=== PATIENT | male | born 1970 | race Caucasian/White ===

== ENCOUNTER → 2016-04-08 | Outpatient (CLI) | payer OTHER ==
[~2016-04-08] MED LIST: ATOR40TA PO; DOXY75CA3 PO; HYDR25TAB PO; LEVA500T PO; LISI20TA PO; METF850T PO; NICO14DI3 TD; PENT40TASA PO; PROA1AER INH; TRIC1TAB PO; TYLE325T5 PO
--- NOTE | 2016-04-08 09:16 | REP ---
Left lower extremity duplex venous ultrasound: Venous insufficiency reflux study. History: Venous ulcer left leg. Comparison is made with prior study from November 17, 2015 which documented extensive reflux with collaterals at multiple levels. Today's venous findings: An anterior accessory greater saphenous vein is present and severe reflux is seen within it. It measures 10.1 mm in AP dimension. Reflux of duration is 3.6 seconds. The greater saphenous vein measures 9 mm in AP dimension at the saphenofemoral junction and 4.3 seconds of significant reflux is observed at this level. At mid thigh, the greater saphenous vein measures 7.3 mm in AP dimension and 4.3 cm of reflux is seen. At the knee, the greater saphenous vein measures 7.4 mm in AP dimension and 4.5 seconds of severe reflux is observed. Impression: Severe reflux is again seen in the greater saphenous and anterior accessory greater saphenous veins. Both sides would appear to be amendable to EVLT. Signed by Mika Dowling MD 04/08/2016 10:23 A
== END | disposition home or self-care (01) ==
LOC: M RAD 06:23
PROVIDERS: ATTEND Surgery
DX: I83.029 Varicose veins of left lower extremity with ulcer of unspecified site (principal)

== ENCOUNTER 2016-05-17 10:29 | Emergency (ER) | payer OTHER ==
[2016-05-17] MEDS ORDERED: NORCO, ANEXSIA 5/325MG TABLET (HYDROcodone/ACETAMINOPHEN) As Ordered ONE (10:59)
--- NOTE | 2016-05-17 11:53 | REP ---
TWO-VIEW CHEST: COMPARISON: 09/26/2011 There is no evidence of acute infiltrate. No pleural effusion is seen. The heart is normal in size. The mediastinal silhouette is unremarkable. The visualized osseous structures are intact. There are degenerative changes of the spine. IMPRESSION: No acute pulmonary disease. Signed by Elijah Modi MD 05/17/2016 04:58 P
--- NOTE | 2016-05-17 11:54 | REP ---
RIGHT SHOULDER: Three views of the right shoulder are performed and demonstrate no fracture or dislocation. There is mild spurring and joint space narrowing of the acromioclavicular joint. IMPRESSION: Mild degenerative changes. No fracture or dislocation. Signed by Elijah Modi MD 05/17/2016 04:58 P
--- NOTE | 2016-05-17 12:07 | EDDOCDS ---
Physician Documentation [facility] Name: Cisco Moss Age: 45 yrs Sex: Male : 1970 Arrival Date: 05/17/2016 Time: 10:29 Bed PR Private MD: Disposition: 05/17/16 11:51 Discharged to Home/Self Care. Impression: Strain of muscle(s) and tendon(s) of the rotator cuff of right shoulder, Strain of muscle and tendon of front wall of thorax. - Condition is Stable. - Discharge Instructions: Chest Wall Pain, Shoulder Sprain. - Prescriptions for Naprosyn 500 mg Oral Tablet - take 1 tablet by ORAL route 2 times per day take with food; 30 tablet. Cyclobenzaprine 10 mg Oral Tablet - take 1 tablet by ORAL route 3 times per day As needed; 15 tablet. - Work Release Form - 3 day, Medication Reconciliation form. - Follow up: Private Physician; When: Call to arrange an appointment; Reason: Wound/Symptom Recheck, Recheck today's complaints, Worsening of conditions, Continuance of care. - Problem is an ongoing problem. - Symptoms have improved. Historical: - Allergies: no known allergies; - Home Meds: 1. lisinopril-hydrochlorothiazide 20-12.5 mg oral tab 1 tab once daily (Last dose: 05/17/2016 07:30) 2. metformin 850 mg Oral tab 3 times per day (Last dose: 05/17/2016 07:30) 3. atorvastatin 40 mg oral tab 1 tab once daily (Last dose: 05/17/2016 07:30) - PMHx: Diverticulitis; Hypertension; Kidney stones; Diabetes - NIDDM: uncontrolled; Obesity; Hypercholesterolemia; - PSHx: vascular surgery; Vasectomy; - Social history: Smoking status: Patient uses tobacco products, current every day smoker. No barriers to communication noted, The patient speaks fluent Tajik, Speaks appropriately for age. - Family history: Not pertinent. - : The pt / caregiver states he / she is not on anticoagulants. Home medication list is obtained from the patient. - Exposure Risk Screening:: None identified. Vital Signs: 05/17 10:31 BP 165 / 104; Pulse 73; Resp 20; Temp 97.2(O); Pulse Ox 98% on R/A; Weight 158.76 kg / nb2 350.01 lbs (R); Height 6 ft. 0 in. (182.88 cm) (R); Pain 7/10; 10:49 BP 166 / 93; Pulse 73; ar3 11:55 BP 160 / 98; Pulse 67; Resp 20; Temp 98.5(TE); Pulse Ox 97% on R/A; Pain 6/10; ar3 10:31 Body Mass Index 47.47 (158.76 kg, 182.88 cm) nb2 MDM: 10:50 HYDROcodone-acetaminophen 5 mg-325 mg 2 tabs PO once ordered. cc10 10:50 Chest, 2 View (pa\E\lat) Ordered. EDMS 10:50 Shoulder, Complete Ordered. EDMS 10:58 Financial registration complete. lg 11:17 [facility] Payment Agreement was scanned into [employer] and attached to record. lg Administered Medications: 11:01 Drug: HYDROcodone-acetaminophen 2 tabs [hydrocodone 5 mg-acetaminophen 325 mg tablet (2 ead tabs)] Route: PO; Signatures: Dispatcher [employer] EDMS Joann Sprague, Reg Reg lg Karo Leal,RN RN dsf Juan M Woo, PA-C PA-C cc10 Migdalia Caceres RN eablair The chart was reviewed and I authenticate all verbal orders and agree with the evaluation and treatment provided.Attachments: 11:17 [facility] Payment Agreement lg MTDD
--- NOTE | 2016-05-17 12:07 | EDDOCDS ---
Nurse's Notes [facility] Name: Cisco Moss Age: 45 yrs Sex: Male : 1970 Arrival Date: 05/17/2016 Time: 10:29 Bed PR Private MD: Diagnosis: Strain of muscle(s) and tendon(s) of the rotator cuff of right shoulder;Strain of muscle and tendon of front wall of thorax Presentation: 05/17 10:36 Presenting complaint: Patient states: 2 days ago working on a vehicle and he heard dsf something pop. pt c/o right shoulder pain, right sided chest pain and it hurts to breath. Acute neurological deficits are not present. Mechanism of Injury: No Mechanism of Injury. Adult Sepsis Screening: The patient does not have new or worsening altered mentation. Patient's respiratory rate is less than 22. Systolic blood pressure is greater than 100. Patient has a qSOFA score of 0- Negative Sepsis Screen. Suicide/Homicide risk assessment- the patient denies having any suicidal and/or homicidal ideations and does not present with any other emotional, behavioral or mental health complaints. 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 Transition of care: patient was not received from another setting of care. 10:36 Acuity: LIANE Level 4 dsf 10:36 Method Of Arrival: Walkin/Carried/Asstd dsf Triage Assessment: 10:38 General: Appears uncomfortable, Behavior is appropriate for age, cooperative. Pain: dsf Location: right shoukder blade area Pain currently is 7 out of 10 on a pain scale. Quality of pain is described as sharp, Aggravated by deep breathing and movement. HIV screening NA for this visit Offered previously. Respiratory: Reports pain with respiration Pain is 10 out of 10 on a pain scale. Musculoskeletal: Reports pain in right shoulder blade. Historical: - Allergies: no known allergies; - Home Meds: 1. lisinopril-hydrochlorothiazide 20-12.5 mg oral tab 1 tab once daily (Last dose: 05/17/2016 07:30) 2. metformin 850 mg Oral tab 3 times per day (Last dose: 05/17/2016 07:30) 3. atorvastatin 40 mg oral tab 1 tab once daily (Last dose: 05/17/2016 07:30) - PMHx: Diverticulitis; Hypertension; Kidney stones; Diabetes - NIDDM: uncontrolled; Obesity; Hypercholesterolemia; - PSHx: vascular surgery; Vasectomy; - Social history: Smoking status: Patient uses tobacco products, current every day smoker. No barriers to communication noted, The patient speaks fluent Kyrgyz, Speaks appropriately for age. - Family history: Not pertinent. - : The pt / caregiver states he / she is not on anticoagulants. Home medication list is obtained from the patient. - Exposure Risk Screening:: None identified. Screenin:04 Screening information is obtained from the patient. Fall risk: No risks identified. dsf Assistance ADL's: requires no assistance with activities of daily living. Abuse/DV Screen: The patient / caregiver reports he/she is: not in a situation that causes fear, pain or injury. Nutritional screening: No deficits noted. Advance Directives: Currently, there is no health care proxy. home support is adequate. Assessment: 12:04 Adult Sepsis Screening: The patient does not have new or worsening altered mentation. dsf Patient's respiratory rate is less than 22. Systolic blood pressure is greater than 100. Patient has a qSOFA score of 0- Negative Sepsis Screen. General: Appears in no apparent distress, comfortable, Behavior is appropriate for age, cooperative. Pain: Location: right shoulder Pain currently is 5 out of 10 on a pain scale. Neurological: No deficits noted. Cardiovascular: No deficits noted. Respiratory: No deficits noted. Derm: Skin is pink, warm & dry. Vital Signs: 10:31 BP 165 / 104; Pulse 73; Resp 20; Temp 97.2(O); Pulse Ox 98% on R/A; Weight 158.76 kg nb2 (R); Height 6 ft. 0 in. (182.88 cm) (R); Pain 7/10; 10:49 BP 166 / 93; Pulse 73; ar3 11:55 BP 160 / 98; Pulse 67; Resp 20; Temp 98.5(TE); Pulse Ox 97% on R/A; Pain 6/10; ar3 10:31 Body Mass Index 47.47 (158.76 kg, 182.88 cm) banner Vitals: 10:31 Log In Time: May 17, 2016 at 10:23. 2 ED Course: 10:31 Patient visited by Oriana Leonard. nb2 10:31 Patient moved to Waiting 2 10:33 Patient visited by Oriana Leonard. nb2 10:33 Patient moved to Pre RCE nb2 10:37 Triage Initiated dsf 10:39 Patient moved to Triage 3 dsf 10:40 Alex Miranda PA-C is PHCP. ar2 10:40 Cyril Aggarwal MD is Attending Physician. ar2 10:40 Patient visited by Alex Miranda PA-C. ar2 10:42 PHCP role handed off by Alex Miranda PA-C cc10 10:42 Juan M Woo PA-C is PHCP. cc10 10:50 Patient visited by Adelina Vigil PCA. ar3 11:01 Patient moved to TR2 ead 11:17 [facility] Payment Agreement was scanned into [employer] and attached to record. lg 11:51 Patient moved to PR1 / 25 ar3 11:55 Patient visited by Adelina Vigil PCA. ar3 12:04 The patient / caregiver is instructed regarding the plan of care and ED course. dsf 12:04 No IV's were initiated during this patient's visit. No procedures done that require dsf assistance. Administered Medications: 11:01 Drug: HYDROcodone-acetaminophen 2 tabs [hydrocodone 5 mg-acetaminophen 325 mg tablet (2 ead tabs)] Route: PO; Order Results: There are currently no results for this order. Outcome: 11:51 Discharge ordered by Provider. cc10 12:04 Discharge Assessment: Patient awake, alert and oriented x 3. No cognitive and/or dsf functional deficits noted. Patient verbalized understanding of disposition instructions. patient administered narcotics - no. The following High Risk Discharge criteria are identified: None. Discharged to home ambulatory. Condition: stable. Discharge instructions given to patient, Instructed on discharge instructions, follow up and referral plans. medication usage, no driving heavy equipment, Demonstrated understanding of instructions, medications, Pt was receptive of discharge instructions/ teaching. Prescriptions given X 2, Work note provided to patient. No special radiology studies were completed. Property sent home with patient. 12:06 Patient left the ED. dsf Signatures: Joann Sprague, Reg Reg lg Alex Miranda PA-C PA-C ar2 Adelina Vigil PCA GASOLINE TRACTOR OPERATOR ar3 Karo Leal RN RN dsf Migdalia Caceres RN RN ead Juan M Woo, PA-C PA-C cc10 Oriana Leonard MTDD
--- NOTE | 2016-05-19 13:06 | EDDOCDS ---
Physician Documentation [facility] Name: Cisco Moss Age: 45 yrs Sex: Male : 1970 Arrival Date: 05/17/2016 Time: 10:29 Bed PR Private MD: Disposition: 05/17/16 11:51 Discharged to Home/Self Care. Impression: Strain of muscle(s) and tendon(s) of the rotator cuff of right shoulder, Strain of muscle and tendon of front wall of thorax. - Condition is Stable. - Discharge Instructions: Chest Wall Pain, Shoulder Sprain. - Prescriptions for Naprosyn 500 mg Oral Tablet - take 1 tablet by ORAL route 2 times per day take with food; 30 tablet. Cyclobenzaprine 10 mg Oral Tablet - take 1 tablet by ORAL route 3 times per day As needed; 15 tablet. - Work Release Form - 3 day, Medication Reconciliation form. - Follow up: Private Physician; When: Call to arrange an appointment; Reason: Wound/Symptom Recheck, Recheck today's complaints, Worsening of conditions, Continuance of care. - Problem is an ongoing problem. - Symptoms have improved. Historical: - Allergies: no known allergies; - Home Meds: 1. lisinopril-hydrochlorothiazide 20-12.5 mg oral tab 1 tab once daily (Last dose: 05/17/2016 07:30) 2. metformin 850 mg Oral tab 3 times per day (Last dose: 05/17/2016 07:30) 3. atorvastatin 40 mg oral tab 1 tab once daily (Last dose: 05/17/2016 07:30) - PMHx: Diverticulitis; Hypertension; Kidney stones; Diabetes - NIDDM: uncontrolled; Obesity; Hypercholesterolemia; - PSHx: vascular surgery; Vasectomy; - Social history: Smoking status: Patient uses tobacco products, current every day smoker. No barriers to communication noted, The patient speaks fluent Yi, Speaks appropriately for age. - Family history: Not pertinent. - : The pt / caregiver states he / she is not on anticoagulants. Home medication list is obtained from the patient. - Exposure Risk Screening:: None identified. Vital Signs: 05/17 10:31 BP 165 / 104; Pulse 73; Resp 20; Temp 97.2(O); Pulse Ox 98% on R/A; Weight 158.76 kg / nb2 350.01 lbs (R); Height 6 ft. 0 in. (182.88 cm) (R); Pain 7/10; 10:49 BP 166 / 93; Pulse 73; ar3 11:55 BP 160 / 98; Pulse 67; Resp 20; Temp 98.5(TE); Pulse Ox 97% on R/A; Pain 6/10; ar3 12:06 Pain 5/10; dsf 10:31 Body Mass Index 47.47 (158.76 kg, 182.88 cm) nb2 MDM: 10:50 HYDROcodone-acetaminophen 5 mg-325 mg 2 tabs PO once ordered. cc10 10:50 Chest, 2 View (pa\E\lat) Ordered. EDMS 10:50 Shoulder, Complete Ordered. EDMS 10:58 Financial registration complete. lg 11:17 [facility] Payment Agreement was scanned into [employer] and attached to record. lg Administered Medications: 11:01 Drug: HYDROcodone-acetaminophen 2 tabs [hydrocodone 5 mg-acetaminophen 325 mg tablet (2 ead tabs)] Route: PO; 12:06 Follow up: Pain 5/10 Adult; Response: Confirmed pt not driving. dsf Signatures: Dispatcher [employer] EDMS Joann Sprague, Reg Reg lg Karo Leal RN RN dsf Juan M Woo PA-C PA-C ccMigdalia Ye RN The chart was reviewed and I authenticate all verbal orders and agree with the evaluation and treatment provided.Attachments: 11:17 [facility] Payment Agreement lg Chart Complete MTDD
--- NOTE | 2016-05-19 13:06 | EDDOCDS ---
Physician Documentation [facility] Name: Cisco Moss Age: 45 yrs Sex: Male : 1970 Arrival Date: 05/17/2016 Time: 10:29 Bed PR Private MD: Disposition: 05/17/16 11:51 Discharged to Home/Self Care. Impression: Strain of muscle(s) and tendon(s) of the rotator cuff of right shoulder, Strain of muscle and tendon of front wall of thorax. - Condition is Stable. - Discharge Instructions: Chest Wall Pain, Shoulder Sprain. - Prescriptions for Naprosyn 500 mg Oral Tablet - take 1 tablet by ORAL route 2 times per day take with food; 30 tablet. Cyclobenzaprine 10 mg Oral Tablet - take 1 tablet by ORAL route 3 times per day As needed; 15 tablet. - Work Release Form - 3 day, Medication Reconciliation form. - Follow up: Private Physician; When: Call to arrange an appointment; Reason: Wound/Symptom Recheck, Recheck today's complaints, Worsening of conditions, Continuance of care. - Problem is an ongoing problem. - Symptoms have improved. Historical: - Allergies: no known allergies; - Home Meds: 1. lisinopril-hydrochlorothiazide 20-12.5 mg oral tab 1 tab once daily (Last dose: 05/17/2016 07:30) 2. metformin 850 mg Oral tab 3 times per day (Last dose: 05/17/2016 07:30) 3. atorvastatin 40 mg oral tab 1 tab once daily (Last dose: 05/17/2016 07:30) - PMHx: Diverticulitis; Hypertension; Kidney stones; Diabetes - NIDDM: uncontrolled; Obesity; Hypercholesterolemia; - PSHx: vascular surgery; Vasectomy; - Social history: Smoking status: Patient uses tobacco products, current every day smoker. No barriers to communication noted, The patient speaks fluent Turkmen, Speaks appropriately for age. - Family history: Not pertinent. - : The pt / caregiver states he / she is not on anticoagulants. Home medication list is obtained from the patient. - Exposure Risk Screening:: None identified. Vital Signs: 05/17 10:31 BP 165 / 104; Pulse 73; Resp 20; Temp 97.2(O); Pulse Ox 98% on R/A; Weight 158.76 kg / nb2 350.01 lbs (R); Height 6 ft. 0 in. (182.88 cm) (R); Pain 7/10; 10:49 BP 166 / 93; Pulse 73; ar3 11:55 BP 160 / 98; Pulse 67; Resp 20; Temp 98.5(TE); Pulse Ox 97% on R/A; Pain 6/10; ar3 12:06 Pain 5/10; dsf 10:31 Body Mass Index 47.47 (158.76 kg, 182.88 cm) nb2 MDM: 10:50 HYDROcodone-acetaminophen 5 mg-325 mg 2 tabs PO once ordered. cc10 10:50 Chest, 2 View (pa\E\lat) Ordered. EDMS 10:50 Shoulder, Complete Ordered. EDMS 10:58 Financial registration complete. lg 11:17 [facility] Payment Agreement was scanned into [employer] and attached to record. lg Administered Medications: 11:01 Drug: HYDROcodone-acetaminophen 2 tabs [hydrocodone 5 mg-acetaminophen 325 mg tablet (2 ead tabs)] Route: PO; 12:06 Follow up: Pain 5/10 Adult; Response: Confirmed pt not driving. dsf Signatures: Dispatcher [employer] EDMS Joann Sprague, Reg Reg lg Karo Leal RN RN dsf Juan M Woo PA-C PA-C ccMigdalia Ye RN The chart was reviewed and I authenticate all verbal orders and agree with the evaluation and treatment provided.Attachments: 11:17 [facility] OF [facility] Payment Agreement lg Chart Complete MTDD
--- NOTE | 2016-05-19 13:06 | EDDOCDS ---
Nurse's Notes [facility] Name: Cisco Moss Age: 45 yrs Sex: Male : 1970 Arrival Date: 05/17/2016 Time: 10:29 Bed PR Private MD: Diagnosis: Strain of muscle(s) and tendon(s) of the rotator cuff of right shoulder;Strain of muscle and tendon of front wall of thorax Presentation: 05/17 10:36 Presenting complaint: Patient states: 2 days ago working on a vehicle and he heard dsf something pop. pt c/o right shoulder pain, right sided chest pain and it hurts to breath. Acute neurological deficits are not present. Mechanism of Injury: No Mechanism of Injury. Adult Sepsis Screening: The patient does not have new or worsening altered mentation. Patient's respiratory rate is less than 22. Systolic blood pressure is greater than 100. Patient has a qSOFA score of 0- Negative Sepsis Screen. Suicide/Homicide risk assessment- the patient denies having any suicidal and/or homicidal ideations and does not present with any other emotional, behavioral or mental health complaints. 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 Transition of care: patient was not received from another setting of care. 10:36 Acuity: LIANE Level 4 dsf 10:36 Method Of Arrival: Walkin/Carried/Asstd dsf Triage Assessment: 10:38 General: Appears uncomfortable, Behavior is appropriate for age, cooperative. Pain: dsf Location: right shoukder blade area Pain currently is 7 out of 10 on a pain scale. Quality of pain is described as sharp, Aggravated by deep breathing and movement. HIV screening NA for this visit Offered previously. Respiratory: Reports pain with respiration Pain is 10 out of 10 on a pain scale. Musculoskeletal: Reports pain in right shoulder blade. Historical: - Allergies: no known allergies; - Home Meds: 1. lisinopril-hydrochlorothiazide 20-12.5 mg oral tab 1 tab once daily (Last dose: 05/17/2016 07:30) 2. metformin 850 mg Oral tab 3 times per day (Last dose: 05/17/2016 07:30) 3. atorvastatin 40 mg oral tab 1 tab once daily (Last dose: 05/17/2016 07:30) - PMHx: Diverticulitis; Hypertension; Kidney stones; Diabetes - NIDDM: uncontrolled; Obesity; Hypercholesterolemia; - PSHx: vascular surgery; Vasectomy; - Social history: Smoking status: Patient uses tobacco products, current every day smoker. No barriers to communication noted, The patient speaks fluent [place], Speaks appropriately for age. - Family history: Not pertinent. - : The pt / caregiver states he / she is not on anticoagulants. Home medication list is obtained from the patient. - Exposure Risk Screening:: None identified. Screenin:04 Screening information is obtained from the patient. Fall risk: No risks identified. dsf Assistance ADL's: requires no assistance with activities of daily living. Abuse/DV Screen: The patient / caregiver reports he/she is: not in a situation that causes fear, pain or injury. Nutritional screening: No deficits noted. Advance Directives: Currently, there is no health care proxy. home support is adequate. Assessment: 12:04 Adult Sepsis Screening: The patient does not have new or worsening altered mentation. dsf Patient's respiratory rate is less than 22. Systolic blood pressure is greater than 100. Patient has a qSOFA score of 0- Negative Sepsis Screen. General: Appears in no apparent distress, comfortable, Behavior is appropriate for age, cooperative. Pain: Location: right shoulder Pain currently is 5 out of 10 on a pain scale. Neurological: No deficits noted. Cardiovascular: No deficits noted. Respiratory: No deficits noted. Derm: Skin is pink, warm & dry. Vital Signs: 10:31 BP 165 / 104; Pulse 73; Resp 20; Temp 97.2(O); Pulse Ox 98% on R/A; Weight 158.76 kg nb2 (R); Height 6 ft. 0 in. (182.88 cm) (R); Pain 7/10; 10:49 BP 166 / 93; Pulse 73; ar3 11:55 BP 160 / 98; Pulse 67; Resp 20; Temp 98.5(TE); Pulse Ox 97% on R/A; Pain 6/10; ar3 12:06 Pain 5/10; dsf 10:31 Body Mass Index 47.47 (158.76 kg, 182.88 cm) [facility] Vitals: 10:31 Log In Time: May 17, 2016 at 10:23. [facility] ED Course: 10:31 Patient visited by Oriana Leonard. nb2 10:31 Patient moved to Waiting nb2 10:33 Patient visited by Oriana Leonard. nb2 10:33 Patient moved to Pre RCE nb2 10:37 Triage Initiated dsf 10:39 Patient moved to Triage 3 dsf 10:40 Alex Miranda PA-C is PHCP. ar2 10:40 Cyril Aggarwal MD is Attending Physician. ar2 10:40 Patient visited by Alex Miranda PA-C. ar2 10:42 PHCP role handed off by Alex Miranda PA-C cc10 10:42 Juan M Woo PA-C is PHCP. cc10 10:50 Patient visited by Adelina Vigil PCA. ar3 11:01 Patient moved to TR2 ead 11:17 [facility] Payment Agreement was scanned into [employer] and attached to record. lg 11:51 Patient moved to PR1 / 25 ar3 11:55 Patient visited by Adelina Vigil PCA. ar3 12:04 The patient / caregiver is instructed regarding the plan of care and ED course. dsf 12:04 No IV's were initiated during this patient's visit. No procedures done that require dsf assistance. 12:07 Chest, 2 View (pa\E\lat) Returned. EDMS 12:07 Shoulder, Complete Returned. EDMS Administered Medications: 11:01 Drug: HYDROcodone-acetaminophen 2 tabs [hydrocodone 5 mg-acetaminophen 325 mg tablet (2 ead tabs)] Route: PO; 12:06 Follow up: Pain 5/10 Adult; Response: Confirmed pt not driving. dsf Order Results: Radiology Order: Chest, 2 View (pa\E\lat) Test: Chest, 2 View (pa\E\lat) REASON FOR EXAMINATION: Shortness of Breath; TWO-VIEW CHEST:; ; COMPARISON: 09/26/2011; ; There is no evidence of acute infiltrate.; ; No pleural effusion is seen.; ; The heart is normal in size.; ; The mediastinal silhouette is unremarkable.; ; The visualized osseous structures are intact.; ; There are degenerative changes of the spine.; ; IMPRESSION:; ; No acute pulmonary disease.; ; ; Signed by; Elijah Modi MD 05/17/2016 04:58 P; Radiology Order: Shoulder, Complete Test: Shoulder, Complete REASON FOR EXAMINATION: Trauma; RIGHT SHOULDER:; ; Three views of the right shoulder are performed and demonstrate no fracture or; dislocation. There is mild spurring and joint space narrowing of the; acromioclavicular joint.; ; IMPRESSION:; ; Mild degenerative changes. No fracture or dislocation.; ; ; Signed by; Elijah Modi MD 05/17/2016 04:58 P; Outcome: 11:51 Discharge ordered by Provider. cc10 12:04 Discharge Assessment: Patient awake, alert and oriented x 3. No cognitive and/or dsf functional deficits noted. Patient verbalized understanding of disposition instructions. patient administered narcotics - no. The following High Risk Discharge criteria are identified: None. Discharged to home ambulatory. Condition: stable. Discharge instructions given to patient, Instructed on discharge instructions, follow up and referral plans. medication usage, no driving heavy equipment, Demonstrated understanding of instructions, medications, Pt was receptive of discharge instructions/ teaching. Prescriptions given X 2, Work note provided to patient. No special radiology studies were completed. Property sent home with patient. 12:06 Patient left the ED. dsf Signatures: Dispatcher [employer] EDMS Joann Sprague, Reg Reg lg Alex Miranda, LORENZOC PAWeiC ar2 Adelina Vigil, WASTEWATER T[employer]ATMENT PLANT OPERATOR WASTEWATER TREATMENT PLANT OPERATOR ar3 Karo Leal RN RN dsf Migdalia Caceres RN RN ead [place], Colin, DONALDO PAElizabeth cc10 Oriana Leonard2 Chart Complete MTDD
== END 2016-05-17 12:06 | disposition home or self-care (01) ==
LOC: M ED 10:29
DX: S46.911A Strain of unspecified muscle, fascia and tendon at shoulder and upper arm level, right arm, initial encounter (principal); S29.011A Strain of muscle and tendon of front wall of thorax, initial encounter; K57.92 Diverticulitis of intestine, part unspecified, without perforation or abscess without bleeding; I10 Essential (primary) hypertension; E11.9 Type 2 diabetes mellitus without complications; E66.9 Obesity, unspecified; E78.00 Pure hypercholesterolemia, unspecified; F17.210 Nicotine dependence, cigarettes, uncomplicated; Z79.899 Other long term (current) drug therapy; Z68.42 Body mass index [BMI] 45.0-49.9, adult; X58.XXXA Exposure to other specified factors, initial encounter; Y92.89 Other specified places as the place of occurrence of the external cause; Y93.89 Activity, other specified; Y99.9 Unspecified external cause status

== ENCOUNTER 2016-05-26 10:17 | Emergency (ER) | payer OTHER ==
[~2016-05-26] VITALS: Ht 182.9 cm; Wt 169.2 kg
[2016-05-26] MEDS ORDERED: HYDR-3713 PO (10:47)
[2016-05-26] MEDS ORDERED: MOBI7.5T10 PO (12:04)
[2016-05-26] MEDS ORDERED: ZANA4TAB PO (12:06)
[2016-05-26 12:28] VITALS: BP 127/79
== END 2016-05-26 12:44 | disposition home or self-care (01) ==
LOC: M ED 11:31
DX: M54.6 Pain in thoracic spine (principal); R07.89 Other chest pain; S43.401A Unspecified sprain of right shoulder joint, initial encounter; X58.XXXA Exposure to other specified factors, initial encounter; Y92.89 Other specified places as the place of occurrence of the external cause; Y93.89 Activity, other specified; Y99.0 Civilian activity done for income or pay; I10 Essential (primary) hypertension; E11.9 Type 2 diabetes mellitus without complications; E78.5 Hyperlipidemia, unspecified; F17.210 Nicotine dependence, cigarettes, uncomplicated; Z79.899 Other long term (current) drug therapy

== ENCOUNTER 2016-10-03 13:16 | Emergency (ER) | payer OTHER, SELFPAY ==
[~2016-10-03] VITALS: Ht 182.9 cm; Wt 173.7 kg
[~2016-10-03 13:16] MED LIST changes: -ATOR40TA PO; +ATOR40TA75 PO; +HYDR-3713 PO; +LEVA1TAB2 PO; -LEVA500T PO; -METF850T PO; +METF850T4 PO; +MOBI4TAB PO; -PROA1AER INH; +PROAAER10 INH; +ZANA4TAB PO
[2016-10-03] MEDS ORDERED: ONDANSETRON 4MG/2ML VIAL (J2405) IV ONE (13:30)
[2016-10-03] MEDS ORDERED: MORPHINE 4 MG/ML 1ML SYRINGE IV ONE ×2 (13:30→16:30)
[2016-10-03] MEDS ORDERED: METF10004 PO (13:30)
--- NOTE | 2016-10-03 14:05 | REP ---
Chest two views HISTORY: Cellulitis Comparison: 05/17/2016 The lungs are clear. The heart is normal in size. The pulmonary vasculature is normal in appearance. The bony structure is intact. IMPRESSION: No acute disease. Signed by Macho Hayes MD 10/03/2016 01:55 P
--- NOTE | 2016-10-03 14:41 | REP ---
LEFT TIBIA, FIBULA, FOUR VIEWS: HISTORY: Cellulitis. There is no acute fracture or dislocation. The joint spaces are normal in appearance. Osteophytes are present on the inferior and posterior calcaneus. IMPRESSION: There is no acute fracture or dislocation. Signed by Macho Hayes MD 10/03/2016 02:42 P
[2016-10-03 14:53] LABS: BASO % 0.4 % (0.0-1.0); EOS # 0.3 K/mm3 (0.0-0.50); EOS % 2.7 % (0.0-3.0); LARGE UNSTAINED CELL # 0.1 K/mm3 (0.0-0.4); LARGE UNSTAINED CELL % 1.1 % (0.0-4.0); LYMPH # 1.5 K/mm3 (1.5-4.5); LYMPH % 12.3 % (24.0-44.0); MEAN CORPUSCULAR HEMOGLOBIN 31.4 pg (27.0-33.0); MEAN CORPUSCULAR VOLUME 92.6 fl (80.0-96.0); MONO # 0.6 K/mm3 (0.0-0.8); MONO % 5.8 % (0.0-5.0); NEUTROPHILS # 8.5 K/mm3 (1.8-7.7); NEUTROPHILS % 77.7 % (36.0-66.0); PLATELET COUNT, AUTOMATED 239 k/mm3 (150-450); RED CELL DISTRIBUTION WIDTH 12.8 % (11.5-14.5); WHITE BLOOD COUNT 10.9 K/mm3 (4.0-10.0)
[2016-10-03 14:57] LABS: INR 0.95
[2016-10-03] MEDS ORDERED: LISI10TA4 PO (14:59)
[2016-10-03] MEDS ORDERED: ALBU17IN INH (14:59)
[2016-10-03 15:00] LABS: ALBUMIN 3.7 GM/DL (3.2-5.2); ALBUMIN/GLOBULIN RATIO 1.16 (1.00-1.93); ALKALINE PHOSPHATASE 82 U/L (45-117); ALT/SGPT 35 U/L (12-78); ANION GAP 4 MEQ/L (8-16); AST/SGOT 15 U/L (15-37); BILIRUBIN,DIRECT 0.1 MG/DL (0.0-0.2); BILIRUBIN,TOTAL 0.4 MG/DL (0.2-1.0); BLOOD UREA NITROGEN 11 MG/DL (7-18); CALCIUM LEVEL 8.9 MG/DL (8.5-10.1); CARBON DIOXIDE LEVEL 29 MEQ/L (21-32); CHLORIDE LEVEL 107 MEQ/L (98-107); GLOMERULAR FILTRATION RATE > 60.0 (>60); GLUCOSE, FASTING 82 MG/DL (70-105); SODIUM LEVEL 140 MEQ/L (136-145); TOTAL PROTEIN 6.9 GM/DL (6.4-8.2)
[2016-10-03] MEDS ORDERED: SANT250O8 TOP (15:02)
[2016-10-03] MEDS ORDERED: LISI-538 PO (15:02)
--- NOTE | 2016-10-03 15:10 | REP ---
BILATERAL LOWER EXTREMITY DUPLEX VEINS: HISTORY: Rule out DVT. The examination is very limited secondary to body habitus. RIGHT LOWER EXTREMITY: There are no filling defects in the deep venous system. The deep venous system is patent. IMPRESSION: There is no deep venous thrombosis. LEFT LOWER EXTREMITY: There are no filling defects in the deep venous system. The deep venous system is patent. A varicose vein is present in the left mid thigh. Enlarged lymph nodes 3.8 x 4.4 cm are present in the left groin. IMPRESSION: 1. There is no deep venous thrombosis. 2. There are two enlarged lymph nodes in the left groin. Signed by Macho Hayes MD 10/03/2016 03:20 P
[2016-10-03 15:12] LABS: ERYTHROCYTE SEDIMENTATION RATE 9 mm/hr (0-15)
[2016-10-03] MEDS ORDERED: VANCOMYCIN HCL 1,000 MG, VIAL MATE ADAPTER 1 EACH in D5W 250 ML IV ONE (15:15)
[2016-10-03] MEDS ORDERED: PIPERACILLIN/TAZOBACTAM SOD 3.375 GM in D5W MINI-BAG PLUS 50 ML IV ONE (15:15)
[2016-10-03] MEDS ORDERED: BACT800T5 PO (17:30)
[2016-10-03 18:13] VITALS: BP 119/60
--- NOTE | 2016-10-04 07:55 | ER ---
DATE OF CONSULTATION: 10/03/2016 PRIMARY CARE PROVIDER: [facility]. CHIEF COMPLAINT: Left ankle pain. 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 He previously followed with Dr. Graham for many years and had improvement in his ulcer, however, when he was displeased with Dr. Graham's progress, he did seek a second opinion with an alternative hoop expander. Since then, the patient has reportedly been noncompliant with medications and dressing changes and notes a worsening of it. He also has had some worsening pain of the left ankle. He denies fevers, chills, chest pain, shortness of breath, nausea, vomiting, or diarrhea. 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 PAST MEDICAL HISTORY: 1. Obesity. 2. Type 2 diabetes. 3. Hypertension. 4. Dyslipidemia. 5. Asthma. 6. Gastroesophageal reflux disease (GERD). 7. Obstructive sleep apnea. ALLERGIES: The patient has no known drug allergies. PAST SURGICAL HISTORY: Vasectomy and vascular surgery of the left leg in 2014. SOCIAL HISTORY: Smokes half a pack a day. 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 He is and takes care of five children. He is currently unemployed. He has been noncompliant and admits to this. FAMILY HISTORY: Noncontributory. REVIEW OF SYSTEMS: Negative other than in history of present illness (HPI). HOME MEDICATIONS: - Ventolin two puffs four times a day as needed for shortness of breath - collagenase 250 units topically daily - lisinopril 20 mg daily - metformin 1 gram twice a day PHYSICAL EXAMINATION: VITAL SIGNS: Temperature 96.9, pulse 66, respiratory rate 16, blood pressure 149/66, oxygen saturation 96% on room air. GENERAL: He is an obese, man, laying in bed comfortably, in no distress. HEENT: Cranial nerves II-XII are grossly intact. He has an enlarged neck. CARDIOVASCULAR EXAM: S1, S2, regular. RESPIRATORY EXAM: Clear. ABDOMINAL EXAM: Grossly obese. EXTREMITIES: No clubbing, cyanosis, or edema. He has a chronic wound. No obvious areas of fresh erythema. No streaking. No lymphangitis. No palpable lymphadenopathy in the inguinal area or popliteal area. He does have a silver dollar sized superficial ulcer with serous drainage. LABORATORY STUDIES: WBC 10.9, hemoglobin 14.5, hematocrit 42.8, platelet count 239. Chemistry panel: Sodium 140, potassium 4.0, chloride 107, bicarbonate 29, BUN 11, creatinine 0.7, CRP is 1.3. ESR is 9. INR is 0.9. Blood cultures have been drawn and wound cultures have been drawn in the emergency room. The patient did have a duplex ultrasound that revealed no deep venous thrombosis (DVT). He had a tibia/fibula x-ray that revealed no acute fracture or dislocation. He also had a chest x-ray that revealed no acute disease. ASSESSMENT AND PLAN: This is a 46-year-old man with possible cellulitis of the left lower extremity. 1. Possible cellulitis. The patient has some serous discharge and does have a chronic wound there with some mild worsening and pain. He may have some very mild superficial cellulitis in the surrounding area, however he is not febrile, he does not have significant leukocytosis, he is not tachycardic, he is not hemodynamically unstable, he is tolerating by mouth quite well. There is no evidence of advancing infection. I feel that the worsening of his wound is likely secondary to noncompliance and not due to actually any serious or deep infection. He has a flat ESR and unimpressive C-reactive protein (CRP). I have recommended that he take Bactrim DS twice a day for 10 days and followup closely with his wound care and if he had better results with Dr. Graham, consider going back to him. I have also suggested and stressed strict compliance with all medical therapies and dressing changes as advised by providers as this wound will not get any better unless he does this and he could have worsening super infections that could threaten his limb. Given that he is unemployed and has difficulty caring for the wound at home, I have asked a social work msw to see him prior to him leaving the emergency room to ensure that he is able to receive wound care supplies. He has established with two wound clinics at this time and I feel he is better served by visiting them. His international trade specialist does not see him should he be admitted to this hospital and he does not wish to be seen by Dr. Graham who he was seen previously by. Plan of care was discussed with Dr. Modi. ROSANNA
== END 2016-10-03 18:20 | disposition home or self-care (01) ==
LOC: M ED 13:16 → EDBD 13:16 → M ED 18:20
DX: E11.622 Type 2 diabetes mellitus with other skin ulcer (principal); B95.62 Methicillin resistant Staphylococcus aureus infection as the cause of diseases classified elsewhere; B96.1 Klebsiella pneumoniae [K. pneumoniae] as the cause of diseases classified elsewhere; I11.0 Hypertensive heart disease with heart failure; F32.9 Major depressive disorder, single episode, unspecified; E78.00 Pure hypercholesterolemia, unspecified; Z87.442 Personal history of urinary calculi
CPT/HCPCS: 36415; 71020; 73590; 80048; 80076; 83605; 85025; 85610; 85652; 85730; 86140; 87040; 87070; 87077; 87186; 87205; 93041; 93970; 94760; 96365; 96375; 96376; 99285; J2405; J2543; J3370

== ENCOUNTER 2016-11-02 20:00 | Emergency (ER) | payer OTHER ==
[~2016-11-02] VITALS: Ht 182.9 cm; Wt 179.6 kg
[~2016-11-02 20:00] MED LIST changes: +ALBU17IN INH; +BACT800T5 PO; +LISI-538 PO; +LISI10TA4 PO; +METF10004 PO; +SANT250O8 TOP
[2016-11-02 20:11] VITALS: BP 140/91
[2016-11-02 22:00] LABS: ADD MANUAL DIFFER YES; MEAN CORPUSCULAR HEMOGLOBIN 31.8 pg (27.0-33.0); MEAN CORPUSCULAR HGB CONC 34.5 g/dl (32.0-36.5); PLATELET COUNT, AUTOMATED 268 k/mm3 (150-450); RED CELL DISTRIBUTION WIDTH 12.5 % (11.5-14.5); WHITE BLOOD COUNT 10.5 K/mm3 (4.0-10.0)
[2016-11-02 22:07] LABS: ALBUMIN 4.2 GM/DL (3.2-5.2); ALBUMIN/GLOBULIN RATIO 1.27 (1.00-1.93); ALKALINE PHOSPHATASE 89 U/L (45-117); ALT/SGPT 28 U/L (12-78); ANION GAP 5 MEQ/L (8-16); AST/SGOT 12 U/L (15-37); BILIRUBIN,TOTAL 0.5 MG/DL (0.2-1.0); BLOOD UREA NITROGEN 17 MG/DL (7-18); CALCIUM LEVEL 8.7 MG/DL (8.5-10.1); CARBON DIOXIDE LEVEL 29 MEQ/L (21-32); CHLORIDE LEVEL 108 MEQ/L (98-107); CREATININE FOR GFR 0.88 MG/DL (0.70-1.30); GLOMERULAR FILTRATION RATE > 60.0 (>60); GLUCOSE, FASTING 92 MG/DL (70-105); POTASSIUM SERUM 4.1 MEQ/L (3.5-5.1); SODIUM LEVEL 142 MEQ/L (136-145); TOTAL PROTEIN 7.5 GM/DL (6.4-8.2)
[2016-11-02] MEDS ORDERED: PERCOCET 5MG/325MG TAB PO ONE (22:15)
[2016-11-02] MEDS ORDERED: DOXY100C37 PO (22:33)
[2016-11-02 22:36] LABS: EOSINOPHILS 4 % (0-5)
== END 2016-11-02 22:54 | disposition home or self-care (01) ==
LOC: M ED 20:00
DX: L03.116 Cellulitis of left lower limb (principal); L89.524 Pressure ulcer of left ankle, stage 4; E11.621 Type 2 diabetes mellitus with foot ulcer; I87.2 Venous insufficiency (chronic) (peripheral); I10 Essential (primary) hypertension; J42 Unspecified chronic bronchitis; F17.210 Nicotine dependence, cigarettes, uncomplicated; Z79.899 Other long term (current) drug therapy; Z79.84 Long term (current) use of oral hypoglycemic drugs

== ENCOUNTER 2016-12-13 13:57 | Inpatient (IN) | payer OTHER ==
[~2016-12-13] VITALS: Ht 182.9 cm; Wt 182.8 kg
[~2016-12-13 13:57] MED LIST changes: +DOXY100C37 PO
[2016-12-13] MEDS ORDERED: MORPHINE 4 MG/ML 1ML SYRINGE IV PRN (16:00)
[2016-12-13] MEDS ORDERED: ONDANSETRON 4MG/2ML VIAL (J2405) IV ONE (16:00)
[2016-12-13 16:07] LABS: BASO % 0.3 % (0.0-1.0); EOS # 0.3 10^3/uL (0.0-0.50); EOS % 1.9 % (0.0-3.0); IMMATURE GRANULOCYTE % 0.4 % (0-0); LYMPH # 1.3 10^3/uL (1.5-4.5); LYMPH % 10.4 % (24.0-44.0); MEAN CORPUSCULAR HEMOGLOBIN 30.9 pg (27.0-33.0); MEAN CORPUSCULAR VOLUME 93.5 fl (80.0-96.0); MONO # 0.9 10^3/uL (0.0-0.8); MONO % 6.9 % (0.0-5.0); NEUTROPHILS # 10.3 10^3/uL (1.8-7.7); NEUTROPHILS % 80.1 % (36.0-66.0); PLATELET COUNT, AUTOMATED 277 10^3/uL (150-450); RED CELL DISTRIBUTION WIDTH 13.1 % (11.5-14.5); WHITE BLOOD COUNT 12.9 10^3/uL (4.0-10.0)
[2016-12-13 16:25] LABS: ALBUMIN 3.3 GM/DL (3.2-5.2); ALBUMIN/GLOBULIN RATIO 1.03 (1.00-1.93); ALKALINE PHOSPHATASE 72 U/L (45-117); ALT/SGPT 31 U/L (12-78); ANION GAP 8 MEQ/L (8-16); AST/SGOT 12 U/L (15-37); BILIRUBIN,DIRECT 0.1 MG/DL (0.0-0.2); BILIRUBIN,TOTAL 0.4 MG/DL (0.2-1.0); BLOOD UREA NITROGEN 14 MG/DL (7-18); CALCIUM LEVEL 8.4 MG/DL (8.5-10.1); CARBON DIOXIDE LEVEL 29 MEQ/L (21-32); CHLORIDE LEVEL 107 MEQ/L (98-107); CREATININE FOR GFR 0.64 MG/DL (0.70-1.30); GLOMERULAR FILTRATION RATE > 60.0 (>60); GLUCOSE, FASTING 101 MG/DL (70-105); SODIUM LEVEL 144 MEQ/L (136-145); TOTAL PROTEIN 6.5 GM/DL (6.4-8.2)
[2016-12-13 16:36] LABS: ERYTHROCYTE SEDIMENTATION RATE 12 mm/hr (0-15)
[2016-12-13] MEDS ORDERED: VANCOMYCIN HCL 1,000 MG, VIAL MATE ADAPTER 1 EACH in D5W 250 ML IV ONE ×3 (16:45→20:00)
[2016-12-13] MEDS ORDERED: MORPHINE 4 MG/ML 1ML SYRINGE IV ONE (16:45)
[2016-12-13] MEDS ORDERED: ACETAMINOPHEN TAB 650MG DOSE (2X325MG) PO PRN (17:00)
[2016-12-13] MEDS ORDERED: BISACODYL 5 MG TAB PO PRN (17:00)
[2016-12-13] MEDS ORDERED: ONDANSETRON 4MG/2ML VIAL (J2405) IV PRN (17:00)
[2016-12-13] MEDS ORDERED: ALBU17IN INH (17:09)
[2016-12-13] MEDS ORDERED: SANT250O8 TOP (17:09)
[2016-12-13] MEDS: NS 1,000 ML IV SCH ×2 (17:39→23:55)
--- NOTE | 2016-12-13 18:21 | HPEPDOC ---
General Date of Admission Dec 13, 2016 at 16:48 Primary Care Physician: Gisela Fields Chief Complaint The patient is a 46-year-old male admitted with a reason for visit of Osteomyelitis. Source: Patient Exam Limitations: No limitations Timing/Duration: Day(s) (4) Severity: Severe History of Present Illness 46 y/o male with past medical history of HTN, DM2, hyperlipidemia, neuropathy, NIMCO who presents today with complaint of increasing pain and swelling of left lower extremity., pt states that for the past few days the pain in his left lateral ankle has been increasing. He admits he cannot afford many of the proper diabetic wound supplies and has been supplementing with diapers to use as bandages to wrap it in. He used to see Dr. Graham for wound care and a local crystal grinder, but has not seen any health care provider for his ankle ulcer in about "2-6 months" (pt gives vague history). He states that the pain is constant in the left lower extremity but the pain has been getting worse for the past few days and really progressed today. He denied chills or fever but states that his legs swell very badly by the end of the day. The pain extends up the left leg to her knee and every once in a while he will experience a " jolt of pain" in the left leg. He knew he needed to come into the hospital because the pain was unbearable. He does have a history of diabetic ulcer in the same location at which he was admitted last year for, apparently this is an ongoing issue for him. Home Medications Scheduled Collagenase (Santyl) 250 Unit/Gm Oin, 1 DOSE TOP DAILY, (Reported) APPLY TO WOUND ON LEG Scheduled PRN Albuterol Sulfate (Ventolin Hfa) 200 Puff/8 Gm Aers, 2 PUFF INH QID PRN for SHORTNESS OF BREATH, (Reported) Allergies Coded Allergies: No Known Drug Allergy (Verified Allergy, Unknown, 06/20/12) Past Medical History Medical History htn gerd hyperlipidemia neuropathy nimco hx diabetic left lateral ankle ulcer Family History Significant Family History: No pertinent family hx Social History * Smoker: current smoker (1/2 ppd for past 20 years) Alcohol: Denies Drugs: denies has been out of work for a couple weeks due to pain, 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 Review of Symptoms Constitutional: Reports: Malaise, Weakness, Fatigue, Denies: Chills, Fever, Night Sweats, Weight Loss Eyes: Denies: Pain, Vision change, Conjunctivae inflammation ENT: Reports: Head Aches, Denies: Ear Pain Skin: Reports: Lesions (left lateral ankle), Denies: Rash, Jaundice, Bruising Pulmonary: Denies: Dyspnea, Cough Cardiovascular: Denies: Chest Pain, Palpitations, Orthopnea Gastrointestinal: Denies: Nausea, Vomiting, Abdominal Pain, Diarrhea, Constipation Genitourinary: Denies: Dysuria Hematologic: Denies: Bruising, Bleeding Excessively Neurological: Denies: Weakness, Numbness, Incoordination Psych: Reports: Mood Normal Physical Examination General Exam: Positive: Alert, Cooperative, Moderate Distress Eye Exam: Positive: Conjunctiva & lids normal, EOMI, Negative: Sclera icteric, Ptosis ENT Exam: Positive: Atraumatic, Mucous membr. moist/pink, Pharynx Normal, Tongue Midline, Nares Patent Neck Exam: Negative: JVD Chest Exam: Positive: Clear to auscultation, Normal air movement, Diminished, Negative: Rales, Rhonchi, Wheezing Heart Exam: Positive: Rate Normal, Normal S1, Normal S2, Negative: Gallops, Murmurs, Rubs Telemetry: Positive: No significant arrhythmia Abdomen Exam: Positive: Normal bowel sounds, Soft, Negative: Tenderness, Hepatospenomegaly, Mass Extremity Exam: Positive: Edema (Left LE), Normal pulses, Tenderness (left LE) , Swelling (b/l pitting +1 LE), Negative: Clubbing, Cyanosis Skin Exam: Positive: Breakdown (left lateral ankle diabetic ulcer grade 4 on imaging), Other skin issue (red, tender, swelling left lower extremity +2), Negative: Pruritus Psych Exam: Positive: Mental status NL, Oriented x 3 Vital Signs Vital Signs Date Time Temp Pulse Resp B/P (MAP) Pulse Ox O2 Delivery O2 Flow Rate FiO2 12/13/16 17:35 18 12/13/16 14:20 12/13/16 14:07 98.2 81 96 Room Air Laboratory Data Labs 24H Laboratory Tests 2 12/13/16 15:05: White Blood Count 12.9H, Red Blood Count 4.44, Hemoglobin 13.7L, Hematocrit 41.5L, Mean Corpuscular Volume 93.5, Mean Corpuscular Hemoglobin 30.9, Mean Corpuscular Hemoglobin Concent 33.0, Red Cell Distribution Width 13.1, Platelet Count 277, Neutrophils (%) (Auto) 80.1H, Lymphocytes (%) (Auto) 10.4L, Monocytes (%) (Auto) 6.9H, Eosinophils (%) (Auto) 1.9, Basophils (%) (Auto) 0.3 , Neutrophils # (Auto) 10.3H, Lymphocytes # (Auto) 1.3L, Monocytes # (Auto) 0.9H , Eosinophils # (Auto) 0.3, Basophils # (Auto) 0.0, Immature Granulocyte # (Auto ) 0.1H, Nucleated Red Blood Cells % (auto) 0.0, Erythrocyte Sedimentation Rate 12, Anion Gap 8, Glomerular Filtration Rate > 60.0, Calcium Level 8.4L, Aspartate Amino Transf (AST/SGOT) 12L, Alanine Aminotransferase (ALT/SGPT) 31, Alkaline Phosphatase 72, Total Bilirubin 0.4, Direct Bilirubin 0.1, C-Reactive Protein, Quantitative 1.23H, Total Protein 6.5, Albumin 3.3, Albumin/Globulin Ratio 1.03 CBC/BMP Laboratory Tests 12/13/16 15:05 Red Blood Count 4.44, Mean Corpuscular Volume 93.5, Mean Corpuscular Hemoglobin 30.9, Mean Corpuscular Hemoglobin Concent 33.0, Red Cell Distribution Width 13.1 , Neutrophils (%) (Auto) 80.1 H, Lymphocytes (%) (Auto) 10.4 L, Monocytes (%) ( Auto) 6.9 H, Eosinophils (%) (Auto) 1.9, Basophils (%) (Auto) 0.3, Neutrophils # (Auto) 10.3 H, Lymphocytes # (Auto) 1.3 L, Monocytes # (Auto) 0.9 H, Eosinophils # (Auto) 0.3, Basophils # (Auto) 0.0 Microbiology Microbiology 12/13/16 Blood Culture, Received Pending 12/13/16 Blood Culture, Received Pending 12/13/16 Wound Culture, Received Pending Problems (1) Osteomyelitis Status: Acute Response to Treatment: Stable Problem Text: afebrile white count 12.9 preliminary x-ray showed suspect osteomyelitis of left lateral distal fibula surgery consulted-greatly appreciate their recommendations, may have to be debrided wound and blood cx pending begin Vancomycin, cover for pseudomonas cefepime 2 gm IV q12h pain control morphine and oxy and tylenol (2) HTN (hypertension) Status: Chronic Problem Text: stable 135/86 (3) Hyperlipemia Status: Chronic Response to Treatment: Stable Problem Text: stable (4) DM type 2 (diabetes mellitus, type 2) Status: Chronic Response to Treatment: Stable Problem Text: sliding scale insulin (5) DVT prophylaxis Status: Acute Response to Treatment: Stable Problem Text: heparin therapy Plan / VTE VTE Prophylaxis Ordered?: Yes GME ATTESTATION GME ATTESTATION My preceptor for this patient encounter was physically present in the building during the encounter and was fully available. As needed, all aspects of the patient interview, examination, medical decision making process, and medical care plan development were reviewed and approved by the preceptor. Preceptor is aware and concurs with the plan as stated in the body of this note and will attest to such by his/her cosignature. CHRIS ORTIZ DO Dec 13, 2016 18:21
[2016-12-13] MEDS ORDERED: cefTAZidime 2 GM in D5W MINI-BAG PLUS 100 ML IV SCH (18:30)
--- NOTE | 2016-12-13 18:59 | REP ---
LEFT ANKLE: Four views of the left ankle are performed. Large soft tissue ulcer is seen laterally. The adjacent distal fibula demonstrates slightly irregular periosteal reaction. I suspect osteomyelitis involving the distal fibula. There is no acute fracture or dislocation. The ankle mortise is anatomic. There is diffuse soft-tissue swelling. There is calcaneal spurring as well as spurring of the tarsal bones. Signed by Elijah Modi MD 12/14/2016 05:19 P
--- NOTE | 2016-12-13 20:21 | CR.PDOC ---
[facility] Consultation Consultation DATE OF CONSULTATION: Dec 13, 2016 at 13:57 REFERRING PROVIDER: Dr. Alvarado ATTENDING PHYSICIAN: Dr. Anderson REASON FOR CONSULTATION/CHIEF COMPLAINT: Venous ulcer HISTORY OF PRESENT ILLNESS: Mr. Peck is a 46, year-old white male, past medical history of hypertension, type 2 diabetes, hyperlipidemia, neuropathy, NIMCO , presents to the ED today with 2 days of painful venous stasis ulcer. He reports a two-year history of venous stasis ulcer. Patient was seeing Dr. 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 Patient states that when he was originally diagnosed, he had surgery on this left leg ulcer. However he was unable to afford the compression stockings needed for proper wound care. And as such his wound never really healed. Patient also states that he cannot afford wound dressing and Supplies. He uses diapers to wrap his left foot ulcer. He presented to the ED today because his pain is getting worse, to the point that is affecting his ability to walk. Patient admits to yellowish drainage from the foot ulcer. He denies fevers and chills. ALLERGIES: Please see below. HOME MEDICATIONS: Please see below. PAST MEDICAL HISTORY: Hypertension GERD Venous stasis MRSA in left foot ulcer Diabetes type 2 NIMCO PAST SURGICAL HISTORY: Stasis of vein surgery FAMILY HISTORY: Noncontributory SOCIAL HISTORY: current smoker (1/2 ppd for past 20 years), denies alcohol denies drugs. Patient is currently without a job REVIEW OF SYSTEMS: CONSTITUTIONAL: Denies fevers denies chills or night sweats with CARDIOVASCULAR: No chest pain no palpitations RESPIRATORY: Shortness of breath GENITOURINARY: No issues urinating, eyes hematuria MUSCULOSKELETAL: Admits to left foot pain. GASTROINTESTINAL: Eyes nausea vomiting. SKIN: Admits to red coloring, and pus drainage from the left stasis venous ulcer. PHYSICAL EXAMINATION: VITAL SIGNS: Please see below. GENERAL APPEARANCE: Obese gentleman RESPIRATORY: Lungs are clear to auscultate bilaterally CARDIOVASCULAR: S1 and S2 present, no murmurs, no rubs, soda. ABDOMEN: Obese abdomen. EXTREMITIES: Left leg is edematous.3+ pitting edema, Normal pulses, Tenderness to palpate left leg SKIN: Erythematous, crusted, yellow purulent drainage from a left stasis ulcer located laterally on the left leg. Ulcer is about 2.5 x 2 x 1 cm in size LABORATORY DATA: Please see below. ASSESSMENT/PLAN: 1. A 46-year-old, obese gentleman presents with a two-year history of left stasis venous ulcer. In the past 2 days the pain has increased to the point that it is unbearable. The left leg is visibly edematous, with yellow crusty/ purulent drainage from the leg. Plan: Venous ulcer, most likely from venous insufficiency along with severe lymphedema. Pt will be admitted for wound care. Wet-to-dry wound care will be applied. Jeff wrap will be applied from the ankle to the knee. The leg will be elevated. Patient's bed will be gatched to allow for decrease swelling. Wound care has been consulted. PT has been consulted with instructions to use pulse lavage. I expect patient be on inpatient status for about a week, for proper wound care. Patient has been placed on bedrest, with instructions to get up to use the bathroom. I also recommend that patient speak to a bariatric surgeon about gastric bypass. Vital Signs/I&O Vital Signs Date Time Temp Pulse Resp B/P (MAP) Pulse Ox O2 Delivery O2 Flow Rate FiO2 12/13/16 19:00 97.6 72 20 96 12/13/16 18:01 174/80 (111) 12/13/16 14:07 Room Air I&O- Last 24 Hours up to 6 AM 12/14/16 06:00 Intake Total 0 ml Output Total 0 ml Balance 0 ml Laboratory Data Labs 24H Laboratory Tests 2 12/13/16 15:05: White Blood Count 12.9H, Red Blood Count 4.44, Hemoglobin 13.7L, Hematocrit 41.5L, Mean Corpuscular Volume 93.5, Mean Corpuscular Hemoglobin 30.9, Mean Corpuscular Hemoglobin Concent 33.0, Red Cell Distribution Width 13.1, Platelet Count 277, Neutrophils (%) (Auto) 80.1H, Lymphocytes (%) (Auto) 10.4L, Monocytes (%) (Auto) 6.9H, Eosinophils (%) (Auto) 1.9, Basophils (%) (Auto) 0.3 , Neutrophils # (Auto) 10.3H, Lymphocytes # (Auto) 1.3L, Monocytes # (Auto) 0.9H , Eosinophils # (Auto) 0.3, Basophils # (Auto) 0.0, Immature Granulocyte # (Auto ) 0.1H, Nucleated Red Blood Cells % (auto) 0.0, Erythrocyte Sedimentation Rate 12, Anion Gap 8, Glomerular Filtration Rate > 60.0, Calcium Level 8.4L, Aspartate Amino Transf (AST/SGOT) 12L, Alanine Aminotransferase (ALT/SGPT) 31, Alkaline Phosphatase 72, Total Bilirubin 0.4, Direct Bilirubin 0.1, C-Reactive Protein, Quantitative 1.23H, Total Protein 6.5, Albumin 3.3, Albumin/Globulin Ratio 1.03 CBC/BMP Laboratory Tests 12/13/16 15:05 Red Blood Count 4.44, Mean Corpuscular Volume 93.5, Mean Corpuscular Hemoglobin 30.9, Mean Corpuscular Hemoglobin Concent 33.0, Red Cell Distribution Width 13.1 , Neutrophils (%) (Auto) 80.1 H, Lymphocytes (%) (Auto) 10.4 L, Monocytes (%) ( Auto) 6.9 H, Eosinophils (%) (Auto) 1.9, Basophils (%) (Auto) 0.3, Neutrophils # (Auto) 10.3 H, Lymphocytes # (Auto) 1.3 L, Monocytes # (Auto) 0.9 H, Eosinophils # (Auto) 0.3, Basophils # (Auto) 0.0 Microbiology Microbiology 12/13/16 Blood Culture, Received Pending 12/13/16 Blood Culture, Received Pending 12/13/16 Wound Culture, Received Pending Allergies Coded Allergies: No Known Drug Allergy (Verified Allergy, Unknown, 06/20/12) Home Medications Scheduled Collagenase (Santyl) 250 Unit/Gm Oin, 1 DOSE TOP DAILY, (Reported) APPLY TO WOUND ON LEG Scheduled PRN Albuterol Sulfate (Ventolin Hfa) 200 Puff/8 Gm Aers, 2 PUFF INH QID PRN for SHORTNESS OF BREATH, (Reported) GME ATTESTATION GME ATTESTATION My preceptor for this patient encounter was physically present in the building during the encounter and was fully available. As needed, all aspects of the patient interview, examination, medical decision making process, and medical care plan development were reviewed and approved by the preceptor. Preceptor is aware and concurs with the plan as stated in the body of this note and will attest to such by his/her cosignature. KATHRINE ABBOTT DO Dec 13, 2016 20:21
[2016-12-13] MEDS ORDERED: DEXTROSE 50% 50 ML SYRINGE IV PRN (20:45)
[2016-12-13] MEDS ORDERED: GLUCOSE 4 GM CHEW TABLET PO PRN (20:45)
[2016-12-13] MEDS ORDERED: GLUCAGON FOR INJ 1 MG VIAL (J1610) SC PRN (20:45)
[2016-12-13] MEDS: HumaLOG INSULIN (NovoLOG) PER UNIT SC SCH (21:00)
[2016-12-13] MEDS: SENOKOT S TAB PO SCH (21:00)
--- NOTE | 2016-12-13 21:40 | REPUSA ---
MRI of the right ankle Clinical statement: Wound on the lateral aspect. Rule out osteomyelitis. Technique: Multiecho multiplanar MRI images of the ankle were obtained before and after administratio n of intravenous gadolinium contrast. No comparison is available. Findings: Ligaments and tendons: The anterior, medial and lateral tendons of the ankle demonstrate normal signa l and contour. The Achilles tendon is within normal limits. The medial and lateral ligament complexes are intact. Articular cartilage: Uniform signal and contour seen throughout the articular cartilage, with no oste ochondral defects appreciated. Bones: The osseous structures demonstrate uniform signal. No osseous tumors or lesions are seen. The bone marrow is unremarkable. Soft tissues: A large open wound is seen lateral to the distal tibia, measuring 4.3 x 1.4 cm. The roland rounding soft tissues are diffusely swollen, most severe along the lateral aspect. Extensive soft tis cynthia edema is noted at the site. The musculature appears within normal limits. No evidence of a joint effusion is seen. Numerous varicose veins are seen in the lateral distal calf. Impression: 1. No focal osseous abnormality. No evidence of osteomyelitis. 2. Large open wound along the lateral ankle joint. 3. Extensive soft tissue edema and inflammation throughout the ankle joint, most prominent along the lateral aspect. No focal mass or abscess is identified. The findings are most consistent with diffuse cellulitis. Clinical correlation is recommended. ORZATA
[2016-12-13] MEDS: MORPHINE 2 MG/ML 1ML SYRINGE IV PRN (21:54)
[2016-12-13 22:00] VITALS: BP 157/85
[2016-12-13] MEDS: HEPARIN SOD (PORCINE) 5000 UNITS/ML VIAL SC SCH (22:55)
[2016-12-13] MEDS: CEFEPIME HCL 2 GM in D5W MINI-BAG PLUS 50 ML IV SCH (23:54)
[2016-12-14] MEDS: VANCOMYCIN HCL 1,000 MG, VIAL MATE ADAPTER 1 EACH in D5W 250 ML IV SCH ×3 (02:26→17:51)
[2016-12-14] MEDS: VANCOMYCIN HCL 500 MG in D5W MINI-BAG PLUS 100 ML IV SCH ×3 (03:59→19:43)
[2016-12-14 06:00] VITALS: BP 151/95
[2016-12-14] MEDS: HEPARIN SOD (PORCINE) 5000 UNITS/ML VIAL SC SCH ×3 (06:28→21:51)
[2016-12-14 06:29] LABS: BASO # 0.1 10^3/uL (0.0-0.2); BASO % 0.6 % (0.0-1.0); EOS # 0.3 10^3/uL (0.0-0.50); EOS % 3.1 % (0.0-3.0); IMMATURE GRANULOCYTE % 0.3 % (0-0); LYMPH # 1.2 10^3/uL (1.5-4.5); LYMPH % 13.2 % (24.0-44.0); MEAN CORPUSCULAR HEMOGLOBIN 30.5 pg (27.0-33.0); MEAN CORPUSCULAR HGB CONC 32.2 g/dl (32.0-36.5); MEAN CORPUSCULAR VOLUME 94.9 fl (80.0-96.0); MONO # 0.9 10^3/uL (0.0-0.8); MONO % 9.6 % (0.0-5.0); NEUTROPHILS # 6.6 10^3/uL (1.8-7.7); NEUTROPHILS % 73.2 % (36.0-66.0); PLATELET COUNT, AUTOMATED 256 10^3/uL (150-450); RED CELL DISTRIBUTION WIDTH 13.2 % (11.5-14.5)
[2016-12-14 06:50] LABS: ANION GAP 6 MEQ/L (8-16); BLOOD UREA NITROGEN 14 MG/DL (7-18); CALCIUM LEVEL 8.6 MG/DL (8.5-10.1); CARBON DIOXIDE LEVEL 30 MEQ/L (21-32); CHLORIDE LEVEL 104 MEQ/L (98-107); CREATININE FOR GFR 0.69 MG/DL (0.70-1.30); GLOMERULAR FILTRATION RATE > 60.0 (>60); GLUCOSE, FASTING 106 MG/DL (70-105); POTASSIUM SERUM 4.3 MEQ/L (3.5-5.1); SODIUM LEVEL 140 MEQ/L (136-145)
[2016-12-14] MEDS ORDERED: LACTOBACILLUS ACIDOPHILUS CAP (BACID) PO SCH (08:00)
[2016-12-14] MEDS: SENOKOT S TAB PO SCH ×2 (08:48→21:51)
[2016-12-14] MEDS: CEFEPIME HCL 2 GM in D5W MINI-BAG PLUS 50 ML IV SCH ×2 (08:48→21:52)
[2016-12-14] MEDS: LACTOBACILLUS ACIDOPHILUS CAP (BACID) PO SCH ×2 (08:48→17:52)
[2016-12-14] MEDS: HumaLOG INSULIN (NovoLOG) PER UNIT SC SCH ×4 (08:48→21:00)
[2016-12-14] MEDS: NS 1,000 ML IV SCH (08:49)
[2016-12-14] MEDS: MORPHINE 2 MG/ML 1ML SYRINGE IV PRN ×3 (08:54→22:14)
[2016-12-14] MEDS: PERCOCET 5MG/325MG TAB PO PRN ×3 (09:47→17:52)
--- NOTE | 2016-12-14 10:54 | IPNPDOC ---
Date Seen The patient was seen on 12/14/16. Progress Note SUBJECTIVE: Mr. Peck is a 46, year-old white male, past medical history of hypertension, type 2 diabetes, hyperlipidemia, neuropathy, NIMCO , presents to the ED today with 2 days of painful venous stasis ulcer. He reports a two-year history of venous stasis ulcer. This morning patient reports pain in his ulcer has decreased. He feels the pain is "less raw". He remained on bedrest overnight. His wound was cleaned and Jeff wrap from ankle to knee on the left foot. Patient started antibiotics overnight. He remained afebrile overnight. OBJECTIVE PHYSICAL EXAMINATION: VITAL SIGNS: Please see below. GENERAL: Obese gentleman, resting comfortably in bed. CARDIOVASCULAR: S1 and S2 present, no murmurs, no rubs, gallops RESPIRATORY: Clear to auscultate lungs. EXTREMITIES: Left leg appears to be decreased in edema, as compared to initial presentation. Left leg vein is also has been clean and debrided. Left leg venous ulcer is less erythematous, less crusty, and decreased purulent drainage. LABORATORY DATA: Please see below. MICROBIOLOGY: Please see below. IMAGING: X-ray showed: Large soft tissue ulcer is seen laterally. MRI of the left ankle was read as: 1. No focal osseous abnormality. No evidence of osteomyelitis. 2. Large open wound along the lateral ankle joint. 3. Extensive soft tissue edema and inflammation throughout the ankle joint, most prominent along the lateral aspect. No focal mass or abscess is identified. The findings are most consistent with diffuse cellulitis. Clinical correlation is recommended. ASSESSMENT AND PLAN: A 46-year-old male presents with a two-year history venous ulcer cellulitis, most likely caused by venous insufficiency.Wet-to-dry wound care will be applied along with jeff wrap from the ankle to the knee 3 times a day. Patient has been instructed to keep his leg elevated, patient's bed gatched to assist in leg elevation. Wound care has seen the patient, currently working with the plan to perhaps start wound VAC tomorrow. Physical therapy is on board with instructions to perform pulsed lavage. Patient has been placed on bedrest with instructions only get up to use the bathroom. In terms of clinical presentation patient has a normal white count as of today. The leg has decreased in erythema, decreased in purulent drainage, he also has decreased edema along will decrease pain. Patient will continue his inpatient status for about a week with continue wound care, jeff wrap and proper antibiotics. VS, I&O, 24H, Fishbone Vital Signs/I&O Vital Signs Date Time Temp Pulse Resp B/P (MAP) Pulse Ox O2 Delivery O2 Flow Rate FiO2 12/14/16 10:17 18 Room Air 12/14/16 06:00 97.3 64 151/95 (113) 92 I&O- Last 24 Hours up to 6 AM 12/15/16 06:00 Intake Total 300 ml Balance 300 ml Laboratory Data 24H LABS Laboratory Tests 2 12/13/16 15:05: White Blood Count 12.9H, Red Blood Count 4.44, Hemoglobin 13.7L, Hematocrit 41.5L, Mean Corpuscular Volume 93.5, Mean Corpuscular Hemoglobin 30.9, Mean Corpuscular Hemoglobin Concent 33.0, Red Cell Distribution Width 13.1, Platelet Count 277, Neutrophils (%) (Auto) 80.1H, Lymphocytes (%) (Auto) 10.4L, Monocytes (%) (Auto) 6.9H, Eosinophils (%) (Auto) 1.9, Basophils (%) (Auto) 0.3 , Neutrophils # (Auto) 10.3H, Lymphocytes # (Auto) 1.3L, Monocytes # (Auto) 0.9H , Eosinophils # (Auto) 0.3, Basophils # (Auto) 0.0, Immature Granulocyte # (Auto ) 0.1H, Nucleated Red Blood Cells % (auto) 0.0, Erythrocyte Sedimentation Rate 12, Anion Gap 8, Glomerular Filtration Rate > 60.0, Calcium Level 8.4L, Aspartate Amino Transf (AST/SGOT) 12L, Alanine Aminotransferase (ALT/SGPT) 31, Alkaline Phosphatase 72, Total Bilirubin 0.4, Direct Bilirubin 0.1, C-Reactive Protein, Quantitative 1.23H, Total Protein 6.5, Albumin 3.3, Albumin/Globulin Ratio 1.03 12/13/16 21:54: Bedside Glucose (Misc Panel) 107H 12/14/16 05:34: White Blood Count 9.0, Red Blood Count 4.49, Hemoglobin 13.7L, Hematocrit 42.6, Mean Corpuscular Volume 94.9, Mean Corpuscular Hemoglobin 30.5, Mean Corpuscular Hemoglobin Concent 32.2, Red Cell Distribution Width 13.2, Platelet Count 256, Neutrophils (%) (Auto) 73.2H, Lymphocytes (%) (Auto) 13.2L, Monocytes (%) (Auto) 9.6H, Eosinophils (%) (Auto) 3.1H, Basophils (%) (Auto) 0.6 , Neutrophils # (Auto) 6.6, Lymphocytes # (Auto) 1.2L, Monocytes # (Auto) 0.9H, Eosinophils # (Auto) 0.3, Basophils # (Auto) 0.1, Immature Granulocyte # (Auto) 0.0, Nucleated Red Blood Cells % (auto) 0.0, Anion Gap 6L, Glomerular Filtration Rate > 60.0, Calcium Level 8.6, Estimated Mean Plasma Glucose 123H, Hemoglobin A1c 5.9, Blood Urea Nitrogen 14, Creatinine 0.69L, Sodium Level 140, Potassium Level 4.3, Chloride Level 104, Carbon Dioxide Level 30, Triglycerides Level 269H, LDL Cholesterol 52.2, Total Cholesterol 143, Non-HDL Cholesterol ( LDL + VLDL) 106, Total HDL Cholesterol 37L, Cholesterol/HDL Ratio 3.864, Thyroid Stimulating Hormone (TSH) 1.290 CBC/BMP Laboratory Tests 12/13/16 15:05 Red Blood Count 4.44, Mean Corpuscular Volume 93.5, Mean Corpuscular Hemoglobin 30.9, Mean Corpuscular Hemoglobin Concent 33.0, Red Cell Distribution Width 13.1 , Neutrophils (%) (Auto) 80.1 H, Lymphocytes (%) (Auto) 10.4 L, Monocytes (%) ( Auto) 6.9 H, Eosinophils (%) (Auto) 1.9, Basophils (%) (Auto) 0.3, Neutrophils # (Auto) 10.3 H, Lymphocytes # (Auto) 1.3 L, Monocytes # (Auto) 0.9 H, Eosinophils # (Auto) 0.3, Basophils # (Auto) 0.0 12/14/16 05:34 Red Blood Count 4.49, Mean Corpuscular Volume 94.9, Mean Corpuscular Hemoglobin 30.5, Mean Corpuscular Hemoglobin Concent 32.2, Red Cell Distribution Width 13.2 , Neutrophils (%) (Auto) 73.2 H, Lymphocytes (%) (Auto) 13.2 L, Monocytes (%) ( Auto) 9.6 H, Eosinophils (%) (Auto) 3.1 H, Basophils (%) (Auto) 0.6, Neutrophils # (Auto) 6.6, Lymphocytes # (Auto) 1.2 L, Monocytes # (Auto) 0.9 H, Eosinophils # (Auto) 0.3, Basophils # (Auto) 0.1, Calcium Level 8.6 Microbiology Microbiology 12/13/16 Blood Culture, Received Pending 12/13/16 Blood Culture, Received Pending 12/13/16 Wound Culture, Received Pending GME ATTESTATION GME ATTESTATION My preceptor for this patient encounter was physically present in the building during the encounter and was fully available. As needed, all aspects of the patient interview, examination, medical decision making process, and medical care plan development were reviewed and approved by the preceptor. Preceptor is aware and concurs with the plan as stated in the body of this note and will attest to such by his/her cosignature. KATHRINE ABBOTT DO Dec 14, 2016 10:54
--- NOTE | 2016-12-14 11:53 | IPNPDOC ---
Date Seen The patient was seen on 12/14/16. Progress Note SUBJECTIVE: Patient is a 46 y/o male with hx of DM, and vascular insufficiency with previous admissions for cellulitis admitted for LLE ulcer and pain. Pt notes that the pain has improved since arriving to the hospital. States he had some discomfort with walking yesterday, but otherwise has noted some improvement in both the swelling and pain. Still has some shooting pain down the leg, but less frequent. Did not require any pain medication last night. Denies feeling feverish, chills, or any other associated sxs. Pt shared his concerns regarding his support system at home and inability to obtain proper wound care as OP due to not having an available wound care appt until next month. OBJECTIVE PHYSICAL EXAMINATION: VITAL SIGNS: Please see below. GENERAL: pleasant, resting in bed, LLE elevated, NAD HEENT: normocephalic, atraumatic CARDIOVASCULAR: normal S1/S2, no murmurs, rubs or gallops, RRR. RESPIRATORY: lungs CTA bilaterally ABDOMINAL: bowel sounds present, soft, non tender EXTREMITIES: diffuse non pitting edema from foot up to knee to right lower extremity, no ulcerations noted. no interdigital lesions or ulceration. No evidence if fungal infection or drainage. LLE wrapped with HEMA bandage for compression. Pulses intact to bilateral LE, dorsalis pedis 2+. NEUROLOGICAL: A&Ox3, no focal deficits PSYCHOLOGICAL: normal affect, pleasant LABORATORY DATA: Please see below. MICROBIOLOGY: Please see below. IMAGING: MRI Right Ankle- Impression: 1. No focal osseous abnormality. No evidence of osteomyelitis. 2. Large open wound along the lateral ankle joint. 3. Extensive soft tissue edema and inflammation throughout the ankle joint, most prominent along the lateral aspect. No focal mass or abscess is identified. The findings are most consistent with diffuse cellulitis. Clinical correlation is recommended. DVT prophylaxis ordered?: Heparin ASSESSMENT AND PLAN: This is a 46 y/o male with hx of cellulitis, DM, and vascular insufficiency admitted for cellulitis of the LLE, particularly around the ankle. PROBLEMS: 1. Cellulitis: Pt's pain improving. MRI negative for evidence of osteomyelitis and WBC improved today. General surgery consulted at the time of admission, appreciate recommendations. Pt will have wound changes 3x per day and wound care is on board. Gen surgery recommends dressing changes as well as elevation, bed rest, HEMA wrap and only ambulating to use the bathroom. Plan to continue Vanco and Cefepime due to patient's hx of MRSA and for further coverage until wound culture results come back and will deescalate at that point. Blood cultures also pending. Will continue Percocet for moderate and severe pain and tylenol for mild pain. Pt also expressed concerned regarding OP follow up, advised patient we can discuss with his importance of OP follow up and proper wound care as OP for resolution of wound. Will ensure prompt OP follow up with his PCP for a new wound care clinic per the patient's request. 2. Leukocytosis (improving): Decreased 12.9 to 9.0 currently. The patient is to continue Vanco and Cefepime until wound culture results come back and will deescalate appropriately 3. Hx of DM- non insulin dependent. HbA1c 5.9 here. Currently on ISS, will continue. 4. Hx of HTN- not on home meds, stable. DISPOSITION: Continue wound care as per general surgery. Will follow blood and wound cultures. . VS, I&O, 24H, Jianbone Vital Signs/I&O Vital Signs Date Time Temp Pulse Resp B/P (MAP) Pulse Ox O2 Delivery O2 Flow Rate FiO2 12/14/16 06:00 97.3 64 17 151/95 (113) 92 Room Air Laboratory Data 24H LABS Laboratory Tests 2 12/13/16 15:05: White Blood Count 12.9H, Red Blood Count 4.44, Hemoglobin 13.7L, Hematocrit 41.5L, Mean Corpuscular Volume 93.5, Mean Corpuscular Hemoglobin 30.9, Mean Corpuscular Hemoglobin Concent 33.0, Red Cell Distribution Width 13.1, Platelet Count 277, Neutrophils (%) (Auto) 80.1H, Lymphocytes (%) (Auto) 10.4L, Monocytes (%) (Auto) 6.9H, Eosinophils (%) (Auto) 1.9, Basophils (%) (Auto) 0.3 , Neutrophils # (Auto) 10.3H, Lymphocytes # (Auto) 1.3L, Monocytes # (Auto) 0.9H , Eosinophils # (Auto) 0.3, Basophils # (Auto) 0.0, Immature Granulocyte # (Auto ) 0.1H, Nucleated Red Blood Cells % (auto) 0.0, Erythrocyte Sedimentation Rate 12, Anion Gap 8, Glomerular Filtration Rate > 60.0, Calcium Level 8.4L, Aspartate Amino Transf (AST/SGOT) 12L, Alanine Aminotransferase (ALT/SGPT) 31, Alkaline Phosphatase 72, Total Bilirubin 0.4, Direct Bilirubin 0.1, C-Reactive Protein, Quantitative 1.23H, Total Protein 6.5, Albumin 3.3, Albumin/Globulin Ratio 1.03 12/13/16 21:54: Bedside Glucose (Misc Panel) 107H 12/14/16 05:34: White Blood Count 9.0, Red Blood Count 4.49, Hemoglobin 13.7L, Hematocrit 42.6, Mean Corpuscular Volume 94.9, Mean Corpuscular Hemoglobin 30.5, Mean Corpuscular Hemoglobin Concent 32.2, Red Cell Distribution Width 13.2, Platelet Count 256, Neutrophils (%) (Auto) 73.2H, Lymphocytes (%) (Auto) 13.2L, Monocytes (%) (Auto) 9.6H, Eosinophils (%) (Auto) 3.1H, Basophils (%) (Auto) 0.6 , Neutrophils # (Auto) 6.6, Lymphocytes # (Auto) 1.2L, Monocytes # (Auto) 0.9H, Eosinophils # (Auto) 0.3, Basophils # (Auto) 0.1, Immature Granulocyte # (Auto) 0.0, Nucleated Red Blood Cells % (auto) 0.0, Anion Gap 6L, Glomerular Filtration Rate > 60.0, Calcium Level 8.6, Estimated Mean Plasma Glucose 123H, Hemoglobin A1c 5.9, Blood Urea Nitrogen 14, Creatinine 0.69L, Sodium Level 140, Potassium Level 4.3, Chloride Level 104, Carbon Dioxide Level 30, Triglycerides Level 269H, LDL Cholesterol 52.2, Total Cholesterol 143, Non-HDL Cholesterol ( LDL + VLDL) 106, Total HDL Cholesterol 37L, Cholesterol/HDL Ratio 3.864, Thyroid Stimulating Hormone (TSH) 1.290 CBC/BMP Laboratory Tests 12/13/16 15:05 Red Blood Count 4.44, Mean Corpuscular Volume 93.5, Mean Corpuscular Hemoglobin 30.9, Mean Corpuscular Hemoglobin Concent 33.0, Red Cell Distribution Width 13.1 , Neutrophils (%) (Auto) 80.1 H, Lymphocytes (%) (Auto) 10.4 L, Monocytes (%) ( Auto) 6.9 H, Eosinophils (%) (Auto) 1.9, Basophils (%) (Auto) 0.3, Neutrophils # (Auto) 10.3 H, Lymphocytes # (Auto) 1.3 L, Monocytes # (Auto) 0.9 H, Eosinophils # (Auto) 0.3, Basophils # (Auto) 0.0 12/14/16 05:34 Red Blood Count 4.49, Mean Corpuscular Volume 94.9, Mean Corpuscular Hemoglobin 30.5, Mean Corpuscular Hemoglobin Concent 32.2, Red Cell Distribution Width 13.2 , Neutrophils (%) (Auto) 73.2 H, Lymphocytes (%) (Auto) 13.2 L, Monocytes (%) ( Auto) 9.6 H, Eosinophils (%) (Auto) 3.1 H, Basophils (%) (Auto) 0.6, Neutrophils # (Auto) 6.6, Lymphocytes # (Auto) 1.2 L, Monocytes # (Auto) 0.9 H, Eosinophils # (Auto) 0.3, Basophils # (Auto) 0.1, Calcium Level 8.6 Microbiology Microbiology 12/13/16 Blood Culture, Received Pending 12/13/16 Blood Culture, Received Pending 12/13/16 Wound Culture, Received Pending GME ATTESTATION GME ATTESTATION My preceptor for this patient encounter was physically present in the building during the encounter and was fully available. As needed, all aspects of the patient interview, examination, medical decision making process, and medical care plan development were reviewed and approved by the preceptor. Preceptor is aware and concurs with the plan as stated in the body of this note and will attest to such by his/her cosignature. ATTENDING NOTE Discussed all aspects of the evaluation with the resident. Patient was independently evaluated and will continue to be seen by a hospitalist during the course of this hospital stay. CLAIRE JOHNSON DO Dec 14, 2016 08:31 WYATT ARMENTA DO Dec 15, 2016 14:01
[2016-12-14 14:00] VITALS: BP 147/98
[2016-12-14 22:00] VITALS: BP 151/92
[2016-12-15] MEDS: VANCOMYCIN HCL 1,000 MG, VIAL MATE ADAPTER 1 EACH in D5W 250 ML IV SCH ×3 (02:26→17:40)
[2016-12-15] MEDS: VANCOMYCIN HCL 500 MG in D5W MINI-BAG PLUS 100 ML IV SCH ×3 (03:00→19:28)
[2016-12-15 06:00] VITALS: BP 150/89
[2016-12-15 06:11] LABS: BASO # 0.1 10^3/uL (0.0-0.2); BASO % 0.6 % (0.0-1.0); EOS # 0.3 10^3/uL (0.0-0.50); EOS % 4.1 % (0.0-3.0); IMMATURE GRANULOCYTE % 0.4 % (0-0); LYMPH # 1.2 10^3/uL (1.5-4.5); LYMPH % 15.7 % (24.0-44.0); MEAN CORPUSCULAR HEMOGLOBIN 30.2 pg (27.0-33.0); MEAN CORPUSCULAR HGB CONC 32.5 g/dl (32.0-36.5); MEAN CORPUSCULAR VOLUME 93.1 fl (80.0-96.0); MONO # 0.8 10^3/uL (0.0-0.8); MONO % 10.2 % (0.0-5.0); NEUTROPHILS # 5.4 10^3/uL (1.8-7.7); PLATELET COUNT, AUTOMATED 259 10^3/uL (150-450); RED CELL DISTRIBUTION WIDTH 12.8 % (11.5-14.5); WHITE BLOOD COUNT 7.9 10^3/uL (4.0-10.0)
[2016-12-15] MEDS: HEPARIN SOD (PORCINE) 5000 UNITS/ML VIAL SC SCH ×3 (06:13→21:10)
[2016-12-15 06:30] LABS: ANION GAP 3 MEQ/L (8-16); BLOOD UREA NITROGEN 14 MG/DL (7-18); CALCIUM LEVEL 8.6 MG/DL (8.5-10.1); CARBON DIOXIDE LEVEL 33 MEQ/L (21-32); CHLORIDE LEVEL 105 MEQ/L (98-107); CREATININE FOR GFR 0.71 MG/DL (0.70-1.30); GLOMERULAR FILTRATION RATE > 60.0 (>60); GLUCOSE, FASTING 100 MG/DL (70-105); POTASSIUM SERUM 4.3 MEQ/L (3.5-5.1); SODIUM LEVEL 141 MEQ/L (136-145)
[2016-12-15] MEDS: HumaLOG INSULIN (NovoLOG) PER UNIT SC SCH ×4 (07:30→21:00)
[2016-12-15] MEDS: LACTOBACILLUS ACIDOPHILUS CAP (BACID) PO SCH ×2 (08:43→17:40)
[2016-12-15] MEDS: CEFEPIME HCL 2 GM in D5W MINI-BAG PLUS 50 ML IV SCH ×2 (08:44→21:11)
[2016-12-15] MEDS: SENOKOT S TAB PO SCH ×2 (08:44→21:10)
--- NOTE | 2016-12-15 09:30 | IPNPDOC ---
Date Seen The patient was seen on 12/15/16. Progress Note SUBJECTIVE: Mr. Peck is a 46, year-old white male, past medical history of hypertension, type 2 diabetes, hyperlipidemia, neuropathy, NIMCO , presents to the ED today with 2 days of painful venous stasis ulcer. He reports a two-year history of venous stasis ulcer. Patient was afebrile overnight. Patient still remains on bedrest. Patient stated the pain is his left leg improving. The pain is currently 3 out of 10 on pain scale OBJECTIVE PHYSICAL EXAMINATION: VITAL SIGNS: Please see below. GENERAL: Obese gentleman, resting comfortably in bed. CARDIOVASCULAR: S1 and S2 present, no murmurs, no rubs, gallops RESPIRATORY: Clear to auscultate lungs. EXTREMITIES: Left leg appears to be decreased in edema. 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 Patient leg is currently wrapped with Jeff wrap LABORATORY DATA: Please see below. MICROBIOLOGY: Please see below. IMAGING: X-ray showed: Large soft tissue ulcer is seen laterally. MRI of the left ankle was read as: 1. No focal osseous abnormality. No evidence of osteomyelitis. 2. Large open wound along the lateral ankle joint. 3. Extensive soft tissue edema and inflammation throughout the ankle joint, most prominent along the lateral aspect. No focal mass or abscess is identified. The findings are most consistent with diffuse cellulitis. Clinical correlation is recommended. ASSESSMENT AND PLAN: A 46-year-old male presents with a two-year history venous ulcer cellulitis, most likely caused by venous insufficiency.Wet-to-dry wound care will be applied along with jeff wrap from the ankle to the knee 2 times a day.Wound care has been consulted to evaluate for wound VAC. Physical therapy is on board with instructions to perform pulsed lavage. Patient has been placed on bedrest with instructions only get up to use the bathroom. Patient is on proper antibiotics for cellulitis. VS, I&O, 24H, Fishbone Vital Signs/I&O Vital Signs Date Time Temp Pulse Resp B/P (MAP) Pulse Ox O2 Delivery O2 Flow Rate FiO2 12/15/16 06:00 97.3 55 17 150/89 (109) 94 Room Air I&O- Last 24 Hours up to 6 AM 12/16/16 06:00 Intake Total 0 ml Output Total 320 ml Balance -320 ml Laboratory Data 24H LABS Laboratory Tests 2 12/14/16 11:52: Bedside Glucose (Misc Panel) 101 12/14/16 16:37: Vancomycin Level Trough 18.0 12/14/16 16:49: Bedside Glucose (Misc Panel) 100 12/14/16 20:01: Bedside Glucose (Misc Panel) 109H 12/15/16 05:15: White Blood Count 7.9, Red Blood Count 4.47, Hemoglobin 13.5L, Hematocrit 41.6L , Mean Corpuscular Volume 93.1, Mean Corpuscular Hemoglobin 30.2, Mean Corpuscular Hemoglobin Concent 32.5, Red Cell Distribution Width 12.8, Platelet Count 259, Neutrophils (%) (Auto) 69.0H, Lymphocytes (%) (Auto) 15.7L, Monocytes (%) (Auto) 10.2H, Eosinophils (%) (Auto) 4.1H, Basophils (%) (Auto) 0.6, Neutrophils # (Auto) 5.4, Lymphocytes # (Auto) 1.2L, Monocytes # (Auto) 0.8 , Eosinophils # (Auto) 0.3, Basophils # (Auto) 0.1, Immature Granulocyte # (Auto ) 0.0, Nucleated Red Blood Cells % (auto) 0.0, Anion Gap 3L, Glomerular Filtration Rate > 60.0, Blood Urea Nitrogen 14, Creatinine 0.71, Sodium Level 141, Potassium Level 4.3, Chloride Level 105, Carbon Dioxide Level 33H, Calcium Level 8.6, C-Reactive Protein, Quantitative 2.48H CBC/BMP Laboratory Tests 12/15/16 05:15 Red Blood Count 4.47, Mean Corpuscular Volume 93.1, Mean Corpuscular Hemoglobin 30.2, Mean Corpuscular Hemoglobin Concent 32.5, Red Cell Distribution Width 12.8 , Neutrophils (%) (Auto) 69.0 H, Lymphocytes (%) (Auto) 15.7 L, Monocytes (%) ( Auto) 10.2 H, Eosinophils (%) (Auto) 4.1 H, Basophils (%) (Auto) 0.6, Neutrophils # (Auto) 5.4, Lymphocytes # (Auto) 1.2 L, Monocytes # (Auto) 0.8, Eosinophils # (Auto) 0.3, Basophils # (Auto) 0.1, Calcium Level 8.6 Microbiology Microbiology 12/13/16 Blood Culture - Preliminary, Resulted No growth after 24 hours . All specim... 12/13/16 Blood Culture - Preliminary, Resulted No growth after 24 hours . All specim... 12/13/16 Wound Culture, Received Pending GME ATTESTATION GME ATTESTATION My preceptor for this patient encounter was physically present in the building during the encounter and was fully available. As needed, all aspects of the patient interview, examination, medical decision making process, and medical care plan development were reviewed and approved by the preceptor. Preceptor is aware and concurs with the plan as stated in the body of this note and will attest to such by his/her cosignature. KATHRINE ABBOTT DO Dec 15, 2016 09:30
[2016-12-15] MEDS: PERCOCET 5MG/325MG TAB PO PRN ×2 (09:40→14:24)
--- NOTE | 2016-12-15 10:08 | IPNPDOC ---
Date Seen The patient was seen on 12/15/16. Progress Note SUBJECTIVE: Patient is a 46 y/o male with hx of DM, and vascular insufficiency with previous admissions for cellulitis admitted for LLE ulcer and pain. Pt reports the pain has continued to improve but not resolved. Notes the pain is about a 5.5/10 constant, localized to the left ankle and shooting up at times. States that the pain medication takes it down to about 2/10 which is tolerable for him. He notes that he had two dressing changes yesterday and this is when the pain was the worst. Pt notes that he has not had a BM yet since he has been in the hospital, normally goes twice in the AM. Denies any abdominal pain. Denies fever, chills, SOB, CP. OBJECTIVE PHYSICAL EXAMINATION: VITAL SIGNS: Please see below. GENERAL: pleasant, resting in bed, LLE elevated, NAD HEENT: normocephalic, atraumatic CARDIOVASCULAR: normal S1/S2, no murmurs, rubs or gallops, RRR. RESPIRATORY: lungs CTA bilaterally ABDOMINAL: bowel sounds present, soft, non tender EXTREMITIES: LLE wrapped with HEMA bandage extending from foot up to knee. right lower extremity with trace to 1+ non pitting edema. Pulses intact to bilateral LE, dorsalis pedis 2+. NEUROLOGICAL: A&Ox3, no focal deficits PSYCHOLOGICAL: normal affect, pleasant LABORATORY DATA: Please see below. MICROBIOLOGY: Please see below. DVT prophylaxis ordered?: Heparin ASSESSMENT AND PLAN: This is a 46 y/o male with hx of cellulitis, DM, and vascular insufficiency admitted for cellulitis of the LLE, particularly around the ankle. PROBLEMS: 1. Cellulitis: Pt's pain improving. MRI negative for evidence of osteomyelitis and WBC improved further today, now at 7.9 down from 12.9 at the time of admission. General surgery consulted at the time of admission, appreciate recommendations. Pt will have wound changes 2x per day and wound care is on board. Plan to evaluate for possible placement of wound VAC, will follow wound care recs. Gen surgery recommends dressing changes as well as elevation, bed rest, HEMA wrap and only ambulating to use the bathroom. Plan to continue Vanco and Cefepime due to patient's hx of MRSA and for further coverage until wound culture results come back and will deescalate at that point. Blood cultures negative x at 24 hours. Pt required Morphine x3 and Percocet x3 yesterday, no pain meds overnight. Pt also expressed concerned regarding OP follow up, advised patient we can discuss with his importance of OP follow up and proper wound care as OP for resolution of wound. Will ensure prompt OP follow up with his PCP for a new wound care clinic per the patient's request. 2. Leukocytosis (improving): Decreased 12.9 to 7.9 currently. The patient is to continue Vanco and Cefepime. Awaiting wound culture results and will deescalate appropriately. 3. Constipation- patient reports no BM in two days which is a change from his baseline. Likely due to narcotic pain medications. Pt has Dulcolax on board but has not received. He requests to wait to see if he has BM today, if not will move forward with bowel regimen. 3. Hx of DM- non insulin dependent. HbA1c 5.9 here. Currently on ISS, will continue. 4. Hx of HTN- not on home meds, stable. DISPOSITION: Follow up General surgery and wound care recommendations. Will also follow up wound culture results. Attending note:Discussed all aspects of the evaluation with the resident. Patient was independently evaluated and will continue to be seen by a hospitalist during the course of this hospital stay. VS, I&O, 24H, Fishbone Vital Signs/I&O Vital Signs Date Time Temp Pulse Resp B/P (MAP) Pulse Ox O2 Delivery O2 Flow Rate FiO2 12/15/16 06:00 97.3 55 17 150/89 (109) 94 Room Air I&O- Last 24 Hours up to 6 AM 12/16/16 05:59 Intake Total 740 ml Output Total 0 ml Balance 740 ml Laboratory Data 24H LABS Laboratory Tests 2 12/14/16 11:52: Bedside Glucose (Misc Panel) 101 12/14/16 16:37: Vancomycin Level Trough 18.0 12/14/16 16:49: Bedside Glucose (Misc Panel) 100 12/14/16 20:01: Bedside Glucose (Misc Panel) 109H 12/15/16 05:15: White Blood Count 7.9, Red Blood Count 4.47, Hemoglobin 13.5L, Hematocrit 41.6L , Mean Corpuscular Volume 93.1, Mean Corpuscular Hemoglobin 30.2, Mean Corpuscular Hemoglobin Concent 32.5, Red Cell Distribution Width 12.8, Platelet Count 259, Neutrophils (%) (Auto) 69.0H, Lymphocytes (%) (Auto) 15.7L, Monocytes (%) (Auto) 10.2H, Eosinophils (%) (Auto) 4.1H, Basophils (%) (Auto) 0.6, Neutrophils # (Auto) 5.4, Lymphocytes # (Auto) 1.2L, Monocytes # (Auto) 0.8 , Eosinophils # (Auto) 0.3, Basophils # (Auto) 0.1, Immature Granulocyte # (Auto ) 0.0, Nucleated Red Blood Cells % (auto) 0.0, Anion Gap 3L, Glomerular Filtration Rate > 60.0, Blood Urea Nitrogen 14, Creatinine 0.71, Sodium Level 141, Potassium Level 4.3, Chloride Level 105, Carbon Dioxide Level 33H, Calcium Level 8.6, C-Reactive Protein, Quantitative 2.48H CBC/BMP Laboratory Tests 12/15/16 05:15 Red Blood Count 4.47, Mean Corpuscular Volume 93.1, Mean Corpuscular Hemoglobin 30.2, Mean Corpuscular Hemoglobin Concent 32.5, Red Cell Distribution Width 12.8 , Neutrophils (%) (Auto) 69.0 H, Lymphocytes (%) (Auto) 15.7 L, Monocytes (%) ( Auto) 10.2 H, Eosinophils (%) (Auto) 4.1 H, Basophils (%) (Auto) 0.6, Neutrophils # (Auto) 5.4, Lymphocytes # (Auto) 1.2 L, Monocytes # (Auto) 0.8, Eosinophils # (Auto) 0.3, Basophils # (Auto) 0.1, Calcium Level 8.6 Microbiology Microbiology 12/13/16 Blood Culture - Preliminary, Resulted No growth after 24 hours . All specim... 12/13/16 Blood Culture - Preliminary, Resulted No growth after 24 hours . All specim... 12/13/16 Wound Culture, Received Pending CLAIRE JOHNSON,DO Dec 15, 2016 08:01 WYATT ARMENTA DO Dec 15, 2016 14:07
[2016-12-15] MEDS: MORPHINE 2 MG/ML 1ML SYRINGE IV PRN (13:15)
[2016-12-15 14:00] VITALS: BP 152/92
[2016-12-15 22:00] VITALS: BP 151/72
[2016-12-16] MEDS: VANCOMYCIN HCL 1,000 MG, VIAL MATE ADAPTER 1 EACH in D5W 250 ML IV SCH ×2 (01:33→09:42)
[2016-12-16] MEDS: VANCOMYCIN HCL 500 MG in D5W MINI-BAG PLUS 100 ML IV SCH ×2 (03:00→11:48)
[2016-12-16] MEDS: HEPARIN SOD (PORCINE) 5000 UNITS/ML VIAL SC SCH ×3 (05:48→21:12)
[2016-12-16 06:00] VITALS: BP 158/86
[2016-12-16] MEDS ORDERED: LevoFLOXacin 500 MG TABLET PO SCH (06:00)
[2016-12-16 06:28] LABS: BASO # 0.1 10^3/uL (0.0-0.2); BASO % 0.7 % (0.0-1.0); EOS # 0.5 10^3/uL (0.0-0.50); EOS % 6.1 % (0.0-3.0); IMMATURE GRANULOCYTE % 0.5 % (0-0); LYMPH # 1.6 10^3/uL (1.5-4.5); LYMPH % 18.2 % (24.0-44.0); MEAN CORPUSCULAR HEMOGLOBIN 30.5 pg (27.0-33.0); MEAN CORPUSCULAR VOLUME 92.3 fl (80.0-96.0); MONO # 0.8 10^3/uL (0.0-0.8); MONO % 8.8 % (0.0-5.0); NEUTROPHILS # 5.6 10^3/uL (1.8-7.7); NEUTROPHILS % 65.7 % (36.0-66.0); PLATELET COUNT, AUTOMATED 286 10^3/uL (150-450); RED CELL DISTRIBUTION WIDTH 12.8 % (11.5-14.5); WHITE BLOOD COUNT 8.5 10^3/uL (4.0-10.0)
[2016-12-16 06:46] LABS: ANION GAP 4 MEQ/L (8-16); BLOOD UREA NITROGEN 17 MG/DL (7-18); CALCIUM LEVEL 9.6 MG/DL (8.5-10.1); CARBON DIOXIDE LEVEL 33 MEQ/L (21-32); CHLORIDE LEVEL 104 MEQ/L (98-107); CREATININE FOR GFR 0.78 MG/DL (0.70-1.30); GLOMERULAR FILTRATION RATE > 60.0 (>60); GLUCOSE, FASTING 100 MG/DL (70-105); POTASSIUM SERUM 4.4 MEQ/L (3.5-5.1); SODIUM LEVEL 141 MEQ/L (136-145)
[2016-12-16] MEDS: HumaLOG INSULIN (NovoLOG) PER UNIT SC SCH ×4 (07:30→21:00)
[2016-12-16] MEDS: MORPHINE 2 MG/ML 1ML SYRINGE IV PRN ×2 (08:08→14:23)
[2016-12-16] MEDS: SENOKOT S TAB PO SCH ×2 (08:13→20:55)
[2016-12-16] MEDS: CEFEPIME HCL 2 GM in D5W MINI-BAG PLUS 50 ML IV SCH (08:13)
[2016-12-16] MEDS: LACTOBACILLUS ACIDOPHILUS CAP (BACID) PO SCH ×2 (08:13→17:59)
[2016-12-16] MEDS ORDERED: BACTRIM 160MG/800MG DS TAB PO SCH (09:00)
--- NOTE | 2016-12-16 11:06 | IPNPDOC ---
Date Seen The patient was seen on 12/16/16. Progress Note SUBJECTIVE: Patient is a 46 y/o male with hx of DM, and vascular insufficiency with previous admissions for cellulitis admitted for LLE ulcer and pain. Pt reports the pain has continued to improve but not resolved. Notes the pain is about a 2/10 constant, localized to the left ankle, is now better when he ambulates than previous days. NOtes that the pain was about a 4/10 at the time of assessment, but primarily due to the dressing changes. Pt notes that he had one BM yesterday and it was normal. Denies any abdominal pain. Denies fever, chills, SOB, CP. OBJECTIVE PHYSICAL EXAMINATION: VITAL SIGNS: Please see below. GENERAL: pleasant, LLE elevated, NAD, ambulating back from the bathroom without difficulty HEENT: normocephalic, atraumatic CARDIOVASCULAR: normal S1/S2, no murmurs, rubs or gallops, RRR. RESPIRATORY: lungs CTA bilaterally ABDOMINAL: bowel sounds present, soft, non tender EXTREMITIES: left lower extremity ankle ulcer, circular, about 2.5x1x1, no significant purulent discharge, pink granulation tissue exposed, no bone exposed , some surrounding redness, no active bleeding, diffuse chronic venous stasis skin changes to the left and right lower extremity extending to mid calf. NEUROLOGICAL: A&Ox3, no focal deficits PSYCHOLOGICAL: normal affect, pleasant LABORATORY DATA: Please see below. MICROBIOLOGY: Please see below. DVT prophylaxis ordered?: Heparin ASSESSMENT AND PLAN: This is a 46 y/o male with hx of cellulitis, DM, and vascular insufficiency admitted for cellulitis of the LLE, particularly around the ankle PROBLEMS: 1. Cellulitis: Pt's pain improving. MRI negative for evidence of osteomyelitis and WBC improved, down from 12.9 at the time of admission. General surgery consulted at the time of admission, appreciate recommendations. Pt will have wound changes 2x per day and wound care is on board. Plan to evaluate for possible placement of wound VAC, will follow wound care recs. Gen surgery recommends dressing changes as well as elevation, bed rest, HEMA wrap and only ambulating to use the bathroom. Wound cultures back with evidence of Klebsiella , staph aureus, coag neg staph as well as pseudomonas. Sensitivities are back, currently consulting pharmacy if levofloxican and TMP/SMX is appropriate and has no drug drug interaction. We will deescalate abx's appropriately. Blood cultures negative x2 at 48 hours. Pt requiring less pain medication, will cancel Morphine prn and keep pt on Percocet. Pt also expressed concern regarding OP follow up, advised patient we can discuss with his importance of OP follow up and proper wound care as OP for resolution of wound and scheduling of home health when he is discharged. Will ensure prompt OP follow up with his PCP for a new wound care clinic per the patient's request. 2. Leukocytosis (improving): Decreased 12.9 to 8.5 currently. The patient is to Cefepime and vanco. Discussing with pharmacy if patient can be changed to levofloxican and TMP/SMX because of sensitives. 3. Constipation-resolved. Likely due to narcotic pain medications. Received Senna/Docusate yesterday and had one normal BM. 3. Hx of DM- non insulin dependent. HbA1c 5.9 here. Currently on ISS, will continue. 4. Hx of HTN- not on home meds, stable. DISPOSITION: Continue abx coverage and wound care. VS, I&O, 24H, [facility] Vital Signs/I&O Vital Signs Date Time Temp Pulse Resp B/P (MAP) Pulse Ox O2 Delivery O2 Flow Rate FiO2 12/16/16 08:08 18 Room Air 12/16/16 06:00 97.7 66 158/86 (110) 95 I&O- Last 24 Hours up to 6 AM 12/17/16 06:00 Intake Total 0 ml Output Total 0 ml Balance 0 ml Laboratory Data 24H LABS Laboratory Tests 2 12/15/16 11:49: Bedside Glucose (Misc Panel) 97 12/15/16 16:38: Bedside Glucose (Misc Panel) 99 12/15/16 20:45: Bedside Glucose (Misc Panel) 105 12/16/16 06:11: White Blood Count 8.5, Red Blood Count 4.79, Hemoglobin 14.6, Hematocrit 44.2, Mean Corpuscular Volume 92.3, Mean Corpuscular Hemoglobin 30.5, Mean Corpuscular Hemoglobin Concent 33.0, Red Cell Distribution Width 12.8, Platelet Count 286, Neutrophils (%) (Auto) 65.7, Lymphocytes (%) (Auto) 18.2L, Monocytes (%) (Auto) 8.8H, Eosinophils (%) (Auto) 6.1H, Basophils (%) (Auto) 0.7, Neutrophils # (Auto) 5.6, Lymphocytes # (Auto) 1.6, Monocytes # (Auto) 0.8, Eosinophils # (Auto) 0.5, Basophils # (Auto) 0.1, Immature Granulocyte # (Auto) 0.0, Nucleated Red Blood Cells % (auto) 0.0, Anion Gap 4L, Glomerular Filtration Rate > 60.0, Blood Urea Nitrogen 17, Creatinine 0.78, Sodium Level 141, Potassium Level 4.4, Chloride Level 104, Carbon Dioxide Level 33H, Calcium Level 9.6 CBC/BMP Laboratory Tests 12/16/16 06:11 Red Blood Count 4.79, Mean Corpuscular Volume 92.3, Mean Corpuscular Hemoglobin 30.5, Mean Corpuscular Hemoglobin Concent 33.0, Red Cell Distribution Width 12.8 , Neutrophils (%) (Auto) 65.7, Lymphocytes (%) (Auto) 18.2 L, Monocytes (%) ( Auto) 8.8 H, Eosinophils (%) (Auto) 6.1 H, Basophils (%) (Auto) 0.7, Neutrophils # (Auto) 5.6, Lymphocytes # (Auto) 1.6, Monocytes # (Auto) 0.8, Eosinophils # (Auto) 0.5, Basophils # (Auto) 0.1, Calcium Level 9.6 Microbiology Microbiology 12/13/16 Blood Culture - Preliminary, Resulted No Growth after 48 hours. All Specime... 12/13/16 Blood Culture - Preliminary, Resulted No Growth after 48 hours. All Specime... 12/16/16 MRSA Screen, Received Pending 12/13/16 Wound Culture - Final, Complete Klebsiella Oxytoca Pseudomonas Aeruginosa Staphylococcus Aureus Staphylococcus Sp Coag Neg GME ATTESTATION GME ATTESTATION My preceptor for this patient encounter was physically present in the building during the encounter and was fully available. As needed, all aspects of the patient interview, examination, medical decision making process, and medical care plan development were reviewed and approved by the preceptor. Preceptor is aware and concurs with the plan as stated in the body of this note and will attest to such by his/her cosignature. CLAIRE JOHNSON DO Dec 16, 2016 09:18
--- NOTE | 2016-12-16 11:27 | IPNPDOC ---
Date Seen The patient was seen on 12/16/16. Progress Note SUBJECTIVE: Mr. Peck is a 46, year-old white male, past medical history of hypertension, type 2 diabetes, hyperlipidemia, neuropathy, NIMCO , presents to the ED today with 2 days of painful venous stasis ulcer. He reports a two-year history of venous stasis ulcer. Patient was afebrile overnight. Patient still remains on bedrest. Patient stated the pain is his left leg is improving. He he even agreed to have his morphine be discontinued, stating that he can handle the pain at this point. OBJECTIVE PHYSICAL EXAMINATION: VITAL SIGNS: Please see below. GENERAL: Obese gentleman, resting comfortably in bed. CARDIOVASCULAR: S1 and S2 present, no murmurs, no rubs, gallops RESPIRATORY: Clear to auscultate lungs. EXTREMITIES: Left leg appears to be decreased in edema. Much improved from original presentation. No visible purulent drainage, leg has decreasing erythema , left leg is mildly tender to palpation. Patient leg is currently wrapped with Jeff wrap, with the right being changed twice a day LABORATORY DATA: Please see below. MICROBIOLOGY: Please see below. IMAGING: X-ray showed: Large soft tissue ulcer is seen laterally. MRI of the left ankle was read as: 1. No focal osseous abnormality. No evidence of osteomyelitis. 2. Large open wound along the lateral ankle joint. 3. Extensive soft tissue edema and inflammation throughout the ankle joint, most prominent along the lateral aspect. No focal mass or abscess is identified. The findings are most consistent with diffuse cellulitis. Clinical correlation is recommended. ASSESSMENT AND PLAN: A 46-year-old male presents with a two-year history venous ulcer cellulitis, most likely caused by venous insufficiency.Wet-to-dry wound care will be applied along with jeff wrap from the ankle to the knee 2 times a day.Wound care has been consulted to place a wound VAC tomorrow. Patient is on proper antibiotics for cellulitis, he will be switching from IV antibiotics to PO as under the care of his medicine team. The plan is for possible discharge early next week. VS, I&O, 24H, Fishbone Vital Signs/I&O Vital Signs Date Time Temp Pulse Resp B/P (MAP) Pulse Ox O2 Delivery O2 Flow Rate FiO2 12/16/16 08:18 18 Room Air 12/16/16 06:00 97.7 66 158/86 (110) 95 I&O- Last 24 Hours up to 6 AM 12/17/16 06:00 Intake Total 0 ml Output Total 0 ml Balance 0 ml Laboratory Data 24H LABS Laboratory Tests 2 12/15/16 11:49: Bedside Glucose (Misc Panel) 97 12/15/16 16:38: Bedside Glucose (Misc Panel) 99 12/15/16 20:45: Bedside Glucose (Misc Panel) 105 12/16/16 06:11: White Blood Count 8.5, Red Blood Count 4.79, Hemoglobin 14.6, Hematocrit 44.2, Mean Corpuscular Volume 92.3, Mean Corpuscular Hemoglobin 30.5, Mean Corpuscular Hemoglobin Concent 33.0, Red Cell Distribution Width 12.8, Platelet Count 286, Neutrophils (%) (Auto) 65.7, Lymphocytes (%) (Auto) 18.2L, Monocytes (%) (Auto) 8.8H, Eosinophils (%) (Auto) 6.1H, Basophils (%) (Auto) 0.7, Neutrophils # (Auto) 5.6, Lymphocytes # (Auto) 1.6, Monocytes # (Auto) 0.8, Eosinophils # (Auto) 0.5, Basophils # (Auto) 0.1, Immature Granulocyte # (Auto) 0.0, Nucleated Red Blood Cells % (auto) 0.0, Anion Gap 4L, Glomerular Filtration Rate > 60.0, Blood Urea Nitrogen 17, Creatinine 0.78, Sodium Level 141, Potassium Level 4.4, Chloride Level 104, Carbon Dioxide Level 33H, Calcium Level 9.6 CBC/BMP Laboratory Tests 12/16/16 06:11 Red Blood Count 4.79, Mean Corpuscular Volume 92.3, Mean Corpuscular Hemoglobin 30.5, Mean Corpuscular Hemoglobin Concent 33.0, Red Cell Distribution Width 12.8 , Neutrophils (%) (Auto) 65.7, Lymphocytes (%) (Auto) 18.2 L, Monocytes (%) ( Auto) 8.8 H, Eosinophils (%) (Auto) 6.1 H, Basophils (%) (Auto) 0.7, Neutrophils # (Auto) 5.6, Lymphocytes # (Auto) 1.6, Monocytes # (Auto) 0.8, Eosinophils # (Auto) 0.5, Basophils # (Auto) 0.1, Calcium Level 9.6 Microbiology Microbiology 12/13/16 Blood Culture - Preliminary, Resulted No Growth after 48 hours. All Specime... 12/13/16 Blood Culture - Preliminary, Resulted No Growth after 48 hours. All Specime... 12/16/16 MRSA Screen, Received Pending 12/13/16 Wound Culture - Final, Complete Klebsiella Oxytoca Pseudomonas Aeruginosa Staphylococcus Aureus Staphylococcus Sp Coag Neg GME ATTESTATION GME ATTESTATION My preceptor for this patient encounter was physically present in the building during the encounter and was fully available. As needed, all aspects of the patient interview, examination, medical decision making process, and medical care plan development were reviewed and approved by the preceptor. Preceptor is aware and concurs with the plan as stated in the body of this note and will attest to such by his/her cosignature. KATHRINE ABBOTT DO Dec 16, 2016 11:27
[2016-12-16] MEDS: PERCOCET 5MG/325MG TAB PO PRN (11:49)
[2016-12-16 14:00] VITALS: BP 155/85
[2016-12-16] MEDS ORDERED: CEFEPIME HCL 2 GM in D5W 50 ML IV SCH (21:00)
[2016-12-16 22:00] VITALS: BP 143/85
[2016-12-17 06:00] VITALS: BP 137/94
[2016-12-17] MEDS: HEPARIN SOD (PORCINE) 5000 UNITS/ML VIAL SC SCH ×3 (06:00→22:00)
[2016-12-17] MEDS: LevoFLOXacin 750 MG TABLET PO SCH (06:00)
[2016-12-17 06:20] LABS: BASO # 0.1 10^3/uL (0.0-0.2); BASO % 0.6 % (0.0-1.0); EOS # 0.5 10^3/uL (0.0-0.50); IMMATURE GRANULOCYTE % 0.4 % (0-0); LYMPH # 1.5 10^3/uL (1.5-4.5); LYMPH % 16.5 % (24.0-44.0); MEAN CORPUSCULAR HEMOGLOBIN 30.7 pg (27.0-33.0); MEAN CORPUSCULAR HGB CONC 33.6 g/dl (32.0-36.5); MEAN CORPUSCULAR VOLUME 91.5 fl (80.0-96.0); MONO # 0.7 10^3/uL (0.0-0.8); MONO % 8.2 % (0.0-5.0); NEUTROPHILS # 6.2 10^3/uL (1.8-7.7); NEUTROPHILS % 69.3 % (36.0-66.0); PLATELET COUNT, AUTOMATED 285 10^3/uL (150-450); RED CELL DISTRIBUTION WIDTH 12.8 % (11.5-14.5)
[2016-12-17 06:42] LABS: ANION GAP 5 MEQ/L (8-16); BLOOD UREA NITROGEN 17 MG/DL (7-18); CALCIUM LEVEL 9.5 MG/DL (8.5-10.1); CARBON DIOXIDE LEVEL 32 MEQ/L (21-32); CHLORIDE LEVEL 102 MEQ/L (98-107); CREATININE FOR GFR 0.85 MG/DL (0.70-1.30); GLOMERULAR FILTRATION RATE > 60.0 (>60); GLUCOSE, FASTING 98 MG/DL (70-105); POTASSIUM SERUM 4.3 MEQ/L (3.5-5.1); SODIUM LEVEL 139 MEQ/L (136-145)
[2016-12-17] MEDS: HumaLOG INSULIN (NovoLOG) PER UNIT SC SCH ×4 (07:30→21:00)
[2016-12-17] MEDS: LACTOBACILLUS ACIDOPHILUS CAP (BACID) PO SCH ×2 (08:30→16:57)
[2016-12-17] MEDS: SENOKOT S TAB PO SCH ×2 (08:31→20:27)
[2016-12-17] MEDS: PERCOCET 5MG/325MG TAB PO PRN ×2 (08:31→13:19)
--- NOTE | 2016-12-17 09:17 | IPNPDOC ---
Date Seen The patient was seen on 12/17/16. Progress Note SUBJECTIVE: Mr. Peck is a 46, year-old white male, past medical history of hypertension, type 2 diabetes, hyperlipidemia, neuropathy, NIMCO , presents to the ED today with 2 days of painful venous stasis ulcer. He reports a two-year history of venous stasis ulcer. Patient was afebrile overnight. Patient still remains on bedrest. Patient stated the pain is his left leg is improving, the pain is a 3 out of 10. He he even agreed to have his morphine be discontinued, stating that he can handle the pain at this point. Pt was started on PO antibiotic by medicine team. He is tolerating the PO meds without any problems OBJECTIVE PHYSICAL EXAMINATION: VITAL SIGNS: Please see below. GENERAL: Obese gentleman, resting comfortably in bed. CARDIOVASCULAR: S1 and S2 present, no murmurs, no rubs, gallops RESPIRATORY: Clear to auscultate lungs anterior and posterior EXTREMITIES: Left leg appears to be decreased in edema and erythema. No visible purulent drainage, leg has decreasing erythema, left leg is mildly tender to palpation. LABORATORY DATA: Please see below. MICROBIOLOGY: Please see below. IMAGING: X-ray showed: Large soft tissue ulcer is seen laterally. MRI of the left ankle was read as: 1. No focal osseous abnormality. No evidence of osteomyelitis. 2. Large open wound along the lateral ankle joint. 3. Extensive soft tissue edema and inflammation throughout the ankle joint, most prominent along the lateral aspect. No focal mass or abscess is identified. The findings are most consistent with diffuse cellulitis. Clinical correlation is recommended. ASSESSMENT AND PLAN: A 46-year-old male presents with a two-year history venous ulcer cellulitis, most likely caused by venous insufficiency.Wet-to-dry wound care will be applied along with yin wrap from the ankle to the knee 2 times a day. An order for wound vac has been placed. Patient is on proper PO antibiotics for cellulitis. The plan moving forward will be to check on wound healing progression on the wound VAC and possible discharge early next week. VS, I&O, 24H, Fishbone Vital Signs/I&O Vital Signs Date Time Temp Pulse Resp B/P (MAP) Pulse Ox O2 Delivery O2 Flow Rate FiO2 12/17/16 08:31 20 Room Air 12/17/16 06:00 97.4 85 137/94 (108) 94 I&O- Last 24 Hours up to 6 AM 12/18/16 06:00 Intake Total 0 ml Output Total 0 ml Balance 0 ml Laboratory Data 24H LABS Laboratory Tests 2 12/16/16 11:18: Bedside Glucose (Misc Panel) 135H 12/16/16 16:43: Bedside Glucose (Misc Panel) 107H 12/16/16 20:58: Bedside Glucose (Misc Panel) 120H 12/17/16 05:38: White Blood Count 9.0, Red Blood Count 4.82, Hemoglobin 14.8, Hematocrit 44.1, Mean Corpuscular Volume 91.5, Mean Corpuscular Hemoglobin 30.7, Mean Corpuscular Hemoglobin Concent 33.6, Red Cell Distribution Width 12.8, Platelet Count 285, Neutrophils (%) (Auto) 69.3H, Lymphocytes (%) (Auto) 16.5L, Monocytes (%) (Auto) 8.2H, Eosinophils (%) (Auto) 5.0H, Basophils (%) (Auto) 0.6 , Neutrophils # (Auto) 6.2, Lymphocytes # (Auto) 1.5, Monocytes # (Auto) 0.7, Eosinophils # (Auto) 0.5, Basophils # (Auto) 0.1, Immature Granulocyte # (Auto) 0.0, Nucleated Red Blood Cells % (auto) 0.0, Anion Gap 5L, Glomerular Filtration Rate > 60.0, Blood Urea Nitrogen 17, Creatinine 0.85, Sodium Level 139, Potassium Level 4.3, Chloride Level 102, Carbon Dioxide Level 32, Calcium Level 9.5 CBC/BMP Laboratory Tests 12/17/16 05:38 Red Blood Count 4.82, Mean Corpuscular Volume 91.5, Mean Corpuscular Hemoglobin 30.7, Mean Corpuscular Hemoglobin Concent 33.6, Red Cell Distribution Width 12.8 , Neutrophils (%) (Auto) 69.3 H, Lymphocytes (%) (Auto) 16.5 L, Monocytes (%) ( Auto) 8.2 H, Eosinophils (%) (Auto) 5.0 H, Basophils (%) (Auto) 0.6, Neutrophils # (Auto) 6.2, Lymphocytes # (Auto) 1.5, Monocytes # (Auto) 0.7, Eosinophils # (Auto) 0.5, Basophils # (Auto) 0.1, Calcium Level 9.5 Microbiology Microbiology 12/13/16 Blood Culture - Preliminary, Resulted No Growth after 72 hours. All specime... 12/13/16 Blood Culture - Preliminary, Resulted No Growth after 72 hours. All specime... 12/16/16 MRSA Screen - Final, Complete 12/13/16 Wound Culture - Final, Complete Klebsiella Oxytoca Pseudomonas Aeruginosa Staphylococcus Aureus Staphylococcus Sp Coag Neg GME ATTESTATION GME ATTESTATION My preceptor for this patient encounter was physically present in the building during the encounter and was fully available. As needed, all aspects of the patient interview, examination, medical decision making process, and medical care plan development were reviewed and approved by the preceptor. Preceptor is aware and concurs with the plan as stated in the body of this note and will attest to such by his/her cosignature. KATHRINE ABBOTT DO Dec 17, 2016 09:17
--- NOTE | 2016-12-17 10:28 | IPNPDOC ---
Date Seen The patient was seen on 12/17/16. Progress Note SUBJECTIVE: Patient is a 46 y/o male with hx of DM, and vascular insufficiency with previous admissions for cellulitis admitted for LLE ulcer and cellulitis. Pt reports the pain has continued to improve but not resolved. Notes the pain is about a 1-2/10 constant, localized to the left ankle, is now better when he ambulates than previous days. Reports significant increase in pain with dressing changes. Notes that the pain was about a 3/10 at the time of assessment , but due to the dressing change that was performed. states that the majority of his pain is actually localized to the surrounding areas around the ulcer that are red and edematous. States that the more superficial wounds that are exposed are the most painful. States he otherwise has noted a significant improvement since the time of admission. Pt notes that he had one BM yesterday and it was normal. Denies any abdominal pain. Denies fever, chills, SOB, CP. OBJECTIVE PHYSICAL EXAMINATION: VITAL SIGNS: Please see below. GENERAL: pleasant, LLE elevated, NAD, ambulating back from the bathroom without difficulty CARDIOVASCULAR: normal S1/S2, no murmurs, rubs or gallops, RRR. RESPIRATORY: lungs CTA bilaterally ABDOMINAL: bowel sounds present, soft, non tender EXTREMITIES: left lower extremity ankle ulcer, circular, about 2.5x1x1, no significant purulent discharge, some purulent material noted on dressing as well as around edges of wound, pink granulation tissue exposed, no bone exposed , some surrounding redness extending from mid calf to ankle, no active bleeding. Some scaliness and dry skin surrounding left lower extremity circumferentially, more localized to lower 1/3 of the leg and around ankle. Multiple superficial wounds to LLE with some very small amount of bleeding consistent with minor trauma from dressing changes and bandage removal. diffuse chronic venous stasis skin changes to the left and right lower extremity extending to mid calf. NEUROLOGICAL: A&Ox3, no focal deficits PSYCHOLOGICAL: normal affect, pleasant LABORATORY DATA: Please see below. MICROBIOLOGY: Please see below. DVT prophylaxis ordered?: Heparin ASSESSMENT AND PLAN: This is a 46 y/o male with hx of cellulitis, DM, and vascular insufficiency admitted for cellulitis of the LLE, particularly around the ankle. PROBLEMS: 1. Cellulitis: Pt's pain improving. MRI negative for evidence of osteomyelitis. General surgery consulted at the time of admission, appreciate recommendations. Pt will have wound changes 2x per day and wound care is on board. Plan for wound vac placement today. Gen surgery recommends dressing changes as well as elevation, bed rest, HEMA wrap and only ambulating to use the bathroom. Discussed with wound care who will give recs for dressings for superficial wounds. Wound cultures back with evidence of Klebsiella, staph aureus, coag neg staph as well as pseudomonas. Pt with negative nasopharyngeal swab for MRSA. After further discussion with pharmacy and ID, sensitivities confirmed, pt was placed on Levofloxacin 750mg daily PO as all organisms are sensitive. Pt will complete a 10 day course of this to be finished as OP. Blood cultures negative x3 at 72 hours. Pt requiring less pain medication, will continue Percocet, especially around the time pt is scheduled to have dressing changes. Pt also expressed concern regarding OP follow up, advised patient we can discuss with his importance of OP follow up and proper wound care as OP for resolution of wound and scheduling of home health when he is discharged. Will ensure prompt OP follow up with his PCP for a new wound care clinic per the patient's request. 2. Leukocytosis (improving): Stable at 9.0, decreased from initial level of 12.9 , will continue to monitor. Patient currently on Levofloxacin 750mg daily PO, will continue. 3. Constipation-resolved. Likely due to narcotic pain medications. Receiving Senna/Docusate daily and having one normal BM per day. 3. Hx of DM- non insulin dependent. HbA1c 5.9 here. Currently on ISS, will continue. 4. Hx of HTN- not on home meds, stable. DISPOSITION:Pt transitioned to PO antibiotics. Plan for wound vac today. VS, I&O, 24H, Fishbone Vital Signs/I&O Vital Signs Date Time Temp Pulse Resp B/P (MAP) Pulse Ox O2 Delivery O2 Flow Rate FiO2 12/17/16 06:00 97.4 85 20 137/94 (108) 94 12/16/16 21:00 Room Air Laboratory Data 24H LABS Laboratory Tests 2 12/16/16 11:18: Bedside Glucose (Misc Panel) 135H 12/16/16 16:43: Bedside Glucose (Misc Panel) 107H 12/16/16 20:58: Bedside Glucose (Misc Panel) 120H 12/17/16 05:38: White Blood Count 9.0, Red Blood Count 4.82, Hemoglobin 14.8, Hematocrit 44.1, Mean Corpuscular Volume 91.5, Mean Corpuscular Hemoglobin 30.7, Mean Corpuscular Hemoglobin Concent 33.6, Red Cell Distribution Width 12.8, Platelet Count 285, Neutrophils (%) (Auto) 69.3H, Lymphocytes (%) (Auto) 16.5L, Monocytes (%) (Auto) 8.2H, Eosinophils (%) (Auto) 5.0H, Basophils (%) (Auto) 0.6 , Neutrophils # (Auto) 6.2, Lymphocytes # (Auto) 1.5, Monocytes # (Auto) 0.7, Eosinophils # (Auto) 0.5, Basophils # (Auto) 0.1, Immature Granulocyte # (Auto) 0.0, Nucleated Red Blood Cells % (auto) 0.0, Anion Gap 5L, Glomerular Filtration Rate > 60.0, Blood Urea Nitrogen 17, Creatinine 0.85, Sodium Level 139, Potassium Level 4.3, Chloride Level 102, Carbon Dioxide Level 32, Calcium Level 9.5 CBC/BMP Laboratory Tests 12/17/16 05:38 Red Blood Count 4.82, Mean Corpuscular Volume 91.5, Mean Corpuscular Hemoglobin 30.7, Mean Corpuscular Hemoglobin Concent 33.6, Red Cell Distribution Width 12.8 , Neutrophils (%) (Auto) 69.3 H, Lymphocytes (%) (Auto) 16.5 L, Monocytes (%) ( Auto) 8.2 H, Eosinophils (%) (Auto) 5.0 H, Basophils (%) (Auto) 0.6, Neutrophils # (Auto) 6.2, Lymphocytes # (Auto) 1.5, Monocytes # (Auto) 0.7, Eosinophils # (Auto) 0.5, Basophils # (Auto) 0.1, Calcium Level 9.5 Microbiology Microbiology 12/13/16 Blood Culture - Preliminary, Resulted No Growth after 72 hours. All specime... 12/13/16 Blood Culture - Preliminary, Resulted No Growth after 72 hours. All specime... 12/16/16 MRSA Screen - Final, Complete 12/13/16 Wound Culture - Final, Complete Klebsiella Oxytoca Pseudomonas Aeruginosa Staphylococcus Aureus Staphylococcus Sp Coag Neg GME ATTESTATION GME ATTESTATION My preceptor for this patient encounter was physically present in the building during the encounter and was fully available. As needed, all aspects of the patient interview, examination, medical decision making process, and medical care plan development were reviewed and approved by the preceptor. Preceptor is aware and concurs with the plan as stated in the body of this note and will attest to such by his/her cosignature. CLAIRE JOHNSON DO Dec 17, 2016 08:20
[2016-12-17] MEDS: MORPHINE 2 MG/ML 1ML SYRINGE IV PRN (11:20)
[2016-12-17 14:00] VITALS: BP 141/96
[2016-12-17 22:00] VITALS: BP 142/85
[2016-12-18] MEDS: LevoFLOXacin 750 MG TABLET PO SCH (05:43)
[2016-12-18] MEDS: HEPARIN SOD (PORCINE) 5000 UNITS/ML VIAL SC SCH ×3 (05:44→21:26)
[2016-12-18 06:00] VITALS: BP 132/86
[2016-12-18 06:14] LABS: BASO # 0.1 10^3/uL (0.0-0.2); BASO % 0.6 % (0.0-1.0); EOS # 0.5 10^3/uL (0.0-0.50); EOS % 5.2 % (0.0-3.0); IMMATURE GRANULOCYTE % 0.6 % (0-0); LYMPH # 1.7 10^3/uL (1.5-4.5); LYMPH % 17.2 % (24.0-44.0); MEAN CORPUSCULAR HEMOGLOBIN 30.2 pg (27.0-33.0); MEAN CORPUSCULAR HGB CONC 32.6 g/dl (32.0-36.5); MEAN CORPUSCULAR VOLUME 92.6 fl (80.0-96.0); MONO # 0.8 10^3/uL (0.0-0.8); MONO % 7.9 % (0.0-5.0); NEUTROPHILS # 6.9 10^3/uL (1.8-7.7); NEUTROPHILS % 68.5 % (36.0-66.0); PLATELET COUNT, AUTOMATED 308 10^3/uL (150-450); RED CELL DISTRIBUTION WIDTH 12.8 % (11.5-14.5)
[2016-12-18 06:42] LABS: ANION GAP 6 MEQ/L (8-16); BLOOD UREA NITROGEN 21 MG/DL (7-18); CALCIUM LEVEL 9.9 MG/DL (8.5-10.1); CARBON DIOXIDE LEVEL 30 MEQ/L (21-32); CHLORIDE LEVEL 100 MEQ/L (98-107); CREATININE FOR GFR 0.87 MG/DL (0.70-1.30); GLOMERULAR FILTRATION RATE > 60.0 (>60); GLUCOSE, FASTING 99 MG/DL (70-105); POTASSIUM SERUM 4.6 MEQ/L (3.5-5.1); SODIUM LEVEL 136 MEQ/L (136-145)
[2016-12-18] MEDS: HumaLOG INSULIN (NovoLOG) PER UNIT SC SCH ×4 (07:30→21:00)
[2016-12-18] MEDS: LACTOBACILLUS ACIDOPHILUS CAP (BACID) PO SCH ×2 (08:29→18:40)
[2016-12-18] MEDS: SENOKOT S TAB PO SCH ×2 (08:29→21:26)
--- NOTE | 2016-12-18 09:43 | IPNPDOC ---
Date Seen The patient was seen on 12/18/16. Progress Note SUBJECTIVE: Patient is a 46 y/o male with hx of DM, and vascular insufficiency with previous admissions for cellulitis admitted for LLE ulcer and cellulitis. Pt reports the pain has continued to improve. The patient currently has a wound vac in and no complaints this AM. OBJECTIVE PHYSICAL EXAMINATION: VITAL SIGNS: Please see below. GENERAL: pleasant, LLE elevated, NAD, ambulating back from the bathroom without difficulty CARDIOVASCULAR: normal S1/S2, no murmurs, rubs or gallops, RRR. RESPIRATORY: lungs CTA bilaterally ABDOMINAL: bowel sounds present, soft, non tender EXTREMITIES: Wound vac in place on left foot. hema bandage wrapped up to mid calf. NEUROLOGICAL: A&Ox3, no focal deficits PSYCHOLOGICAL: normal affect, pleasant LABORATORY DATA: Please see below. MICROBIOLOGY: Please see below. DVT prophylaxis ordered?: Heparin ASSESSMENT AND PLAN: This is a 46 y/o male with hx of cellulitis, DM, and vascular insufficiency admitted for cellulitis of the LLE, particularly around the ankle. PROBLEMS: 1. Cellulitis: Pt's pain improving. MRI negative for evidence of osteomyelitis. General surgery consulted at the time of admission, appreciate recommendations. Pt will have wound changes 2x per day and wound care is on board. Plan for wound vac placement today. Gen surgery recommends dressing changes as well as elevation, bed rest, HEMA wrap and only ambulating to use the bathroom. Discussed with wound care who will give recs for dressings for superficial wounds. Wound cultures back with evidence of Klebsiella, staph aureus, coag neg staph as well as pseudomonas. Pt with negative nasopharyngeal swab for MRSA. After further discussion with pharmacy and ID, sensitivities confirmed, pt was placed on Levofloxacin 750mg daily PO as all organisms are sensitive. Pt will complete a 10 day course of this to be finished as OP. Pt requiring less pain medication, will continue Percocet, especially around the time pt is scheduled to have dressing changes. Pt also expressed concern regarding OP follow up, advised patient we can discuss with his importance of OP follow up and proper wound care as OP for resolution of wound and scheduling of home health when he is discharged. Will ensure prompt OP follow up with his PCP for a new wound care clinic per the patient's request. 2. Leukocytosis (improving): Patient currently on Levofloxacin 750mg daily PO continue. 3. Constipation-resolved. Likely due to narcotic pain medications. Receiving Senna/Docusate daily and having one normal BM per day. 3. Hx of DM- non insulin dependent. HbA1c 5.9. Currently on ISS, will continue. 4. Hx of HTN- not on home meds, stable. VS, I&O, 24H, Fishbone Vital Signs/I&O Vital Signs Date Time Temp Pulse Resp B/P (MAP) Pulse Ox O2 Delivery O2 Flow Rate FiO2 12/18/16 06:00 97.5 60 18 132/86 (101) 96 Room Air I&O- Last 24 Hours up to 6 AM 12/19/16 05:59 Intake Total 0 ml Output Total 0 ml Balance 0 ml Laboratory Data 24H LABS Laboratory Tests 2 12/17/16 11:21: Bedside Glucose (Misc Panel) 103 12/17/16 16:26: Bedside Glucose (Misc Panel) 104 12/17/16 19:51: Bedside Glucose (Misc Panel) 113H 12/18/16 05:20: White Blood Count 10.0, Red Blood Count 5.17, Hemoglobin 15.6, Hematocrit 47.9, Mean Corpuscular Volume 92.6, Mean Corpuscular Hemoglobin 30.2, Mean Corpuscular Hemoglobin Concent 32.6, Red Cell Distribution Width 12.8, Platelet Count 308, Neutrophils (%) (Auto) 68.5H, Lymphocytes (%) (Auto) 17.2L, Monocytes (%) (Auto) 7.9H, Eosinophils (%) (Auto) 5.2H, Basophils (%) (Auto) 0.6 , Neutrophils # (Auto) 6.9, Lymphocytes # (Auto) 1.7, Monocytes # (Auto) 0.8, Eosinophils # (Auto) 0.5, Basophils # (Auto) 0.1, Immature Granulocyte # (Auto) 0.1H, Nucleated Red Blood Cells % (auto) 0.0, Anion Gap 6L, Glomerular Filtration Rate > 60.0, Blood Urea Nitrogen 21H, Creatinine 0.87, Sodium Level 136, Potassium Level 4.6, Chloride Level 100, Carbon Dioxide Level 30, Calcium Level 9.9 CBC/BMP Laboratory Tests 12/18/16 05:20 Red Blood Count 5.17, Mean Corpuscular Volume 92.6, Mean Corpuscular Hemoglobin 30.2, Mean Corpuscular Hemoglobin Concent 32.6, Red Cell Distribution Width 12.8 , Neutrophils (%) (Auto) 68.5 H, Lymphocytes (%) (Auto) 17.2 L, Monocytes (%) ( Auto) 7.9 H, Eosinophils (%) (Auto) 5.2 H, Basophils (%) (Auto) 0.6, Neutrophils # (Auto) 6.9, Lymphocytes # (Auto) 1.7, Monocytes # (Auto) 0.8, Eosinophils # (Auto) 0.5, Basophils # (Auto) 0.1, Calcium Level 9.9 Microbiology Microbiology 12/13/16 Blood Culture - Preliminary, Resulted No Growth after 72 hours. All specime... 12/13/16 Blood Culture - Preliminary, Resulted No Growth after 72 hours. All specime... 12/16/16 MRSA Screen - Final, Complete 12/13/16 Wound Culture - Final, Complete Klebsiella Oxytoca Pseudomonas Aeruginosa Staphylococcus Aureus Staphylococcus Sp Coag Neg GME ATTESTATION GME ATTESTATION My preceptor for this patient encounter was physically present in the building during the encounter and was fully available. As needed, all aspects of the patient interview, examination, medical decision making process, and medical care plan development were reviewed and approved by the preceptor. Preceptor is aware and concurs with the plan as stated in the body of this note and will attest to such by his/her cosignature. CLAIRE JOHNSON DO Dec 18, 2016 09:43
[2016-12-18 14:00] VITALS: BP 152/90
[2016-12-18] MEDS: PERCOCET 5MG/325MG TAB PO PRN (16:10)
[2016-12-18 22:00] VITALS: BP 141/89
[2016-12-19 06:00] VITALS: BP 141/85
[2016-12-19] MEDS: HEPARIN SOD (PORCINE) 5000 UNITS/ML VIAL SC SCH ×3 (06:05→20:51)
[2016-12-19] MEDS: LevoFLOXacin 750 MG TABLET PO SCH (06:06)
[2016-12-19] MEDS: HumaLOG INSULIN (NovoLOG) PER UNIT SC SCH ×4 (07:30→20:51)
[2016-12-19] MEDS: SENOKOT S TAB PO SCH ×2 (08:03→20:51)
[2016-12-19] MEDS: LACTOBACILLUS ACIDOPHILUS CAP (BACID) PO SCH ×2 (08:04→17:48)
[2016-12-19] MEDS: PERCOCET 5MG/325MG TAB PO PRN (08:12)
--- NOTE | 2016-12-19 12:38 | IPNPDOC ---
Date Seen The patient was seen on 12/19/16. Progress Note SUBJECTIVE: Patient is a 46-year-old [place], shortness of breath, nausea, vomiting , no abdominal pain. Had a bowel movement is voiding fine. He feels this pain is lower extremities seems to be well controlled. Wound VAC is in place with no complaints OBJECTIVE PHYSICAL EXAMINATION: VITAL SIGNS: Please see below. GENERAL: No acute distress, alert and oriented 3 HEENT: PERRLA. Throat clear. Neck supple, no adenopathy CARDIOVASCULAR: Regular rate and rhythm. RESPIRATORY: Clear to auscultation bilaterally]. ABDOMINAL: Soft, anteroseptal positive bowel sounds, masses or rebound. Obesity is noted EXTREMITIES: Wound VAC in place lateral left lower extremity with bandage wrapping to the midcalf. No signs of edema or cellulitis extended beyond this point NEUROLOGICAL: Cranial nerves II through XII grossly intact PSYCHOLOGICAL: Negative LABORATORY DATA: Please see below. MICROBIOLOGY: Please see below. DVT prophylaxis ordered?: Yes ASSESSMENT AND PLAN: This is a 46-year-old gentleman with left lower extremity cellulitis and ulceration involving the left lateral: Foot. With wound VAC in place currently on Levaquin for antibiotics. PROBLEMS: 1. Cellulitis: Continue on by mouth Levaquin. Appreciate surgery's input regarding the wound VAC. He informs me he has an appointment with Dr. Graham on January 03, however, he's been instructed that if Tosha had an appointment sooner than this, that he should keep that appointment and didn' t keep follow-up with Dr. Graham on the . Likely he does appear to be improving with normalized white count. He is afebrile. We'll also continue with pain control 2. Leukocytosis (resolved): Continue oral antibiotics 3. Constipation-resolved. Likely due to narcotic pain medications. Receiving Senna/Docusate daily and having one normal BM per day. 3. Hx of DM- non insulin dependent. HbA1c 5.9. Currently on ISS, will continue. 4. Hx of HTN- not on home meds, stable. Disposition: Need to further delineate with PFS and surgery regarding the care of the wound VAC and wound. Otherwise, he is likely ready for home discharge tomorrow. VS, I&O, 24H, Fishbone Vital Signs/I&O Vital Signs Date Time Temp Pulse Resp B/P (MAP) Pulse Ox O2 Delivery O2 Flow Rate FiO2 12/19/16 09:39 Room Air 12/19/16 09:14 18 12/19/16 06:00 97.5 54 141/85 (103) 94 I&O- Last 24 Hours up to 6 AM 12/20/16 06:00 Intake Total 960 ml Output Total 0 ml Balance 960 ml Laboratory Data 24H LABS Laboratory Tests 2 12/18/16 16:23: Bedside Glucose (Misc Panel) 97 12/18/16 20:08: Bedside Glucose (Misc Panel) 106H 12/19/16 06:29: Bedside Glucose (Misc Panel) 98 12/19/16 11:47: Bedside Glucose (Misc Panel) 92 Microbiology Microbiology 12/13/16 Blood Culture - Final, Complete NO GROWTH AFTER 5 DAYS 12/13/16 Blood Culture - Final, Complete NO GROWTH AFTER 5 DAYS 12/16/16 MRSA Screen - Final, Complete 12/13/16 Wound Culture - Final, Complete Klebsiella Oxytoca Pseudomonas Aeruginosa Staphylococcus Aureus Staphylococcus Sp Coag Neg WYATT ARMENTA DO Dec 19, 2016 12:38
[2016-12-19 14:00] VITALS: BP 131/85
[2016-12-19 22:00] VITALS: BP 144/89
[2016-12-19] MEDS: MORPHINE 2 MG/ML 1ML SYRINGE IV PRN (23:47)
[2016-12-20] MEDS: HEPARIN SOD (PORCINE) 5000 UNITS/ML VIAL SC SCH ×2 (05:56→14:02)
[2016-12-20] MEDS: LevoFLOXacin 750 MG TABLET PO SCH (05:56)
[2016-12-20 06:00] VITALS: BP 140/88
[2016-12-20] MEDS: SENOKOT S TAB PO SCH ×2 (09:00→09:32)
--- NOTE | 2016-12-20 09:18 | IPNPDOC ---
Date Seen The patient was seen on 12/20/16. Progress Note SUBJECTIVE: Mr. Peck is a 46, year-old white male, past medical history of hypertension, type 2 diabetes, hyperlipidemia, neuropathy, NIMCO , presents to the ED today with 2 days of painful venous stasis ulcer. He reports a two-year history of venous stasis ulcer. Patient was afebrile overnight. Patient still remains on bedrest. Patient stated the pain is his left leg is improving, the pain is a 3 out of 10. He he even agreed to have his morphine be discontinued, stating that he can handle the pain at this point. Pt was started on PO antibiotic by medicine team. He is tolerating the PO meds without any problems. This morning, Pt is doing well. He has not complaints and is ready to go home. OBJECTIVE PHYSICAL EXAMINATION: VITAL SIGNS: Please see below. GENERAL: Obese gentleman, resting comfortably in bed. CARDIOVASCULAR: S1 and S2 present, no murmurs, no rubs, gallops RESPIRATORY: Clear to auscultate lungs anterior and posterior EXTREMITIES: Left leg is yin wrapped with wound vac in place. LABORATORY DATA: Please see below. MICROBIOLOGY: Please see below. IMAGING: X-ray showed: Large soft tissue ulcer is seen laterally. MRI of the left ankle was read as: 1. No focal osseous abnormality. No evidence of osteomyelitis. 2. Large open wound along the lateral ankle joint. 3. Extensive soft tissue edema and inflammation throughout the ankle joint, most prominent along the lateral aspect. No focal mass or abscess is identified. The findings are most consistent with diffuse cellulitis. Clinical correlation is recommended. ASSESSMENT AND PLAN: A 46-year-old male presents with a two-year history venous ulcer cellulitis, most likely caused by venous insufficiency. Patient is on proper PO antibiotics for cellulitis. Patient can be discharge today with the instructions to have wet to dry normal saline dressing change with yin wrap daily by home nurse or his . VS, I&O, 24H, Jianbone Vital Signs/I&O Vital Signs Date Time Temp Pulse Resp B/P (MAP) Pulse Ox O2 Delivery O2 Flow Rate FiO2 12/20/16 06:00 97.0 61 17 140/88 (105) 95 Room Air I&O- Last 24 Hours up to 6 AM 12/21/16 06:00 Intake Total 0 ml Output Total 400 ml Balance -400 ml Laboratory Data 24H LABS Laboratory Tests 2 12/19/16 11:47: Bedside Glucose (Misc Panel) 92 12/19/16 16:26: Bedside Glucose (Misc Panel) 97 12/19/16 20:06: Bedside Glucose (Misc Panel) 113H Microbiology Microbiology 12/13/16 Blood Culture - Final, Complete NO GROWTH AFTER 5 DAYS 12/13/16 Blood Culture - Final, Complete NO GROWTH AFTER 5 DAYS 12/16/16 MRSA Screen - Final, Complete 12/13/16 Wound Culture - Final, Complete Klebsiella Oxytoca Pseudomonas Aeruginosa Staphylococcus Aureus Staphylococcus Sp Coag Neg GME ATTESTATION GME ATTESTATION My preceptor for this patient encounter was physically present in the building during the encounter and was fully available. As needed, all aspects of the patient interview, examination, medical decision making process, and medical care plan development were reviewed and approved by the preceptor. Preceptor is aware and concurs with the plan as stated in the body of this note and will attest to such by his/her cosignature. KATHRINE ABBOTT DO Dec 20, 2016 09:18
[2016-12-20] MEDS: LACTOBACILLUS ACIDOPHILUS CAP (BACID) PO SCH (09:32)
[2016-12-20] MEDS: HumaLOG INSULIN (NovoLOG) PER UNIT SC SCH ×2 (09:33→12:00)
[2016-12-20] MEDS ORDERED: PERCOCET PO (11:27)
[2016-12-20] MEDS ORDERED: LEVA750T7 PO (11:51)
[2016-12-20] MEDS ORDERED: LISI-538 PO (13:21)
[2016-12-20] MEDS ORDERED: METF10004 PO (13:21)
[2016-12-20 14:00] VITALS: BP 135/90
--- NOTE | 2016-12-20 16:00 | DS.PDOC ---
Discharge Summary General Date of Admission Dec 13, 2016 at 16:48 Date of Discharge Dec 20, 2016 Primary Care Physician: Gisela Fields Attending Physician: Jorge Luis Encarnacion MD Discharge Summary PROCEDURES PERFORMED DURING STAY: [None]. ADMITTING DIAGNOSES: 1. Osteomyelitis 2. HTN 3. Hyperlipidemia DISCHARGE DIAGNOSES: 1. Cellulitis COMPLICATIONS/CHIEF COMPLAINT: Osteomyelitis HISTORY OF PRESENT ILLNESS:46 y/o male with past medical history of HTN, DM2, hyperlipidemia, neuropathy, NIMCO who presents today with complaint of increasing pain and swelling of left lower extremity., pt states that for the past few days the pain in his left lateral ankle has been increasing. He admits he cannot afford many of the proper diabetic wound supplies and has been supplementing with diapers to use as bandages to wrap it in. He used to see Dr. Graham for wound care and a local pmp, but has not seen any health care provider for his ankle ulcer in about "2-6 months" (pt gives vague history) . He states that the pain is constant in the left lower extremity but the pain has been getting worse for the past few days and really progressed today. He denied chills or fever but states that his legs swell very badly by the end of the day. The pain extends up the left leg to her knee and every once in a while he will experience a "jolt of pain" in the left leg. He knew he needed to come into the hospital because the pain was unbearable. He does have a history of diabetic ulcer in the same location at which he was admitted last year for, apparently this is an ongoing issue for him. HOSPITAL COURSE: 1. Cellulitis: MRI negative for evidence of osteomyelitis and WBC improved. Pt HAD wound changes 3x per day and wound care is on board. Gen surgery, consulted at the time of admission., recommends dressing changes as well as elevation, bed rest, HEMA wrap and only ambulating to use the bathroom. In the beginning the patient was placed on Vanco and Cefepime due to patient's hx of MRSA and for further coverage. Wound cultures back with evidence of Klebsiella, staph aureus, coag neg staph as well as pseudomonas. Pt with negative nasopharyngeal swab for MRSA. After further discussion with pharmacy and ID, pt was placed on Levofloxacin 750mg daily PO as all organisms are sensitive. Pt is to complete a 10 day course of this to be finished as OP. He informs me he has an appointment with Dr. Graham on January 03, however, he' s been instructed that if Tosha had an appointment sooner than this, that he should keep that appointment and didn't keep follow-up with Dr. Graham on the . The patient was given 1-2 tab Percocet for pain. Patient was discharged on 15 tabs of percocet for pain till he see wound care and his PCP. The patient was stable on discharge and was eager to go home. DISCHARGE MEDICATIONS: Please see below. ALLERGIES: Please see below. OBJECTIVE PHYSICAL EXAMINATION: VITAL SIGNS: Please see below. GENERAL: No acute distress, alert and oriented 3 HEENT: PERRLA. Throat clear. Neck supple, no adenopathy CARDIOVASCULAR: Regular rate and rhythm. RESPIRATORY: Clear to auscultation bilaterally. ABDOMINAL: Soft, anteroseptal positive bowel sounds, masses or rebound. Obesity is noted EXTREMITIES: Left lower extremity with bandage wrapping to the midcalf. No signs of edema or cellulitis extended beyond this point NEUROLOGICAL: Cranial nerves II through XII grossly intact PSYCHOLOGICAL: Negative LABORATORY DATA: Please see below. IMAGING: Left Ankle Xray 12/13/16 Four views of the left ankle are performed. Large soft tissue ulcer is seen laterally. The adjacent distal fibula demonstrates slightly irregular periosteal reaction. I suspect osteomyelitis involving the distal fibula. There is no acute fracture or dislocation. The ankle mortise is anatomic. There is diffuse soft-tissue swelling. There is calcaneal spurring as well as spurring of the tarsal bones. Left Ankle MRI 12/13/16 Impression: 1. No focal osseous abnormality. No evidence of osteomyelitis. 2. Large open wound along the lateral ankle joint. 3. Extensive soft tissue edema and inflammation throughout the ankle joint, most prominent along the lateral aspect. No focal mass or abscess is identified. The findings are most consistent with diffuse cellulitis. Clinical correlation is recommended. ACTIVITY: As tolerated DIET: Consistent Carb Diet DISCHARGE PLAN: PROBLEMS: 1. Cellulitis: Pt's pain improving. MRI negative for evidence of osteomyelitis. General surgery consulted at the time of admission, appreciate recommendations. Pt will have wound changes 2x per day and wound care is on board. Gen surgery recommends dressing changes as well as elevation, bed rest, HEMA wrap and only ambulating to use the bathroom. Discussed with wound care who will give recs for dressings for superficial wounds. Wound cultures back with evidence of Klebsiella, staph aureus, coag neg staph as well as pseudomonas. Pt with negative nasopharyngeal swab for MRSA. After further discussion with pharmacy and ID, sensitivities confirmed, pt was placed on Levofloxacin 750mg daily PO as all organisms are sensitive. Pt will complete a 10 day course of this to be finished as OP. Pt requiring less pain medication, will continue Percocet, especially around the time pt is scheduled to have dressing changes. Will ensure prompt OP follow up with his PCP for a new wound care clinic per the patient's request. 2. Leukocytosis (resolved): Patient currently on Levofloxacin 750mg daily PO completed 4 days will continue for 6 more days. 3. Hx of DM- non insulin dependent. HbA1c 5.9. Continue metoformin outpatient 4. Hx of HTN- continue on home medication of lisinopril outpatient. DISPOSITION: . DISCHARGE INSTRUCTIONS: 1.Follow up with Radha Fields 12/27 @ 10am([phone]) 2.Follow up with [facility] will see you tomorrow (12/21/16) for nursing/wound care. 3.Wet to dry normal saline dressing change with hema wrap daily by home nurse. 4.Follow up with [facility] 12/28 @ 9:15 ([phone]) 5.Complete antibiotics as proscribed. ITEMS TO FOLLOWUP ON ON OUTPATIENT: 1.Follow up with Radha Fields 12/27 @ 10am([phone]) 2.Follow up with [facility] will see you tomorrow (12/21/16) for nursing/wound care. 3.Wet to dry normal saline dressing change with hema wrap daily by home nurse. 4.Follow up with [facility] 12/28 @ 9:15 ([phone]) 5.Complete antibiotics as proscribed. DISCHARGE CONDITION: Stable TIME SPENT ON DISCHARGE: Greater than 35 minutes. Vital Signs/I&Os Vital Signs Date Time Temp Pulse Resp B/P (MAP) Pulse Ox O2 Delivery O2 Flow Rate FiO2 12/20/16 06:00 97.0 61 17 140/88 (105) 95 Room Air I&O- Last 24 Hours up to 6 AM 12/21/16 05:59 Intake Total 360 ml Output Total 600 ml Balance -240 ml Laboratory Data Labs 24H Laboratory Tests 2 12/19/16 11:47: Bedside Glucose (Misc Panel) 92 12/19/16 16:26: Bedside Glucose (Misc Panel) 97 12/19/16 20:06: Bedside Glucose (Misc Panel) 113H FSBS Laboratory Tests Test 12/19/16 11:47 12/19/16 16:26 12/19/16 20:06 Range/Units Bedside Glucose (Misc Panel) 92 97 113 70-105 MG/DL Microbiology Microbiology 12/13/16 Blood Culture - Final, Complete NO GROWTH AFTER 5 DAYS 12/13/16 Blood Culture - Final, Complete NO GROWTH AFTER 5 DAYS 12/16/16 MRSA Screen - Final, Complete 12/13/16 Wound Culture - Final, Complete Klebsiella Oxytoca Pseudomonas Aeruginosa Staphylococcus Aureus Staphylococcus Sp Coag Neg Discharge Medications Scheduled Levofloxacin Hemihydrate (Levaquin) 750 Mg Tab, 750 MG PO DAILY@06 Lisinopril (Lisinopril) 20 Mg Tab, 20 MG PO DAILY Metformin Hydrochloride (Metformin HCl) 1,000 Mg Tab, 1,000 MG PO BID Scheduled PRN Albuterol Sulfate (Ventolin Hfa) 200 Puff/8 Gm Aers, 2 PUFF INH QID PRN for SHORTNESS OF BREATH, (Reported) Oxycodone/Acetaminophen (Percocet 5MG/325MG Tablet) 1 Tab Tab, 1 TAB PO Q4HP PRN for MODERATE PAIN (PS 5-7) Allergies Coded Allergies: No Known Drug Allergy (Verified Allergy, Unknown, 06/20/12) GME ATTESTATION GME ATTESTATION My preceptor for this patient encounter was physically present in the building during the encounter and was fully available. As needed, all aspects of the patient interview, examination, medical decision making process, and medical care plan development were reviewed and approved by the preceptor. Preceptor is aware and concurs with the plan as stated in the body of this note and will attest to such by his/her cosignature. CLAIRE JOHNSON DO Dec 20, 2016 08:44
== END 2016-12-20 14:45 | disposition home health service (06) | DRG 197 ==
LOC: M ED 13:57 → M ED INP 16:48 → M MSPAV 18:52
PROVIDERS: ADMIT General Practice; ATTEND Hospitalist
DX: I83.209 Varicose veins of unspecified lower extremity with both ulcer of unspecified site and inflammation (principal); E11.621 Type 2 diabetes mellitus with foot ulcer; E11.40 Type 2 diabetes mellitus with diabetic neuropathy, unspecified; Z68.43 Body mass index [BMI] 50.0-59.9, adult; L03.116 Cellulitis of left lower limb; E66.9 Obesity, unspecified; I10 Essential (primary) hypertension; E78.5 Hyperlipidemia, unspecified; F17.210 Nicotine dependence, cigarettes, uncomplicated; Z86.14 Personal history of Methicillin resistant Staphylococcus aureus infection; B95.61 Methicillin susceptible Staphylococcus aureus infection as the cause of diseases classified elsewhere; B96.1 Klebsiella pneumoniae [K. pneumoniae] as the cause of diseases classified elsewhere; B96.5 Pseudomonas (aeruginosa) (mallei) (pseudomallei) as the cause of diseases classified elsewhere; Z79.84 Long term (current) use of oral hypoglycemic drugs; Z79.899 Other long term (current) drug therapy

== ENCOUNTER → 2017-09-28 | Outpatient (REF) | payer OTHER ==
[2017-09-28 16:42] LABS: BASO # 0.1 10^3/uL (0.0-0.2); BASO % 0.8 % (0.0-1.0); EOS # 0.2 10^3/uL (0.0-0.50); EOS % 2.4 % (0.0-3.0); HEMATOCRIT 49.6 % (42.0-52.0); HEMOGLOBIN 16.3 g/dl (13.5-17.5); IMMATURE GRANULOCYTE % 0.4 % (0-3.0); LYMPH # 1.5 10^3/uL (1.5-4.5); LYMPH % 19.7 % (24.0-44.0); MEAN CORPUSCULAR HEMOGLOBIN 31.3 pg (27.0-33.0); MEAN CORPUSCULAR HGB CONC 32.9 g/dl (32.0-36.5); MEAN CORPUSCULAR VOLUME 95.2 fl (80.0-96.0); MONO # 0.6 10^3/uL (0.0-0.8); MONO % 8.2 % (0.0-5.0); NEUTROPHILS # 5.1 10^3/uL (1.8-7.7); NEUTROPHILS % 68.5 % (36.0-66.0); PLATELET COUNT, AUTOMATED 283 10^3/uL (150-450); RED BLOOD COUNT 5.21 10^6/uL (4.30-6.10); RED CELL DISTRIBUTION WIDTH 12.7 % (11.5-14.5); WHITE BLOOD COUNT 7.4 10^3/uL (4.0-10.0)
[2017-09-28 17:08] LABS: ALBUMIN/GLOBULIN RATIO 1.08 (1.00-1.93); ALKALINE PHOSPHATASE 93 U/L (45-117); ALT/SGPT 53 U/L (12-78); ANION GAP 8 MEQ/L (8-16); AST/SGOT 26 U/L (7-37); BILIRUBIN,TOTAL 0.3 MG/DL (0.2-1.0); BLOOD UREA NITROGEN 15 MG/DL (7-18); CALCIUM LEVEL 9.6 MG/DL (8.5-10.1); CARBON DIOXIDE LEVEL 27 MEQ/L (21-32); CHLORIDE LEVEL 108 MEQ/L (98-107); CHOLESTEROL LEVEL 163 MG/DL (<200); CREATININE FOR GFR 0.83 MG/DL (0.70-1.30); FREE T4 1.13 NG/DL (0.76-1.46); GLOMERULAR FILTRATION RATE > 60.0 (>60); GLUCOSE, FASTING 88 MG/DL (70-100); HDL CHOLESTEROL 43 MG/DL (>40); LDL CHOLESTEROL 58.6 MG/DL (<100); NON-HDL-C 120 MG/DL; POTASSIUM SERUM 4.6 MEQ/L (3.5-5.1); SODIUM LEVEL 143 MEQ/L (136-145); TOTAL PROTEIN 7.7 GM/DL (6.4-8.2); TRIGLYCERIDES LEVEL 307 MG/DL (<150)
[2017-09-28 17:20] LABS: ESTIMATED AVERAGE GLUCOSE 134 MG/DL (60-110); HEMOGLOBIN A1c 6.3 %
[2017-09-28 17:21] LABS: MALB URINE SIEMENS 44.6 MG/L; MAU/CREAT RATIO 31.6 MCG/MG (0.0-30.0)
== END ==
LOC: M SFHCCAPE 08:33
DX: I10 Essential (primary) hypertension (principal); E66.01 Morbid (severe) obesity due to excess calories; E11.59 Type 2 diabetes mellitus with other circulatory complications; E78.2 Mixed hyperlipidemia
CPT/HCPCS: 84443

== ENCOUNTER → 2017-11-02 | Outpatient (REF) | payer OTHER ==
[2017-11-02 17:47] LABS: ALBUMIN 3.8 GM/DL (3.2-5.2); ALBUMIN/GLOBULIN RATIO 1.12 (1.00-1.93); ALKALINE PHOSPHATASE 79 U/L (45-117); ALT/SGPT 36 U/L (12-78); ANION GAP 5 MEQ/L (8-16); AST/SGOT 17 U/L (7-37); BILIRUBIN,TOTAL 0.5 MG/DL (0.2-1.0); BLOOD UREA NITROGEN 13 MG/DL (7-18); CALCIUM LEVEL 8.9 MG/DL (8.5-10.1); CARBON DIOXIDE LEVEL 31 MEQ/L (21-32); CHLORIDE LEVEL 105 MEQ/L (98-107); CREATININE FOR GFR 0.86 MG/DL (0.70-1.30); GLOMERULAR FILTRATION RATE > 60.0 (>60); GLUCOSE, FASTING 102 MG/DL (70-100); POTASSIUM SERUM 4.3 MEQ/L (3.5-5.1); SODIUM LEVEL 141 MEQ/L (136-145); TOTAL PROTEIN 7.2 GM/DL (6.4-8.2)
== END ==
LOC: M SFHCCAPE 08:39
DX: I10 Essential (primary) hypertension (principal)

== ENCOUNTER → 2017-11-30 | Outpatient (CLI) | payer OTHER | LOC: M RAD 12:50 | DX: N62 Hypertrophy of breast (principal); N64.4 Mastodynia | CPT/HCPCS: 77066 ==

== ENCOUNTER → 2018-02-14 | Outpatient (REF) | payer OTHER ==
[2018-02-14 17:29] LABS: ALBUMIN 3.6 GM/DL (3.2-5.2); ALBUMIN/GLOBULIN RATIO 1.03 (1.00-1.93); ALKALINE PHOSPHATASE 88 U/L (45-117); ALT/SGPT 30 U/L (12-78); ANION GAP 10 MEQ/L (8-16); AST/SGOT 29 U/L (7-37); BILIRUBIN,TOTAL 0.8 MG/DL (0.2-1.0); BLOOD UREA NITROGEN 14 MG/DL (7-18); CALCIUM LEVEL 8.5 MG/DL (8.5-10.1); CARBON DIOXIDE LEVEL 25 MEQ/L (21-32); CHLORIDE LEVEL 105 MEQ/L (98-107); CHOLESTEROL LEVEL 130 MG/DL (<200); CHOLESTEROL RISK RATIO 3.611 (<5); GLOMERULAR FILTRATION RATE > 60.0 (>60); GLUCOSE, FASTING 87 MG/DL (70-100); HDL CHOLESTEROL 36 MG/DL (>40); LDL CHOLESTEROL 53 MG/DL (<100); NON-HDL-C 94 MG/DL; POTASSIUM SERUM 4.6 MEQ/L (3.5-5.1); SODIUM LEVEL 140 MEQ/L (136-145); TOTAL PROTEIN 7.1 GM/DL (6.4-8.2); TRIGLYCERIDES LEVEL 205 MG/DL (<150)
[2018-02-14 17:34] LABS: ESTIMATED AVERAGE GLUCOSE 123 MG/DL (60-110); HEMOGLOBIN A1c 5.9 %
[2018-02-14 17:40] LABS: MALB URINE SIEMENS 50.6 MG/L; MAU/CREAT RATIO 21.5 MCG/MG (0.0-30.0)
== END ==
LOC: M SFHCCAPE 09:02
DX: E11.59 Type 2 diabetes mellitus with other circulatory complications (principal); E78.2 Mixed hyperlipidemia
CPT/HCPCS: 80053

== ENCOUNTER → 2018-06-19 | Outpatient (REF) | payer OTHER ==
[~2018-06-19] MED LIST changes: +LEVA750T7 PO; +PERCOCET PO
[2018-06-19 17:27] LABS: BASO # 0.1 10^3/uL (0.0-0.2); BASO % 0.6 % (0.0-1.0); EOS # 0.2 10^3/uL (0.0-0.50); EOS % 2.5 % (0.0-3.0); HEMATOCRIT 45.7 % (42.0-52.0); HEMOGLOBIN 15.4 g/dl (13.5-17.5); LYMPH # 1.6 10^3/uL (1.5-4.5); LYMPH % 20.2 % (24.0-44.0); MEAN CORPUSCULAR HEMOGLOBIN 30.4 pg (27.0-33.0); MEAN CORPUSCULAR HGB CONC 33.7 g/dl (32.0-36.5); MEAN CORPUSCULAR VOLUME 90.1 fl (80.0-96.0); MONO # 0.6 10^3/uL (0.0-0.8); MONO % 7.5 % (0.0-5.0); NEUTROPHILS # 5.3 10^3/uL (1.8-7.7); NEUTROPHILS % 68.9 % (36.0-66.0); PLATELET COUNT, AUTOMATED 277 10^3/uL (150-450); RED BLOOD COUNT 5.07 10^6/uL (4.30-6.10); WHITE BLOOD COUNT 7.7 10^3/uL (4.0-10.0)
[2018-06-19 17:30] LABS: ALT/SGPT 29 U/L (12-78); BILIRUBIN,TOTAL 0.8 MG/DL (0.2-1.0); BLOOD UREA NITROGEN 17 MG/DL (7-18); CALCIUM LEVEL 8.5 MG/DL (8.5-10.1); CARBON DIOXIDE LEVEL 26 MEQ/L (21-32); CHLORIDE LEVEL 107 MEQ/L (98-107); CHOLESTEROL LEVEL 131 MG/DL (<200); CHOLESTEROL RISK RATIO 3.638 (<5); GLOMERULAR FILTRATION RATE > 60.0 (>60); GLUCOSE, FASTING 94 MG/DL (70-100); HDL CHOLESTEROL 36 MG/DL (>40); LDL CHOLESTEROL 43 MG/DL (<100); NON-HDL-C 95 MG/DL; POTASSIUM SERUM 4.1 MEQ/L (3.5-5.1); SODIUM LEVEL 140 MEQ/L (136-145); TOTAL 25(OH) VITAMIN D 10.4 NG/ML (30.0-100.0); TOTAL PROTEIN 7.3 GM/DL (6.4-8.2); TRIGLYCERIDES LEVEL 259 MG/DL (<150)
[2018-06-19 17:38] LABS: HEMOGLOBIN A1c 5.7 %
== END ==
LOC: M SFHCCAPE 08:56
PROVIDERS: ATTEND Physician Assistant
DX: E78.2 Mixed hyperlipidemia (principal); E11.59 Type 2 diabetes mellitus with other circulatory complications; E55.9 Vitamin D deficiency, unspecified

== ENCOUNTER → 2018-08-10 | Outpatient (REF) | payer OTHER ==
[~2018-08-10] MED LIST changes: +HYDR-2541 PO; -HYDR25TAB PO
[2018-08-10 16:54] LABS: BASO % 0.5 % (0.0-1.0); EOS # 0.1 10^3/uL (0.0-0.50); EOS % 1.6 % (0.0-3.0); HEMATOCRIT 45.8 % (42.0-52.0); LYMPH # 1.8 10^3/uL (1.5-4.5); LYMPH % 22.6 % (24.0-44.0); MEAN CORPUSCULAR HEMOGLOBIN 30.1 pg (27.0-33.0); MEAN CORPUSCULAR HGB CONC 32.8 g/dl (32.0-36.5); MONO # 0.6 10^3/uL (0.0-0.8); MONO % 6.8 % (0.0-5.0); NEUTROPHILS # 5.5 10^3/uL (1.8-7.7); NEUTROPHILS % 68.3 % (36.0-66.0); PLATELET COUNT, AUTOMATED 268 10^3/uL (150-450); RED BLOOD COUNT 4.98 10^6/uL (4.30-6.10); WHITE BLOOD COUNT 8.1 10^3/uL (4.0-10.0)
[2018-08-10 16:57] LABS: BLOOD UREA NITROGEN 18 MG/DL (7-18); CALCIUM LEVEL 8.7 MG/DL (8.5-10.1); CARBON DIOXIDE LEVEL 28 MEQ/L (21-32); CHLORIDE LEVEL 108 MEQ/L (98-107); GLOMERULAR FILTRATION RATE > 60.0 (>60); GLUCOSE, FASTING 94 MG/DL (70-100); POTASSIUM SERUM 4.1 MEQ/L (3.5-5.1); SODIUM LEVEL 142 MEQ/L (136-145)
== END ==
LOC: M SFHCCAPE 11:00
PROVIDERS: ATTEND Nurse Practitioner Family
DX: L03.116 Cellulitis of left lower limb (principal)

== ENCOUNTER → 2018-11-06 | Outpatient (REF) | payer OTHER ==
[~2018-11-06] MED LIST changes: -LISI20TA PO; +LISI20TA18 PO; +PENT400T23 PO; -PENT40TASA PO
[2018-11-06 17:58] LABS: BASO # 0.1 10^3/uL (0.0-0.2); BASO % 0.6 % (0.0-1.0); EOS # 0.2 10^3/uL (0.0-0.50); EOS % 2.1 % (0.0-3.0); HEMATOCRIT 44.7 % (42.0-52.0); HEMOGLOBIN 14.9 g/dl (13.5-17.5); LYMPH # 1.7 10^3/uL (1.5-4.5); LYMPH % 20.3 % (24.0-44.0); MEAN CORPUSCULAR HEMOGLOBIN 30.4 pg (27.0-33.0); MEAN CORPUSCULAR HGB CONC 33.3 g/dl (32.0-36.5); MEAN CORPUSCULAR VOLUME 91.2 fl (80.0-96.0); MONO # 0.5 10^3/uL (0.0-0.8); MONO % 6.3 % (0.0-5.0); NEUTROPHILS % 70.3 % (36.0-66.0); PLATELET COUNT, AUTOMATED 264 10^3/uL (150-450); WHITE BLOOD COUNT 8.5 10^3/uL (4.0-10.0)
[2018-11-06 18:07] LABS: ALBUMIN 3.9 GM/DL (3.2-5.2); ALT/SGPT 22 U/L (12-78); BILIRUBIN,TOTAL 0.4 MG/DL (0.2-1.0); BLOOD UREA NITROGEN 18 MG/DL (7-18); CARBON DIOXIDE LEVEL 26 MEQ/L (21-32); CHLORIDE LEVEL 105 MEQ/L (98-107); CHOLESTEROL LEVEL 148 MG/DL (<200); CHOLESTEROL RISK RATIO 3.609 (<5); CREATININE FOR GFR 0.85 MG/DL (0.70-1.30); GLOMERULAR FILTRATION RATE > 60.0 (>60); GLUCOSE, FASTING 99 MG/DL (70-100); HDL CHOLESTEROL 41 MG/DL (>40); LDL CHOLESTEROL 64 MG/DL (<100); NON-HDL-C 107 MG/DL; POTASSIUM SERUM 4.2 MEQ/L (3.5-5.1); SODIUM LEVEL 139 MEQ/L (136-145); TOTAL PROTEIN 6.9 GM/DL (6.4-8.2); TRIGLYCERIDES LEVEL 214 MG/DL (<150)
[2018-11-06 18:10] LABS: TOTAL 25(OH) VITAMIN D 18.7 NG/ML (30.0-100.0)
[2018-11-06 18:18] LABS: HEMOGLOBIN A1c 6.2 %
[2018-11-06 18:28] LABS: MALB URINE SIEMENS 29.2 MG/L; MAU/CREAT RATIO 24.7 MCG/MG (0.0-30.0)
== END ==
LOC: M SFHCCAPE 11:06
PROVIDERS: ATTEND Physician Assistant
DX: E78.2 Mixed hyperlipidemia (principal); I10 Essential (primary) hypertension; E11.59 Type 2 diabetes mellitus with other circulatory complications; E66.01 Morbid (severe) obesity due to excess calories; E55.9 Vitamin D deficiency, unspecified

== ENCOUNTER 2018-11-17 20:36 | Emergency (ER) | payer OTHER ==
[~2018-11-17] VITALS: Ht 182.9 cm; Wt 178.2 kg
[~2018-11-17 20:36] MED LIST changes: -LISI20TA18 PO; +LISI20TA19 PO
[2018-11-17] MEDS ORDERED: ASPIRIN 325 MG TAB PO ONE (21:30)
[2018-11-17 22:31] LABS: BASO # 0.1 10^3/uL (0.0-0.2); BASO % 0.5 % (0.0-1.0); EOS # 0.2 10^3/uL (0.0-0.50); EOS % 2.1 % (0.0-3.0); HEMATOCRIT 44.4 % (42.0-52.0); HEMOGLOBIN 14.9 g/dl (13.5-17.5); LYMPH # 1.9 10^3/uL (1.5-4.5); LYMPH % 19.2 % (24.0-44.0); MEAN CORPUSCULAR HEMOGLOBIN 31.3 pg (27.0-33.0); MEAN CORPUSCULAR HGB CONC 33.6 g/dl (32.0-36.5); MEAN CORPUSCULAR VOLUME 93.3 fl (80.0-96.0); MONO # 0.6 10^3/uL (0.0-0.8); MONO % 6.4 % (0.0-5.0); NEUTROPHILS # 7.2 10^3/uL (1.8-7.7); NEUTROPHILS % 71.5 % (36.0-66.0); PLATELET COUNT, AUTOMATED 265 10^3/uL (150-450); RED BLOOD COUNT 4.76 10^6/uL (4.30-6.10); WHITE BLOOD COUNT 10.1 10^3/uL (4.0-10.0)
--- NOTE | 2018-11-17 22:40 | REPVR ---
EXAM: US Duplex Bilateral Lower Extremity Veins EXAM DATE/TIME: 11/17/2018 9:56 PM CLINICAL HISTORY: 48 years old, male; Pain; Leg, upper and leg, lower; Prior surgery; Surgery date: 6+ months; Surgery type: Ablasions and vein stripping bilaterally; Additional info: Yoshi TECHNIQUE: Imaging protocol: Real-time duplex ultrasound of the Bilateral Lower Extremities with 2-D franks scale, color Doppler flow and spectral waveform analysis with image documentation. Complete exam focused on the bilateral lower extremity veins. COMPARISON: US Duplex, Ext LOWER veins, bilat 10/03/2016 1:53 PM FINDINGS: Right deep veins: The common femoral, femoral and popliteal veins are patent without thrombus. Normal Doppler waveforms. Normal compressibility and/or augmentation response. Right superficial veins: Saphenofemoral junction is patent without thrombus. Left deep veins: The common femoral, femoral and popliteal veins are patent without thrombus. Normal Doppler waveforms. Normal compressibility and/or augmentation response. Left superficial veins: Saphenofemoral junction is patent without thrombus. IMPRESSION: No evidence of deep vein thrombosis. Electronically signed by: Jann Gore On 11/17/2018 22:40:06 PM
[2018-11-17 22:47] LABS: INR 1.08; PROTHROMBIN TIME 13.7 SECONDS (11.8-14.0)
[2018-11-17 22:48] LABS: PARTIAL THROMBOPLASTIN TIME 39.6 SECONDS (25.0-38.4)
[2018-11-17 22:53] LABS: BLOOD UREA NITROGEN 18 MG/DL (7-18); CALCIUM LEVEL 9.1 MG/DL (8.5-10.1); CARBON DIOXIDE LEVEL 28 MEQ/L (21-32); CHLORIDE LEVEL 107 MEQ/L (98-107); CPK CREATINE PHOSPHOKINASE 110 U/L (39-308); CREATININE FOR GFR 0.84 MG/DL (0.70-1.30); GLOMERULAR FILTRATION RATE > 60.0 (>60); GLUCOSE, FASTING 84 MG/DL (70-100); MB/CK RELATIVE INDEX 1.82 (< OR =4); SODIUM LEVEL 141 MEQ/L (136-145); TROPONIN I < 0.02 NG/ML (< 0.10)
[2018-11-17] MEDS ORDERED: NS 500 ML IV ONE (23:15)
[2018-11-17] MEDS ORDERED: ISOVUE-370 76% 100ML VIAL (Q9967) As Ordered ONE (23:25)
[2018-11-17 23:44] LABS: ALBUMIN 4.1 GM/DL (3.2-5.2); ALT/SGPT 25 U/L (12-78); BILIRUBIN,DIRECT 0.1 MG/DL (0.0-0.2); BILIRUBIN,TOTAL 0.6 MG/DL (0.2-1.0); LIPASE 116 U/L (73-393); TOTAL PROTEIN 7.4 GM/DL (6.4-8.2)
--- NOTE | 2018-11-18 00:30 | REPVR ---
EXAM: CT Abdomen and Pelvis With Contrast EXAM DATE/TIME: 11/17/2018 11:24 PM CLINICAL HISTORY: 48 years old, male; Abdominal pain; Generalized TECHNIQUE: Imaging protocol: Computed tomography of the abdomen and pelvis with intravenous contrast. Radiation optimization: All CT scans at this facility use at least one of these dose optimization techniques: automated exposure control; mA and/or kV adjustment per patient size (includes targeted exams where dose is matched to clinical indication); or iterative reconstruction. Contrast material: ISO; Contrast volume: 100 ml; Contrast route: AC; COMPARISON: CT ABD PELVIS WITH CONTRAST 03/10/2015 2:48 PM FINDINGS: Lungs: See CTA chest report on 11/17/2018. Heart: See CTA chest report on 11/17/2018. Liver: Unremarkable. No liver lesion is seen. The contour of the liver is smooth. No hepatomegaly is noted. Gallbladder and bile ducts: No calcified gallstones are seen. No gallbladder wall thickening, pericholecystic fluid, or pericholecystic inflammatory changes are identified. No dilation of the intrahepatic or extrahepatic bile ducts is noted. Pancreas: Normal. No ductal dilation. Spleen: Normal. No splenomegaly. Adrenals: Normal. No mass. Kidneys and ureters: The kidneys are normal in appearance. No renal lesion is identified. No calculi are seen in the kidneys or ureters. There is no hydronephrosis or hydroureter. There are no wedge-shaped areas of low attenuation in the kidneys to suggest pyelonephritis. There is no renal abscess or perinephric fluid collection. Stomach and bowel: There is no evidence for a bowel obstruction, diverticulosis, diverticulitis, colitis, pneumatosis intestinalis, intussusception, volvulus, or perforated viscus. Appendix: Normal. No evidence for appendicitis. Intraperitoneal space: Unremarkable. No free air. No fluid collection. Vasculature: The abdominal aorta is patent, normal in caliber, and there is no dissection. The renal arteries, celiac artery, superior mesenteric artery, inferior mesenteric artery, iliac arteries, and common femoral arteries are patent. There are minimal atherosclerotic calcifications. Lymph nodes: Normal. No enlarged lymph nodes. Bladder: Unremarkable. No calculi or masses are noted in the bladder. Reproductive: Unremarkable as visualized. Bones/joints: The imaged bony structures are intact. There is no suspicious osteolytic or osteoblastic lesion. There are degenerative changes in the lumbar spine. There are degenerative changes involving the hip joints. Soft tissues: There is a medium size fat-containing periumbilical hernia that measures 3.3 cm in transverse dimension, which has increased in size compared to the prior CT scan on 03/10/2015, previously measuring 1.5 cm in transverse dimension. IMPRESSION: Medium size fat-containing periumbilical hernia that has increased in size compared to the prior CT scan on 03/10/2015. Electronically signed by: Sebastian Vaughn On 11/18/2018 00:29:40 AM
--- NOTE | 2018-11-18 00:31 | REPVR ---
EXAM: CT Angiography Chest With Contrast EXAM DATE/TIME: 11/17/2018 11:15 PM CLINICAL HISTORY: 48 years old, male; Chest pain TECHNIQUE: Imaging protocol: Computed tomographic angiography of the chest with intravenous contrast. 3D rendering: MIP reconstructed images were created and reviewed. Radiation optimization: All CT scans at this facility use at least one of these dose optimization techniques: automated exposure control; mA and/or kV adjustment per patient size (includes targeted exams where dose is matched to clinical indication); or iterative reconstruction. Contrast material: ISO; Contrast volume: 100 ml; Contrast route: AC; COMPARISON: CT ANGIO CHEST 03/26/2015 11:31 PM FINDINGS: Pulmonary arteries: No pulmonary embolism is identified. Aorta: There is no thoracic aortic aneurysm, pseudoaneurysm, penetrating atherosclerotic ulcer, or dissection. Lungs: There is a 4 mm solid pulmonary nodule in the right middle lobe (image 57 of the axial series 502) and a 4 mm solid pulmonary nodule in the left upper lobe (image 33 of the axial series 502), which are unchanged compared to the prior CT scan on 03/26/2015 and for which follow-up is not necessary. The lungs are otherwise clear. There is no lung consolidation, pulmonary infarct, or mass. No emphysematous changes or interstitial lung disease is noted. The major airways are patent. Pleural space: Unremarkable. No pneumothorax. No pleural effusion. Heart: No cardiomegaly. No pericardial effusion. The ratio of the diameter of the right ventricle to the diameter of the left ventricle measures less than 1, which is within normal limits and there is no evidence for a right ventricular strain. There are calcifications of the aortic valve. Mediastinum: No mediastinal mass, hemorrhage, or pneumomediastinum. Lymph nodes: No enlarged lymph nodes. There are subcentimeter calcified left hilar lymph nodes, which represent calcified granulomas and are similar in appearance compared to the prior CT scan on 03/26/2015. Bones/joints: The imaged bony structures are intact. There is no suspicious osteolytic or osteoblastic lesion. There are bridging paraspinal osteophytes at multiple contiguous levels in the thoracic spine, which is compatible with diffuse idiopathic skeletal hyperostosis. Soft tissues: There is mild bilateral gynecomastia that has developed since the prior CT scan on 03/26/2015. IMPRESSION: 1. No acute findings in the chest. No pulmonary embolism. 2. 4 mm solid pulmonary nodule in the right middle lobe and a 4 mm solid pulmonary nodule in the left upper lobe, which are unchanged compared to the prior CT scan on 03/26/2015 and for which follow-up is not necessary. 3. Mild bilateral gynecomastia that has developed since the prior CT scan on 03/26/2015. FLEISCHNER SOCIETY 2017 GUIDELINES FOR MANAGEMENT OF INCIDENTAL PULMONARY NODULES: Multiple solid nodules <6 mm: In a low risk patient, no routine follow-up. In a high risk patient, optional CT at 12 months. Use most suspicious nodule as guide to management. Follow-up intervals may vary according to size and risk. High Risk Patients as defined in the 2017 Fleischner Society Guidelines: ?History of heavy smoking ?Exposure to asbestos, radium, or uranium ?Family history of lung cancer ?Emphysema and pulmonary fibrosis (IPF in particular) ?Older age ?Sex (females at greater risk than men) ?Race (Blacks and at higher risk) ?Marginal spiculation / suspicious morphology ?Upper lobe location (also apex) ?Multiple nodules (2-5 nodules highest risk) ?Exceptions, such as technically suboptimal scanning Eli H, Vitor DP, Lali ROE, et al. Guidelines for Management of Incidental Pulmonary Nodules Detected on CT images: From the Fleischner Society 2017. Radiology, September 2016;284(1):228-243. http://pubs.rsna.org/doi/pdf/10.1148/radiol.[email or web address] Electronically signed by: Sebastian Vaughn On 11/18/2018 00:31:22 AM
[2018-11-18 01:23] LABS: CK-MB VALUE MASS 1.9 NG/ML (<3.6); CPK CREATINE PHOSPHOKINASE 93 U/L (39-308); MB/CK RELATIVE INDEX 2.04 (< OR =4); TROPONIN I < 0.02 NG/ML (< 0.10)
[2018-11-18 02:00] VITALS: BP 144/88
--- NOTE | 2018-11-18 07:45 | ECGEPIP ---
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
--- NOTE | 2018-11-19 07:10 | ECGEPIP ---
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
== END 2018-11-18 02:17 | disposition home or self-care (01) ==
LOC: M ED 20:36
DX: R07.89 Other chest pain (principal); R91.8 Other nonspecific abnormal finding of lung field; K42.9 Umbilical hernia without obstruction or gangrene; R00.1 Bradycardia, unspecified; I45.4 Nonspecific intraventricular block; N62 Hypertrophy of breast; E66.01 Morbid (severe) obesity due to excess calories; E11.9 Type 2 diabetes mellitus without complications; I10 Essential (primary) hypertension; Z72.0 Tobacco use
CPT/HCPCS: 71275; 74177; 80048; 80076; 82550; 82553; 83690; 85025; 85610; 85730; 93005; 93041; 93970; 94760; 99285; Q9967

== ENCOUNTER → 2018-11-27 | Outpatient (CLI) | payer OTHER ==
[~2018-11-27] MED LIST changes: +LIDOCAINE 2% INJ 100 MG/5 ML SDV (FOR ANES.) As Ordered ONE; +PROPOFOL 200 MG/20 ML VIAL As Ordered ONE
--- NOTE | 2018-11-27 15:12 | REP ---
BILATERAL LOWER EXTREMITY DUPLEX DOPPLER EVALUATION OF DEEP VENOUS SYSTEMS WITH EVALUATION FOR VENOUS REFLUX: Real-time compression and duplex Doppler interrogation of bilateral lower extremity deep venous systems is performed. No deep venous thrombosis is seen bilaterally. Evaluation for venous reflux on the right demonstrates some reflux in the common femoral vein. There is an anterior accessory greater saphenous vein present measuring 5 mm in diameter, reflux noted only in the standing position. There is evidence of prior ablation of the entire greater saphenous vein. There is no reflux in any portion of the superficial femoral or popliteal veins, nor in the lesser saphenous vein which measures 4 mm. Multiple venous varices are seen below the level of the knee, source indeterminate. Evaluation for reflux on the left demonstrates some reflux in the common femoral vein. There is a large anterior accessory greater saphenous vein measuring 10 mm demonstrating severe reflux. There is evidence of prior ablation of the greater saphenous vein. There is reflux in the proximal left superficial femoral vein with duration of 2.2 cm and mid superficial femoral vein 1.4 seconds. There is no reflux in the distal superficial femoral vein or popliteal vein. There is no reflux in the lesser saphenous vein which measures 6 mm. Varices throughout the left thigh are fed by the severe reflux in the large anterior accessory greater saphenous vein, with varices extending into the left calf. Electronically Signed by Elijah Modi MD 11/29/2018 09:51 A
== END ==
LOC: M RAD 08:41
PROVIDERS: ATTEND Surgery Vascular Surgery
DX: I87.2 Venous insufficiency (chronic) (peripheral) (principal); I83.93 Asymptomatic varicose veins of bilateral lower extremities

== ENCOUNTER 2019-01-24 10:30 | Day surgery (SDC) | payer OTHER ==
[~2019-01-24] VITALS: Ht 182.9 cm; Wt 176.4 kg
[~2019-01-24 10:30] MED LIST changes: +IRON65TA2 PO; +LR 1,000 ML IV ONE; +MIDAZOLAM INJ 2 MG/2 ML VIAL (J2250) As Ordered ONE; +ONDANSETRON 4MG/2ML VIAL (J2405) As Ordered ONE; +SERT25TA85 PO; +ceFAZolin SOD 2 GM in IV 1 EA IV ONE; +dexameTHASONE 4 MG/ML 1ML VIAL (J1100) As Ordered ONE; +fentaNYL 100 MCG/2 ML INJECTION (J3010) As Ordered ONE
[2019-01-24] MEDS ORDERED: LIDOCAINE W/EPINEPHRINE 1% 20ML VIAL As Ordered ONE ×2 (10:39→10:40)
[2019-01-24] MEDS ORDERED: BUPIVACAINE HCL 0.5% 10 ML VIAL As Ordered ONE (10:39)
[2019-01-24] MEDS ORDERED: LIDOCAINE 2% MDV 20 ML VIAL As Ordered ONE (10:40)
[2019-01-24] MEDS ORDERED: HEPARIN SOD (PORCINE) 5000 UNITS/ML VIAL As Ordered ONE (10:52)
[2019-01-24] MEDS ORDERED: MIDAZOLAM INJ 2 MG/2 ML VIAL (J2250) As Ordered ONE (11:27)
[2019-01-24] MEDS ORDERED: KETAMINE HCL 200 MG/20 ML VIAL As Ordered ONE (11:28)
[2019-01-24] MEDS ORDERED: ONDANSETRON 4MG/2ML VIAL (J2405) IV PRN (12:30)
[2019-01-24] MEDS ORDERED: LR 1,000 ML IV SCH (12:30)
[2019-01-24] MEDS ORDERED: fentaNYL 100 MCG/2 ML INJECTION (J3010) IV PRN (12:30)
[2019-01-24] MEDS ORDERED: oxyCODONE 5MG TAB PO PRN (12:30)
[2019-01-24 12:41] VITALS: BP 137/76
--- NOTE | 2019-03-05 19:26 | ROOPDOC ---
[facility] Report Of Operation Report of Operation DATE OF PROCEDURE: 01/24/19 PREPROCEDURE DIAGNOSES: Venous insufficiency with severe reflux left anterior branch of greater saphenous vein with symptomatic varicosities, ulcerations and edema. POSTPROCEDURE DIAGNOSES: Same. PROCEDURE: Radiofrequency ablation of the anterior branch of the greater saphe nous vein left lower extremity. SURGEON: Mckenzie Easley MD ANESTHESIA: Monitored anesthesia care and local. INDICATION FOR PROCEDURE: Mr. Moss is a very pleasant 48-year-old gentleman with extensive history of venous insufficiency and procedures to play both greater saphenous veins, now with left lower extremity symptomatic varicosities, ulcerations of the lower extremity, edema due to severe reflux in the anterior branch of the left greater saphenous vein. Risks benefits and alternatives to radiofrequency ablation were explained to the patient is agreeable to proceed. Informed consent was obtained. REPORT OF OPERATION: The patient was brought to the operating room in stable condition. He was placed supine on the OR table. Anesthesia and antibiotics were administered without compensation. His left lower extremity was prepped and draped in a sterile fashion all the way to the groin. A timeout was performed. Local anesthesia was administered to the skin and subcutaneous tissue over the anterior branch of the greater saphenous vein in the mid thigh. A microneedle was used to access the vein under ultrasound guidance. A wire was passed through this access under ultrasound guidance. The needle was removed and a 7 Swiss sheath was placed and flushed with saline. We then advanced the radiofrequency ablation catheter through the sheath to the proximal anterior branch of the greater saphenous vein, making sure we were 2 cm from the junction with the common femoral vein. Tumescence was injected around the vein under ultrasound guidance. We then performed radiofrequency ablation of the left anterior branch of the greater saphenous vein under ultrasound guidance and compression. 3 cycles were needed. The sheath and catheter were then removed and pressure was held for hemostasis and a sterile dressing was applied. The patient was last awakened from anesthesia was taken to recovery in stable condition. ESTIMATED BLOOD LOSS: Approximately 2 mL. COMPLICATIONS: None. PLAN: We will see the patient back in a few days for a left lower extremity venous study to ensure successful ablation of the anterior branch of the greater saphenous veins and to ensure that there is no thrombus extending into the common femoral vein. MCKENZIE EASLEY MD Mar 05, 2019 19:26
== END 2019-01-24 13:32 | disposition home or self-care (01) ==
LOC: M SDC 10:30
PROVIDERS: ATTEND Surgery Vascular Surgery
DX: I83.892 Varicose veins of left lower extremity with other complications (principal); I87.2 Venous insufficiency (chronic) (peripheral); I10 Essential (primary) hypertension; E11.9 Type 2 diabetes mellitus without complications; E78.00 Pure hypercholesterolemia, unspecified; R00.2 Palpitations; R07.9 Chest pain, unspecified; R60.0 Localized edema; M19.072 Primary osteoarthritis, left ankle and foot; F32.9 Major depressive disorder, single episode, unspecified; R51 Headache; R06.83 Snoring; G47.9 Sleep disorder, unspecified; R06.09 Other forms of dyspnea; R39.15 Urgency of urination; R32 Unspecified urinary incontinence; F17.210 Nicotine dependence, cigarettes, uncomplicated; Z79.899 Other long term (current) drug therapy; Z79.84 Long term (current) use of oral hypoglycemic drugs; Z68.43 Body mass index [BMI] 50.0-59.9, adult
CPT/HCPCS: 36475; 76940; C1894; J0690; J1100; J2250; J2405; J3010

== ENCOUNTER 2019-03-01 16:32 | Emergency (ER) | payer OTHER ==
[~2019-03-01] VITALS: Ht 182.9 cm; Wt 183.6 kg
[~2019-03-01 16:32] MED LIST changes: -LIDOCAINE 2% INJ 100 MG/5 ML SDV (FOR ANES.) As Ordered ONE; -LR 1,000 ML IV ONE; -MIDAZOLAM INJ 2 MG/2 ML VIAL (J2250) As Ordered ONE; -ONDANSETRON 4MG/2ML VIAL (J2405) As Ordered ONE; -PROPOFOL 200 MG/20 ML VIAL As Ordered ONE; -ceFAZolin SOD 2 GM in IV 1 EA IV ONE; -dexameTHASONE 4 MG/ML 1ML VIAL (J1100) As Ordered ONE; -fentaNYL 100 MCG/2 ML INJECTION (J3010) As Ordered ONE
[2019-03-01] MEDS ORDERED: KETOROLAC 30 MG/ML VIAL (J1885) IV ONE (17:45)
[2019-03-01 18:22] LABS: BASO # 0.1 10^3/uL (0.0-0.2); BASO % 0.6 % (0.0-1.0); EOS # 0.2 10^3/uL (0.0-0.5); HEMATOCRIT 47.4 % (42.0-52.0); HEMOGLOBIN 15.6 g/dl (13.5-17.5); LYMPH # 1.6 10^3/uL (1.5-5.0); LYMPH % 15.6 % (24.0-44.0); MEAN CORPUSCULAR HEMOGLOBIN 30.5 pg (27.0-33.0); MEAN CORPUSCULAR HGB CONC 32.9 g/dl (32.0-36.5); MEAN CORPUSCULAR VOLUME 92.6 fl (80.0-96.0); MONO # 0.9 10^3/uL (0.0-0.8); MONO % 8.3 % (0.0-5.0); NEUTROPHILS # 7.5 10^3/uL (1.5-8.5); NEUTROPHILS % 73.2 % (36.0-66.0); PLATELET COUNT, AUTOMATED 249 10^3/uL (150-450); RED BLOOD COUNT 5.12 10^6/uL (4.30-6.10); WHITE BLOOD COUNT 10.3 10^3/uL (4.0-10.0)
--- NOTE | 2019-03-01 18:27 | REPVR ---
PROCEDURE INFORMATION: Exam: US Abdomen Limited Exam date and time: 03/01/2019 6:00 PM Age: 48 years old Clinical history: Abdominal pain; Periumbilical; Additional info: Umbilical hernia? ? TECHNIQUE: Imaging protocol: Real-time ultrasound of the abdomen with image documentation. Examination is focused on the region of clinical interest. COMPARISON: CT ABD/PEL W/IV CONTRAST ONLY 11/17/2018 11:30 PM FINDINGS: Soft tissues: There is a defect in the anterior abdominal wall at the umbilicus measuring 1.7 cm. There is a protrusion of fat through the umbilicus demonstrated with the Valsalva maneuver consistent with umbilical hernia. Hernia not reducible. IMPRESSION: Findings compatible with a non reducible umbilical hernia. Electronically signed by: Robert Mueller On 03/01/2019 18:26:37 PM
[2019-03-01 18:56] LABS: ALBUMIN 3.6 GM/DL (3.2-5.2); ALT/SGPT 28 U/L (12-78); BILIRUBIN,DIRECT < 0.1 MG/DL (0.0-0.2); BILIRUBIN,TOTAL 0.5 MG/DL (0.2-1.0); LIPASE 98 U/L (73-393); TOTAL PROTEIN 7.1 GM/DL (6.4-8.2)
[2019-03-01 19:49] VITALS: BP 138/94
--- NOTE | 2019-03-03 19:27 | ED PDOC ---
Post-Departure Follow-Up dr grant and dottie hu faxed fomral report of abdominal us for fu Patrica Manrique MD Mar 03, 2019 19:27
== END 2019-03-01 19:49 | disposition home or self-care (01) ==
LOC: M ED 16:32
DX: K42.9 Umbilical hernia without obstruction or gangrene (principal); I10 Essential (primary) hypertension; E11.9 Type 2 diabetes mellitus without complications; I25.2 Old myocardial infarction; R51 Headache; Z87.442 Personal history of urinary calculi; F17.210 Nicotine dependence, cigarettes, uncomplicated; Z79.899 Other long term (current) drug therapy; Z79.84 Long term (current) use of oral hypoglycemic drugs
CPT/HCPCS: 76705; 80047; 80076; 81001; 83690; 85025; 96374; 99284; J1885

== ENCOUNTER → 2019-03-02 | Outpatient (CLI) | payer OTHER ==
--- NOTE | 2019-03-02 10:37 | REP ---
Left lower extremity Duplex Doppler venous ultrasound: Real time compression and duplex Doppler interrogation of the left lower extremity deep venous system is performed. The left common femoral, superficial femoral and popliteal veins are fully compressible with transducer pressure and demonstrate normal spontaneous and phasic flow, without evidence of deep venous thrombosis. Impression: No evidence of deep venous thrombosis of the left lower extremity femoral popliteal venous system. There is thrombosis in the greater saphenous vein as expected, thrombus is 1.4 cm from the saphenofemoral junction. Electronically Signed by Elijah Modi MD 03/02/2019 10:29 A
== END ==
LOC: M RAD 09:42
PROVIDERS: ATTEND Surgery Vascular Surgery
DX: I87.2 Venous insufficiency (chronic) (peripheral) (principal); I83.003 Varicose veins of unspecified lower extremity with ulcer of ankle

== ENCOUNTER → 2019-04-28 | Outpatient (REF) | payer OTHER ==
[2019-04-28 15:20] LABS: APPEARANCE, URINE CLEAR (CLEAR); BACTERIA, URINE AUTO NEGATIVE (NEGATIVE); BILIRUBIN, URINE AUTO NEGATIVE (NEGATIVE); BLOOD, URINE BLOOD 1+ (NEGATIVE); COLOR, URINE YELLOW (YELLOW); GLUCOSE, URINE (UA) AUTO NEGATIVE (NEGATIVE); KETONE, URINE AUTO NEGATIVE (NEGATIVE); LEUKOCYTE ESTERASE, URINE AUTO NEGATIVE (NEGATIVE); NITRITE, URINE AUTO NEGATIVE (NEGATIVE); PROTEIN, URINE AUTO NEGATIVE (NEGATIVE); RBC, URINE AUTO 4 /HPF (0-3); SQUAMOUS EPITHELIAL CELL UR AU 0 /HPF (0-6); UROBILINOGEN, URINE AUTO 0.2 mg/dL (0.0-2.0); WBC, URINE AUTO 0 /HPF (0-3)
== END ==
LOC: M LAB REF 14:52
PROVIDERS: ATTEND Physician Assistant Medical
DX: N39.0 Urinary tract infection, site not specified (principal)

== ENCOUNTER 2019-05-17 18:15 | Emergency (ER) | payer OTHER ==
[~2019-05-17] VITALS: Ht 182.9 cm; Wt 194.9 kg
[2019-05-17 19:23] LABS: BASO # 0.1 10^3/uL (0.0-0.2); BASO % 0.5 % (0.0-1.0); EOS # 0.2 10^3/uL (0.0-0.5); EOS % 1.7 % (0.0-3.0); HEMATOCRIT 45.3 % (42.0-52.0); LYMPH # 1.5 10^3/uL (1.5-5.0); LYMPH % 14.9 % (24.0-44.0); MEAN CORPUSCULAR HEMOGLOBIN 30.8 pg (27.0-33.0); MEAN CORPUSCULAR HGB CONC 33.1 g/dl (32.0-36.5); MONO # 0.8 10^3/uL (0.0-0.8); MONO % 8.4 % (0.0-5.0); NEUTROPHILS # 7.3 10^3/uL (1.5-8.5); NEUTROPHILS % 74.2 % (36.0-66.0); PLATELET COUNT, AUTOMATED 263 10^3/uL (150-450); RED BLOOD COUNT 4.87 10^6/uL (4.30-6.10); WHITE BLOOD COUNT 9.9 10^3/uL (4.0-10.0)
[2019-05-17] MEDS ORDERED: PHENAZOPYRIDINE 100 MG TAB PO ONE (19:30)
[2019-05-17] MEDS ORDERED: CIPR-249 PO (19:59)
[2019-05-17] MEDS ORDERED: CIPROFLOXACIN 500 MG TAB PO ONE (20:00)
[2019-05-17] MEDS ORDERED: NORCO 5/325MG TABLET (BULK FOR ED) PO ONE (20:00)
[2019-05-17 20:16] VITALS: BP 152/86
== END 2019-05-17 20:28 | disposition home or self-care (01) ==
LOC: M ED 18:15
DX: N41.0 Acute prostatitis (principal); R30.0 Dysuria; M54.5 Low back pain; N48.89 Other specified disorders of penis; E11.9 Type 2 diabetes mellitus without complications; I10 Essential (primary) hypertension; E78.5 Hyperlipidemia, unspecified; R51 Headache; Z87.442 Personal history of urinary calculi; Z87.440 Personal history of urinary (tract) infections; I25.2 Old myocardial infarction; F17.200 Nicotine dependence, unspecified, uncomplicated; Z79.899 Other long term (current) drug therapy; Z79.84 Long term (current) use of oral hypoglycemic drugs

== ENCOUNTER 2019-07-13 16:18 | Emergency (ER) | payer OTHER ==
[~2019-07-13] VITALS: Ht 182.9 cm; Wt 203.4 kg
[~2019-07-13 16:18] MED LIST changes: +CIPR-249 PO
[2019-07-13 17:00] LABS: BASO # 0.1 10^3/uL (0.0-0.2); BASO % 0.7 % (0.0-1.0); EOS # 0.2 10^3/uL (0.0-0.5); EOS % 2.3 % (0.0-3.0); HEMATOCRIT 47.4 % (42.0-52.0); HEMOGLOBIN 16.3 g/dl (13.5-17.5); LYMPH % 19.5 % (24.0-44.0); MEAN CORPUSCULAR HEMOGLOBIN 31.8 pg (27.0-33.0); MEAN CORPUSCULAR HGB CONC 34.4 g/dl (32.0-36.5); MEAN CORPUSCULAR VOLUME 92.4 fl (80.0-96.0); MONO # 0.7 10^3/uL (0.0-0.8); MONO % 7.2 % (0.0-5.0); NEUTROPHILS # 7.1 10^3/uL (1.5-8.5); NEUTROPHILS % 69.7 % (36.0-66.0); PLATELET COUNT, AUTOMATED 275 10^3/uL (150-450); RED BLOOD COUNT 5.13 10^6/uL (4.30-6.10); WHITE BLOOD COUNT 10.1 10^3/uL (4.0-10.0)
[2019-07-13 17:12] LABS: INR 0.96; PROTHROMBIN TIME 12.4 SECONDS (11.8-14.0)
[2019-07-13 17:32] LABS: ALBUMIN 3.6 GM/DL (3.2-5.2); ALT/SGPT 30 U/L (12-78); BILIRUBIN,DIRECT < 0.1 MG/DL (0.0-0.2); BILIRUBIN,TOTAL 0.4 MG/DL (0.2-1.0); BLOOD UREA NITROGEN 15 MG/DL (7-18); CALCIUM LEVEL 9.2 MG/DL (8.5-10.1); CARBON DIOXIDE LEVEL 28 MEQ/L (21-32); CHLORIDE LEVEL 105 MEQ/L (98-107); CPK CREATINE PHOSPHOKINASE 98 U/L (39-308); CREATININE FOR GFR 0.79 MG/DL (0.70-1.30); GLOMERULAR FILTRATION RATE > 60.0 (>60); GLUCOSE, FASTING 125 MG/DL (70-100); LIPASE 118 U/L (73-393); MB/CK RELATIVE INDEX 1.02 (< OR =4); NT-PRO BNP 75 PG/ML (<125); POTASSIUM SERUM 4.8 MEQ/L (3.5-5.1); SODIUM LEVEL 139 MEQ/L (136-145); TROPONIN I < 0.02 NG/ML (< 0.10)
[2019-07-13] MEDS ORDERED: ISOVUE-370 76% 100ML VIAL As Ordered ONE (18:00)
[2019-07-13] MEDS ORDERED: ALBUTEROL 90 MCG/ACT 8GM HFA INHALER INH ONE (18:15)
--- NOTE | 2019-07-13 18:33 | ECGEPIP ---
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
--- NOTE | 2019-07-13 18:58 | REPVR ---
PROCEDURE INFORMATION: Exam: CT Angiography Chest With Contrast Exam date and time: 07/13/2019 6:43 PM Age: 48 years old Clinical indication: Shortness of breath; Additional info: SOB ? pe TECHNIQUE: Imaging protocol: Computed tomographic angiography of the chest with intravenous contrast. 3D rendering: MIP and/or 3D reconstructed images were created by the technologist. Radiation optimization: All CT scans at this facility use at least one of these dose optimization techniques: automated exposure control; mA and/or kV adjustment per patient size (includes targeted exams where dose is matched to clinical indication); or iterative reconstruction. Contrast material: ISOVUE 370; Contrast volume: 75 ml; Contrast route: IV; COMPARISON: CT ANGIO CHEST 11/17/2018 11:30 PM FINDINGS: Pulmonary arteries: Timing of the x-ray contrast bolus is inadequate for evaluation for pulmonary emboli. The aorta is opacified rather than the pulmonary arteries. No large filling defects are seen in the proximal pulmonary arteries. Aorta: Unremarkable. No aortic aneurysm. No aortic dissection. Lungs: No focal lung consolidation. Pleural space: No pleural effusion. Heart: No cardiomegaly or pericardial effusion. Lymph nodes: No mediastinal or hilar lymphadenopathy. Bones/joints: Skeletal degeneration. Soft tissues: Unremarkable. Other findings: No significant findings in the upper abdomen. IMPRESSION: No evidence of pneumonia or congestive heart failure. The timing of the x-ray contrast bolus is inadequate for evaluation of possible pulmonary emboli. Electronically signed by: Tonya Garcia On 07/13/2019 18:58:49 PM
--- NOTE | 2019-07-13 19:03 | REP ---
Bilateral lower extremity Duplex Doppler venous ultrasound: Real time compression and duplex Doppler interrogation of the bilateral lower extremity deep venous system is performed. Bilaterally, the common femoral, superficial femoral and popliteal veins are fully compressible with transducer pressure and demonstrate normal spontaneous and phasic flow, without evidence of deep venous thrombosis. Impression: No evidence of deep venous thrombosis of the bilateral lower extremity femoral popliteal venous system. Electronically Signed by Elijah Modi MD 07/13/2019 06:55 P
[2019-07-13 22:43] LABS: CK-MB VALUE MASS 1.3 NG/ML (<3.6); CPK CREATINE PHOSPHOKINASE 53 U/L (39-308); MB/CK RELATIVE INDEX 2.45 (< OR =4); TROPONIN I < 0.02 NG/ML (< 0.10)
[2019-07-13] MEDS ORDERED: VENTAER INH (23:00)
[2019-07-13 23:30] VITALS: BP 144/87
--- NOTE | 2019-07-14 08:59 | ECGEPIP ---
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
--- NOTE | 2019-07-14 09:05 | REP ---
CHEST SINGLE VIEW: Single view of the chest is performed. COMPARISON: 10/03/2016 There is cardiomegaly. There is no acute infiltrate. The mediastinal silhouette is unchanged. IMPRESSION: Cardiomegaly. No acute pulmonary disease. Electronically Signed by Elijah Modi MD 07/14/2019 09:55 A
== END 2019-07-13 23:32 | disposition home or self-care (01) ==
LOC: M ED 16:18
DX: R06.02 Shortness of breath (principal); R07.9 Chest pain, unspecified; I87.2 Venous insufficiency (chronic) (peripheral); R60.0 Localized edema; E66.01 Morbid (severe) obesity due to excess calories; E11.9 Type 2 diabetes mellitus without complications; I11.0 Hypertensive heart disease with heart failure; E78.5 Hyperlipidemia, unspecified; Z79.82 Long term (current) use of aspirin; Z79.84 Long term (current) use of oral hypoglycemic drugs; Z79.899 Other long term (current) drug therapy
CPT/HCPCS: 71045; 71275; 80048; 80076; 82550; 82553; 83690; 83880; 84443; 85025; 85610; 93005; 93041; 93970; 94640; 94760; 99285; Q9967

== ENCOUNTER → 2019-08-11 | Outpatient (CLI) | payer OTHER ==
[~2019-08-11] MED LIST changes: +VENTAER INH
--- NOTE | 2019-08-22 10:56 | SLEEPCENT ---
DATE OF STUDY: 08/11/2019 ORDERED BY: Stephie Roblero Nocturnal polysomnography was performed for evaluation of sleep physiology in this patient with a history of excessive somnolence and nonrestorative sleep. 7 hours and 59 minutes of data were reviewed. There were 396 minutes of sleep identified. Sleep latency was short at 6 minutes. Rapid eye movement (REM) latency was prolonged at 122 minutes. Sleep architecture was initially quite fragmented and improved with the application of therapy later in the study. Overall sleep efficiency was 84.4%. The patient electrocardiogram showed a sinus rhythm with occasional PVCs. Average heart rate was 58 beats per minute. Electroencephalogram (EEG) showed normal wave forms awake and sleep. There were 178 respiratory events identified of 10 seconds in duration or greater for an apnea-hypopnea index of 26.9. Having established the presence of obstructive sleep apnea syndrome early in the study, the study was stopped for the application of pressure therapy. The patient was then fit with a [employer] Simplus full face mask of medium size and 4 cm of water pressure were applied to the circuit and the lights were extinguished. Through the remaining hours of study, pressure titration was increased. Mild hypopneic events persisted. Best sleep was seen on a C-PAP pressure of 17. IMPRESSION: Severe obstructive sleep apnea syndrome (G47.33). Apnea-hypopnea next 26.9. RECOMMENDATION: Initiation of C-PAP at 17 cm of water pressure would seem appropriate based on these results. If the patient's sleep symptoms are not resolving, referral back to the sleep disorder center for a full night of titration may be reasonable.
== END ==
LOC: M SLEEP 20:00
PROVIDERS: ATTEND Nurse Practitioner Family
DX: G47.33 Obstructive sleep apnea (adult) (pediatric) (principal)

== ENCOUNTER 2019-09-15 21:15 | Emergency (ER) | payer OTHER ==
[~2019-09-15] VITALS: Ht 182.9 cm; Wt 206.8 kg
[2019-09-15 22:35] LABS: VENOUS BASE EXCESS 0.2 (-2.0-2.0); VENOUS HCO3 26.7 MEQ/L (23.0-27.0); VENOUS O2 SATURATION 92.5 % (60.0-80.0); VENOUS PARTIAL PRESSURE CO2 50.3 mmHg (38.0-50.0); VENOUS PARTIAL PRESSURE O2 64.9 mmHg (30.0-50.0); VENOUS PH 7.343 UNITS (7.330-7.430); VENOUS STANDARD HCO3 24.5 MEQ/L; VENOUS TOTAL CO2 28.3 MEQ/L (24.0-28.0)
[2019-09-15 22:38] LABS: BASO # 0.1 10^3/uL (0.0-0.2); BASO % 0.6 % (0.0-1.0); EOS # 0.2 10^3/uL (0.0-0.5); EOS % 2.5 % (0.0-3.0); HEMATOCRIT 45.3 % (42.0-52.0); HEMOGLOBIN 14.9 g/dl (13.5-17.5); LYMPH # 1.7 10^3/uL (1.5-5.0); LYMPH % 17.8 % (24.0-44.0); MEAN CORPUSCULAR HEMOGLOBIN 30.8 pg (27.0-33.0); MEAN CORPUSCULAR HGB CONC 32.9 g/dl (32.0-36.5); MEAN CORPUSCULAR VOLUME 93.8 fl (80.0-96.0); MONO # 0.7 10^3/uL (0.0-0.8); MONO % 6.9 % (0.0-5.0); NEUTROPHILS # 6.9 10^3/uL (1.5-8.5); NEUTROPHILS % 71.8 % (36.0-66.0); PLATELET COUNT, AUTOMATED 282 10^3/uL (150-450); RED BLOOD COUNT 4.83 10^6/uL (4.30-6.10); WHITE BLOOD COUNT 9.6 10^3/uL (4.0-10.0)
[2019-09-15 22:49] LABS: PROTHROMBIN TIME 12.9 SECONDS (11.8-14.0)
[2019-09-15 23:08] LABS: ALBUMIN 3.6 GM/DL (3.2-5.2); ALT/SGPT 28 U/L (12-78); BILIRUBIN,DIRECT 0.1 MG/DL (0.0-0.2); BILIRUBIN,TOTAL 0.3 MG/DL (0.2-1.0); BLOOD UREA NITROGEN 18 MG/DL (7-18); CALCIUM LEVEL 8.7 MG/DL (8.5-10.1); CARBON DIOXIDE LEVEL 29 MEQ/L (21-32); CHLORIDE LEVEL 108 MEQ/L (98-107); CREATININE FOR GFR 1.03 MG/DL (0.70-1.30); GLOMERULAR FILTRATION RATE > 60.0 (>56); GLUCOSE, FASTING 91 MG/DL (70-100); POTASSIUM SERUM 4.1 MEQ/L (3.5-5.1); SODIUM LEVEL 141 MEQ/L (136-145)
[2019-09-15 23:15] VITALS: BP 137/64
--- NOTE | 2019-09-16 07:18 | REP ---
Clinical: Cough and dyspnea . Comparison: 07/13/2019 . Findings: The mediastinum and cardiac silhouette are stable and cardiomegaly is again noted. The lung scott are clear without acute consolidation, effusion, or pneumothorax. Skeletal structures are intact. Impression: No acute cardiopulmonary process appreciated. Electronically Signed by Nael Cote MD 09/16/2019 07:10 A
== END 2019-09-16 00:10 | disposition home or self-care (01) ==
LOC: M ED 21:15 → EDBD 21:15 → M ED 09-16 00:10
DX: B34.9 Viral infection, unspecified (principal); I25.10 Atherosclerotic heart disease of native coronary artery without angina pectoris; E11.9 Type 2 diabetes mellitus without complications; I10 Essential (primary) hypertension; E78.00 Pure hypercholesterolemia, unspecified; G47.30 Sleep apnea, unspecified; F32.9 Major depressive disorder, single episode, unspecified; Z79.84 Long term (current) use of oral hypoglycemic drugs; Z79.899 Other long term (current) drug therapy

== ENCOUNTER 2020-01-10 13:00 | Inpatient (IN) | payer OTHER ==
[~2020-01-10] VITALS: Ht 182.9 cm; Wt 201.2 kg
[~2020-01-10 13:00] MED LIST changes: -LISI20TA19 PO; +LISI20TA35 PO
[2020-01-10] MEDS ORDERED: FURO40TA2 (14:09)
[2020-01-10] MEDS ORDERED: PARO30TA4 PO (14:09)
[2020-01-10] MEDS ORDERED: ATOR40TA75 PO (14:09)
[2020-01-10] MEDS ORDERED: LISI10TA4 PO (14:09)
[2020-01-10 14:12] LABS: BASO # 0.1 10^3/uL (0.0-0.2); BASO % 0.5 % (0.0-1.0); EOS # 0.2 10^3/uL (0.0-0.5); EOS % 2.3 % (0.0-3.0); HEMATOCRIT 44.9 % (42.0-52.0); HEMOGLOBIN 14.8 g/dl (13.5-17.5); LYMPH # 1.3 10^3/uL (1.5-5.0); MEAN CORPUSCULAR HEMOGLOBIN 30.6 pg (27.0-33.0); MEAN CORPUSCULAR VOLUME 92.8 fl (80.0-96.0); MONO # 0.8 10^3/uL (0.0-0.8); MONO % 7.6 % (0.0-5.0); NEUTROPHILS # 7.7 10^3/uL (1.5-8.5); PLATELET COUNT, AUTOMATED 267 10^3/uL (150-450); RED BLOOD COUNT 4.84 10^6/uL (4.30-6.10); WHITE BLOOD COUNT 10.1 10^3/uL (4.0-10.0)
--- NOTE | 2020-01-10 14:17 | REPVR ---
PROCEDURE INFORMATION: Exam: US Duplex Left Lower Extremity Veins, Limited Exam date and time: 01/10/2020 2:10 PM Age: 49 years old Clinical indication: Swelling (edema) of limb; Lower extremity, left; Additional info: Lle pain eval for dvt TECHNIQUE: Imaging protocol: Real-time Duplex ultrasound of the Left Lower Extremity with 2-D franks scale, color Doppler flow and spectral waveform analysis with image documentation. Limited exam focused on the left lower extremity veins. COMPARISON: US Duplex, Ext LOWER veins, bilat 07/13/2019 5:00 PM FINDINGS: Left deep veins: Unremarkable. The common femoral, femoral, proximal profunda femoral and popliteal veins are patent without thrombus. Normal Doppler waveforms. Normal compressibility and/or augmentation response. Left superficial veins: Unremarkable. Saphenofemoral junction is patent without thrombus. Soft tissues: Unremarkable. IMPRESSION: No evidence of deep vein thrombosis. Electronically signed by: Shirley Dukes On 01/10/2020 14:17:36 PM
[2020-01-10] MEDS ORDERED: ACETAMINOPHEN TAB 650MG DOSE (2X325MG) PO ONE (14:30)
[2020-01-10 14:38] LABS: ERYTHROCYTE SEDIMENTATION RATE 16 mm/hr (0-20)
[2020-01-10 14:56] LABS: ALBUMIN 3.7 GM/DL (3.2-5.2); ALT/SGPT 24 U/L (12-78); BILIRUBIN,DIRECT 0.1 MG/DL (0.0-0.2); BILIRUBIN,TOTAL 0.4 MG/DL (0.2-1.0); BLOOD UREA NITROGEN 14 MG/DL (7-18); CALCIUM LEVEL 8.9 MG/DL (8.5-10.1); CARBON DIOXIDE LEVEL 27 MEQ/L (21-32); CHLORIDE LEVEL 108 MEQ/L (98-107); CK-MB VALUE MASS 1.2 NG/ML (<3.6); CPK CREATINE PHOSPHOKINASE 98 U/L (39-308); CREATININE FOR GFR 0.82 MG/DL (0.70-1.30); GLOMERULAR FILTRATION RATE > 60.0 (>56); GLUCOSE, FASTING 100 MG/DL (70-100); MB/CK RELATIVE INDEX 1.22 (< OR =4); NT-PRO BNP 94 PG/ML (<125); POTASSIUM SERUM 4.4 MEQ/L (3.5-5.1); SODIUM LEVEL 141 MEQ/L (136-145); TROPONIN I < 0.02 NG/ML (< 0.10)
--- NOTE | 2020-01-10 15:28 | REPVR ---
PROCEDURE INFORMATION: Exam: XR Chest, 2 Views Exam date and time: 01/10/2020 3:17 PM Age: 49 years old Clinical indication: Shortness of breath; Additional info: Dyspnea/cough TECHNIQUE: Imaging protocol: XR of the chest Views: 2 views. COMPARISON: CR PORTABLE CHEST X-RAY 09/15/2019 11:21 PM FINDINGS: Lungs: Unremarkable. No consolidation. Pleural space: Unremarkable. No pleural effusion. No pneumothorax. Heart/Mediastinum: Stable mild prominence of the cardiac silhouette. Bones/joints: Degenerative change of the spine. IMPRESSION: No acute cardiopulmonary abnormality. Electronically signed by: Shirley Dukes On 01/10/2020 15:29:07 PM
[2020-01-10] MEDS ORDERED: ceFAZolin SOD 1 GM in D5W MINI-BAG PLUS 50 ML IV ONE (16:00)
[2020-01-10] MEDS ORDERED: FURO20TA2 PO (16:58)
[2020-01-10] MEDS ORDERED: VENTAER INH (16:58)
[2020-01-10] MEDS ORDERED: METF-838 PO (16:58)
[2020-01-10 17:45] VITALS: BP 172/85
[2020-01-10] MEDS ORDERED: VANCOMYCIN HCL 1,000 MG, VIAL MATE ADAPTER 1 EACH in D5W 250 ML IV SCH (18:00)
[2020-01-10] MEDS ORDERED: DEXTROSE 50% 50 ML SYRINGE IV PRN (19:15)
[2020-01-10] MEDS ORDERED: GLUCOSE 4GM CHEW TABLET PO PRN (19:15)
[2020-01-10] MEDS ORDERED: GLUCAGON INJ 1MG VIAL SC PRN (19:15)
--- NOTE | 2020-01-10 19:36 | HPEPDOC ---
General Date of Admission 2019 Date of Service: Jan 10, 2020 Chief Complaint The patient is a 49-year-old male admitted with a reason for visit of Sob/Cough/Sore Throat. History of Present Illness Mr. Moss is a 49-year-old male with diabetes mellitus type 2 complicated by chronic diabetic left ankle ulcer for the past 3 years and tobacco abuse who comes to [facility] for dyspnea and worsening pain and swelling around his left ankle ulcer. He's had this chronic ulcer for 3 years. He regularly sees a security specialist outside of [place]. He did see Dr. Graham at one point, but does not want to see him anymore. In order to get to his security specialist, he has transportation set up by insurance. Just recently, he received a denial and has not been able to make it to his wound care appointments. He was to have his dressing changed a week ago but was not able to do transportation. About 2 days ago, he started having worsening pain from his left ankle. Describes the pain as a sharp and stabbing pain that radiates down to his foot and sometimes up his leg. He also has a sensation that feels like there is crawling underneath his skin. There is increased swelling. When his daughter changed his dressing, they noticed green discharge. He is able to walk, but it is painful. Otherwise he tells me he does have a history of MRSA infection of the left ankle Otherwise, he has been having dyspnea, rhinorrhea, and a cough. His 4-year-old son and his 10-year-old daughter have also been not feeling well. They have similar symptoms. Respiratory panel was negative for Covid, but positive for rhinovirus. Home Medications Scheduled Atorvastatin Calcium (Atorvastatin Calcium) 40 Mg Tablet, 40 MG PO QHS, (Reported) Furosemide (Furosemide) 20 Mg Tablet, 20 MG PO DAILY, (Reported) Lisinopril (Lisinopril) 10 Mg Tablet, 10 MG PO DAILY, (Reported) Metformin HCl (Metformin HCl ER) 500 Mg Tab.er.24h, 1,000 MG PO BID, (Reported) Paroxetine (Paroxetine HCl) 30 Mg Tablet, 30 MG PO DAILY, (Reported) Scheduled PRN Albuterol Sulfate (Ventolin Hfa) 18 Gm Hfa.aer.ad, 2 PUFF INH Q4H PRN for SOB/WHEEZING, (Reported) Allergies Coded Allergies: No Known Allergies (Unverified , 01/09/19) Past Medical History Medical History 1. Hyperlipidemia 2. Hypertension 3. Bronchitis 4. Sleep apnea 5. GERD 6. Nephrolithiasis 7. Urinary incontinence 8. Osteoarthritis 9. Diabetes mellitus type 2 10. Depression 11. Tobacco abuse 12. History of MRSA infection of the left leg 13. CHF Surgical History 1. Vascular surgery, ablation left leg 3 and ablation to right leg 1 2. Vasectomy Family History Unknown family history as he was adopted Social History * Smoker: current smoker (34 years, <1ppd) Alcohol: Denies Drugs: denies A-FIB/CHADSVASC A-FIB History Current/History of A-Fib/PAF?: No Review of Systems Constitutional: Denies: Fever Eyes: Reports: Other (blurry over time) ENT: Reports: Sore Throat, Other Symptoms (rhinorrhea) Skin: Reports: Other (Other than left ankle wound, no other rashes) Pulmonary: Reports: Pleuritic Chest Pain Cardiovascular: Denies: Lt Headedness Gastrointestinal: Reports: Abdominal Pain (from umbilical hernia); Denies: Nausea, Diarrhea, Constipation Genitourinary: Denies: Dysuria Hematologic: Denies: Bruising Musculoskeletal: Reports: Leg Pain Neurological: Reports: Numbness (Left 4th and 5th fingers that goes up arm), Other Symptoms (Neuropathy in left foot ) Psych: Denies: Thoughts of Self Harm, Thoughts of Harming Other Physical Examination General Exam: Positive: Alert, Cooperative, No Acute Distress Eye Exam: Positive: EOMI; Negative: Sclera icteric ENT Exam: Positive: Atraumatic Neck Exam: Positive: Supple Chest Exam: Positive: Clear to auscultation Heart Exam: Positive: Bradycardic, Regular Rhythm Abdomen Exam: Positive: Normal bowel sounds, Soft, Tenderness (chronic mild tenderness around umbilical hernia), Hernia (umbilical hernia), Other (obese) Extremity Exam: Positive: Edema, Other (deep left ankle ulcer with erythema and tenderness) Neuro Exam: Positive: Normal Speech, Cranial Nerves 3-12 NL Psych Exam: Positive: Mental status NL, Mood NL Vital Signs Vital Signs Date Time Temp Pulse Resp B/P (MAP) Pulse Ox O2 Delivery O2 Flow Rate FiO2 01/10/20 14:09 97.8 01/10/20 14:05 01/10/20 13:00 69 22 98 Room Air Laboratory Data Labs 24H Laboratory Tests 2 01/10/20 14:00: Immature Granulocyte % (Auto) 0.6, Neutrophils (%) (Auto) 76.0H, Lymphocytes (%) (Auto) 13.0L, Monocytes (%) (Auto) 7.6H, Eosinophils (%) (Auto) 2.3, Basophils (%) (Auto) 0.5, Neutrophils # (Auto) 7.7, Lymphocytes # (Auto) 1.3L, Monocytes # (Auto) 0.8, Eosinophils # (Auto) 0.2, Basophils # (Auto) 0.1, Nucleated Red Blood Cells % (auto) 0.0, Erythrocyte Sedimentation Rate 16, Anion Gap 6L, Glomerular Filtration Rate > 60.0, Calcium Level 8.9, Total Bilirubin 0.4, Direct Bilirubin 0.1, Aspartate Amino Transf (AST/SGOT) 13, Alanine Aminotransferase (ALT/SGPT) 24, Alkaline Phosphatase 79, Total Creatine Kinase 98, Creatine Kinase MB 1.2, Creatine Kinase MB Relative Index 1.22, Troponin I < 0.02, C-Reactive Protein, Quantitative 1.80H, XY-Smp-C-Type Natriuretic Peptide 94, Total Protein 7.0, Albumin 3.7, Albumin/Globulin Ratio 1.1, Thyroid Stimulating Hormone (TSH) 1.340 CBC/BMP Laboratory Tests 01/10/20 14:00 Microbiology Microbiology 01/10/20 Group A Streptococcus Screen ([facility]), Received Pending 01/10/20 Respiratory Virus Panel (PCR) ([facility]) - Final, Complete Human Rhinovirus/Enterovirus Assessment/Plan Mr. Moss is a 49-year-old male with diabetes mellitus type 2 complicated by chronic diabetic left ankle ulcer for the past 3 years and tobacco abuse who comes to [facility] for dyspnea and worsening pain and swelling around his left ankle ulcer. His dyspnea secondary to rhinovirus infection. We'll provide supportive care. He does have an elevated white blood count and CRP. Most likely has cellulitis of left ankle ulcer secondary to noncompliant diabetic foot care. Pending results from wound ulcer and blood cultures. He'll be put on broad-spectrum antibiotics. We'll obtain a MRI of the foot to rule out osteomyelitis. Plan / VTE VTE Prophylaxis Ordered?: Yes Plan Plan 1. Diabetic foot ulcer/cellulitis of left ankle ulcer Chronic ulcer, falls with wound care outside of [place]. Noncompliant with office visits due to lack of transportation. Missed last appointment which was last week Patient reports green pus from wound. There is erythema and tenderness. Pain is worse than normal for the past 2 days Patient does have history of MRSA infection Vanco and Zosyn Pending MRI results and culture results 2. Diabetes mellitus type 2 Holding metformin Sliding scale Insulin while inpatient Carbohydrate consistent diet 3. CHF Appears stable and euvolemic Holding Lasix as he has an infection Continue lisinopril 4. Hypertension Continue lisinopril 5. Asthma Continue as needed albuterol 6. Rhinovirus infection Continue albuterol as needed We'll add on Tessalon Perles for cough 7. DVT prophylaxis MARY JANE Jeff DO Jan 10, 2020 16:46
[2020-01-10] MEDS: BENZONATATE 100 MG CAP PO SCH (20:10)
[2020-01-10] MEDS: PIPERACILLIN/TAZOBACTAM SOD 3.375 GM in D5W MINI-BAG PLUS 50 ML IV SCH (20:10)
[2020-01-10] MEDS: ATORVASTATIN 20 MG TAB PO SCH (20:11)
[2020-01-10] MEDS ORDERED: VANCOMYCIN HCL 1,000 MG, VIAL MATE ADAPTER 1 EACH in D5W 250 ML IV ONE ×2 (21:00→22:00)
[2020-01-10] MEDS: HumaLOG INSULIN (NovoLOG) PER UNIT SC SCH (21:00)
[2020-01-10] MEDS: ALBUTEROL 90 MCG/ACT 8GM HFA INHALER INH PRN (21:04)
[2020-01-10 22:00] VITALS: BP 142/80
--- NOTE | 2020-01-10 23:14 | REPVR ---
PROCEDURE INFORMATION: Exam: MR Left Lower Extremity Other Than Joint Without Contrast; Hindfoot Exam date and time: 01/10/2020 10:37 PM Age: 49 years old Clinical indication: Condition or disease; Other: Diabetic foot ulcer, concern for osteomyelitis TECHNIQUE: Imaging protocol: MR of the Left lower extremity other than joint without contrast. Exam focused on the hindfoot. COMPARISON: MRI ANKLE W/O FOL WITH CONTRAS 12/13/2016 8:17 PM FINDINGS: Bones and cartilage: There is an os trigonum process from the posterior aspect of the talus. There is a small amount of joint fluid at the metatarsal-phalangeal joints. There are numerous varices along the lateral aspect of the ankle. There is no evidence of osteomyelitis. Joint spaces: There is joint effusion along the lateral and posterior margin the talus and also along the superior aspect of the calcaneus. Tibialis posterior tendon: There is mild partial tearing at the insertion of the tibialis posterior tendon. Soft tissues: There is a large area of subcutaneous edema along the posterior and medial aspect of the ankle. There is also soft tissue swelling along the dorsal aspect of the foot. Plantar fascia: Plantar fascia is unremarkable. IMPRESSION: 1. There is extensive subcutaneous edema along the medial and posterior aspect of the left foot which could be the result of cellulitis. No focal abscess can be seen. There are very large varices throughout the lateral aspect of the ankle. Below this there is subcutaneous edema as well which could be the result of cellulitis. 2. There is no evidence of osteomyelitis. There is a small amount joint fluid at several areas. 3. Partial tear at the insertion of the tibialis posterior tendon. Electronically signed by: Dannie Pierson On 01/10/2020 23:14:09 PM
[2020-01-10] MEDS ORDERED: ACETAMINOPHEN TAB 650MG DOSE (2X325MG) PO PRN (23:15)
[2020-01-11] MEDS ORDERED: KETOROLAC 30 MG/ML 1ML VIAL IV ONE (01:30)
[2020-01-11] MEDS: PIPERACILLIN/TAZOBACTAM SOD 3.375 GM in D5W MINI-BAG PLUS 50 ML IV SCH ×4 (01:39→20:59)
[2020-01-11] MEDS: VANCOMYCIN HCL 750 MG, VIAL MATE ADAPTER 1 EACH in D5W 250 ML IV SCH ×4 (03:11→16:57)
[2020-01-11 06:00] VITALS: BP 119/50
[2020-01-11 06:13] LABS: HEMATOCRIT 41.4 % (42.0-52.0); HEMOGLOBIN 13.3 g/dl (13.5-17.5); MEAN CORPUSCULAR HGB CONC 32.1 g/dl (32.0-36.5); MEAN CORPUSCULAR VOLUME 93.2 fl (80.0-96.0); PLATELET COUNT, AUTOMATED 255 10^3/uL (150-450); RED BLOOD COUNT 4.44 10^6/uL (4.30-6.10); WHITE BLOOD COUNT 8.4 10^3/uL (4.0-10.0)
[2020-01-11 06:34] LABS: BLOOD UREA NITROGEN 14 MG/DL (7-18); CALCIUM LEVEL 8.5 MG/DL (8.5-10.1); CARBON DIOXIDE LEVEL 29 MEQ/L (21-32); CHLORIDE LEVEL 105 MEQ/L (98-107); CREATININE FOR GFR 1.03 MG/DL (0.70-1.30); GLOMERULAR FILTRATION RATE > 60.0 (>56); GLUCOSE, FASTING 128 MG/DL (70-100); POTASSIUM SERUM 4.3 MEQ/L (3.5-5.1); SODIUM LEVEL 139 MEQ/L (136-145)
[2020-01-11] MEDS: HumaLOG INSULIN (NovoLOG) PER UNIT SC SCH ×4 (08:36→20:52)
[2020-01-11] MEDS: PARoxetine 10MG TABLET PO SCH (08:37)
[2020-01-11] MEDS: BENZONATATE 100 MG CAP PO SCH ×3 (08:37→20:59)
[2020-01-11] MEDS: ENOXAPARIN 40MG/0.4ML SYRINGE (J1650 PER 10MG) SC SCH (08:38)
[2020-01-11] MEDS: lisinopriL 10 MG TAB PO SCH (08:39)
[2020-01-11] MEDS: ALBUTEROL 90 MCG/ACT 8GM HFA INHALER INH PRN (13:37)
[2020-01-11 14:00] VITALS: BP 119/58
--- NOTE | 2020-01-11 19:45 | IPNPDOC ---
Subjective Date Seen The patient was seen on 01/11/20. Subjective Chief Complaint/HPI Mr. Moss is a 49-year-old male with diabetes mellitus type 2 complicated by chronic diabetic left ankle ulcer for the past 3 years and tobacco abuse who comes to [facility] for rhinovirus respiratory infection and cellulitis of left foot. Today denies fever/chills, chest pain, abdominal pain, or dysuria. Dyspnea and cough still present Constitutional: Denies: Chills, Fever Pulmonary: Reports: Dyspnea, Cough Cardiovascular: Denies: Chest Pain Gastrointestinal: Denies: Abdominal Pain Genitourinary: Denies: Dysuria Objective Physical Examination General Exam: Positive: Alert, Cooperative, No Acute Distress Eye Exam: Positive: EOMI; Negative: Sclera icteric ENT Exam: Positive: Atraumatic Neck Exam: Positive: Supple Chest Exam: Positive: Clear to auscultation Heart Exam: Positive: Bradycardic, Regular Rhythm Abdomen Exam: Positive: Normal bowel sounds, Soft, Tenderness (chronic mild tenderness around umbilical hernia), Hernia (umbilical hernia), Other (obese) Extremity Exam: Positive: Edema, Other (deep left ankle ulcer with erythema and tenderness) Neuro Exam: Positive: Normal Speech, Cranial Nerves 3-12 NL Psych Exam: Positive: Mental status NL, Mood NL Assessment /Plan Assessment Mr. Moss is a 49-year-old male with diabetes mellitus type 2 complicated by chronic diabetic left ankle ulcer for the past 3 years and tobacco abuse who comes to [facility] for dyspnea and worsening pain and swelling around his left ankle ulcer. His dyspnea secondary to rhinovirus infection. We'll provide supportive care. He does have an elevated white blood count and CRP. Most likely has cellulitis of left ankle ulcer secondary to noncompliant diabetic foot care. Pending results from wound ulcer and blood cultures. He'll be put on broad-spectrum antibiotics. MRI is negative for osteomyelitis Plan/VTE VTE Prophylaxis Ordered?: Yes Plan 1. Diabetic foot ulcer/cellulitis of left ankle ulcer Chronic ulcer, falls with wound care outside of [place]. Noncompliant with office visits due to lack of transportation. Missed last appointment which was last week Patient reports green pus from wound. There is erythema and tenderness. Pain is worse than normal for the past 2 days Patient does have history of MRSA infection Vanco and Zosyn Pending MRI results and culture results 2. Diabetes mellitus type 2 Holding metformin Sliding scale Insulin while inpatient Carbohydrate consistent diet 3. CHF Appears stable and euvolemic Holding Lasix as he has an infection Continue lisinopril 4. Hypertension Continue lisinopril 5. Asthma Continue as needed albuterol 6. Rhinovirus infection Continue albuterol as needed We'll add on Tessalon Perles for cough 7. DVT prophylaxis Lovenox VS, I&O, 24H, Fishbone Vital Signs/I&O Vital Signs Date Time Temp Pulse Resp B/P (MAP) Pulse Ox O2 Delivery O2 Flow Rate FiO2 01/11/20 14:00 97.8 62 19 119/58 (78) 97 Room Air I&O- Last 24 Hours up to 6 AM 01/11/20 06:00 Intake Total 865 ml Output Total 350 ml Balance 515 ml Laboratory Data 24H LABS Laboratory Tests 2 01/10/20 20:39: Bedside Glucose (Misc Panel) 110H 01/11/20 05:33: Nucleated Red Blood Cells % (auto) 0.0, Anion Gap 5L, Glomerular Filtration Rate > 60.0, Calcium Level 8.5 01/11/20 11:25: Bedside Glucose (Misc Panel) 101 01/11/20 16:29: Bedside Glucose (Misc Panel) 113H CBC/BMP Laboratory Tests 01/11/20 05:33 Microbiology Microbiology 01/10/20 Blood Culture, Received Pending 01/10/20 Blood Culture, Received Pending 01/10/20 Gram Stain - Final, Resulted 01/10/20 Wound Culture, Resulted Pending 01/10/20 Group A Streptococcus Screen ([facility]) - Final, Complete 01/10/20 Respiratory Virus Panel (PCR) ([facility]) - Final, Complete Human Rhinovirus/Enterovirus MARY JANE ROBERTS DO Jan 11, 2020 19:45
--- NOTE | 2020-01-11 20:20 | ECGEPIP ---
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
[2020-01-11] MEDS: ATORVASTATIN 20 MG TAB PO SCH (20:59)
[2020-01-11 22:00] VITALS: BP 139/56
[2020-01-12] MEDS: guaiFENesin ER 600 MG TAB PO SCH ×2 (01:18→08:19)
[2020-01-12] MEDS: PIPERACILLIN/TAZOBACTAM SOD 3.375 GM in D5W MINI-BAG PLUS 50 ML IV SCH ×2 (01:18→08:18)
[2020-01-12] MEDS: VANCOMYCIN HCL 750 MG, VIAL MATE ADAPTER 1 EACH in D5W 250 ML IV SCH ×2 (02:50→04:05)
[2020-01-12 06:00] VITALS: BP 116/69
[2020-01-12 06:22] LABS: HEMATOCRIT 43.4 % (42.0-52.0); HEMOGLOBIN 14.2 g/dl (13.5-17.5); MEAN CORPUSCULAR HEMOGLOBIN 30.1 pg (27.0-33.0); MEAN CORPUSCULAR HGB CONC 32.7 g/dl (32.0-36.5); MEAN CORPUSCULAR VOLUME 91.9 fl (80.0-96.0); PLATELET COUNT, AUTOMATED 274 10^3/uL (150-450); RED BLOOD COUNT 4.72 10^6/uL (4.30-6.10); WHITE BLOOD COUNT 8.2 10^3/uL (4.0-10.0)
[2020-01-12 06:49] LABS: BLOOD UREA NITROGEN 13 MG/DL (7-18); CALCIUM LEVEL 8.9 MG/DL (8.5-10.1); CARBON DIOXIDE LEVEL 28 MEQ/L (21-32); CHLORIDE LEVEL 106 MEQ/L (98-107); CREATININE FOR GFR 0.98 MG/DL (0.70-1.30); GLOMERULAR FILTRATION RATE > 60.0 (>56); GLUCOSE, FASTING 112 MG/DL (70-100); POTASSIUM SERUM 4.4 MEQ/L (3.5-5.1); SODIUM LEVEL 139 MEQ/L (136-145)
[2020-01-12] MEDS: HumaLOG INSULIN (NovoLOG) PER UNIT SC SCH ×2 (07:30→12:00)
[2020-01-12] MEDS: ENOXAPARIN 40MG/0.4ML SYRINGE (J1650 PER 10MG) SC SCH (08:18)
[2020-01-12 08:19] VITALS: BP 135/77
[2020-01-12] MEDS: PARoxetine 10MG TABLET PO SCH (08:19)
[2020-01-12] MEDS: lisinopriL 10 MG TAB PO SCH (08:19)
[2020-01-12] MEDS: BENZONATATE 100 MG CAP PO SCH (08:19)
[2020-01-12] MEDS ORDERED: MUCI600T31 PO (08:43)
[2020-01-12] MEDS ORDERED: LEVO500T3 PO (08:43)
[2020-01-12] MEDS ORDERED: BENZ-18 PO (08:43)
[2020-01-12] MEDS ORDERED: CLEO300C2 PO (08:43)
[2020-01-12] MEDS ORDERED: FLUBLOK(EGG FREE)(QUAD)INFLUENZA VACC 0.5ML SYRINGE 18YRS & OLDER IM ONE (12:00)
--- NOTE | 2020-01-12 21:21 | DS.PDOC ---
Discharge Summary General Date of Admission Jan 11, 2020 at 19:00 Date of Discharge Jan 12, 2020 Attending Physician: MARY JANE ROBERTS DO Discharge Summary PROCEDURES PERFORMED DURING STAY: None ADMITTING DIAGNOSES: 1. Diabetic foot ulcer/cellulitis of left ankle ulcer 2. Diabetes mellitus type 2 3. CHF 4. Hypertension 5. Asthma 6. Rhinovirus infection DISCHARGE DIAGNOSES: 1. Diabetic foot ulcer/cellulitis of left ankle ulcer 2. Diabetes mellitus type 2 3. CHF 4. Hypertension 5. Asthma 6. Rhinovirus infection COMPLICATIONS/CHIEF COMPLAINT: Cellulitis Of Lower Extremity Rhinovirus Infection. HISTORY OF PRESENT ILLNESS: Mr. Moss is a 49-year-old male with diabetes mellitus type 2 complicated by chronic diabetic left ankle ulcer for the past 3 years and tobacco abuse who comes to [facility] for dyspnea and worsening pain and swelling around his left ankle ulcer. He's had this chronic ulcer for 3 years. He regularly sees a report specialist outside of [facility]. He did see Dr. Graham at one point, but does not want to see him anymore. In order to get to his report specialist, he has transportation set up by insurance. Just recently, he received a denial and has not been able to make it to his wound care appointments. He was to have his dressing changed a week ago but was not able to do transportation. About 2 days ago, he started having worsening pain from his left ankle. Describes the pain as a sharp and stabbing pain that radiates down to his foot and sometimes up his leg. He also has a sensation that feels like there is crawling underneath his skin. There is increased swelling. When his daughter changed his dressing, they noticed green discharge. He is able to walk, but it is painful. Otherwise he tells me he does have a history of MRSA infection of the left ankle Otherwise, he has been having dyspnea, rhinorrhea, and a cough. His 4-year-old son and his 10-year-old daughter have also been not feeling well. They have similar symptoms. Respiratory panel was negative for Covid, but positive for rhinovirus. HOSPITAL COURSE: During his hospitalization, his was put on broad-spectrum antibiotics with vancomycin and Zosyn. Leukocytosis resolved. MRI obtained was negative for osteomyelitis. At time of discharge there is no preliminary read on the wound culture. Patient was anxious to go home. In the past, he has grown MRSA has been sensitive to clindamycin. I will put patient on by mouth clindamycin and levofloxacin for broad-spectrum antibiotics. Would recommend that he either takes a probiotic or yogurt with active cultures to prophylax against C. difficile. Today he felt well. Denied any lightheadedness or dizzine ss, chest pain, abdominal pain, or dysuria. His dyspnea and coughing both have improved. He did have 1 episode of diarrhea today. The pain in his left foot felt better, and he felt closer to normal. He felt ready for home and was subsequently discharge. DISCHARGE MEDICATIONS: Please see below. ALLERGIES: Please see below. PHYSICAL EXAMINATION ON DISCHARGE: VITAL SIGNS: Please see below. GENERAL: Comfortable, in no apparent distress. HEENT: Head normocephalic/atraumatic, EOMI, sclera clear. NECK: Supple RESPIRATORY: Lungs clear to auscultation bilaterally, no rales, wheeze or rhonchi. CARDIOVASCULAR: Regular rate and rhythm. ABDOMEN: Soft, obese. Normal bowel sounds. MUSCLE SKELETAL: Muscle strength 5/5 in all extremities. NEUROLOGICAL: CN 312 grossly intact, no focal deficits noted. PSYCHOLOGICAL: Normal mood and affect LABORATORY DATA: Please see below. IMAGING: Ultrasound of the left leg No evidence of deep vein thrombosis. Left foot MRI 1. There is extensive subcutaneous edema along the medial and posterior aspect of the left foot which could be the result of cellulitis. No focal abscess can be seen. There are very large varices throughout the lateral aspect of the ankle. Below this there is subcutaneous edema as well which could be the result of cellulitis. 2. There is no evidence of osteomyelitis. There is a small amount joint fluid at several areas. 3. Partial tear at the insertion of the tibialis posterior tendon. PROGNOSIS: Stable ACTIVITY: As tolerated. DIET: Carbohydrate consistent diet DISCHARGE PLAN: Home DISPOSITION: 01 Home, Self-Care. DISCHARGE INSTRUCTIONS: 1. Follow-up with her PCP within one week 2. Follow-up with Dr. Myers within 5 days for partial tear of tibialis posterior tendon 3. Follow-up with your wound care provider ITEMS TO FOLLOWUP ON ON OUTPATIENT: 1. Wound culture results DISCHARGE CONDITION: Stable. Total time spent on discharge planning, discharge summary, and medication reconciliation: 40 minutes Vital Signs/I&Os Vital Signs Date Time Temp Pulse Resp B/P (MAP) Pulse Ox O2 Delivery O2 Flow Rate FiO2 10/24/20 08:19 135/77 01/12/20 06:00 98.4 53 21 96 Room Air I&O- Last 24 Hours up to 6 AM 01/12/20 05:59 Intake Total 2235 ml Output Total 1475 ml Balance 760 ml Laboratory Data Labs 24H Laboratory Tests 2 01/12/20 05:52: Nucleated Red Blood Cells % (auto) 0.0, Anion Gap 5L, Glomerular Filtration Rate > 60.0, Calcium Level 8.9 CBC/BMP Laboratory Tests 01/12/20 05:52 Microbiology Microbiology 01/10/20 Blood Culture - Preliminary, Resulted No Growth after 48 hours. All Specime... 01/10/20 Blood Culture - Preliminary, Resulted No Growth after 48 hours. All Specime... 01/10/20 Gram Stain - Final, Resulted 01/10/20 Wound Culture - Preliminary, Resulted Staphylococcus Aureus 01/10/20 Group A Streptococcus Screen (TIMOTHY) - Final, Complete 01/10/20 Respiratory Virus Panel (PCR) (TIMOTHY) - Final, Complete Human Rhinovirus/Enterovirus Discharge Medications Scheduled Atorvastatin Calcium (Atorvastatin Calcium) 40 Mg Tablet, 40 MG PO QHS, (Repo rted) Benzonatate (Benzonatate) 100 Mg Capsule, 100 MG PO TID Clindamycin Hcl (Cleocin HCl) 300 Mg Capsule, 300 MG PO TID Furosemide (Furosemide) 20 Mg Tablet, 20 MG PO DAILY, (Reported) Guaifenesin (Mucinex) 600 Mg Tab.er.12h, 600 MG PO BID Levofloxacin (Levofloxacin) 500 Mg Tablet, 500 MG PO DAILY Lisinopril (Lisinopril) 10 Mg Tablet, 10 MG PO DAILY, (Reported) Metformin HCl (Metformin HCl ER) 500 Mg Tab.er.24h, 1,000 MG PO BID, (Reported) Paroxetine (Paroxetine HCl) 30 Mg Tablet, 30 MG PO DAILY, (Reported) Scheduled PRN Albuterol Sulfate (Ventolin Hfa) 18 Gm Hfa.aer.ad, 2 PUFF INH Q4H PRN for SOB/WHEEZING, (Reported) Allergies Coded Allergies: No Known Allergies (Unverified , 01/09/19) MARY JANE ROBERTS DO Jan 12, 2020 21:21
== END 2020-01-12 13:18 | disposition home or self-care (01) | DRG 380 ==
LOC: M ED 13:00 → M ED INP 13:01 → M MSPAV 17:46 → OBSVTOIN 01-11 19:00
PROVIDERS: ADMIT Internal Medicine; ATTEND Internal Medicine
DX: E11.622 Type 2 diabetes mellitus with other skin ulcer (principal); L97.329 Non-pressure chronic ulcer of left ankle with unspecified severity; I11.0 Hypertensive heart disease with heart failure; I50.9 Heart failure, unspecified; E78.5 Hyperlipidemia, unspecified; G47.30 Sleep apnea, unspecified; K21.9 Gastro-esophageal reflux disease without esophagitis; R32 Unspecified urinary incontinence; L03.116 Cellulitis of left lower limb; M19.90 Unspecified osteoarthritis, unspecified site; F32.9 Major depressive disorder, single episode, unspecified; F17.200 Nicotine dependence, unspecified, uncomplicated; Z86.14 Personal history of Methicillin resistant Staphylococcus aureus infection; Z79.84 Long term (current) use of oral hypoglycemic drugs; Z79.899 Other long term (current) drug therapy; J45.909 Unspecified asthma, uncomplicated; B97.89 Other viral agents as the cause of diseases classified elsewhere

== ENCOUNTER 2020-02-23 14:58 | Emergency (ER) | payer OTHER ==
[~2020-02-23] VITALS: Ht 182.9 cm; Wt 193.3 kg
[~2020-02-23 14:58] MED LIST changes: +BENZ-18 PO; +CLEO300C2 PO; +FURO20TA2 PO; +FURO40TA2; +LEVO500T3 PO; +METF-838 PO; +MUCI600T31 PO; +PARO30TA4 PO
[2020-02-23] MEDS ORDERED: ASPI81TA26 (15:31)
[2020-02-23] MEDS ORDERED: STEG15TA (15:31)
[2020-02-23 16:07] LABS: BASO % 0.5 % (0.0-1.0); EOS # 0.1 10^3/uL (0.0-0.5); EOS % 1.5 % (0.0-3.0); HEMOGLOBIN 14.9 g/dl (13.5-17.5); LYMPH # 1.6 10^3/uL (1.5-5.0); LYMPH % 19.4 % (24.0-44.0); MEAN CORPUSCULAR HEMOGLOBIN 30.1 pg (27.0-33.0); MEAN CORPUSCULAR HGB CONC 32.4 g/dl (32.0-36.5); MEAN CORPUSCULAR VOLUME 92.9 fl (80.0-96.0); MONO # 0.6 10^3/uL (0.0-0.8); NEUTROPHILS # 5.7 10^3/uL (1.5-8.5); NEUTROPHILS % 71.2 % (36.0-66.0); PLATELET COUNT, AUTOMATED 258 10^3/uL (150-450); RED BLOOD COUNT 4.95 10^6/uL (4.30-6.10)
[2020-02-23 16:28] LABS: BLOOD UREA NITROGEN 18 MG/DL (7-18); C REACTIVE PROTEIN QUANTITATIV 0.59 MG/DL (0.00-0.30); CALCIUM LEVEL 8.9 MG/DL (8.5-10.1); CARBON DIOXIDE LEVEL 26 MEQ/L (21-32); CHLORIDE LEVEL 109 MEQ/L (98-107); CREATININE FOR GFR 0.95 MG/DL (0.70-1.30); GLOMERULAR FILTRATION RATE > 60.0 (>56); GLUCOSE, FASTING 98 MG/DL (70-100); POTASSIUM SERUM 3.7 MEQ/L (3.5-5.1); SODIUM LEVEL 141 MEQ/L (136-145)
[2020-02-23 16:32] LABS: ERYTHROCYTE SEDIMENTATION RATE 9 mm/hr (0-20)
[2020-02-23] MEDS ORDERED: BACITRACIN OINTMENT 30GM TUBE TOP STA (16:35)
--- NOTE | 2020-02-23 18:01 | REP ---
INDICATION: left area of ulceration, concern for bone involvement. COMPARISON: Comparison left ankle radiographs December 13, 2016.. TECHNIQUE: Four views. FINDINGS: Four views of the left ankle demonstrate moderate diffuse soft tissue swelling at the ankle and in the soft tissues of the distal calf. There is a soft tissue deficit laterally above the level of the lateral malleolus similar to but less prominent than the ulceration seen in the soft tissues here on December 13, 2016. There is irregularity and chronic appearing periosteal reaction in the distal fibula again noted similar to that seen in 2017. No acute bony erosive changes seen. Tibiotalar spurring and heel spurring are noted. There is some midfoot osteoarthritic spurring. No soft tissue gas is seen. There is medial malleolar spurring. IMPRESSION: There is chronic appearing periosteal reaction of the distal fibula similar to that seen in 2017. No acute bony erosive changes seen. Soft tissue deficit laterally above the lateral malleolus. Diffuse soft tissue swelling and edema pattern. No soft tissue gas seen. <Electronically signed by Gunner Dowling > 02/23/20 [id number]
[2020-02-23 18:37] VITALS: BP 150/86
== END 2020-02-23 18:39 | disposition home or self-care (01) ==
LOC: M ED 14:58
DX: L89.522 Pressure ulcer of left ankle, stage 2 (principal); I11.0 Hypertensive heart disease with heart failure; I50.9 Heart failure, unspecified; E11.621 Type 2 diabetes mellitus with foot ulcer; E78.5 Hyperlipidemia, unspecified; I73.9 Peripheral vascular disease, unspecified; K42.9 Umbilical hernia without obstruction or gangrene; F17.210 Nicotine dependence, cigarettes, uncomplicated; Z86.19 Personal history of other infectious and parasitic diseases; Z79.899 Other long term (current) drug therapy; Z79.84 Long term (current) use of oral hypoglycemic drugs; Z79.82 Long term (current) use of aspirin

== ENCOUNTER 2020-05-18 15:57 | Emergency (ER) | payer OTHER ==
[~2020-05-18] VITALS: Ht 182.9 cm; Wt 194.2 kg
[~2020-05-18 15:57] MED LIST changes: +ASPI81TA26; -LISI-538 PO; +LISI10TA22 PO; -LISI10TA4 PO; +LISI20TA33 PO; +STEG15TA
[2020-05-18 15:58] VITALS: BP 181/87
[2020-05-18] MEDS ORDERED: BOOSTRIX/ADACEL VACCINE (DIPHTH/PERTUSS/ACELL/TETANUS) 0.5ML SYR IM ONE (16:15)
[2020-05-18] MEDS ORDERED: DERMABOND TOPICAL SKIN ADHESIVE TOP ONE (16:15)
== END 2020-05-18 17:02 | disposition home or self-care (01) ==
LOC: M ED 15:57
DX: S61.012A Laceration without foreign body of left thumb without damage to nail, initial encounter (principal); W26.8XXA Contact with other sharp object(s), not elsewhere classified, initial encounter; Y92.099 Unspecified place in other non-institutional residence as the place of occurrence of the external cause; Y93.9 Activity, unspecified; Y99.9 Unspecified external cause status; E11.9 Type 2 diabetes mellitus without complications; I10 Essential (primary) hypertension; G47.30 Sleep apnea, unspecified; F42.9 Obsessive-compulsive disorder, unspecified; Z79.84 Long term (current) use of oral hypoglycemic drugs; Z79.899 Other long term (current) drug therapy

== ENCOUNTER 2020-11-19 09:44 | Emergency (ER) | payer OTHER ==
[~2020-11-19] VITALS: Ht 182.9 cm; Wt 196.2 kg
[~2020-11-19 09:44] MED LIST changes: -DOXY100C37 PO; +DOXY1CAP62 PO
[2020-11-19] MEDS ORDERED: ACETAMINOPHEN 500 MG TAB PO ONE (10:35)
--- NOTE | 2020-11-19 11:16 | REP ---
INDICATION: R anterior elbow pain, pain with elbow ROM COMPARISON: None. TECHNIQUE: AP, lateral, bilateral oblique views of the right elbow elbow. FINDINGS: No acute fracture or dislocation. No effusion. No significant swelling. Cortical irregularity and spurring consistent with mild arthritic changes. IMPRESSION: Mild arthritic changes. <Electronically signed by Nael Cote > 11/19/20 1118
--- NOTE | 2020-11-19 11:17 | REP ---
INDICATION: ttp. COMPARISON: None. TECHNIQUE: AP and lateral views of the right forearm are provided. FINDINGS: The AP and latter views of the right forearm demonstrate normal bones, joints, and soft tissues. No fracture or subluxation is seen. No opaque foreign body noted. There is mild medial and lateral epicondylar spurring. Spurring is noted on the olecranon process as well on the lateral radiograph. IMPRESSION: Spurring at the elbow. No fracture or subluxation seen. <Electronically signed by Gunner Dowling > 11/19/20 1119
[2020-11-19 11:27] LABS: BASO # 0.1 10^3/uL (0.0-0.2); BASO % 0.6 % (0.0-1.0); EOS # 0.2 10^3/uL (0.0-0.5); EOS % 2.2 % (0.0-3.0); HEMATOCRIT 49.6 % (42.0-52.0); HEMOGLOBIN 16.6 g/dl (13.5-17.5); LYMPH # 1.5 10^3/uL (1.5-5.0); LYMPH % 15.6 % (24.0-44.0); MEAN CORPUSCULAR HEMOGLOBIN 30.9 pg (27.0-33.0); MEAN CORPUSCULAR HGB CONC 33.5 g/dl (32.0-36.5); MEAN CORPUSCULAR VOLUME 92.4 fl (80.0-96.0); MONO # 0.7 10^3/uL (0.0-0.8); MONO % 6.8 % (2.0-8.0); NEUTROPHILS # 7.3 10^3/uL (1.5-8.5); NEUTROPHILS % 74.2 % (36.0-66.0); PLATELET COUNT, AUTOMATED 298 10^3/uL (150-450); RED BLOOD COUNT 5.37 10^6/uL (4.30-6.10); WHITE BLOOD COUNT 9.8 10^3/uL (4.0-10.0)
[2020-11-19 11:43] LABS: BLOOD UREA NITROGEN 17 MG/DL (7-18); C REACTIVE PROTEIN QUANTITATIV 0.75 MG/DL (0.00-0.30); CALCIUM LEVEL 9.1 MG/DL (8.5-10.1); CARBON DIOXIDE LEVEL 26 MEQ/L (21-32); CHLORIDE LEVEL 110 MEQ/L (98-107); CREATININE FOR GFR 0.86 MG/DL (0.70-1.30); GLOMERULAR FILTRATION RATE > 60.0 (>56); GLUCOSE, FASTING 112 MG/DL (70-100); POTASSIUM SERUM 4.3 MEQ/L (3.5-5.1); SODIUM LEVEL 140 MEQ/L (136-145); URIC ACID 7.3 MG/DL (3.5-7.2)
[2020-11-19 12:06] LABS: ERYTHROCYTE SEDIMENTATION RATE 8 mm/hr (0-20)
--- NOTE | 2020-11-19 12:19 | REP ---
INDICATION: r/o dvt RUE COMPARISON: None. TECHNIQUE: Real time compression and duplex Doppler evaluation of the Right upper extremity deep venous system is performed. FINDINGS: The Right subclavian, jugular, axillary, brachial, basilic and cephalic veins are fully compressible where accessible with transducer pressure, and demonstrate no intraluminal thrombus and normal venous waveforms. There is no evidence of deep venous thrombosis.The Left subclavian vein is fully compressible where accessible with transducer pressure, and demonstrates no intraluminal thrombus and normal venous waveforms. IMPRESSION: No evidence of deep venous thrombosis of the Right upper extremity deep vein system. <Electronically signed by Elijah Modi > 11/19/20 [id number]
[2020-11-19 13:15] VITALS: BP 168/84
== END 2020-11-19 13:23 | disposition home or self-care (01) ==
LOC: M ED 09:44
DX: S56.211A Strain of other flexor muscle, fascia and tendon at forearm level, right arm, initial encounter (principal); M19.021 Primary osteoarthritis, right elbow; M25.721 Osteophyte, right elbow; M67.821 Other specified disorders of synovium, right elbow; X50.0XXA Overexertion from strenuous movement or load, initial encounter; Y92.098 Other place in other non-institutional residence as the place of occurrence of the external cause; I11.0 Hypertensive heart disease with heart failure; E11.9 Type 2 diabetes mellitus without complications; E78.5 Hyperlipidemia, unspecified; I50.9 Heart failure, unspecified; K21.9 Gastro-esophageal reflux disease without esophagitis; F17.210 Nicotine dependence, cigarettes, uncomplicated; Z79.899 Other long term (current) drug therapy; Z79.84 Long term (current) use of oral hypoglycemic drugs

== ENCOUNTER 2021-02-10 16:59 | Emergency (ER) | payer OTHER ==
[~2021-02-10] VITALS: Ht 182.9 cm; Wt 204.2 kg
[~2021-02-10 16:59] MED LIST changes: +DOXY-443 PO; -DOXY1CAP62 PO
--- OUTSIDE RECORDS SUMMARY | 2021-02-10 21:31 | CCD | Continuity of Care Document ---
Author Author Cisco CHANDRA Organization Unknown Address [id number] [place] [id number] Phone [phone] Care Team Providers Care National Sales Consultant Name Role Phone ZAC CHANDRA AUTM [phone] Social History Type Date Description Comments Sex Unknown Results Test Acquired Date Facility Test Result H/L Range Note Basic Metabolic Profile 11/19/[address] [address] [phone] Glucose, Fasting 112 mg/dL High 70-100 Blood Urea Nitrogen 17 mg/dL Normal 7-18 Creatinine For GFR 0.86 mg/dL Normal 0.70-1.30 Glomerular Filtration Rate > 60.0 Normal >56 1 Sodium Level 140 mEq/L Normal 136-145 Potassium Serum 4.3 mEq/L Normal 3.5-5.1 Chloride Level 110 mEq/L High 98-107 Carbon Dioxide Level 26 mEq/L Normal 21-32 Anion Gap 4 mEq/L Low 8-16 Calcium Level 9.1 mg/dL Normal 8.5-10.1 Laboratory test finding [facility] [address] [place] [address] [phone] Uric Acid 7.3 mg/dL High 3.5-7.2 C Reactive Protein Quantitativ 0.75 mg/dL High 0.00-0.30 CBC With Differential 11/19/[address] [address] [phone] White Blood Count 9.8 10 Normal 4.0-10.0 Red Blood Count 5.37 10 Normal 4.30-6.10 Hemoglobin 16.6 g/dL Normal 13.5-17.5 Hematocrit 49.6 % Normal 42.0-52.0 Mean Corpuscular Volume 92.4 fl Normal 80.0-96.0 Mean Corpuscular Hemoglobin 30.9 pg Normal 27.0-33.0 Mean Corpuscular HGB Conc 33.5 g/dL Normal 32.0-36.5 Red Cell Distribution Width 12.8 % Normal 11.5-14.5 Platelet Count, Automated 298 10 Normal 150-450 Neutrophils % 74.2 % High 36.0-66.0 Lymph % 15.6 % Low 24.0-44.0 [place] % 6.8 % Normal 2.0-8.0 Eos % 2.2 % Normal 0.0-3.0 Baso % 0.6 % Normal 0.0-1.0 Immature Granulocyte % 0.6 % Normal 0-3.0 Nucleated Red Blood Cell % 0.0 % Normal 0-0 Neutrophils # 7.3 10 Normal 1.5-8.5 Lymph # 1.5 10 Normal 1.5-5.0 [place] # 0.7 10 Normal 0.0-0.8 Eos # 0.2 10 Normal 0.0-0.5 Baso # 0.1 10 Normal 0.0-0.2 Laboratory test finding 11/19/[address] [address] [phone] Erythrocyte Sedimentation Rate 8 mm/hr Normal 0 -20 1 Units are mL/min/1.73 m2 Chronic Kidney Disease Staging per NKF: Stage I & II GFR >=60 Normal to Mildly Decreased Stage III GFR 30-59 Moderately Decreased Stage IV GFR 15-29 Severely Decreased Stage V GFR <15 Very Little GFR Left ESRD GFR <15 on MRB ENGINEER Procedures Date Code Description Status 12/16/2020 [address] Periodic Preventive Med Age 40-6 4 Completed Encounters Type Date Location Provider Dx Diagnosis Office Visit 12/16/2020 9:30a [facility] SHAKIRA Gr Z00.8 Encounter for other general examination Assessments Date Code Description Provider 12/16/2020 Z00.8 Encounter for other general exam ination SHAKIRA Ocasio Plan of Treatment Future Appointment(s):* 03/17/2021 10:00 am - SHAKIRA Ocasio at [facility]
--- OUTSIDE RECORDS SUMMARY | 2021-02-10 21:31 | CCD | Continuity of Care Document ---
Author Author Cisco Lindo Organization Unknown Address Unknown Phone [phone] Care Team Providers Care Buildings And Grounds Director Name Role Phone ZAC CHANDRA AUTM [phone] Social History Type Date Description Comments Sex Unknown Results Test Acquired Date Facility Test Result H/L Range Note Basic Metabolic Profile 11/19/[address] [address] [phone] Glucose, Fasting 112 mg/dL High 70-100 Blood [...] mg/dL Normal 8.5-10.1 Laboratory test finding 11/19/[address] [address] [phone] Uric Acid 7.3 mg/dL High 3.5-7.2 C Reactive Protein Quantitativ 0.75 mg/dL High 0.00-0.30 CBC With Differential 11/19/[address] [address] [phone] White Blood Count 9.8 10 Normal 4.0-10.0 [...] 36.0-66.0 Lymph % 15.6 % Low 24.0-44.0 [place] % 6.8 % Normal 2.0-8.0 Eos % 2.2 % Normal 0.0-3.0 Baso % 0.6 % Normal 0.0-1.0 Immature Granulocyte % 0.6 % Normal 0-3.0 Nucleated Red Blood Cell % 0.0 % Normal 0-0 Neutrophils # 7.3 10 Normal 1.5-8.5 Lymph # 1.5 10 Normal 1.5-5.0 [place] # 0.7 10 Normal 0.0-0.8 Eos # 0.2 10 Normal 0.0-0.5 Baso # 0.1 10 Normal 0.0-0.2 Laboratory test [facility] [address] [id number] [phone] Erythrocyte Sedimentation Rate 8 mm/hr Normal 0 -20 1 Units are mL/min/1.73 m2 Chronic Kidney Disease Staging per NKF: Stage I & II GFR >=60 Normal to Mildly Decreased Stage III GFR 30-59 Moderately Decreased Stage IV GFR 15-29 Severely Decreased Stage V GFR <15 Very Little GFR Left ESRD GFR <15 on STICKER ON Procedures Date Code Description Status 12/16/2020 [address] Periodic Preventive Med Age 40-6 4 Completed Encounters Type Date Location Provider Dx Diagnosis Office Visit 12/16/2020 9:30a [facility] SHAKIRA Gr Z00.8 Encounter for other general examination Assessments Date Code Description Provider 12/16/2020 Z00.8 Encounter for other general exam ination SHAKIRA Ocasio Plan of Treatment Future Appointment(s):* 03/17/2021 10:00 am - SHAKIRA Ocasio at [facility]
--- OUTSIDE RECORDS SUMMARY | 2021-02-10 21:31 | CCD ---
Author Organization Unknown Address [address] [place] [address] Phone [phone] Care Team Providers Care Body Shop Mechanic Name Role Phone Raina Boothe Unavailable Unavailable Allergies Code Code System Name Reaction Severity Status Onset NKDA Medications Name Status Start Date Stop Date metformin 1,000 mg tablet Take 1 tablet twice a day by oral route. Active Not available Problems Name Status Onset Date Source Onychomycosis Active 06/08/2016 History Hyperlipidemia Active 06/08/2016 History Blepharitis Active 06/08/2016 History Hypertensive Disorder Active 06/08/2016 History Cough Active 06/08/2016 History Increased Frequency of Urination Active 06/08/2016 History Endocrine/metabolic Screening Active 06/08/2016 Hi story Tobacco Use and Exposure - Finding Active 06/08/2016 History Exposure to Second Hand Tobacco Smoke Active 06/08/2016 History Procedure by Method Active 06/08/2016 History Clinical Finding Active 06/08/2016 History Venous Ulcer of Lower Extremity Due to Chronic Periphe ral Venous Hypertension Active 06/08/2016 History Pain of Right Shoulder Joint Active 06/08/2016 His tory Type II Diabetes Mellitus Uncontrolled Active Umbilical Hernia Active 12/24/2020 Chronic Ulcer of Lower Extremity Active 12/24/2020 Body Mass Index 40+ - Severely Obese Active 12/24/2020 Tobacco Dependence Caused by Cigarettes Active 12/25/19 21 Procedures Notes: ablasion left leg Results Lab Results None recorded. Past Encounters 12/23/2020 Tobacco Dependence Caused by Cigarettes; Chronic Ulcer of Lower Extremity; Umbilical Hernia; Body Mass Index 40+ - Severely Obese; Pain of Right Shoulder Joint; Type II Diabetes Mellitus Uncontrolled ESTELLE Mena-BC: [address] [place] [address], Ph. Social History Tobacco Smoking Status Heavy Tobacco Smoker (1/2 pack per a day) Vaccine List Vaccine Type Tdap 05/19/2009 10/09/2015 Plan of Care Patient Instructions Please continue medications as prescribe d. Please try to maintain good nutrition, adequate rest and adequate physical activities and adequate intake of water daily. Reminders Provider Appointments None recorded. Lab None recorded. Referral None recorded. Procedures None recorded. Surgeries None recorded. Imaging None recorded. Vitals Height Weight BMI Blood Pressure 72 in 440 lbs 2 oz 59.7 kg/m2 142/84 mm[Hg]
--- OUTSIDE RECORDS SUMMARY | 2021-02-10 21:32 | CCD ---
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 Name Role Phone YONG COYNE MD Unavailable Unavailable Coldiron, A Raina SENIOR PRODUCTION PLANNER Unavailable Unavailable Coldiron, A Raina SENIOR PRODUCTION PLANNER Unavailable Unavailable Coldiron, A Raina SENIOR PRODUCTION PLANNER Unavailable Unavailable Coldiron, A Raina SENIOR PRODUCTION PLANNER Unavailable Unavailable Coldiron, A Raina SENIOR PRODUCTION PLANNER Unavailable Unavailable Coldiron, A Raina SENIOR PRODUCTION PLANNER Unavailable Unavailable Coldiron, A Raina SENIOR PRODUCTION PLANNER Unavailable Unavailable Coldiron, A Raina SENIOR PRODUCTION PLANNER Unavailable Unavailable Coldiron, A Raina SENIOR PRODUCTION PLANNER Unavailable Unavailable Coldiron, A Raina SENIOR PRODUCTION PLANNER Unavailable Unavailable Coldiron, A Raina SENIOR PRODUCTION PLANNER Unavailable Unavailable Coldiron, A Raina SENIOR PRODUCTION PLANNER Unavailable Unavailable Coldiron, A Raina SENIOR PRODUCTION PLANNER Unavailable Unavailable Coldiron, A Raina SENIOR PRODUCTION PLANNER Unavailable Unavailable Coldiron, A Raina SENIOR PRODUCTION PLANNER Unavailable Unavailable Coldiron, A Raina SENIOR PRODUCTION PLANNER Unavailable Unavailable Coldiron, A Raina SENIOR PRODUCTION PLANNER Unavailable Unavailable Coldiron, A Raina SENIOR PRODUCTION PLANNER Unavailable Unavailable Coldiron, A Raina SENIOR PRODUCTION PLANNER Unavailable Unavailable Coldiron, A Raina SENIOR PRODUCTION PLANNER Unavailable Unavailable Coldiron, A Raina SENIOR PRODUCTION PLANNER Unavailable Unavailable Coldiron, A Raina SENIOR PRODUCTION PLANNER Unavailable Unavailable Coldiron, A Raina SENIOR PRODUCTION PLANNER Unavailable Unavailable Coldiron, A Raina SENIOR PRODUCTION PLANNER Unavailable Unavailable Coldiron, A Raina SENIOR PRODUCTION PLANNER Unavailable Unavailable Coldiron, A Raina SENIOR PRODUCTION PLANNER Unavailable Unavailable Coldiron, A Raina SENIOR PRODUCTION PLANNER Unavailable Unavailable Coldiron, A Raina SENIOR PRODUCTION PLANNER Unavailable Unavailable Coldiron, A Raina SENIOR PRODUCTION PLANNER Unavailable Unavailable Coldiron, A Raina SENIOR PRODUCTION PLANNER Unavailable Unavailable Coldiron, A Raina SENIOR PRODUCTION PLANNER Unavailable Unavailable Huong WILKS DPM Unavailable Unavailable Huong WILKS DPM Unavailable Unavailable Huong WILKS DPM Unavailable Unavailable MAJCAROLYN, R DIGNA DPM Unavailable Unavailable MAJCAROLYN R DIGNA DPM Unavailable Unavailable MAJCAROLYN R DIGNA DPM Unavailable Unavailable LASHAUN R DIGNA DPM Unavailable Unavailable LASHAUN, R DIGNA DPM Unavailable Unavailable MAJCAROLYN, R DIGNA DPM Unavailable Unavailable MAJCAROLYN, R DIGNA DPM Unavailable Unavailable MAJAK, R DIGNA DPM Unavailable Unavailable MAJCAROLYN, R DIGNA DPM Unavailable Unavailable MAJCAROLYN, R DIGNA DPM Unavailable Unavailable MAJCAROLYN, R DIGNA DPM Unavailable Unavailable MAJAK, R DIGNA DPM Unavailable Unavailable MAJAK, R DIGNA DPM Unavailable Unavailable MAJAK, R DIGNA DPM Unavailable Unavailable MAJAK, R DIGNA DPM Unavailable Unavailable MAJAK, R DIGNA DPM Unavailable Unavailable MAJAK, R DIGNA DPM Unavailable Unavailable MAJAK, R DIGNA DPM Unavailable Unavailable MAJAK, R DIGNA DPM Unavailable Unavailable MAJAK, R DIGNA DPM Unavailable Unavailable MAJAK, R DIGNA DPM Unavailable Unavailable MAJAK, R DIGNA DPM Unavailable Unavailable MAJAK, R DIGNA DPM Unavailable Unavailable MAJAK, R DIGNA DPM Unavailable Unavailable MAJAK, R DIGNA DPM Unavailable Unavailable MAJAK, R DIGNA DPM Unavailable Unavailable MAJAK, R DIGNA DPM Unavailable Unavailable MAJAK, R DIGNA DPM Unavailable Unavailable MAJAK, R DIGNA DPM Unavailable Unavailable Jhon COYNE MD Unavailable Unavailable PALJhon POSADAS MD Unavailable Unavailable PALJhon POSADAS MD Unavailable Unavailable PALJhon POSADAS MD Unavailable Unavailable PALJhon POSADAS MD Unavailable Unavailable PALJhon POSADAS MD Unavailable Unavailable PALJhon POSADAS MD Unavailable Unavailable PALJhon POSADAS MD Unavailable Unavailable PALJhon POSADAS MD Unavailable Unavailable PALJhon POSADAS MD Unavailable Unavailable PALJhon POSADAS MD Unavailable Unavailable PALJhon POSADAS MD Unavailable Unavailable PALJhon POSADAS MD Unavailable Unavailable PALJhon POSADAS MD Unavailable Unavailable PALJhon POSADAS MD Unavailable Unavailable TONTARSKI, G ZAC PA Unavailable Unavailable TONTARSKI, G ZAC PA Unavailable Unavailable TONTARSKI, G ZAC PA Unavailable Unavailable TONTARSKI, G ZAC PA Unavailable Unavailable TONTARSKI, G ZAC PA Unavailable Unavailable TONTARSKI, G ZAC PA Unavailable Unavailable TONTARSKI, G ZAC PA Unavailable Unavailable TONTARSKI, G ZAC PA Unavailable Unavailable TONTARSKI, G ZAC PA Unavailable Unavailable TONTARSKI, G ZAC PA Unavailable Unavailable TONTARSKI, G ZAC PA Unavailable Unavailable TONTARSKI, G ZAC PA Unavailable Unavailable TONTARSKI, G ZAC PA Unavailable Unavailable TONTARSKI, G ZAC PA Unavailable Unavailable TONTARSKI, G ZAC PA Unavailable Unavailable TONTARSKI, G ZAC PA Unavailable Unavailable TONTARSKI, G ZAC PA Unavailable Unavailable TONTARSKI, G ZAC PA Unavailable Unavailable TONTARSKI, G ZAC PA Unavailable Unavailable TONTARSKI, G ZAC PA Unavailable Unavailable TONTARSKI, G ZAC PA Unavailable Unavailable TONTARSKI, G ZAC PA Unavailable Unavailable TONTARSKI, G ZAC PA Unavailable Unavailable TONTARSKI, G ZAC PA Unavailable Unavailable TONTARSKI, G ZAC PA Unavailable Unavailable TONTARSKI, G ZAC PA Unavailable Unavailable TONTARSKI, G ZAC PA Unavailable Unavailable TONTARSKI, G ZAC PA Unavailable Unavailable TONTARSKI, G ZAC PA Unavailable Unavailable TONTARSKI, G ZAC PA Unavailable Unavailable TONTARSKI, G ZAC PA Unavailable Unavailable TONTARSKI, G ZAC PA Unavailable Unavailable TONTARSKI, G ZAC PA Unavailable Unavailable TONTARSKI, G ZAC PA Unavailable Unavailable TONTARSKI, G ZAC PA Unavailable Unavailable TONTARSKI, G ZAC PA Unavailable Unavailable TONTARSKI, G ZAC PA Unavailable Unavailable TONTARSKI, G ZAC PA Unavailable Unavailable TONTARSKI, G ZAC PA Unavailable Unavailable TONTARSKI, G ZAC PA Unavailable Unavailable TONTARSKI, G ZAC PA Unavailable Unavailable TONTARSKI, G ZAC PA Unavailable Unavailable TONTARSKI, G ZAC PA Unavailable Unavailable TONTARSKI, G ZAC PA Unavailable Unavailable TONTARSKI, G ZAC PA Unavailable Unavailable TONTARSKI, G ZAC PA Unavailable Unavailable TONTARSKI, G ZAC PA Unavailable Unavailable TONTARSKI, G ZAC PA Unavailable Unavailable Brydges, I Sebastian DO Unavailable Unavailable Brydges, I Sebastian DO Unavailable Unavailable Brydges, I Sebastian DO Unavailable Unavailable Brydges, I Sebastian DO Unavailable Unavailable Brydges, I Sebastian DO Unavailable Unavailable Brydges, I Sebastian DO Unavailable Unavailable Brydges, I Sebastian DO Unavailable Unavailable Brydges, I Sebastian DO Unavailable Unavailable Brydges, I Sebastian DO Unavailable Unavailable Brydges, I Sebastian DO Unavailable Unavailable Brydges, I Sebastian DO Unavailable Unavailable Brydges, I Sebastian DO Unavailable Unavailable Brydges, I Sebastian DO Unavailable Unavailable Brydges, I Sebastian DO Unavailable Unavailable Brydges, I Sebastian DO Unavailable Unavailable Brydges, I Sebastian DO Unavailable Unavailable Brydges, I Sebastian DO Unavailable Unavailable Brydges, I Sebastian DO Unavailable Unavailable Brydges, I Sebastian DO Unavailable Unavailable Brydges, I Sebastian DO Unavailable Unavailable Brydges, I Sebastian DO Unavailable Unavailable Brydges, I Sebastian DO Unavailable Unavailable Brydges, I Sebastian DO Unavailable Unavailable Brydges, I Sebastian DO Unavailable Unavailable Brydges, I Sebastian DO Unavailable Unavailable Brydges, I Sebastian DO Unavailable Unavailable Brydges, I Sebastian DO Unavailable Unavailable Brydges, I Sebastian DO Unavailable Unavailable Brydges, I Sebastian DO Unavailable Unavailable Brydges, I Sebastian DO Unavailable Unavailable Brydges, I Sebastian DO Unavailable Unavailable RUSTY, LIDIA AGIULERA MD Unavailable Unavailable RUSTY, LIDIA AGUILERA MD Unavailable Unavailable RUSTY, LIDIA AGUILERA MD Unavailable Unavailable RUSTY, LIDIA AGUILERA MD Unavailable Unavailable RUSTY, LIDIA AGUILERA MD Unavailable Unavailable RUSTY, LIDIA AGUILERA MD Unavailable Unavailable RUSTY, LIDIA AGUILERA MD Unavailable Unavailable RUSTY, LIDIA AGUILERA MD Unavailable Unavailable RUSTY, LIDIA AGUILERA MD Unavailable Unavailable RUSTY, LIDIA AGUILERA MD Unavailable Unavailable RUSTY, LIDIA AGUILERA MD Unavailable Unavailable RUSTY, LIDIA AGUILERA MD Unavailable Unavailable RUSTY, LIDIA AGUILERA MD Unavailable Unavailable RUSTY, LIDIA AGUILERA MD Unavailable Unavailable RUSTY, LIDIA AGUILERA MD Unavailable Unavailable RUSTY, LIDIA AGUILERA MD Unavailable Unavailable RUSTY, LIDIA AGUILERA MD Unavailable Unavailable RUSTY, LIDIA AGUILERA MD Unavailable Unavailable RUSTY, LIDIA AGUILERA MD Unavailable Unavailable RUSTY, LIDIA AGUILERA MD Unavailable Unavailable RUSTY, LIDIA AGUILERA MD Unavailable Unavailable RUSTY, LIDIA AGUILERA MD Unavailable Unavailable RUSTY, LIDIA AGUILERA MD Unavailable Unavailable RUSTY, PRYJMA ALE MD Unavailable Unavailable RUSTY, PRYJMA ALE MD Unavailable Unavailable RUSTY, PRYJMA ALE MD Unavailable Unavailable RUSTY, PRYJMA ALE MD Unavailable Unavailable RUSTY, PRYJMA ALE MD Unavailable Unavailable RUSTY, PRYJMA ALE MD Unavailable Unavailable RUSTY, PRYJMA ALE MD Unavailable Unavailable ZUKER, B PATSY MD Unavailable Unavailable ZUKER, B PATSY MD Unavailable Unavailable ZUKER, B PATSY MD Unavailable Unavailable ZUKER, B PATSY MD Unavailable Unavailable ZUKER, B PATSY MD Unavailable Unavailable ZUKER, B PATSY MD Unavailable Unavailable ZUKER, B PATSY MD Unavailable Unavailable ZUKER, B PASTY MD Unavailable Unavailable ZUKER, B PATSY MD Unavailable Unavailable ZUKER, B PATSY MD Unavailable Unavailable ZUKER, B PATSY MD Unavailable Unavailable ZUKER, B PATSY MD Unavailable Unavailable ZUKER, B PATSY MD Unavailable Unavailable ZUKER, B PATSY MD Unavailable Unavailable ZUKER, B PATSY MD Unavailable Unavailable ZUKER, B PATSY MD Unavailable Unavailable Re-disclosure Warning The records that you are about to access may contain information from federally-assisted alcohol or drug abuse programs. If such information is present, then the following federally mandated warning applies: This information has been disclosed to you from records protected by federal confidentiality rules (42 CFR part 2). The federal rules prohibit you from making any further disclosure of this information unless further disclosure is expressly permitted by the written consent of the person to whom it pertains or as otherwise permitted by 42 CFR part 2. A general authorization for the release of medical or other information is NOT sufficient for this purpose. The Federal rules restrict any use of the information to criminally investigate or prosecute any alcohol or drug abuse patient.The records that you are about to access may contain highly sensitive health information, the redisclosure of which is protected by Article 27-F of the [facility] Public Health law. If you continue you may have access to information: Regarding HIV / AIDS; Provided by facilities licensed or operated by the [facility] Office of Mental Health; or Provided by the [facility] Office for People With Developmental Disabilities. If such information is present, then the following [facility] mandated warning applies: This information has been disclosed to you from confidential records which are protected by state law. State law prohibits you from making any further disclosure of this information without the specific written consent of the person to whom it pertains, or as otherwise permitted by law. Any unauthorized further disclosure in violation of state law may result in a fine or longterm sentence or both. A general authorization for the release of medical or other information is NOT sufficient authorization for further disc losure. Family History Family Member Name Family Member Gender Family Member Status Date o f Status Description Data Source(s) Unknown Male Problem [facility] ([facility] Encounters Encounter Providers Location Date Indications Data Source(s ) ESTELLE Mena-BC: [address] [facility] [place] [address], Ph. Attender: Raina Boothe [facility] Medical 12/23/2020 12:00:00 AM EDT [facility] ([facility]) Outpatient Attender: ZAC CHANDRA [facility] 12/16/2020 09:30:00 AM EDT [facility] (Carlton Moreno MD) Outpatient Attender: DIGNA WILKS [facility] 02/18 01:45:00 PM EST [facility] ([facility] Outpatient Attender: Sebastian Edwards DO [facility] 12/24/2019 10:08:0 0 AM EDT [facility] Outpatient Attender: Sebastian Edwards DO 12/17/2019 11:00:0 0 AM EDT [facility] Outpatient Attender: Sebastian Edwards DO [facility] 10/09/2019 01:06:0 0 PM EDT [facility] Outpatient Attender: Sebastian Edwards DO [facility] 02/02/2019 10:19:0 0 AM EST [facility] Outpatient Attender: Sebastian Edwards DO [facility] 01/05/2019 10:13:0 0 AM EDT [facility] Outpatient Attender: Sebastian Edwards DO [facility] 12/22/2018 09:46:0 0 AM EDT [facility] Outpatient Attender: Sebastian Edwards DO [facility] 12[facility]15[facility] YONG COYNE MDAttender: YONG COYNE MD [facility] 12/08/2018 [facility] Sebastian Edwards DO [facility] 12/01/2018 10:54:0 [facility]: Sebastian Jerry DO [facility] 11/24/2018 12:29:0 [facility]: ALE OJEDA MD [facility] 08/28/2018 10:02:[facility]: ALE OJEDA MD [facility] 08/22/[facility]: Sebastian Raymondashley DO ER[facility]WOUND 08/15/2018 09:15:0 [facility]: Sebastian Jerry DO [facility] 05/25/2018 10:01:0 0 AM EST [facility] Outpatient Attender: Sebastian Jerry DO ER[facility]WOUND 05/11/2018 10:18:0 0 AM [facility] Outpatient Attender: Sebastian Jerry DO ER-WOUND 05/04/2018 10:09:0 0 AM EST [facility] Outpatient Attender: Sebastian Raymondashley DO ER-WOUND 04/13/2018 10:06:0 0 AM EST [facility] Outpatient Attender: Sebastian Jerry DO ER-WOUND 04/06/2018 09:48:0 0 AM EST [facility] Outpatient Attender: Sebastian Raymondashley DO ER-WOUND 03/30/2018 10:23:0 0 AM EST [facility] Outpatient Attender: Sebastian Jerry DO ER-WOUND 03/24/2018 11:34:0 0 AM EST [facility] Outpatient Attender: Sebastian Jerry DO ER-WOUND 03/17/2018 11:16:0 0 AM EST [facility] Outpatient Attender: Sebastian Jerry DO ER-WOUND 03/10/2018 09:53:0 0 AM EST [facility] Outpatient Attender: PATSY DEUTSCH MD ER-RAD 03/06/2018 12:31:00 AM EST [facility] Outpatient Attender: Sebastian Edwards DO ER-WOUND 03/03/2018 10:15:0 0 AM EST [facility] Outpatient Attender: Sebastian Edwards DO ER-WOUND 02/24/2018 11:04:0 0 AM EST [facility] Outpatient Attender: Sebastian Edwards DO ER-WOUND 02/17/2018 11:29:0 0 AM EST [facility] Outpatient Attender: Sebastian Edwards DO 12/29/2017 [facility]:45:[facility] Sebastian Isaiteri DO 12/21/2017 11[facility]45:0 [facility]: Sebastian Edwards DO 12/15/2017 12:45:0 [facility]: YONG COYNE MD 12/08/2017 11:45:00 [facility]: Sebastian Edwards DO 12/01/2017 11:30:0 0 [facility]: Sebastian Edwards DO 11/24/2017 11:45:0 0 [facility]: Sebastian Edwards DO 11/17/2017 11:45:0 0 [facility]: Sebastian Edwards DO 11/10/2017 11:45:0 0 [facility]: Sebastian Edwards DO 11/03/2017 11:30:0 0 [facility]: Sebastian Alexmathieuashley DO 10/27/2017 11:30:0 0 [facility]: Sebastian Raymondashley DO 10/20/2017 12:25:0 0 PM EDT [facility] Medications No Information Insurance Providers Payer name Policy type / Coverage type Policy ID Covered democrat ID Covered democrat's relationship to araujo Policy [place] Plan Information [employer] ([place]) Workers Compensation [id number] Self [id number] [employer] () Workers Compensation [id number] Self [id number] [employer] ([place]) Workers Compensation [id number] Self [employer] () Workers Compensation [id number] Self [id number] [employer] () Workers Compensation [id number] Self [id number] [employer] () Workers Compensation [id number] Self [id number] [facility] Community Plan Medigap Part B [id number] Self [id number] [facility] Community Plan Medigap Part B [id number] Self [id number] [facility] Community Plan Medigap Part B [id number] Self 1 [id number] [facility] Community Plan Medigap Part B [id number] Self 1 [id number] [facility] Community Plan Medigap Part B [id number] Self [id number] [facility] Community Plan Commercial [id number] Self [employer] COMMUNITY PLAN MCDHMO [id number] SP [id number] [employer] COMMUNITY PLAN MCDHMO [id number] SP [id number] [facility]) Workers Compensation [id number] Self [id number] [facility]) Workers Compensation [id number] Self [id number] Medicaid S [id number] S [id number] Managed Care - [facility] P [id number] S [id number] [facility] [employer] Commercial [id number] Self [id number] UN COMMUNITY PLAN MCDHMO [id number] SP [id number] [facility] MEDICAID [id number] S [id number] UN COMMUNITY PLAN MCDHMO [id number] SP [id number] [facility] MEDICAID [id number] [place] [id number] ANSI-Commercial [id number] ANSI-Medicaid [id number] ANSI-Commercial [id number] ANSI-Medicaid [id number] ANSI-Medicaid [id number] ANSI-Commercial [id number] ANSI-Medicaid [id number] ANSI-Medicaid [id number] ANSI-Medicaid [id number] ANSI-Commercial [id number] UNITED HEALTHCARE MEDICAID [id number] S [id number] ANSI-Medicaid [id number] ANSI-Commercial [id number] ANSI-Medicaid [id number] ANSI-Medicaid [id number] ANSI-Medicaid [id number] ANSI-Commercial [id number] [facility] [id number] S [id number] ANSI-Commercial [id number] ANSI-Medicaid [id number] [facility]-Medicaid [id number] [facility]-Medicaid [id number] [facility]-Medicaid [id number] ANSI-Commercial [id number] [facility]-Medicaid [id number] [facility] [id number] ANSI-Commercial [id number] ANSI-Medicaid [id number] ANSI-Commercial [id number] ANSI-Medicaid [id number] ANSI-Medicaid [id number] ANSI-Medicaid [id number] ANSI-Commercial [id number] ANSI-Medicaid [id number] ANSI-Medicaid [id number] ANSI-Commercial [id number] [facility] [id number] ANSI-Commercial [id number] ANSI-Medicaid [id number] ANSI-Medicaid [id number] ANSI-Commercial [id number] ANSI-Medicaid [id number] ANSI-Commercial [id number] ANSI-Medicaid [id number] ANSI-Medicaid [id number] [facility] [id number] S [id number] MEDICAID [id number] SP [id number] STATE INSURANCE FUND O [id number] O [id number] MEDICAID [id number] S [id number] SELF PAY ONLY UNAVAILABLE SP UNAV AILABLE SELF PAY ONLY [id number] SP [id number] STATE INSURANCE FUND O [id number] S [id number] STATE INSURANCE FUND [id number] SP [id number] STATE INSURANCE FUND [id number] SP [id number] STATE INSURANCE FUND [id number] SP [id number] [employer] [id number] SP [id number] [employer] O [id number] O [id number] [facility] HMO [id number] S [id number] [employer] [id number] S [id number] HMO BLUE [id number] SP [id number] ANSI-Medicaid [id number] [facility] O [id number] S [id number] [facility] [id number] S [id number] [facility] [id number] S [id number] [employer] MCDHMO [id number] SP [id number] ANSI-Commercial [id number] ANSI-Medicaid [id number] ANSI-Medicaid [id number] ANSI-Medicaid [id number] ANSI-Medicaid [id number] ANSI-Commercial [id number] ANSI-Commercial [id number] ANSI-Medicaid [id number] ANSI-Medicaid [id number] [facility] [id number] ANSI-Commercial [id number] ANSI-Medicaid [id number] ANSI-Medicaid [id number] ANSI-Commercial [id number] ANSI-Medicaid [id number] ANSI-Medicaid [id number] ANSI-Medicaid [id number] ANSI-Medicaid [id number] Problems, Conditions, and Diagnoses Code Display Name Description Problem Type Effective Dates Data Source(s) L03.116 Cellulitis of left lower limb CELLULITIS OF LEFT LOWER LIMB Diagnosis 12/24/2019 10:08:00 AM EDT [facility] R22.43 Localized swelling, mass and lump, lower limb, bilateral LOCALIZED SWELLING, MASS AND LUMP, LOWER LIMB, TAYLOR Diagnosis 12/24/2019 10:08:00 AM T [facility] E11.622 Type 2 diabetes mellitus with other skin ulcer TYPE 2 DIABETES MELLITUS WITH OTHER SKIN ULCER Diagnosis 12/24/2019 10:08:00 AM EDT [facility] pital L97.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 NON-PRS CHR ULCER OF L ANKLE WITH MSL INVL W/O EVD Diagnosis 12/24/2019 10:08:00 AM T [facility] I87.332 Chronic venous hypertension (idiopathic) with ulcer and inflammation of left lower extremity CHRONIC VENOUS HTN W ULCER AND INFLAMMAT ION OF L LOW EXTREM Diagnosis 12/24/2019 10:08[id number] Tobacco dependence caused by cigarettes Tobacco Dependence Caused by Cigarettes Problem 12/24/2020 12:00:00 AM EDT [place] ([facility]) 595237494 Body mass index 40+ - severely obese Bod y Mass Index 40+ - Severely Obese Problem 12/24/2020 12:00:00 AM EDT [facility]) [id number] Chronic ulcer of lower extremity Chronic Ulcer o f Lower Extremity Problem 12/24/2020 12:00:00 AM EDT [place] ([facility]) 147173858 Umbilical hernia Umbilical Hernia Problem 12/24/2020 12 :00:00 AM EDT [facility]) [id number] Type II diabetes mellitus uncontrolled T ype II Diabetes Mellitus Uncontrolled Problem 12/24/2020 12:00:00 AM EDT [place] ([facility]) Pressure ulcer of left ankle, stage 2 Pressure u lcer of left ankle, stage 2 Problem 03/11/2020 12:00:00 AM EST [facility] ([facility] [id number] Type 2 diabetes mellitus with ulcer Type 2 diabetes mellitus with ulcer Problem 03/11/2020 12:00:00 AM EST [facility] ([facility] [id number] Edema Edema Problem 03/11/2020 12:00:00 AM ES T [facility] ([facility] Surgeries/Procedures Procedure Description Date Indications Data Source(s) PERIODIC PREVENTIVE MED EST PATIENT 40-64YRS 1 12:00:00 AM EDT [facility] (Carlton Moreno MD) DEBRIDEMENT SUBCUTANEOUS TISSUE 20 SQ CM/< 03/05/2020 12:00:00 AM EST [facility] ([facility] DEBRIDEMENT NAIL ANY METHOD 6/> 03/05/2020 12:00:00 AM EST [facility] ([facility] Results ID Date Data Source [id number] 11/19/2020 11:08:00 AM EDT [facility] (Carlton Moreno MD) Name Value Range Interpretation Code Description Data Smiley rce(s) Supporting Document(s) Erythrocyte sedimentation rate by 2H Westergren method 8 mm/hr 0-20 Normal (applies to non-numeric results) [facility] (Carlton Moreno MD) ID Date Data Source [id number] 11/19/2020 11:08:00 AM EDT [facility] (Carlton Moreno MD) Name Value Range Interpretation Code Description Data Smiley rce(s) Supporting Document(s) Laboratory test finding (navigational concept) 9.8 10 4 .0-10.0 Normal (applies to non-numeric results) [facility] (Carlton Moreno MD) Laboratory test finding (navigational concept) 5.37 10 4 .30-6.10 Normal (applies to non-numeric results) [facility] (Carlton Moreno MD) Laboratory test finding (navigational concept) 16.6 g/dL 1 3.5-17.5 Normal (applies to non-numeric results) [facility] (Carlton Moreno MD) Laboratory test finding (navigational concept) 49.6 % 4 2.0-52.0 Normal (applies to non-numeric results) [facility] (Carlton Moreno MD) Laboratory test finding (navigational concept) 92.4 fl 8 0.0-96.0 Normal (applies to non-numeric results) [facility] (Carlton Moreno MD) Laboratory test finding (navigational concept) 30.9 pg 2 7.0-33.0 Normal (applies to non-numeric results) [facility] (Carlton Moreno MD) Laboratory test finding (navigational concept) 33.5 g/dL 3 2.0-36.5 Normal (applies to non-numeric results) [facility] (Carlton Moreno MD) Laboratory test finding (navigational concept) 298 10 1 50-450 Normal (applies to non-numeric results) [facility] (Carlton Moreno MD) Laboratory test finding (navigational concept) 12.8 % 1 1.5-14.5 Normal (applies to non-numeric results) [facility] (Carlton Moreno MD) Laboratory test finding (navigational concept) 74.2 % 3 6.0-66.0 Above high normal [facility] (Carlton Moreno MD) Laboratory test finding (navigational concept) 15.6 % 2 4.0-44.0 Below low normal [facility] (Carlton Moreno MD) Laboratory test finding (navigational concept) 6.8 % 2 .0-8.0 Normal (applies to non-numeric results) [facility] (Carlton Moreno MD) Laboratory test finding (navigational concept) 2.2 % 0 .0-3.0 Normal (applies to non-numeric results) [facility] (Carlton Moreno MD) Laboratory test finding (navigational concept) 0.6 % 0 .0-1.0 Normal (applies to non-numeric results) [facility] (Carlton Moreno MD) Laboratory test finding (navigational concept) 0.6 % 0 -3.0 Normal (applies to non-numeric results) [facility] (Carlton Moreno MD) Laboratory test finding (navigational concept) 7.3 10 1 .5-8.5 Normal (applies to non-numeric results) [facility] (Carlton Moreno MD) Laboratory test finding (navigational concept) 0.0 % 0 -0 Normal (applies to non- numeric results) [facility] (Carlton Moreno MD) Laboratory test finding (navigational concept) 0.7 10 0 .0-0.8 Normal (applies to non-numeric results) [facility] (Carlton Moreno MD) Laboratory test finding (navigational concept) 0.2 10 0 .0-0.5 Normal (applies to non-numeric results) [facility] (Carlton Moreno MD) Laboratory test finding (navigational concept) 1.5 10 1 .5-5.0 Normal (applies to non-numeric results) [facility] (Carlton Moreno MD) Laboratory test finding (navigational concept) 0.1 10 0 .0-0.2 Normal (applies to non-numeric results) [facility] (Carlton Moreno MD) ID Date Data Source [id number] 11/19/2020 11:08:00 AM EDT [facility] (Carlton Moreno MD) Name Value Range Interpretation Code Description Data Smiley rce(s) Supporting Document(s) C reactive protein [Mass/volume] in Serum or Plasma by High sensitivity method 0.75 mg/dL 0.00-0.30 Above high normal [facility] (Carlton Moreno MD) Urate [Mass/volume] in Serum or Plasma 7.3 mg/dL 3.5-7.2 Above hi gh normal [facility] (Carlton Moreno MD) ID Date Data Source [id number] 11/19/2020 11:08:00 AM EDT [facility] (Carlton Moreno MD) Name Value Range Interpretation Code Description Data Smiley rce(s) Supporting Document(s) Laboratory test finding (navigational concept) 112 mg/dL 7 0-100 Above high normal [facility] (Carlton Moreno MD) Laboratory test finding (navigational concept) 17 mg/dL 7 -18 Normal (applies to non-numeric results) [facility] (Carlton Moreno MD) Laboratory test finding (navigational concept) 0.86 mg/dL 0 .70-1.30 Normal (applies to non-numeric results) [facility] (Carlton Moreno MD) Laboratory test finding (navigational concept) Laboratory test r esult Normal (applies to non-numeric results) [facility] (Carlton Moreno MD) <content>Units are mL/min/1.73 m2</content>
<content></content>
<content>Chronic Kidney Disease Staging per NKF:</content>
<content></content>
<content>Stage I & II GFR >=60 Normal to Mildly Decreased</content>
<content>Stage III GFR 30- 59 Moderately Decreased</content>
<content>Stage IV GFR 15-29 Severely Decreased</content>
<content>Stage V GFR <15 Very Little GFR Left</content>
<content>ESRD GFR <15 on UNDER PRESSER</content>
<content></content> Laboratory test finding (navigational concept) 4.3 meq/L 3 .5-5.1 Normal (applies to non-numeric results) [facility] (Carlton Moreno MD) Laboratory test finding (navigational concept) 140 meq/L 1 36-145 Normal (applies to non-numeric results) [facility] (Carlton Moreno MD) Laboratory test finding (navigational concept) 110 meq/L 9 8-107 Above high normal [facility] (Carlton Moreno MD) Laboratory test finding (navigational concept) 4 meq/L 8-16 Below low normal [facility] (Carlton Moreno MD) Laboratory test finding (navigational concept) 26 meq/L 2 1-32 Normal (applies to non-numeric results) [facility] (Carlton Moreno MD) Laboratory test finding (navigational concept) 9.1 mg/dL 8 .5-10.1 Normal (applies to non-numeric results) [facility] (Carlton Moreno MD) ID Date Data Source [id number] 12/26/2019 12:39:00 PM EDT [facility]fred STAPH AUREUSLARGE NUMBERSAC BAUMANNII/BRIDGES EMOLYTICUSSMALL NUMBERS Name Value Range Interpretation Code Description Data Smiley rce(s) Supporting Document(s) ID Date Data Source [id number] 12/24/2019 10:30:00 AM EDT [place] [id number] NAME: DIGNA HAMILTON DATE OF SERVICE: 12/24/19MR#: [id number] DATE OF : [birth year]ACCOUNT #: [id number] PANCHAL. ([id number])Visit Report for 12/24/2019Advanced Modalities Screening Tool DetailsPatient Name:Date of Service:DIGNA HAMILTON 12/24/2019 10:30AMMedical Record Number:[id number] Patient of /Sex:Treating RN:1970 (49 y.o. M) [facility] Care Provider: Katarzyna CHANDRA Clinician:Referring Provider: TreatingProvider/Poker Machine Attendant:Yina Edwards in Treatment: 10Advanced Modalities Screening Check ListHyperbaric Oxygen Therapy: Reviewed LCD or HBO policy from Mac and/or NCDTherapy Not IndicatedNo A ppropriate IndicationElectronic Signature(s)Signed: 12/24/2019 3:50:17 PM By: Lottie Zamarripa By: Arianne Zamarripa on 12/24/2019 10:31:47 ---------Arrival Information DetailsPatient Name:Date of Service:DIGNA HAMILTON. 12/24/2019 10:30AMMedical Record Number:[id number] Patient of /Sex:Treating RN:1970 (49 y.o. M)Primary Care Provider: Katarzyna CHANDRA Clinician:Oscar Mcintyre Provider: TreatingProvider/Poker Machine Attendant:Yina Edwards in Treatment: 10Visit Information History Since LastVisitAdded or deleted any medications: NoPatient Arrived: AmbulatoryAny new allergies or adverse reactions: NoArrival Time: 10:08Had a fall or experienced change in NoAccompanied By: self/driveractivities of daily living that may affectTransfer Assistance: NoneTransfer Assistance: Nonerisk of falls:Patient Identification Verified: YesSigns or symptoms of abuse/neglect since last visit? NoSecondary Verification Process Completed: YesHospitalized since last visit: NoImplantable device outside of the clinic excluding Nocellular tissue based products placed in the centersince last visit:Has Dressing in Place as Prescribed: YesPain Present Now: YesElectronic Signature(s)Signed: 12/26/2019 1:00:27 PM By: Mell MarlowEntered By: Mell Marlow on 12/24/2019 10:09:48 Discharge Instructions DetailsPatient Name:Date of Service:HAMILTONDIGNA 12/24/2019 10:30AMMedical Record Number:[id number] Patient of /Sex:Treating RN:1970 (49 y.o. M) Gary Zamarripa Care Provider: Katarzyna CHANDRA Clinician:Referring Provider: TreatingProvider/Poker Machine Attendant:Yina Edwards in Treatment: 10Follow-up AppointmentsReturn Appointment in 1 week. Should you experience any significant changes inyour wound(s) or have anyquestions regarding your home care instructions please contact the woundcenter. If after regular business hours,please call your family doctor or local emergency room.NOTES : 12/31/19 @ 10:30amAnesthetic.Dressing Change FrequencyDo not change entire dressing for one week.NOTES : may remove on day of next appt to showerSkin Barriers/Madhavi-Wound CareOther:NOTES : calmoseptine, triamcinolone and nystatin mixture to madhavi wound,triamcinolone cream to itchy areas,Primary Wound DressingApply Calcium Alginate to wound bedCut AwayFind Ag to fit wound bedOther:NOTES : prismaEdema Control2 Layer Compression System - Bilateral: Do not get legs with compression wrapwet. If wraps seem too tight,elevate legs above level of heart for one hour. If no relief, call the woundcenter.NOTES : with zinc cremeAvoid standing for long periods of timeAdditional Orders / InstructionsFollow diet per physicians instructions.LaboratoryBacteria identified in Wound by CultureNOTES : left lat lower leg,Convenience Name: Wound culture routineX-ray, lower legNOTES : tib/fibX-ray, footNOTES : dorsal foot,Patient Received Instructions: YesElectronic Signature(s)Signed: 12/25/2019 1:44:52 PM By: Radha William By: Sapna William on 12/24/2019 10:53:43 -------Encounter Discharge Information DetailsPatient Name:Date of Service:DIGNA HAMILTON Bud 12/24/201910:30 AMMedical Record Number:[id number] Patient of /Sex:Treating RN:1970 (49 y.o. M) [facility] Care Provider: Katarzyna CHANDRA Clinician:Referring Provider: TreatingProvider/Poker Machine Attendant:Yina Edwards Treatment: [facility] Dis[facility] Information Items Post ProcedureVitalsDischarge Condition: Stable Temperature(F): 98.2Ambulatory Status: AmbulatoryPulse (bpm):57Discharge Destination: Home Respiratory Rate(breaths/min): 17Transportation: Other Blood Pressure(mmHg): 138/75Accompanied By: [facility] Follow-up Appointment: YesClinical Summary of Care:Electronic Signature(s)Signed: 12/25/2019 2:56:37 PM By: Rowdy Aburto By: Kimmy Aburto on 12/24/2019 11:01:29 Low er Extremity Assessment DetailsPatient Name:Date of Service:DIGNA HAMILTON Bud 12/24/201910:30 AMMedical Record Number:[id number] Patient of /Sex:Treating RN:1970 (49 y.o. M)Primary Care Provider: Katarzyna CHANDRA Clinician:Oscar Mcintyre Provider: TreatingProvider/Poker Machine Attendant:Yina Edwards in Treatment: 10Edema AssessmentAssessed: [Left: Ye] [Right: s]N[Left: ] [Right: o]Edema: [Left: Ye] [Right: s]CalfLeft:Right:Point of Measurement: 36 cm From Medial Instep 56.5 cmcmAnkleLeft:Right:Point of Measurement: 12 cm From Medial Instep 36 cmcmVascular AssessmentPulses:Dorsalis PedisPalpable:Posterior TibialPalpable:Electronic Signature(s)Signed: 12/26/2019 3:26:27 PM By: Sharon Seaman RNPrevious Signature: 12/26/2019 1:00:27 PM Version By: Glenn Marlow By: Sharon Seaman on 12/26/2019 15:26:27 Multi Wound Chart DetailsPatient Name:Date of Service:DIGNA HAMILTON Bud 12/24/201910:30 AMMedical Record Number:[id number] Patient of /Sex:Treating RN:1970 (49 y.o. M) Ankit Zamarripa Care Provider: Katarzyna CHANDRA Clinician:Referring Provider: TreatingProvider/Poker Machine Attendant:Yina Edwards in Treatment: 10Vital SignsHeight(in):Pulse(bpm):60Weight(lbs): BloodPressure(mmHg): 142/85Body Mass Index(BMI):Temperature(F): 97.4Respiratory 22Rate(breaths/min):N/APhotos: [N/A:N/A]Wound Location: Left Lower Leg N/AN/AWounding Event: Gradually Appeared N/AN/APrimary Etiology: Diabetic Wound/Ulcer of the N/AN/ALower ExtremityComorbid History: Type II Diabetes, Sleep N/AN/AApnea, Hypertension,Peripheral Venous Disease,Osteoarthritis, Neur opathyDate Acquired: 10/09/2019 N/AN/AWeeks of Treatment: 10 N/AN/AWound Status: Open N/AN/AMeasurements L x W x D 2.2x1.2x0.3 N/AN/A(cm)Area (cm) : 2.073 N/AN/AVolume (cm) : 0.622 N/AN/A%Reduction in Area: -312.10% N/AN/A%Reduction in Volume: -1144.00% N/AN/AClassification: Grade 2 N/AN/AExudate Amount: Medium N/AN/AExudate Type: Purulent N/AN/AExudate Color: yellow, brown, green N/AN/AWound Margin: Distinct, outline attached N/AN/AGranulation Amount: Small (1-33%) N/AN/AGranulation Quality: Interior N/AN/ANecrotic Amount: Medium (34-66%) N/AN/AExposed Structures:Fascia: No N/AN/AFat Layer (SubcutaneousTissue) Exposed: NoTendon: NoMuscle: NoJoint: NoBone: NoEpithelialization: None N/AN/ADebridement: Debridement - Excisional N/AN/APre-procedure 10:21 N/AN/AVerification/Time Out Taken:Pain Control: Lidocaine 2% Topical Gel N/AN/ATissue Debrided: Muscle, Subcutaneous, N/AN/ASloughLevel: Skin/Subcutaneous N/AN/ATissue/MuscleDebridement Area (sq cm): 2.64 N/AN/AInstrument: Curette N/AN/ASpecimen: Swab N/AN/ANumber of Specimens Taken: 1 N/AN/ABleeding: None N/AN/AProcedural Pain: 0 N/AN/APost Procedural Pain: 0 N/AN/ADebridement Treatment Procedure was tolerated well N/AN/AResponse:Post Debridement 2.2x1.2x0.3 N/AN/AMeasurements L x W x D(cm)Post Debridement Volume: 0.622 N/AN/A(cm)Procedures Performed: Compression Therapy N/AN/ADebridementTreatment NotesElectronic Signature(s)Signed: 12/24/2019 3:50:17 PM By: Lottie Zamarripa By: Arianne Zamarripa on 12/24/2019 10:31:53 Mul ti-Disciplinary Care Plan DetailsPatient Name:Date of Service:HAMILTONDIGNA 12/24/201910:30 AMMedical Record Number:[id number] Patient of /Sex:Treating RN:1970 (49 y.o. M) Gary Zamarripa Care Provider: Katarzyna CHANDRA Clinician:Referring Provider: TreatingProvider/Poker Machine Attendant:Yina Edwards in Treatment: 10Active InactiveElectronic Signature(s)Signed: 01/16/2020 12:27:21 PM By: Josue Aburtoigned: 01/17/2020 3:05:34 PM By: Jolene Zamarripa Signature: 12/24/2019 3:50:17 PM Version By: Lottie Zamarripa By: Kimmy Aburto on 01/16/2020 12:27:21 Pain Assessment DetailsPatient Name:Date of Service:JOY DIGNA Bud 12/24/201910:30 AMMedical Record Number:[id number] Patient of /Sex:Treating RN:1970 (49 y.o. M)Primary Care Provider: Katarzyna CHANDRA Clinician:Oscar Mcintyre Provider: TreatingProvider/Poker Machine Attendant:Yina Edwards in Treatment: 10Active ProblemsLocation of Pain Severity andDescription of PainPatient Has Pain? YesSite LocationsPain Location:Pain in UlcersWith Dressing Change: YesDuration of the Pain.Constant / Intermittent? IntermittentRate the pain.Current Pain Level: 5Character of PainDescribe the Pain: Aching, Burning, StabbingPain Management and MedicationCurrent Pain Management:Medication: NoElectronic Signature(s)Signed: 12/26/2019 3:26:09 PM By: Sharon Seaman RNPrevious Signature: 12/26/2019 1:00:27 PM Version By: Glenn Marlow By: Sharon Seaman on 12/26/2019 15:26:08 --Patient/Caregiver Education DetailsPatient Name:Date of Service:HAMILTON DIGNA J. 12/24/20198129zglwoxm57:30 AMMedical Record Number:[id number] Patient of /Gender:Treating RN:1970 (49 y.o. M) [facility]: Katarzyna CHANDRA Clinician:Referring Physician: TreatingPhysician/Poker Machine Attendant:Yina Edwards in Treatment: 10Education AssessmentEducation Provided To:PatientEducation Topics ProvidedBasic Hygiene:Methods: Explain/VerbalElectronic Signature(s)Signed: 12/24/2019 3:50:17 PM By: Lottie Zamarripa By: Arianne Zamarripa on 12/24/19 10:32:07Treatment Notes SummaryWound #6 (Left Lower Leg)2. Periwound CareAntifungal creamAntifungal powderBarrier creamMoisturizing lotion3. Primary Dressing AppliedCalcium AlginateCollagensSilver Dressings5. Secured withTapeNotesTwo layer compression Vitals DetailsPatient Name:Date of Service:DIGNA HAMILTON 12/24/2019 10:30AMMedical Record Number:[id number] Patient of /Sex:Treating RN:1970 (49 y.o. M)Primary Care Provider: Katarzyna CHANDRA Clinician:Oscar Mcintyre Provider: Otto Obregon/Poker Machine Attendant:Yina Edwards in Treatment: 10Vital SignsTime Taken: 10:10Temperature (F):97.4Pulse (bpm): 60Respiratory Rate (breaths/min): 22Blood Pressure (mmHg): 142/85Reference Range: 80 - 120 mg / dlElectronic Signature(s)Signed: 12/26/2019 1:00:27 PM By: Mell MarlowEntered By: Mell Marlow on 12/24/2019 10:10:11 ----Wound Assessment DetailsPatient Name:Date of Service:DIGNA HAMILTON 12/24/2019 10:30AMMedical Record Number:[id number] Patient of /Sex:Treating RN:1970 (49 y.o. M)Primary Care Provider: Katarzyna CHANDRA Clinician:Mell McintyreReferrdaniel Provider: TreatingProvider/Poker Machine Attendant:Yina Edwards in Treatment: 10Wound StatusWound Number: 6 Primary DiabeticWound/Ulcer of the Lower ExtremityEtiology:Wound Location: Left Lower LegWound OpenWounding Event: Gradually AppearedStatus:Date Acquired: 10/09/2019Comorbid Type II Diabetes, Sleep Apnea, Hypertension,Weeks Of Treatment: 10History: Peripheral Venous Disease, Osteoarthritis,Clustered Wound: NoNeuropathyPhotosWound MeasurementsLength: (cm) 2.2 % RedArea: -312.1%Width: (cm) 1.2 % RedVolume: -1144%Depth: (cm) 0.3 EpithNoneArea: (cm) 2.073 TunnNoVolume: (cm) 0.622 UndeNoWound DescriptionClassification: Grade 2 FoulCleansing: NoWound Margin: Distinct, outline attached SlougYesExudate Amount: MediumExudate Type: PurulentExudate Color: yellow, brown, greenWound BedGranulation Amount: Small (1-33%)Exposed StructureGranulation Quality: Interior FasciNoNecrotic Amount: Medium (34-66%) Fat L(Subcutaneous Tissue) Exposed: NoNecrotic Quality: Adherent Slough TendoNoMuscle Exposed: NoJoint Exposed: NoBone Exposed: NoOdor Afterh/Fibrin?a Exposed:ayern Exposed:uction inuction inelialization:eling:rmining:Electronic Signature(s)Signed: 12/26/2019 1:00:27 PM By: Mell MarlowEntered By: Mell Marlow on 12/24/2019 10:16:29 DIC 1030TRANS:12/24/19 1030 WOUND CENTERTRANS BY:JAYA SIGNED:TIME SIGNED:REPORT COPY TO: Name Value Range Interpretation Code Description Data Smiley rce(s) Supporting Document(s) ID Date Data Source [id number] 12/24/2019 10:30:00 AM EDT [facility] [address]PATIENT NAME: DIGNA HAMILTON DATE OF SERVICE: 12/24/19MR#: [id number] DATE OF : [birth year]ACCOUNT #: [id number] PANCHAL ([id number])Visit Report for 12/24/2019Advanced Modalities Screening Tool DetailsPatient Name:Date of Service:DIGNA HAMILTON 12/24/2019 10:30AMMedical Record Number:[id number] Patient of /Sex:Treating RN:1970 (49 y.o. M) Gary Zamarripa Care Provider: Katarzyna CHANDRA Clinician:Referring Provider: TreatingProvider/Poker Machine Attendant:Yina Edwards in Treatment: 10Advanced Modalities Screening Check ListHyperbaric Oxygen Therapy: Reviewed LCD or HBO policy from [employer] and/or NCDTherapy Not IndicatedNo A ppropriate IndicationElectronic Signature(s)Signed: 12/24/2019 3:50:17 PM By: Lottie Zamarripa By: Arianne Zamarripa on 12/24/2019 10:31:47 ---------Arrival Information DetailsPatient Name:Date of Service:DIGNA HAMILTON 12/24/2019 10:30AMMedical Record Number:[id number] Patient of /Sex:Treating RN:1970 (49 y.o. M)Primary Care Provider: Katarzyna CHANDRA Clinician:Oscar Mcintyre Provider: TreatingProvider/Poker Machine Attendant:Yina Edwards in Treatment: 10Visit Information History Since LastVisitAdded or deleted any medications: NoPatient Arrived: AmbulatoryAny new allergies or adverse reactions: NoArrival Time: 10:08Had a fall or experienced change in NoAccompanied By: self/driveractivities of daily living that may affectTransfer Assistance: NoneTransfer Assistance: Nonerisk of falls:Patient Identification Verified: YesSigns or symptoms of abuse/neglect since last visit? NoSecondary Verification Process Completed: YesHospitalized since last visit: NoImplantable device outside of the clinic excluding Nocellular tissue based products placed in the centersince last visit:Has Dressing in Place as Prescribed: YesPain Present Now: YesElectronic Signature(s)Signed: 12/26/2019 1:00:27 PM By: Mell MarlowEntered By: Mell Marlow on 12/24/2019 10:09:48 Discharge Instructions DetailsPatient Name:Date of Service:DIGNA HAMILTON 12/24/2019 10:30AMMedical Record Number:[id number] Patient of /Sex:Treating RN:1970 (49 y.o. M) [facility] Care Provider: Katarzyna CHANDRA Clinician:Referring Provider: TreatingProvider/Poker Machine Attendant:Yina Edwards in Treatment: 10Follow-up AppointmentsReturn Appointment in 1 week. Should you experience any significant changes inyour wound(s) or have anyquestions regarding your home care instructions please contact the woundcenter. If after regular business hours,please call your family doctor or local emergency room.NOTES : 12/31/19 @ 10:30amAnesthetic.Dressing Change FrequencyDo not change entire dressing for one week.NOTES : may remove on day of next appt to showerSkin Barriers/Madhavi-Wound CareOther:NOTES : calmoseptine, triamcinolone and nystatin mixture to madhavi wound,triamcinolone cream to itchy areas,Primary Wound DressingApply Calcium Alginate to wound bedCut Aquacel Ag to fit wound bedOther:NOTES : prismaEdema Control2 Layer Compression System - Bilateral: Do not get legs with compression wrapwet. If wraps seem too tight,elevate legs above level of heart for one hour. If no relief, call the woundcenter.NOTES : with zinc cremeAvoid standing for long periods of timeAdditional Orders / InstructionsFollow diet per physicians instructions.LaboratoryBacteria identified in Wound by CultureNOTES : left lat lower leg,Convenience Name: Wound culture routineX-ray, lower legNOTES : tib/fibX-ray, footNOTES : dorsal foot,Patient Received Instructions: YesElectronic Signature(s)Signed: 12/25/2019 1:44:52 PM By: Radha William By: Sapna William on 12/24/2019 10:53:43 -------Encounter Discharge Information DetailsPatient Name:Date of Service:HAMILTONDIGNA 12/24/201910:30 AMMedical Record Number:[id number] Patient of /Sex:Treating RN:1970 (49 y.o. M) Maribell Aburto Care Provider: Katarzyna CHANDRA Clinician:Referring Provider: TreatingProvider/Poker Machine Attendant:Yina Edwards in Treatment: 10Encounter Discharge Information Items Post ProcedureVitalsDischarge Condition: Stable Temperature(F): 98.2Ambulatory Status: AmbulatoryPulse (bpm):57Discharge Destination: Home Respiratory Rate(breaths/min): 17Transportation: Other Blood Pressure(mmHg): 138/75Accompanied By: [facility] Follow-up Appointment: YesClinical Summary of Care:Electronic Signature(s)Signed: 12/25/2019 2:56:37 PM By: Rowdy Aburto By: Kimmy Aburto on 12/24/2019 11:01:29 Low er Extremity Assessment DetailsPatient Name:Date of Service:DIGNA HAMILTON 12/24/201910:30 AMMedical Record Number:[id number] Patient of /Sex:Treating RN:1970 (49 y.o. M)Primary Care Provider: Katarzyna CHANDRA Clinician:Oscar Mcintyre Provider: TreatingProvider/Poker Machine Attendant:Yina Edwards in Treatment: 10Edema AssessmentAssessed: [Left: Ye] [Right: s]N[Left: ] [Right: o]Edema: [Left: Ye] [Right: s]CalfLeft:Right:Point of Measurement: 36 cm From Medial Instep 56.5 cmcmAnkleLeft:Right:Point of Measurement: 12 cm From Medial Instep 36 cmcmVascular AssessmentPulses:Dorsalis PedisPalpable:Posterior TibialPalpable:Electronic Signature(s)Signed: 12/26/2019 3:26:27 PM By: Sharon Seaman RNPrevious Signature: 12/26/2019 1:00:27 PM Version By: Glenn Marlow By: Sharon Seaman on 12/26/2019 15:26:27 Multi Wound Chart DetailsPatient Name:Date of Service:DIGNA HAMILTON 12/24/201910:30 AMMedical Record Number:[id number] Patient of /Sex:Treating RN:1970 (49 y.o. M) Gary Zamarripa Care Provider: Katarzyna CHANDRA Clinician:Referring Provider: TreatingProvider/Poker Machine Attendant:Yina Edwards Treatment: 10Vital SignsHeight(in):Pulse(bpm):60Weight(lbs): BloodPressure(mmHg): 142/85Body Mass Index(BMI):Temperature(F): 97.4Respiratory 22Rate(breaths/min):N/APhotos: [N/A:N/A]Wound Location: Left Lower Leg N/AN/AWounding Event: Gradually Appeared N/AN/APrimary Etiology: Diabetic Wound/Ulcer of the N/AN/ALower ExtremityComorbid History: Type II Diabetes, Sleep N/AN/AApnea, Hypertension,Peripheral Venous Disease,Osteoarthritis, Neur opathyDate Acquired: 10/09/2019 N/AN/AWeeks of Treatment: 10 N/AN/AWound Status: Open N/AN/AMeasurements L x W x D 2.2x1.2x0.3 N/AN/A(cm)Area (cm) : 2.073 N/AN/AVolume (cm) : 0.622 N/AN/A%Reduction in Area: -312.10% N/AN/A%Reduction in Volume: -1144.00% N/AN/AClassification: Grade 2 N/AN/AExudate Amount: Medium N/AN/AExudate Type: Purulent N/AN/AExudate Color: yellow, brown, green N/AN/AWound Margin: Distinct, outline attached N/AN/AGranulation Amount: Small (1-33%) N/AN/AGranulation Quality: Interior N/AN/ANecrotic Amount: Medium (34-66%) N/AN/AExposed Structures:Fascia: No N/AN/AFat Layer (SubcutaneousTissue) Exposed: NoTendon: NoMuscle: NoJoint: NoBone: NoEpithelialization: None N/AN/ADebridement: Debridement - Excisional N/AN/APre-procedure 10:21 N/AN/AVerification/Time Out Taken:Pain Control: Lidocaine 2% Topical Gel N/AN/ATissue Debrided: Muscle, Subcutaneous, N/AN/ASloughLevel: Skin/Subcutaneous N/AN/ATissue/MuscleDebridement Area (sq cm): 2.64 N/AN/AInstrument: Curette N/AN/ASpecimen: Swab N/AN/ANumber of Specimens Taken: 1 N/AN/ABleeding: None N/AN/AProcedural Pain: 0 N/AN/APost Procedural Pain: 0 N/AN/ADebridement Treatment Procedure was tolerated well N/AN/AResponse:Post Debridement 2.2x1.2x0.3 N/AN/AMeasurements L x W x D(cm)Post Debridement Volume: 0.622 N/AN/A(cm)Procedures Performed: Compression Therapy N/AN/ADebridementTreatment NotesElectronic Signature(s)Signed: 12/24/2019 3:50:17 PM By: Lottie Zamarripa By: Arianne Zamarripa on 12/24/2019 10:31:53 Mul ti-Disciplinary Care Plan DetailsPatient Name:Date of Service:DIGNA HAMILTON Bud 12/24/201910:30 AMMedical Record Number:[id number] Patient of /Sex:Treating RN:1970 (49 y.o. M) Gary Zamarripa Care Provider: Katarzyna CHANDRA Clinician:Referring Provider: TreatingProvider/Poker Machine Attendant:Yina Edwards Treatment: 10Active InactiveWound/Skin ImpairmentNursing Diagnoses:Impaired tissue integrityKnowledge deficit related to ulceration/compromised skin integrityGoals:Ulcer/skin breakdown will heal within 14 weeksDate Initiated: 10/09/2019Target Resolution Date: 12/27/2019Goal Status: ActiveInterventions:Assess patient/caregiver ability to obtain necessary suppliesAssess patient/caregiver ability to perform ulcer/skin care regimen uponadmission and as neededAssess ulceration(s) every visitProvide education on ulcer and skin careTreatment Activities:Skin care regimen initiated : 10/09/2019Topical wound management initiated : 10/09/2019Notes:Electronic Signature(s)Signed: 12/24/2019 3:50:17 PM By: Sher Zamarripantered By: Arianne Zamarripa on 12/24/2019 10:31:41 Vj n Assessment DetailsPatient Name:Date of Service:DIGNA HAMILTON 12/24/201910:30 AMMedical Record Number:[id number] Patient of /Sex:Treating RN:1970 (49 y.o. M)Primary Care Provider: Katarzyna CHANDRA Clinician:Oscar Mcintyre Provider: TreatingProvider/Poker Machine Attendant:Yina Edwards Treatment: 10Active ProblemsLocation of Pain Severity andDescription of PainPatient Has Pain? YesSite LocationsPain Location:Pain in UlcersWith Dressing Change: YesDuration of the Pain.Constant / Intermittent? IntermittentRate the pain.Current Pain Level: 5Character of PainDescribe the Pain: Aching, Burning, StabbingPain Management and MedicationCurrent Pain Management:Medication: NoElectronic Signature(s)Signed: 12/26/2019 3:26:09 PM By: Sharon Seaman RNPrevious Signature: 12/26/2019 1:00:27 PM Version By: Glenn Marlow By: Eugenia Seaman on 12/26/2019 15:26:08 Pat ient/Caregiver Education DetailsPatient Name:Date of Service:DIGNA HAMILTONBasilio 12/24/20191861kkdnkxc25:30AMMedical Record Number:[id number] Patient of /Gender:Treating RN:1970 (49 y.o. M) [facility]Pr[facility] Phys[facility]: Katarzyna CHANDRA Clinician:Referring Phys ician: TreatingPhysician/Poker Machine Attendant:Yina Edwards in Treatment: 10Education AssessmentEducation Provided To:PatientEducation Topics ProvidedBasic Hygiene:Methods: Explain/VerbalElectronic Signature(s)Signed: 12/24/2019 3:50:17 PM By: Miguelito Zamarripaered By: Arianne Zamarripa on 12/24/2019 10:32:07Treatment Notes SummaryWound #6 (Left Lower Leg)2. Periwound CareAntifungal creamAntifungal powderBarrier creamMoisturizing lotion3. Primary Dressing AppliedCalcium AlginateCollagensSilver Dressings5. Secured withTapeNotesTwo layer compression --------Vitals DetailsPatient Name:Date of Service:DIGNA HAMILTONBasilio 12/24/2019 10:30 AMMedical Record Number:[id number] Patient of /Sex:Treating RN:1970 (49 y.o. M)Primary Care Provider: Katarzyna CHANDRA Clinician:Oscar Mcintyre Provider: TreatingProvider/Poker Machine Attendant:Yina Edwards in Treatment: 10Vital SignsTime Taken: 10:10Temperature (F):97.4Pulse (bpm): 60Respiratory Rate (breaths/min): 22Blood Pressure (mmHg): 142/85Reference Range: 80 - 120 mg / dlElectronic Signature(s)Signed: 12/26/2019 1:00:27 PM By: Mell MarlowEntered By: Mell Marlow on 12/24/2019 10:10:11 Wou nd Assessment DetailsPatient Name:Date of Service:DIGNA HAMILTON 12/24/2019 10:30 AMMedical Record Number:[id number] Patient of /Sex:Treating RN:1970 (49 y.o. M)Primary Care Provider: Katarzyna CHANDRA Clinician:Oscar Mcintyre Provider: TreatingProvide r/Poker Machine Attendant:Yina Edwards in Treatment: 10Wound StatusWound Number: 6 Primary DiabeticWound/Ulcer of the Lower ExtremityEtiology:Wound Location: Left Lower LegWound OpenWounding Event: Gradually AppearedStatus:Date Acquired: 10/09/2019Comorbid Type II Diabetes, Sleep Apnea, Hypertension,Weeks Of Treatment: 10History: Peripheral Venous Disease, Osteoarthritis,Clustered Wound: NoNeuropathyPhotosWound MeasurementsLength: (cm) 2.2 % Reduction-312.1%Width: (cm) 1.2 % Reduction-1144%Depth: (cm) 0.3 EpithelializNoneArea: (cm) 2.073Tunneling:NoVolume: (cm) 0.622 UnderminingNoWound DescriptionClassific ation: Grade 2 Foul Odor AfNoWound Margin: Distinct, outline attached Slough/FibriYesExudate Amount: MediumExudate Type: PurulentExudate Color: yellow, brown, greenWound BedGranulation Amount: Small (1-33%)Exposed StructureGranulation Quality: Interior Fascia ExposNoNecrotic Amount: Medium (34- 66%) Fat Layer (STissue) Exposed: NoNecrotic Quality: Adherent Slough Tendon ExposNoMuscle Exposed: NoJoint Exposed: NoBone Exposed: Noter Cleansing:n?ed:ubcutaneoused:in Area:in Volume:ation::Treatment NotesWound #6 (Left Lower Leg)2. Periwound CareAntifungal creamAntifungal powderBarrier creamMoisturizing lotion3. Primary Dressing AppliedCalcium AlginateCollagensSilver Dressings5. Secured withTapeNotesTwo layer compressionElectronic Signature(s)Signed: 12/26/2019 1:00:27 PM By: Mell MarlowEntered By: Mell Marlow on 12/24/2019 10:16:29 DIC 1030TRANS:12/24/19 1030 WOUND CENTERTRANS BY:JAYA SIGNED:TIME SIGNED:REPORT COPY TO: Name Value Range Interpretation Code Description Data Smiley rce(s) Supporting Document(s) ID Date Data Source [id number] 12/24/2019 10:30:00 AM EDT [place] [facility] [address]PATIENT NAME: DIGNA HAMILTON DATE OF SERVICE: 12/24/19MR#: [id number] DATE OF : [birth year]ACCOUNT #: [id number] PANCHAL ([id number])Visit Report for 12/24/2019Compression Therapy DetailsPatient Name:Date of Service:DIGNA HAMILTON. 12/24/2019 10:30 AMMedical Record Number:[id number] Patient of /Sex:Treating RN:1970 (49 y.o. M) Gary Zamarripa Care Provider: Katarzyna CHANDRA Clinician:Referring Provider: TreatingProvider/Poker Machine Attendant:Yina Edwards in Treatment: 10Compression Therapy Performed for Wound Assessment: Wound #6 Left Lower LegPerformed By: Clinician Arianne Zamarripa,RNCompression Type: Double LayerPost Procedure DiagnosisSame as Pre-procedureElectronic Signature(s)Signed: 12/24/2019 3:50:17 PM By: Sher Zamarripantered By: Arianne Zamarripa on 12/24/2019 10:29:01 Debridement DetailsPatient Name:Date of Service:DIGNA HAMILTON 12/24/2019 10:30 AMMedical Record Number:[id number] Patient of /Sex:Treating RN:1970 (49 y.o. M) Gary Zamarripa Care Provider: Katarzyna CHANDRA Clinician:Referring Provider: TreatingProvider/Poker Machine Attendant:Yina Edwards in Treatment: 10Debridement Performed for Wound #6 Left Lower LegAssessment:Performed By: Physician Sebastian Edwards DODebridement Type: DebridementSeverity of Tissue Pre Muscle involvement without necrosisMuscle involvement without necrosisDebridement:Level of Consciousness (Pre- Awake and Alertprocedure):Pre-procedure Verification/Time Y - 10:21esOut Taken:Start Time: 10:21Pain Control: Lidocaine 2% Topical GelTotal Area Debrided (L x W): 2.2 (cm) x 1.2 (cm) = 2.64 (cm)Tissue and other material Muscle, Slough, Subcutaneous, Biofilm, Sloughdebrided:Level: Skin/Subcutaneous Tissue/MuscleDebridement Description: ExcisionalInstrument: CuretteSpecimen: Swab,Number of Specimens Taken: 1Bleeding: NoneEnd Time: 10:24Procedural Pain: 0Post Procedural Pain: 0Response to Treatment: Procedure was tolerated wellLevel of Consciousness Awake and Alert(Post-procedure):Post Debridement Measurements of Total WoundLength: (cm) 2.2Width: (cm) 1.2Depth: (cm) 0.3Volume: (cm) 0.622Character of Wound/Ulcer Post ImprovedDebridement:Muscle involvement with outSeverity of Tissue Post Debridement: necrosisPost Procedure DiagnosisSame as Pre-procedureElectronic Signature(s)Signed: 12/24/2019 3:50:17 PM By: Robert ZamarripaaSigned: 12/25/2019 3:25:47 PM By: Sebastian Edwards D.O., FACSEntered By: Arianne Zamarripa on 12/24/2019 10:28:44 DIC 1030TRANS:12/24/19 1030 WOUND CENTERTRANS BY:JAYA SIGNED:TIME SIGNED:REPORT COPY TO: Name Value Range Interpretation Code Description Data Smiley rce(s) Supporting Document(s) ID Date Data Source [id number] 12/24/2019 10:30:00 AM EDT [place] [address] [id number] NAME: DIGNA HAMILTON DATE OF SERVICE: 12/24/19MR#: [id number] DATE OF : [birth year]ACCOUNT #: [id number] PANCHAL ([id number])Visit Report for 12/24/2019Chief Complaint Document DetailsPatient Name:Date of Service:DIGNA HAMILTON 12/24/2019 10:30 AMMedical Record Number:[id number] Patient of /Sex:Treating RN:1970 (49 y.o. M)Primary Care Provider: Katarzyna CHANDRA Clinician:Referring Provider: TreatingProvider/Poker Machine Attendant:Yina Edwards in Treatment: 10Information Obtained from: PatientChief ComplaintVenous ulcer on left legElectronic Signature(s)Signed: 12/25/2019 3:25:47 PM By: Sebastian Edwards D.O., FACSEntered By: Sebastian Edwards on 12/24/2019 10:16:45 HPI DetailsPatient Name:Date of Service:DIGNA HAMILTON 12/24/2019 10:30 AMMedical Record Number:[id number] Patient of /Sex:Treating RN:1970 (49 y.o. M)Primary Care Provider: Katarzyna CHANDRA Clinician:Referring Provider: TreatingProvider/Poker Machine Attendant:Yina Edwards in Treatment: 10History of Present IllnessHPI Description: Obese diabetic male smoker who presented on 10/09/2019 with arecurrent venous wound on his leftlateral calf area. He had a history of venous wound with known reflux diseaseon the left side and had undergone bilateralablation procedures after last being seen 02/02/19.The current wound had been present for a little over 2 weeks and he had beenwearing Juxta-Lite wraps for compression.Positive DiabetesPositive Tobacco (5/day)Positive Obesity (BMI 38)Negative weight lossNegative Cjycqoyg27/17/17 ANTIONE bilateral mild plaque and Triphasic flow. R 1.0/1.0, L 1.0/1.010 Venous Reflux on left with no DVT01/11/17 3 phase bone scan negative for osteo or moabcfzmcc23/19/17 Wound Culture Enterococcus susc to Napfqofqbm64/12/18 Left sided VNUS completed by Dr Deutsch02/24/18 Wound Culture: MSSA105/18/17 Wound Culture: MSSA11/24/18 Ankle Brachial Index: Left 1.04 Right 1. Wound Culture: Strep B sensitive to PCN12/15/18 Wound Culture: Strep B, MSSA10/09/2019: He was seen in the [facility] ER and was given an antibiotic for cellulitisof the left leg. He could not rememberwhat it was.AllergiesNo allergies have been documented for the patientFamily HistoryUnknown History - adopted.Social HistoryCurrent every day smoker - cigarettes- 5 a day,Marital Status - ,Alcohol Use - Rarely,Drug Use - No History,Caffeine Use - Moderate - coffee.Medical HistoryType II Diabetes treated with Oral AgentsSleep ApneaHypertensionPeripheral Venous DiseaseRheumatoid Arthritis - left foot, right shoulderNeuropathy - left foot- unsure if neuro pathyH[facility]ization/[facility] leg 2014NotesHe was last seen 10/09/2019 and has been unable to get transportation as [employer] told him that heneeds to go [facility] are [facility]. He has been thereand does not wish to go back forpersonal reasons.The wound is larger today and he has been using HEMA bandages for compression.He has some pain in his foot on the left side.Electronic Signature(s)Signed: 12/25/2019 3:25:47 PM By: Sebastian Edwards D.O., FACSEntered By: Sebastian Edwards on 12/24/2019 10:35:10 Physician Orders DetailsPatient Name:Date of Service:JOY DIGNA Bud 12/24/201910:30 AMMedical Record Number:[id number] Patient of /Sex:Treating RN:1970 (49 y.o. 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 - may remove on day of next appt toshowerSkin Barriers/Madhavi-Wound CareOther: - calmoseptine, triamcinolone and nystatin mixture to madhavi wound,triamcinolone cream to itchy areas,Primary Wound DressingCalcium AlginateAquacel AgOther: - prismaEdema Control2 Layer Compression System - Bilateral - with zinc cremeAvoid standing for long periods of timeAdditional Orders / InstructionsFollow Nutritious DietLaboratoryBacteria identified in Wound by Culture (MICRO) - left lat lower leg, - (QVZ95S60.322 - Non-pressure chronic ulcerof left ankle with fat layer exposed)LOINC Code: 6462-6Convenience Name: Wound culture routineRadiologyX-ray, lower leg - tib/fib - (ICD10 L97.322 - Non-pressure chronic ulcer ofleft ankle with fat layer exposed)X-ray, foot - dorsal foot, - (ICD10 E11.622 - Type 2 diabetes mellitus withother skin ulcer)Electronic Signature(s)Signed: 12/24/2019 10:35:47 AM By: Sebastian Edwards D.O., FACSEntered By: Sebastian Edwards on 12/24/2019 10:35:46 Problem List DetailsPatient Name:Date of Service:DIGNA HAMILTON 12/24/201910:30 AMMedical Record Number:[id number] Patient of /Sex:Treating RN:1970 (49 y.o. M)Primary Care Provider: Katarzyna CHANDRA Clinician:Referring Provider: TreatingProvider/Poker Machine Attendant:Yina Edwards in Treatment: 10Active ProblemsICD-10Evaluated EncounterCode DescriptionActive Date Today IaeihbdyoS54.332 Chronic venous hypertension (idiopathic) with ulcer and10/09/2019 No Yesinflammation of left lower wyrnxgdhhK07.325 Non-pressure telecommunications support ke ulcer of left ankle with muscle10/09/2019 No Yesinvolvement without evidence of cnsmsiflC85.43 Localized swelling, mass and lump, lower limb, bilateral10/09/2019 No YesE11.622 Type 2 diabetes mellitus with other skin ulcer10/09/2019 No YesE66.01 Morbid (severe) obesity due to excess calories10/09/2019 No YesL03.116 Cellulitis of left lower limb10/09/2019 No YesInactive ProblemsResolved ProblemsElectronic Signature(s)Signed: 12/25/2019 3:25:47 PM By: Sebastian Edwards D.O., FACSEntered By: Sebastian Edwards on 12/24/2019 10:36:44 DIC 1030TRANS:12/24/19 1030 WOUND CENTERTRANS BY:JAYA SIGNED:TIME SIGNED:REPORT COPY TO: Name Value Range Interpretation Code Description Data Smiley rce(s) Supporting Document(s) Procedure Social History No Information Vital Signs ID Date Data Source UNK Name Value Range Interpretation Code Description Data Source(s) Diastolic blood pressure 84 mm[Hg] 84 mm[Hg] [facility] ([facility]) Body height 72 [in_i] 72 [in_i] OM[facility] ([facility]) Body mass index (BMI) [Ratio] 59.7 kg/m2 59.7 k g/m2 OM[facility] ([facility]) Systolic blood pressure 142 mm[Hg] 142 mm[Hg] A THENA ([facility]) Body weight 7042 [oz_av] 7042 [oz_av] OMID ([facility]) Body height 72 [in_i] 72 [in_i] MEDENT ([facility] 6'0" Body weight 445.00 [lb_av] 445.00 [lb_av] MEDEN T ([facility] Systolic blood pressure 138 mm[Hg] 138 mm[Hg] M EDENT ([facility] Diastolic blood pressure 88 mm[Hg] 88 mm[Hg] MEDENT ([facility] Heart rate 72 /min 72 /min MEDENT ([facility] Body mass index (BMI) [Ratio] 60.3 kg/m2 60.3 k g/m2 MED[facility] ([facility]
[2021-02-10] MEDS ORDERED: KETOROLAC 30 MG/ML 1ML VIAL IV ONE (21:40)
[2021-02-10 22:34] LABS: BASO # 0.1 10^3/uL (0.0-0.2); BASO % 0.8 % (0.0-1.0); EOS # 0.1 10^3/uL (0.0-0.5); EOS % 0.9 % (0.0-3.0); HEMATOCRIT 48.2 % (42.0-52.0); HEMOGLOBIN 16.2 g/dl (13.5-17.5); LYMPH # 0.8 10^3/uL (1.5-5.0); LYMPH % 10.9 % (24.0-44.0); MEAN CORPUSCULAR HEMOGLOBIN 30.6 pg (27.0-33.0); MEAN CORPUSCULAR HGB CONC 33.6 g/dl (32.0-36.5); MEAN CORPUSCULAR VOLUME 91.1 fl (80.0-96.0); MONO # 0.8 10^3/uL (0.0-0.8); MONO % 9.9 % (2.0-8.0); NEUTROPHILS % 77.2 % (36.0-66.0); PLATELET COUNT, AUTOMATED 217 10^3/uL (150-450); RED BLOOD COUNT 5.29 10^6/uL (4.30-6.10); WHITE BLOOD COUNT 7.7 10^3/uL (4.0-10.0)
[2021-02-10 23:04] LABS: ALBUMIN 3.7 GM/DL (3.2-5.2); ALT/SGPT 43 U/L (12-78); BILIRUBIN,DIRECT < 0.1 MG/DL (0.0-0.2); BILIRUBIN,TOTAL 0.6 MG/DL (0.2-1.0); BLOOD UREA NITROGEN 11 MG/DL (7-18); CALCIUM LEVEL 8.9 MG/DL (8.5-10.1); CARBON DIOXIDE LEVEL 25 MEQ/L (21-32); CHLORIDE LEVEL 108 MEQ/L (98-107); CREATININE FOR GFR 0.88 MG/DL (0.70-1.30); GLOMERULAR FILTRATION RATE > 60.0 (>56); GLUCOSE, FASTING 85 MG/DL (70-100); LIPASE 94 U/L (73-393); POTASSIUM SERUM 5.1 MEQ/L (3.5-5.1); SODIUM LEVEL 139 MEQ/L (136-145); TOTAL PROTEIN 7.6 GM/DL (6.4-8.2)
[2021-02-11 00:23] LABS: RSV AMPLIFICATION NEGATIVE (NEGATIVE)
--- NOTE | 2021-02-11 00:57 | REPVR ---
PROCEDURE INFORMATION: Exam: CT Abdomen And Pelvis Without Contrast Exam date and time: 02/10/2021 11:27 PM Age: 50 years old Clinical indication: Other: Right flank pain, hematuria, HX of stones TECHNIQUE: Imaging protocol: Computed tomography of the abdomen and pelvis without contrast. Radiation optimization: All CT scans at this facility use at least one of these dose optimization techniques: automated exposure control; mA and/or kV adjustment per patient size (includes targeted exams where dose is matched to clinical indication); or iterative reconstruction. COMPARISON: 1. CT ABD/PEL W/IV CONTRAST ONLY 2018-11-17 23:[address] ABD PELVIS WITH CONTRAST 2015-03-10 14:48 FINDINGS: Limitations: Study is limited by the absence of contrast. Liver: Normal. No mass. Gallbladder and bile ducts: Normal. No calcified stones. No ductal dilation. Pancreas: Normal. No ductal dilation. Spleen: Normal. No splenomegaly. Adrenal glands: Normal. No mass. Kidneys and ureters: Exophytic left renal simple 1 cm cyst. No urolithiasis. Stomach and bowel: Unremarkable. No obstruction. No mucosal thickening. Appendix: No evidence of appendicitis. Intraperitoneal space: Unremarkable. No free air. No significant fluid collection. Vasculature: Unremarkable. No abdominal aortic aneurysm. Lymph nodes: Unremarkable. No enlarged lymph nodes. Urinary bladder: Unremarkable as visualized. Reproductive: Unremarkable as visualized. Bones/joints: Mild levoconvex thoracic lumbar curvature and mild spondylosis. Soft tissues: Large umbilical hernia. Other findings: Large amount of intra-abdominal fat. IMPRESSION: 1. No urolithiasis. 2. Large umbilical hernia. COMMENTS: Consistent with the [employer]'s Incidental Findings Committee white paper (J Am Ignacio Radiol 2018): Any incidental renal lesion less than 1 cm or classified as too small to characterize, or any incidental cystic renal lesion characterized as simple-appearing, is likely benign. No follow-up imaging is recommended for these lesions per consensus recommendations based on imaging criteria. Electronically signed by: Lamont Stanton On 02/11/2021 00:56:51 AM
[2021-02-11] MEDS ORDERED: METH-1165 PO (01:28)
[2021-02-11] MEDS ORDERED: NAPR500T6 PO (01:28)
[2021-02-11 01:45] VITALS: BP 128/75
== END 2021-02-11 02:41 | disposition home or self-care (01) ==
LOC: M ED 16:59
DX: U07.1 COVID-19 (principal); M54.50 Low back pain, unspecified; E11.9 Type 2 diabetes mellitus without complications; I10 Essential (primary) hypertension; Z87.442 Personal history of urinary calculi; F17.200 Nicotine dependence, unspecified, uncomplicated; E66.9 Obesity, unspecified; K42.9 Umbilical hernia without obstruction or gangrene; Z79.84 Long term (current) use of oral hypoglycemic drugs; Z79.899 Other long term (current) drug therapy
CPT/HCPCS: 74176; 80048; 80076; 81001; 83690; 85025; 87631; 93041; 96374; 99284; J1885

== ENCOUNTER → 2021-06-17 | Outpatient (CLI) | payer OTHER ==
[~2021-06-17] MED LIST changes: -LEVO500T3 PO; +LEVO500T4 PO; +METH-1165 PO; +NAPR500T6 PO
== END ==
LOC: M RAD 10:49
PROVIDERS: ATTEND Surgery
DX: K42.9 Umbilical hernia without obstruction or gangrene (principal)

== ENCOUNTER 2021-07-24 12:13 | Inpatient (IN) | payer OTHER ==
[~2021-07-24] VITALS: Ht 182.9 cm; Wt 203.3 kg
[~2021-07-24 12:13] MED LIST changes: -STEG15TA; +STEG15TA PO
[2021-07-24] MEDS ORDERED: NS 1,000 ML IV ONE (15:05)
[2021-07-24] MEDS ORDERED: MORPHINE 4 MG/ML 1ML VIAL/SYRINGE IV ONE (15:45)
[2021-07-24 15:55] LABS: BASO # 0.1 10^3/uL (0.0-0.2); BASO % 0.5 % (0.0-1.0); EOS # 0.2 10^3/uL (0.0-0.5); EOS % 1.6 % (0.0-3.0); HEMATOCRIT 44.9 % (42.0-52.0); HEMOGLOBIN 15.2 g/dl (13.5-17.5); LYMPH # 1.7 10^3/uL (1.5-5.0); LYMPH % 16.7 % (24.0-44.0); MEAN CORPUSCULAR HEMOGLOBIN 31.1 pg (27.0-33.0); MEAN CORPUSCULAR HGB CONC 33.9 g/dl (32.0-36.5); MONO # 0.6 10^3/uL (0.0-0.8); MONO % 6.1 % (2.0-8.0); NEUTROPHILS # 7.6 10^3/uL (1.5-8.5); NEUTROPHILS % 74.9 % (36.0-66.0); PLATELET COUNT, AUTOMATED 280 10^3/uL (150-450); RED BLOOD COUNT 4.88 10^6/uL (4.30-6.10); WHITE BLOOD COUNT 10.1 10^3/uL (4.0-10.0)
[2021-07-24 16:22] LABS: ERYTHROCYTE SEDIMENTATION RATE 8 mm/hr (0-20)
[2021-07-24 16:23] LABS: BLOOD UREA NITROGEN 12 MG/DL (7-18); C REACTIVE PROTEIN QUANTITATIV 1.05 MG/DL (0.00-0.30); CALCIUM LEVEL 8.9 MG/DL (8.5-10.1); CARBON DIOXIDE LEVEL 28 MEQ/L (21-32); CHLORIDE LEVEL 107 MEQ/L (98-107); CREATININE FOR GFR 0.85 MG/DL (0.70-1.30); GLOMERULAR FILTRATION RATE > 60.0 (>56); GLUCOSE, FASTING 87 MG/DL (70-100); POTASSIUM SERUM 4.2 MEQ/L (3.5-5.1); SODIUM LEVEL 140 MEQ/L (136-145)
[2021-07-24] MEDS ORDERED: VANCOMYCIN HCL 2,000 MG in D5W 500 ML IV ONE (16:45)
[2021-07-24 16:57] LABS: APPEARANCE, URINE CLEAR (CLEAR); BACTERIA, URINE AUTO NEGATIVE (NEGATIVE); BILIRUBIN, URINE AUTO NEGATIVE (NEGATIVE); BLOOD, URINE BLOOD 1+ (NEGATIVE); COLOR, URINE YELLOW (YELLOW); GLUCOSE, URINE (UA) AUTO NEGATIVE (NEGATIVE); KETONE, URINE AUTO NEGATIVE (NEGATIVE); LEUKOCYTE ESTERASE, URINE AUTO NEGATIVE (NEGATIVE); MUCUS, URINE SMALL (NEGATIVE); NITRITE, URINE AUTO NEGATIVE (NEGATIVE); PROTEIN, URINE AUTO NEGATIVE (NEGATIVE); RBC, URINE AUTO 3 /HPF (0-3); SPECIFIC GRAVITY URINE AUTO 1.019 (1.002-1.035); SQUAMOUS EPITHELIAL CELL UR AU 0 /HPF (0-6); WBC, URINE AUTO 3 /HPF (0-3)
[2021-07-24] MEDS ORDERED: VANCOMYCIN HCL 1,000 MG, VIAL MATE ADAPTER 1 EACH in NS 250 ML IV ONE ×3 (17:00→23:00)
[2021-07-24] MEDS ORDERED: HOME MED LIST COMPLETE! XX SCH (18:30)
[2021-07-24] MEDS ORDERED: ALBUTEROL 90 MCG/ACT 8GM HFA INHALER INH PRN (19:15)
[2021-07-24] MEDS ORDERED: **hydrALAZINE HCL** 25 MG TAB PO PRN (19:15)
[2021-07-24 20:13] LABS: INR 1.01; PROTHROMBIN TIME 13.7 SECONDS (12.7-14.5)
[2021-07-24 20:14] LABS: PARTIAL THROMBOPLASTIN TIME 44.1 SECONDS (25.9-37.0)
[2021-07-24 21:05] VITALS: BP 171/103
[2021-07-24] MEDS: PIPERACILLIN/TAZOBACTAM SOD 3.375 GM in D5W MINI-BAG PLUS 50 ML IV SCH (22:19)
[2021-07-24] MEDS: ATORVASTATIN 20 MG TAB PO SCH (22:19)
[2021-07-25] MEDS ORDERED: VANCOMYCIN HCL 1,000 MG, VIAL MATE ADAPTER 1 EACH in NS 250 ML IV ONE ×3
[2021-07-25] MEDS ORDERED: LISI10TA22 PO (01:09)
[2021-07-25] MEDS ORDERED: diphenhydrAMINE 50MG CAP PO ONE (02:00)
[2021-07-25 02:19] VITALS: BP 146/84
[2021-07-25] MEDS: PIPERACILLIN/TAZOBACTAM SOD 3.375 GM in D5W MINI-BAG PLUS 50 ML IV SCH ×4 (03:20→23:23)
[2021-07-25] MEDS: VANCOMYCIN HCL 1,000 MG, VIAL MATE ADAPTER 1 EACH in NS 250 ML IV SCH ×3 (04:28→20:51)
[2021-07-25 06:00] VITALS: BP 150/84
[2021-07-25] MEDS: VANCOMYCIN HCL 500 MG in D5W MINI-BAG PLUS 100 ML IV SCH ×3 (06:09→22:21)
[2021-07-25 06:28] LABS: HEMOGLOBIN 14.1 g/dl (13.5-17.5); MEAN CORPUSCULAR HEMOGLOBIN 31.1 pg (27.0-33.0); MEAN CORPUSCULAR HGB CONC 32.8 g/dl (32.0-36.5); MEAN CORPUSCULAR VOLUME 94.7 fl (80.0-96.0); PLATELET COUNT, AUTOMATED 261 10^3/uL (150-450); RED BLOOD COUNT 4.54 10^6/uL (4.30-6.10); WHITE BLOOD COUNT 8.4 10^3/uL (4.0-10.0)
[2021-07-25 06:53] LABS: BLOOD UREA NITROGEN 16 MG/DL (7-18); CALCIUM LEVEL 8.8 MG/DL (8.5-10.1); CARBON DIOXIDE LEVEL 25 MEQ/L (21-32); CHLORIDE LEVEL 112 MEQ/L (98-107); CREATININE FOR GFR 0.89 MG/DL (0.70-1.30); GLOMERULAR FILTRATION RATE > 60.0 (>56); GLUCOSE, FASTING 130 MG/DL (70-100); POTASSIUM SERUM 4.3 MEQ/L (3.5-5.1); SODIUM LEVEL 143 MEQ/L (136-145)
[2021-07-25] MEDS ORDERED: MORPHINE 2 MG/ML 1ML VIAL IV PRN (10:20)
[2021-07-25] MEDS ORDERED: traMADol 50 MG TAB PO PRN (10:20)
[2021-07-25] MEDS ORDERED: ACETAMINOPHEN TAB 650MG DOSE (2X325MG) PO PRN (10:20)
[2021-07-25] MEDS: SANTYL OINT 30GM TOP SCH (11:26)
[2021-07-25 14:00] VITALS: BP 142/68
[2021-07-25 20:52] VITALS: BP 142/82
[2021-07-25] MEDS: ATORVASTATIN 20 MG TAB PO SCH (20:52)
[2021-07-25 22:00] VITALS: BP 142/82
[2021-07-25] MEDS: HEPARIN SOD (PORCINE) 5000UNITS/ML 1ML VIAL/SYRINGE SC SCH (22:21)
[2021-07-26] MEDS: PIPERACILLIN/TAZOBACTAM SOD 3.375 GM in D5W MINI-BAG PLUS 50 ML IV SCH ×2 (03:48→09:58)
[2021-07-26] MEDS: VANCOMYCIN HCL 1,000 MG, VIAL MATE ADAPTER 1 EACH in NS 250 ML IV SCH (04:49)
[2021-07-26 06:00] VITALS: BP 138/74
[2021-07-26] MEDS: HEPARIN SOD (PORCINE) 5000UNITS/ML 1ML VIAL/SYRINGE SC SCH (06:06)
[2021-07-26] MEDS: VANCOMYCIN HCL 500 MG in D5W MINI-BAG PLUS 100 ML IV SCH (06:42)
[2021-07-26 07:03] LABS: HEMATOCRIT 42.3 % (42.0-52.0); HEMOGLOBIN 14.1 g/dl (13.5-17.5); MEAN CORPUSCULAR HEMOGLOBIN 31.1 pg (27.0-33.0); MEAN CORPUSCULAR HGB CONC 33.3 g/dl (32.0-36.5); MEAN CORPUSCULAR VOLUME 93.2 fl (80.0-96.0); PLATELET COUNT, AUTOMATED 246 10^3/uL (150-450); RED BLOOD COUNT 4.54 10^6/uL (4.30-6.10); WHITE BLOOD COUNT 8.1 10^3/uL (4.0-10.0)
[2021-07-26 07:25] LABS: BLOOD UREA NITROGEN 16 MG/DL (7-18); CALCIUM LEVEL 8.6 MG/DL (8.5-10.1); CARBON DIOXIDE LEVEL 25 MEQ/L (21-32); CHLORIDE LEVEL 111 MEQ/L (98-107); CREATININE FOR GFR 0.84 MG/DL (0.70-1.30); GLOMERULAR FILTRATION RATE > 60.0 (>56); GLUCOSE, FASTING 114 MG/DL (70-100); POTASSIUM SERUM 4.3 MEQ/L (3.5-5.1); SODIUM LEVEL 142 MEQ/L (136-145)
[2021-07-26] MEDS: SANTYL OINT 30GM TOP SCH (09:59)
[2021-07-26] MEDS ORDERED: TRAM50TA2 PO (11:41)
[2021-07-26] MEDS ORDERED: DOXY-350 PO (11:41)
== END 2021-07-26 14:10 | disposition home health service (06) | DRG 364 ==
LOC: M ED 12:13 → EEVIPCON 18:24 → M ED INP 18:24 → ENRESERV 20:11 → M MS5PR 21:05
PROVIDERS: ADMIT Internal Medicine; ATTEND Internal Medicine
PROC: 0JBP3ZZ Excision of Left Lower Leg Subcutaneous Tissue and Fascia, Percutaneous Approach (ICD-10-PCS; principal; 2021-07-25)
DX: L97.328 Non-pressure chronic ulcer of left ankle with other specified severity (principal); I11.0 Hypertensive heart disease with heart failure; I50.9 Heart failure, unspecified; L03.116 Cellulitis of left lower limb; E78.5 Hyperlipidemia, unspecified; G47.30 Sleep apnea, unspecified; K21.9 Gastro-esophageal reflux disease without esophagitis; R32 Unspecified urinary incontinence; M19.90 Unspecified osteoarthritis, unspecified site; F32.A Depression, unspecified; Z86.14 Personal history of Methicillin resistant Staphylococcus aureus infection; Z79.899 Other long term (current) drug therapy; Z87.442 Personal history of urinary calculi; J45.909 Unspecified asthma, uncomplicated; F17.200 Nicotine dependence, unspecified, uncomplicated; I87.2 Venous insufficiency (chronic) (peripheral); E74.39 Other disorders of intestinal carbohydrate absorption; B95.62 Methicillin resistant Staphylococcus aureus infection as the cause of diseases classified elsewhere

== ENCOUNTER 2021-10-13 11:49 | Emergency (ER) | payer OTHER ==
[~2021-10-13] VITALS: Ht 182.9 cm; Wt 200.8 kg
[~2021-10-13 11:49] MED LIST changes: +DOXY-350 PO; +TRAM50TA2 PO
[2021-10-13 11:50] VITALS: BP 136/64
[2021-10-13 13:49] LABS: BASO # 0.1 10^3/uL (0.0-0.2); BASO % 0.6 % (0.0-1.0); EOS # 0.3 10^3/uL (0.0-0.5); EOS % 2.6 % (0.0-3.0); HEMOGLOBIN 15.1 g/dl (13.5-17.5); LYMPH # 1.4 10^3/uL (1.5-5.0); LYMPH % 14.9 % (24.0-44.0); MEAN CORPUSCULAR HEMOGLOBIN 31.3 pg (27.0-33.0); MEAN CORPUSCULAR HGB CONC 34.3 g/dl (32.0-36.5); MEAN CORPUSCULAR VOLUME 91.3 fl (80.0-96.0); MONO # 0.6 10^3/uL (0.0-0.8); MONO % 6.2 % (2.0-8.0); NEUTROPHILS # 7.3 10^3/uL (1.5-8.5); NEUTROPHILS % 75.4 % (36.0-66.0); PLATELET COUNT, AUTOMATED 273 10^3/uL (150-450); RED BLOOD COUNT 4.82 10^6/uL (4.30-6.10); WHITE BLOOD COUNT 9.6 10^3/uL (4.0-10.0)
[2021-10-13 14:06] LABS: BLOOD UREA NITROGEN 14 MG/DL (7-18); C REACTIVE PROTEIN QUANTITATIV 0.84 MG/DL (0.00-0.30); CALCIUM LEVEL 9.4 MG/DL (8.5-10.1); CARBON DIOXIDE LEVEL 25 MEQ/L (21-32); CHLORIDE LEVEL 108 MEQ/L (98-107); CREATININE FOR GFR 0.92 MG/DL (0.70-1.30); GLOMERULAR FILTRATION RATE > 60.0 (>56); GLUCOSE, FASTING 100 MG/DL (70-100); POTASSIUM SERUM 4.1 MEQ/L (3.5-5.1); SODIUM LEVEL 140 MEQ/L (136-145)
[2021-10-13 14:25] LABS: ERYTHROCYTE SEDIMENTATION RATE 13 mm/hr (0-20)
[2021-10-13] MEDS ORDERED: KETOROLAC 30 MG/ML 1ML VIAL IV ONE (14:30)
[2021-10-13] MEDS ORDERED: BACITRACIN OINTMENT 30GM TUBE TOP ONE (15:25)
[2021-10-13] MEDS ORDERED: DOXY-342 PO (16:21)
== END 2021-10-13 17:32 | disposition home or self-care (01) ==
LOC: M ED 11:49
DX: L03.116 Cellulitis of left lower limb (principal); L97.229 Non-pressure chronic ulcer of left calf with unspecified severity; Z86.14 Personal history of Methicillin resistant Staphylococcus aureus infection; E11.622 Type 2 diabetes mellitus with other skin ulcer; I83.90 Asymptomatic varicose veins of unspecified lower extremity; I10 Essential (primary) hypertension; Z79.899 Other long term (current) drug therapy
CPT/HCPCS: 73610; 80048; 85025; 85652; 86140; 96374; 99282; J1885

== ENCOUNTER 2021-10-20 05:33 | Observation (INO) | payer OTHER ==
[~2021-10-20] VITALS: Ht 182.9 cm; Wt 195.5 kg
[~2021-10-20 05:33] MED LIST changes: +DOXY-342 PO; +LEVO1TAB39 PO; -LEVO500T4 PO
[2021-10-20] MEDS ORDERED: DOXY100T27 PO (06:50)
[2021-10-20] MEDS ORDERED: HOME MED LIST COMPLETE! XX SCH (06:50)
[2021-10-20 06:54] LABS: BASO # 0.1 10^3/uL (0.0-0.2); BASO % 0.6 % (0.0-1.0); EOS # 0.2 10^3/uL (0.0-0.5); EOS % 1.6 % (0.0-3.0); HEMATOCRIT 43.4 % (42.0-52.0); HEMOGLOBIN 14.6 g/dl (13.5-17.5); LYMPH # 1.5 10^3/uL (1.5-5.0); LYMPH % 12.5 % (24.0-44.0); MEAN CORPUSCULAR HEMOGLOBIN 31.3 pg (27.0-33.0); MEAN CORPUSCULAR HGB CONC 33.6 g/dl (32.0-36.5); MEAN CORPUSCULAR VOLUME 92.9 fl (80.0-96.0); MONO # 0.9 10^3/uL (0.0-0.8); MONO % 7.8 % (2.0-8.0); NEUTROPHILS # 9.4 10^3/uL (1.5-8.5); NEUTROPHILS % 77.1 % (36.0-66.0); PLATELET COUNT, AUTOMATED 286 10^3/uL (150-450); RED BLOOD COUNT 4.67 10^6/uL (4.30-6.10); WHITE BLOOD COUNT 12.1 10^3/uL (4.0-10.0)
[2021-10-20 07:35] LABS: RSV AMPLIFICATION NEGATIVE (NEGATIVE)
[2021-10-20] MEDS ORDERED: MORPHINE 4 MG/ML 1ML VIAL/SYRINGE IV ONE (08:05)
[2021-10-20] MEDS ORDERED: ONDANSETRON 4MG 2ML VIAL IV ONE (08:05)
[2021-10-20 08:38] LABS: ERYTHROCYTE SEDIMENTATION RATE 12 mm/hr (0-20)
[2021-10-20] MEDS ORDERED: VANCOMYCIN HCL 2,000 MG in IV FLUID PLACE HOLDER 1 EA IV ONE (08:55)
[2021-10-20] MEDS ORDERED: VANCOMYCIN HCL 1,000 MG, VIAL MATE ADAPTER 1 EACH in NS 250 ML IV ONE ×2 (09:00→10:00)
[2021-10-20] MEDS ORDERED: KETOROLAC 30 MG/ML 1ML VIAL IV ONE (10:00)
[2021-10-20] MEDS ORDERED: POTASSIUM CHLORIDE 10MEQ SR TABLET PO ONE (12:15)
[2021-10-20 12:59] LABS: BLOOD UREA NITROGEN 24 MG/DL (7-18); CALCIUM LEVEL 9.1 MG/DL (8.5-10.1); CARBON DIOXIDE LEVEL 21 MEQ/L (21-32); CHLORIDE LEVEL 115 MEQ/L (98-107); CREATININE FOR GFR 0.82 MG/DL (0.70-1.30); GLOMERULAR FILTRATION RATE > 60.0 (>56); GLUCOSE, FASTING 104 MG/DL (70-100); POTASSIUM SERUM 4.3 MEQ/L (3.5-5.1); SODIUM LEVEL 144 MEQ/L (136-145)
[2021-10-20] MEDS: ENOXAPARIN 60MG/0.6ML SYRINGE (J1650 PER 10MG) SC SCH ×2 (16:02→21:45)
[2021-10-20 16:25] VITALS: BP 143/79
[2021-10-20] MEDS ORDERED: SENNA 8.6 MG TAB (SENOKOT) PO PRN (17:05)
[2021-10-20] MEDS ORDERED: MORPHINE 2 MG/ML 1ML VIAL IV PRN (17:05)
[2021-10-20] MEDS ORDERED: MIRALAX *UNIT DOSE* 17GM PACKET PO PRN (17:05)
[2021-10-20] MEDS ORDERED: IBUPROFEN 800 MG TAB PO PRN (17:05)
[2021-10-20] MEDS ORDERED: oxyCODONE 5MG TAB PO PRN (17:05)
[2021-10-20] MEDS: ACETAMINOPHEN 325 MG TAB PO SCH (18:04)
[2021-10-20] MEDS: VANCOMYCIN HCL 1,000 MG, VIAL MATE ADAPTER 1 EACH in D5W 250 ML IV SCH (18:04)
[2021-10-20] MEDS: oxyCODONE 5MG TAB PO PRN (18:04)
[2021-10-20] MEDS ORDERED: GLUCAGON INJ 1MG VIAL SC PRN (19:35)
[2021-10-20] MEDS ORDERED: DEXTROSE 50% 50 ML SYRINGE IV PRN (19:35)
[2021-10-20] MEDS ORDERED: GLUCOSE 4GM CHEW TABLET PO PRN (19:35)
[2021-10-20] MEDS: VANCOMYCIN HCL 750 MG, VIAL MATE ADAPTER 1 EACH in D5W 250 ML IV SCH (19:40)
[2021-10-20 20:39] LABS: HEMOGLOBIN A1c 5.6 %
[2021-10-20] MEDS: INSULIN LISPRO (NovoLOG) PER UNIT SC SCH (21:00)
[2021-10-20] MEDS ORDERED: VANCOMYCIN HCL 1,000 MG, VIAL MATE ADAPTER 1 EACH in NS 250 ML IV SCH (21:00)
[2021-10-20] MEDS ORDERED: PROHANCE 279.3MG/ML 5ML VIAL As Ordered ONE (21:11)
[2021-10-20] MEDS ORDERED: PROHANCE 279.3MG/ML 15ML VIAL As Ordered ONE (21:11)
[2021-10-20] MEDS: ATORVASTATIN 20 MG TAB PO SCH (21:44)
[2021-10-20 22:00] VITALS: BP 172/91
[2021-10-21] MEDS: VANCOMYCIN HCL 1,000 MG, VIAL MATE ADAPTER 1 EACH in D5W 250 ML IV SCH (01:41)
[2021-10-21] MEDS: VANCOMYCIN HCL 750 MG, VIAL MATE ADAPTER 1 EACH in D5W 250 ML IV SCH ×3 (02:59→20:22)
[2021-10-21] MEDS: ACETAMINOPHEN 325 MG TAB PO SCH ×5 (05:47→23:57)
[2021-10-21 06:00] VITALS: BP 132/73
[2021-10-21 06:29] LABS: HEMATOCRIT 45.9 % (42.0-52.0); HEMOGLOBIN 14.8 g/dl (13.5-17.5); MEAN CORPUSCULAR HEMOGLOBIN 30.3 pg (27.0-33.0); MEAN CORPUSCULAR HGB CONC 32.2 g/dl (32.0-36.5); MEAN CORPUSCULAR VOLUME 93.9 fl (80.0-96.0); PLATELET COUNT, AUTOMATED 271 10^3/uL (150-450); RED BLOOD COUNT 4.89 10^6/uL (4.30-6.10); WHITE BLOOD COUNT 7.5 10^3/uL (4.0-10.0)
[2021-10-21 06:48] LABS: BLOOD UREA NITROGEN 21 MG/DL (7-18); CALCIUM LEVEL 8.8 MG/DL (8.5-10.1); CARBON DIOXIDE LEVEL 27 MEQ/L (21-32); CHLORIDE LEVEL 109 MEQ/L (98-107); CREATININE FOR GFR 0.81 MG/DL (0.70-1.30); GLOMERULAR FILTRATION RATE > 60.0 (>56); GLUCOSE, FASTING 101 MG/DL (70-100); POTASSIUM SERUM 4.1 MEQ/L (3.5-5.1); SODIUM LEVEL 140 MEQ/L (136-145)
[2021-10-21] MEDS: ENOXAPARIN 60MG/0.6ML SYRINGE (J1650 PER 10MG) SC SCH ×2 (07:53→20:22)
[2021-10-21] MEDS: INSULIN LISPRO (NovoLOG) PER UNIT SC SCH ×4 (07:54→20:23)
[2021-10-21] MEDS: oxyCODONE 5MG TAB PO PRN ×2 (09:09→20:23)
[2021-10-21 14:00] VITALS: BP 156/75
[2021-10-21] MEDS: VANCOMYCIN HCL 500 MG in D5W MINI-BAG PLUS 100 ML IV SCH ×2 (14:18→21:58)
[2021-10-21] MEDS: ATORVASTATIN 20 MG TAB PO SCH (20:22)
[2021-10-21 22:00] VITALS: BP 147/79
[2021-10-22] MEDS: VANCOMYCIN HCL 750 MG, VIAL MATE ADAPTER 1 EACH in D5W 250 ML IV SCH (04:24)
[2021-10-22 05:34] VITALS: BP 157/81
[2021-10-22] MEDS: ACETAMINOPHEN 325 MG TAB PO SCH ×2 (05:54→12:15)
[2021-10-22] MEDS: VANCOMYCIN HCL 500 MG in D5W MINI-BAG PLUS 100 ML IV SCH (05:54)
[2021-10-22 06:54] LABS: HEMATOCRIT 43.9 % (42.0-52.0); HEMOGLOBIN 14.6 g/dl (13.5-17.5); MEAN CORPUSCULAR HEMOGLOBIN 30.9 pg (27.0-33.0); MEAN CORPUSCULAR HGB CONC 33.3 g/dl (32.0-36.5); PLATELET COUNT, AUTOMATED 251 10^3/uL (150-450); RED BLOOD COUNT 4.72 10^6/uL (4.30-6.10); WHITE BLOOD COUNT 6.3 10^3/uL (4.0-10.0)
[2021-10-22 07:17] LABS: BLOOD UREA NITROGEN 14 MG/DL (7-18); CALCIUM LEVEL 8.8 MG/DL (8.5-10.1); CARBON DIOXIDE LEVEL 26 MEQ/L (21-32); CHLORIDE LEVEL 107 MEQ/L (98-107); CREATININE FOR GFR 0.85 MG/DL (0.70-1.30); GLOMERULAR FILTRATION RATE > 60.0 (>56); GLUCOSE, FASTING 114 MG/DL (70-100); POTASSIUM SERUM 3.9 MEQ/L (3.5-5.1); SODIUM LEVEL 138 MEQ/L (136-145)
[2021-10-22] MEDS: ENOXAPARIN 60MG/0.6ML SYRINGE (J1650 PER 10MG) SC SCH (08:03)
[2021-10-22] MEDS: INSULIN LISPRO (NovoLOG) PER UNIT SC SCH ×2 (08:03→12:00)
[2021-10-22] MEDS ORDERED: DOXYCYCLINE HYCLATE 100MG TABLET PO SCH (09:00)
[2021-10-22] MEDS ORDERED: AMOXICILLIN 875 MG TAB PO SCH (09:00)
[2021-10-22] MEDS ORDERED: OXYC-517 PO (10:05)
[2021-10-22] MEDS ORDERED: AMOX875T PO (10:05)
[2021-10-22] MEDS ORDERED: IBUP80TA PO (10:05)
[2021-10-22] MEDS ORDERED: ACET32TAB PO (10:05)
[2021-10-22] MEDS ORDERED: DOXY-350 PO (10:05)
[2021-10-22 12:45] LABS: C REACTIVE PROTEIN QUANTITATIV 0.92 MG/DL (0.00-0.30)
== END 2021-10-22 13:30 | disposition home or self-care (01) ==
LOC: EDBD 05:33 → M ED 05:33 → M ED INP 05:34 → ENRESERV 14:16 → M MSPAV 16:15
PROVIDERS: ADMIT Student in an Organized Health Care Education/Training Program; ATTEND Student in an Organized Health Care Education/Training Program
DX: L03.116 Cellulitis of left lower limb (principal); M25.572 Pain in left ankle and joints of left foot; B95.62 Methicillin resistant Staphylococcus aureus infection as the cause of diseases classified elsewhere; E11.628 Type 2 diabetes mellitus with other skin complications; E78.5 Hyperlipidemia, unspecified; Z86.14 Personal history of Methicillin resistant Staphylococcus aureus infection; I87.8 Other specified disorders of veins; G47.33 Obstructive sleep apnea (adult) (pediatric); K21.9 Gastro-esophageal reflux disease without esophagitis; R32 Unspecified urinary incontinence; M19.90 Unspecified osteoarthritis, unspecified site; F32.A Depression, unspecified; I11.0 Hypertensive heart disease with heart failure; I50.9 Heart failure, unspecified; I25.2 Old myocardial infarction; F17.210 Nicotine dependence, cigarettes, uncomplicated; Z79.899 Other long term (current) drug therapy; Z79.2 Long term (current) use of antibiotics
CPT/HCPCS: 36415; 73610; 73723; 80047; 80048; 80202; 83036; 83605; 85025; 85027; 85652; 86140; 87040; 87070; 87077; 87186; 87205; 87631; 87641; 93971; 96365; 96366; 96372; 96375; 96376; 97161; 97165; 97530; 99285; A9576; J1650; J1815; J1885; J2270; J2405; J3370

== ENCOUNTER 2021-12-01 19:46 | Emergency (ER) | payer OTHER ==
[~2021-12-01] VITALS: Ht 182.9 cm; Wt 202.4 kg
[~2021-12-01 19:46] MED LIST changes: +ACET32TAB PO; +AMOX875T PO; +DOXY100T27 PO; +IBUP80TA PO; +OXYC-517 PO
[2021-12-01] MEDS ORDERED: LISI10TA22 PO (20:17)
[2021-12-01 21:49] LABS: BASO # 0.1 10^3/uL (0.0-0.2); BASO % 0.6 % (0.0-1.0); EOS # 0.2 10^3/uL (0.0-0.5); EOS % 2.2 % (0.0-3.0); HEMATOCRIT 45.5 % (42.0-52.0); HEMOGLOBIN 15.3 g/dl (13.5-17.5); LYMPH # 1.6 10^3/uL (1.5-5.0); LYMPH % 15.1 % (24.0-44.0); MEAN CORPUSCULAR HEMOGLOBIN 31.3 pg (27.0-33.0); MEAN CORPUSCULAR HGB CONC 33.6 g/dl (32.0-36.5); MONO # 0.7 10^3/uL (0.0-0.8); MONO % 6.9 % (2.0-8.0); NEUTROPHILS # 8.1 10^3/uL (1.5-8.5); NEUTROPHILS % 74.9 % (36.0-66.0); PLATELET COUNT, AUTOMATED 260 10^3/uL (150-450); RED BLOOD COUNT 4.89 10^6/uL (4.30-6.10); WHITE BLOOD COUNT 10.8 10^3/uL (4.0-10.0)
[2021-12-01 22:11] LABS: ERYTHROCYTE SEDIMENTATION RATE 6 mm/hr (0-20)
[2021-12-01 22:21] LABS: ALBUMIN 3.6 GM/DL (3.2-5.2); ALT/SGPT 31 U/L (12-78); BILIRUBIN,TOTAL 0.4 MG/DL (0.2-1.0); BLOOD UREA NITROGEN 19 MG/DL (7-18); C REACTIVE PROTEIN QUANTITATIV 0.68 MG/DL (0.00-0.30); CALCIUM LEVEL 9.1 MG/DL (8.5-10.1); CARBON DIOXIDE LEVEL 27 MEQ/L (21-32); CHLORIDE LEVEL 110 MEQ/L (98-107); CREATININE FOR GFR 0.98 MG/DL (0.70-1.30); GLOMERULAR FILTRATION RATE > 60.0 (>56); GLUCOSE, FASTING 92 MG/DL (70-100); POTASSIUM SERUM 4.1 MEQ/L (3.5-5.1); SODIUM LEVEL 140 MEQ/L (136-145); TOTAL PROTEIN 7.1 GM/DL (6.4-8.2)
[2021-12-01 23:30] VITALS: BP 174/85
[2021-12-02] MEDS ORDERED: GABAPENTIN 300 MG CAP PO ONE (00:10)
[2021-12-02] MEDS ORDERED: PERCOCET 5MG/325MG TAB PO ONE (00:10)
[2021-12-02] MEDS ORDERED: OXYCODONE/APAP 5MG/325MG(HOME DOSE PACK) PO ONE (03:10)
[2021-12-02] MEDS ORDERED: PERC5TAB12 PO (03:12)
[2021-12-02] MEDS ORDERED: NEUR300C PO (03:12)
== END 2021-12-02 04:20 | disposition home or self-care (01) ==
LOC: M ED 19:46 → EDBD 19:46 → M ED 12-02 04:20
DX: I83.023 Varicose veins of left lower extremity with ulcer of ankle (principal); I73.9 Peripheral vascular disease, unspecified; K21.9 Gastro-esophageal reflux disease without esophagitis; E78.5 Hyperlipidemia, unspecified; E11.51 Type 2 diabetes mellitus with diabetic peripheral angiopathy without gangrene; I11.0 Hypertensive heart disease with heart failure; I50.9 Heart failure, unspecified; Z68.44 Body mass index [BMI] 60.0-69.9, adult; F17.210 Nicotine dependence, cigarettes, uncomplicated; Z79.899 Other long term (current) drug therapy

== ENCOUNTER 2021-12-07 12:57 | Emergency (ER) | payer OTHER ==
[~2021-12-07] VITALS: Ht 182.9 cm; Wt 200.0 kg
[~2021-12-07 12:57] MED LIST changes: +NEUR300C PO; +PERC5TAB12 PO
[2021-12-07] MEDS ORDERED: CLAR10CA3 PO (15:38)
[2021-12-07] MEDS ORDERED: TRIA1CR80 TOP (15:38)
[2021-12-07] MEDS ORDERED: PRED20TA PO (15:38)
[2021-12-07] MEDS ORDERED: MUPI30CR TOP (15:38)
[2021-12-07 15:47] VITALS: BP 145/84
== END 2021-12-07 15:50 | disposition home or self-care (01) ==
LOC: M ED 12:57
DX: L25.9 Unspecified contact dermatitis, unspecified cause (principal); L30.1 Dyshidrosis [pompholyx]; I25.10 Atherosclerotic heart disease of native coronary artery without angina pectoris; I10 Essential (primary) hypertension; E78.5 Hyperlipidemia, unspecified; G47.33 Obstructive sleep apnea (adult) (pediatric); F17.200 Nicotine dependence, unspecified, uncomplicated; Z79.899 Other long term (current) drug therapy

== ENCOUNTER 2022-02-21 05:27 | Emergency (ER) | payer OTHER ==
[~2022-02-21] VITALS: Ht 182.9 cm; Wt 200.0 kg
[~2022-02-21 05:27] MED LIST changes: +CLAR10CA3 PO; -DOXY-342 PO; -DOXY-350 PO; +DOXY-444 PO; +DOXY100C81 PO; +MUPI30CR TOP; +PRED20TA PO; +TRIA1CR80 TOP
[2022-02-21] MEDS ORDERED: LIDOCAINE VISCOUS 2% SOLN 15ML UDC SS ONE (08:10)
[2022-02-21] MEDS ORDERED: ACETAMINOPHEN 500 MG TAB PO ONE (08:10)
[2022-02-21] MEDS ORDERED: methylPREDNISolone 125MG 2ML VIAL IV ONE (08:10)
[2022-02-21] MEDS: ALBUTEROL 90 MCG/ACT 8GM HFA INHALER INH SCH ×2 (08:30→08:55)
[2022-02-21 09:08] LABS: BASO # 0.1 10^3/uL (0.0-0.2); BASO % 0.5 % (0.0-1.0); EOS # 0.2 10^3/uL (0.0-0.5); EOS % 1.5 % (0.0-3.0); HEMATOCRIT 45.5 % (42.0-52.0); HEMOGLOBIN 15.3 g/dl (13.5-17.5); LYMPH # 2.1 10^3/uL (1.5-5.0); LYMPH % 17.3 % (24.0-44.0); MEAN CORPUSCULAR HEMOGLOBIN 31.4 pg (27.0-33.0); MEAN CORPUSCULAR HGB CONC 33.6 g/dl (32.0-36.5); MEAN CORPUSCULAR VOLUME 93.2 fl (80.0-96.0); MONO # 0.9 10^3/uL (0.0-0.8); MONO % 7.8 % (2.0-8.0); NEUTROPHILS # 8.7 10^3/uL (1.5-8.5); NEUTROPHILS % 72.5 % (36.0-66.0); PLATELET COUNT, AUTOMATED 256 10^3/uL (150-450); RED BLOOD COUNT 4.88 10^6/uL (4.30-6.10); WHITE BLOOD COUNT 11.9 10^3/uL (4.0-10.0)
[2022-02-21 09:21] LABS: MONO REFLEX EBV COMP NEGATIVE (NEGATIVE)
[2022-02-21 09:35] LABS: ALBUMIN 3.7 G/DL (3.2-5.2); ALKALINE PHOSPHATASE 81 U/L (46-116); ALT/SGPT 29 U/L (7.0-40); AST/SGOT 27 U/L (<34); BILIRUBIN,TOTAL 0.3 MG/DL (0.3-1.2); BLOOD UREA NITROGEN 16 MG/DL (9-23); CALCIUM LEVEL 8.9 MG/DL (8.5-10.1); CARBON DIOXIDE LEVEL 23 MMOL/L (20-31); CHLORIDE LEVEL 110 MMOL/L (98-107); CREATININE FOR GFR 0.73 MG/DL (0.70-1.30); GLOMERULAR FILTRATION RATE > 60.0 (>56); GLUCOSE, FASTING 142 MG/DL (60-100); POTASSIUM SERUM 4.9 MMOL/L (3.5-5.1); SODIUM LEVEL 142 MMOL/L (136-145); TOTAL PROTEIN 6.8 G/DL (5.7-8.2)
[2022-02-21] MEDS ORDERED: MEDR4PAK PO (11:07)
[2022-02-21] MEDS ORDERED: ALBU6.7H6 INH (11:07)
[2022-02-21] MEDS ORDERED: BENZ200C70 PO (11:07)
[2022-02-21] MEDS ORDERED: AZIT-12 PO (11:09)
[2022-02-21 11:25] VITALS: BP 146/75
[2022-02-21] MEDS ORDERED: LIDO2SO SS (11:47)
[2022-02-23 16:08] LABS: EBV VIRAL CAPSID AG IgM <36.0 U/mL (0.0-35.9)
== END 2022-02-21 11:45 | disposition home or self-care (01) ==
LOC: M ED 05:27
DX: J02.8 Acute pharyngitis due to other specified organisms (principal); B34.9 Viral infection, unspecified; J39.2 Other diseases of pharynx; R06.00 Dyspnea, unspecified; J45.909 Unspecified asthma, uncomplicated; R00.2 Palpitations; I10 Essential (primary) hypertension; E11.9 Type 2 diabetes mellitus without complications; E78.5 Hyperlipidemia, unspecified; G47.33 Obstructive sleep apnea (adult) (pediatric); F41.9 Anxiety disorder, unspecified; F32.A Depression, unspecified; M54.9 Dorsalgia, unspecified; G89.29 Other chronic pain; E66.9 Obesity, unspecified; Z68.43 Body mass index [BMI] 50.0-59.9, adult
CPT/HCPCS: 71046; 80053; 85025; 86308; 86664; 86665; 87486; 87581; 87633; 87798; 87880; 94640; 96374; 99284; J2930

== ENCOUNTER 2022-11-18 16:54 | Emergency (ER) | payer OTHER ==
[~2022-11-18] VITALS: Ht 182.9 cm; Wt 222.7 kg
[~2022-11-18 16:54] MED LIST changes: +ALBU6.7H6 INH; +AZIT-12 PO; +BENZ200C70 PO; -DOXY100C81 PO; +DOXY100C82 PO; +LIDO15SO2 SS; +MEDR4PAK PO
[2022-11-18] MEDS ORDERED: MORPHINE 4 MG/ML 1ML VIAL IV ONE (20:50)
[2022-11-18] MEDS ORDERED: METOPROLOL 5 MG/5 ML VIAL IV PRN (20:50)
[2022-11-18] MEDS ORDERED: VANCOMYCIN HCL 2,000 MG in IV FLUID PLACE HOLDER 1 EA IV ONE (20:50)
[2022-11-18 20:51] LABS: INR 1.34; PROTHROMBIN TIME 16.2 SECONDS (12.5-14.5)
[2022-11-18 20:52] LABS: PARTIAL THROMBOPLASTIN TIME 34.8 SECONDS (24.8-34.2)
[2022-11-18] MEDS ORDERED: VANCOMYCIN HCL 1,000 MG, VIAL MATE ADAPTER 1 EACH in D5W 250 ML IV ONE ×2 (21:00→22:00)
[2022-11-18 21:03] LABS: RSV AMPLIFICATION NEGATIVE (NEGATIVE)
[2022-11-18 21:08] LABS: BASO # 0.1 10^3/uL (0.0-0.2); BASO % 0.7 % (0.0-1.0); EOS # 0.2 10^3/uL (0.0-0.5); EOS % 2.3 % (0.0-3.0); HEMATOCRIT 42.8 % (42.0-52.0); HEMOGLOBIN 14.4 g/dl (13.5-17.5); LYMPH # 1.7 10^3/uL (1.5-5.0); LYMPH % 16.7 % (24.0-44.0); MEAN CORPUSCULAR HEMOGLOBIN 30.5 pg (27.0-33.0); MEAN CORPUSCULAR HGB CONC 33.6 g/dl (32.0-36.5); MEAN CORPUSCULAR VOLUME 90.7 fl (80.0-96.0); MONO # 0.7 10^3/uL (0.0-0.8); MONO % 6.6 % (2.0-8.0); NEUTROPHILS # 7.6 10^3/uL (1.5-8.5); NEUTROPHILS % 73.5 % (36.0-66.0); PLATELET COUNT, AUTOMATED 192 10^3/uL (150-450); RED BLOOD COUNT 4.72 10^6/uL (4.30-6.10); WHITE BLOOD COUNT 10.4 10^3/uL (4.0-10.0)
[2022-11-18 21:15] LABS: ERYTHROCYTE SEDIMENTATION RATE 20 mm/hr (0-20)
[2022-11-18 21:26] LABS: ALKALINE PHOSPHATASE 62 U/L (46-116); ALT/SGPT 39 U/L (7.0-40); AST/SGOT 56 U/L (<34); BILIRUBIN,DIRECT 0.2 MG/DL (<0.4); BILIRUBIN,TOTAL 0.8 MG/DL (0.3-1.2); BLOOD UREA NITROGEN 14 MG/DL (9-23); CALCIUM LEVEL 9.3 MG/DL (8.5-10.1); CARBON DIOXIDE LEVEL 24 MMOL/L (20-31); CHLORIDE LEVEL 106 MMOL/L (98-107); CREATININE FOR GFR 0.82 MG/DL (0.70-1.30); GLOMERULAR FILTRATION RATE > 60.0 (>56); GLUCOSE, FASTING 87 MG/DL (60-100); POTASSIUM SERUM 5.2 MMOL/L (3.5-5.1); SODIUM LEVEL 139 MMOL/L (136-145); TOTAL PROTEIN 7.2 G/DL (5.7-8.2)
[2022-11-18] MEDS ORDERED: MORPHINE 2 MG/ML 1ML VIAL IV ONE (21:35)
[2022-11-18 21:54] LABS: CK-MB VALUE MASS < 1.0 NG/ML (<3.6); CPK CREATINE PHOSPHOKINASE 88 U/L (46-171); MB/CK RELATIVE INDEX 1.13 (< OR =4)
[2022-11-18] MEDS ORDERED: NS 1,000 ML IV ONE (22:45)
[2022-11-19 00:01] VITALS: BP 154/81; TEMP 98.1
[2022-11-19] MEDS ORDERED: DOXY-443 PO (00:01)
[2022-11-19 00:16] VITALS: O2SAT 80
== END 2022-11-19 01:10 | disposition home or self-care (01) ==
LOC: M ED 16:54 → EDBD 16:54 → M ED 11-19 01:10
DX: L03.116 Cellulitis of left lower limb (principal); S81.802A Unspecified open wound, left lower leg, initial encounter; E11.9 Type 2 diabetes mellitus without complications; I10 Essential (primary) hypertension; E66.01 Morbid (severe) obesity due to excess calories; Z86.14 Personal history of Methicillin resistant Staphylococcus aureus infection; Z79.899 Other long term (current) drug therapy

== ENCOUNTER 2023-05-22 15:10 | Inpatient (IN) | payer OTHER ==
[~2023-05-22] VITALS: Ht 182.9 cm; Wt 225.7 kg
[~2023-05-22 15:10] MED LIST changes: -LIDO15SO2 SS; +LIDO15SO9 SS
[2023-05-22] MEDS ORDERED: VANCOMYCIN HCL 2,000 MG in IV FLUID PLACE HOLDER 1 EA IV ONE (20:15)
[2023-05-22] MEDS: NS 1,000 ML IV ONE (20:58)
[2023-05-22] MEDS ORDERED: HOME MED LIST COMPLETE! XX SCH (21:00)
[2023-05-22 21:15] LABS: BASO # 0.1 10^3/uL (0.0-0.2); BASO % 0.6 % (0.0-1.0); EOS # 0.2 10^3/uL (0.0-0.5); EOS % 1.8 % (0.0-3.0); HEMATOCRIT 45.1 % (42.0-52.0); HEMOGLOBIN 15.3 g/dl (13.5-17.5); LYMPH # 1.6 10^3/uL (1.5-5.0); LYMPH % 16.5 % (24.0-44.0); MEAN CORPUSCULAR HEMOGLOBIN 31.2 pg (27.0-33.0); MEAN CORPUSCULAR HGB CONC 33.9 g/dl (32.0-36.5); MEAN CORPUSCULAR VOLUME 91.9 fl (80.0-96.0); MONO # 0.7 10^3/uL (0.0-0.8); NEUTROPHILS # 7.2 10^3/uL (1.5-8.5); NEUTROPHILS % 73.8 % (36.0-66.0); PLATELET COUNT, AUTOMATED 261 10^3/uL (150-450); RED BLOOD COUNT 4.91 10^6/uL (4.30-6.10); WHITE BLOOD COUNT 9.8 10^3/uL (4.0-10.0)
[2023-05-22] MEDS: VANCOMYCIN HCL 1,000 MG, VIAL MATE ADAPTER 1 EACH in D5W 250 ML IV ONE ×2 (21:18→22:42)
[2023-05-22 21:23] LABS: ERYTHROCYTE SEDIMENTATION RATE 27 mm/hr (0-20)
[2023-05-22 21:42] LABS: RSV AMPLIFICATION NEGATIVE (NEGATIVE)
[2023-05-22 21:43] LABS: ALBUMIN 3.7 G/DL (3.2-5.2); ALKALINE PHOSPHATASE 73 U/L (46-116); ALT/SGPT 25 U/L (7.0-40); AST/SGOT 12 U/L (<34); BILIRUBIN,DIRECT 0.1 MG/DL (<0.4); BILIRUBIN,TOTAL 0.4 MG/DL (0.3-1.2); BLOOD UREA NITROGEN 17 MG/DL (9-23); CALCIUM LEVEL 8.4 MG/DL (8.5-10.1); CARBON DIOXIDE LEVEL 28 MMOL/L (20-31); CHLORIDE LEVEL 109 MMOL/L (98-107); CREATININE FOR GFR 0.76 MG/DL (0.70-1.30); GLOMERULAR FILTRATION RATE > 60.0 (>56); GLUCOSE, FASTING 100 MG/DL (60-100); POTASSIUM SERUM 4.3 MMOL/L (3.5-5.1); SODIUM LEVEL 142 MMOL/L (136-145); TOTAL PROTEIN 6.9 G/DL (5.7-8.2)
[2023-05-22 21:49] LABS: PROCALCITONIN <0.04 ng/ml
[2023-05-23] MEDS ORDERED: MOM 30ML SUSPENSION UDC PO PRN (00:35)
[2023-05-23] MEDS ORDERED: MAALOX 30 ML SUSP *UDC PO PRN (00:35)
[2023-05-23] MEDS ORDERED: KETOROLAC 30 MG/ML 1ML VIAL IV PRN (00:35)
[2023-05-23] MEDS ORDERED: GLUCOSE 4GM CHEW TABLET PO PRN (00:35)
[2023-05-23] MEDS ORDERED: DEXTROSE 50% 50ML SYRINGE IV PRN (00:35)
[2023-05-23] MEDS ORDERED: VANCOMYCIN HCL 1,000 MG, VIAL MATE ADAPTER 1 EACH in NS 250 ML IV SCH (00:35)
[2023-05-23] MEDS ORDERED: ACETAMINOPHEN TAB 650MG DOSE (2X325MG) PO PRN (00:35)
[2023-05-23] MEDS ORDERED: GLUCAGON INJ 1MG VIAL SC PRN (00:35)
[2023-05-23] MEDS: FUROSEMIDE 20MG/2ML VIAL IV ONE (01:13)
[2023-05-23] MEDS: oxyCODONE 5MG TAB PO PRN (01:14)
[2023-05-23] MEDS: KETOROLAC 30 MG/ML 1ML VIAL IV PRN (01:37)
[2023-05-23 01:58] LABS: HEMOGLOBIN A1c 6.1 % (4.0-6.0)
[2023-05-23] MEDS: VANCOMYCIN HCL 750 MG, VIAL MATE ADAPTER 1 EACH in D5W 250 ML IV SCH (05:49)
[2023-05-23 06:23] LABS: HEMATOCRIT 43.3 % (42.0-52.0); HEMOGLOBIN 14.3 g/dl (13.5-17.5); MEAN CORPUSCULAR HEMOGLOBIN 30.4 pg (27.0-33.0); MEAN CORPUSCULAR VOLUME 92.1 fl (80.0-96.0); PLATELET COUNT, AUTOMATED 269 10^3/uL (150-450)
[2023-05-23] MEDS: VANCOMYCIN HCL 500 MG in D5W MINI-BAG PLUS 100 ML IV SCH (06:50)
[2023-05-23 06:58] LABS: ALBUMIN 3.5 G/DL (3.2-5.2); ALKALINE PHOSPHATASE 69 U/L (46-116); ALT/SGPT 25 U/L (7.0-40); AST/SGOT 15 U/L (<34); BILIRUBIN,TOTAL 0.6 MG/DL (0.3-1.2); BLOOD UREA NITROGEN 15 MG/DL (9-23); CALCIUM LEVEL 8.2 MG/DL (8.5-10.1); CARBON DIOXIDE LEVEL 27 MMOL/L (20-31); CHLORIDE LEVEL 107 MMOL/L (98-107); CREATININE FOR GFR 0.79 MG/DL (0.70-1.30); GLOMERULAR FILTRATION RATE > 60.0 (>56); GLUCOSE, FASTING 112 MG/DL (60-100); MAGNESIUM LEVEL 1.9 MG/DL (1.8-2.4); POTASSIUM SERUM 4.5 MMOL/L (3.5-5.1); SODIUM LEVEL 140 MMOL/L (136-145); TOTAL PROTEIN 6.6 G/DL (5.7-8.2)
[2023-05-23] MEDS: INSULIN LISPRO (NovoLOG) PER UNIT SC SCH ×2 (08:43→20:27)
[2023-05-23] MEDS: FUROSEMIDE 20 MG TAB PO SCH (08:43)
[2023-05-23] MEDS: DOCUSATE SODIUM 100MG CAPSULE PO SCH (08:44)
[2023-05-23 14:20] VITALS: BP 140/85; TEMP 97.5; O2SAT 98
[2023-05-23 16:00] VITALS: O2SAT 97
[2023-05-23 20:00] VITALS: BP 144/87; TEMP 97.3; O2SAT 95
[2023-05-23 21:18] VITALS: O2SAT 89
[2023-05-23 22:00] VITALS: BP 147/87; TEMP 97.3; O2SAT 96
[2023-05-24 04:46] LABS: BASO # 0.1 10^3/uL (0.0-0.2); BASO % 0.8 % (0.0-1.0); EOS # 0.3 10^3/uL (0.0-0.5); EOS % 2.9 % (0.0-3.0); HEMATOCRIT 43.2 % (42.0-52.0); HEMOGLOBIN 14.5 g/dl (13.5-17.5); LYMPH # 1.5 10^3/uL (1.5-5.0); MEAN CORPUSCULAR HEMOGLOBIN 30.9 pg (27.0-33.0); MEAN CORPUSCULAR HGB CONC 33.6 g/dl (32.0-36.5); MEAN CORPUSCULAR VOLUME 91.9 fl (80.0-96.0); MONO # 0.5 10^3/uL (0.0-0.8); MONO % 5.7 % (2.0-8.0); NEUTROPHILS # 6.6 10^3/uL (1.5-8.5); NEUTROPHILS % 73.3 % (36.0-66.0); PLATELET COUNT, AUTOMATED 270 10^3/uL (150-450)
[2023-05-24 05:08] LABS: BLOOD UREA NITROGEN 16 MG/DL (9-23); CALCIUM LEVEL 8.6 MG/DL (8.5-10.1); CARBON DIOXIDE LEVEL 28 MMOL/L (20-31); CHLORIDE LEVEL 103 MMOL/L (98-107); CREATININE FOR GFR 0.76 MG/DL (0.70-1.30); GLOMERULAR FILTRATION RATE > 60.0 (>56); GLUCOSE, FASTING 110 MG/DL (60-100); MAGNESIUM LEVEL 1.9 MG/DL (1.8-2.4); POTASSIUM SERUM 4.6 MMOL/L (3.5-5.1); SODIUM LEVEL 135 MMOL/L (136-145)
[2023-05-24 06:00] VITALS: BP 148/88; TEMP 97.5; O2SAT 94
[2023-05-24 09:00] VITALS: BP 146/85; TEMP 97.7; O2SAT 93
[2023-05-24 09:50] VITALS: O2SAT 94
[2023-05-24] MEDS ORDERED: BACT800T5 PO (10:34)
[2023-05-24] MEDS ORDERED: AMLO1TAB24 PO (10:35)
== END 2023-05-24 12:37 | disposition home or self-care (01) | DRG 383 ==
LOC: EDBD 15:10 → M ED 15:10 → M ED INP 23:55 → ENRESERV 05-23 12:29 → M MSPAV 05-23 14:30
PROVIDERS: ADMIT Internal Medicine; ATTEND Internal Medicine
PROC: 0JBP0ZZ Excision of Left Lower Leg Subcutaneous Tissue and Fascia, Open Approach (ICD-10-PCS; principal; 2023-05-23)
DX: L03.116 Cellulitis of left lower limb (principal); I11.0 Hypertensive heart disease with heart failure; I50.32 Chronic diastolic (congestive) heart failure; E11.622 Type 2 diabetes mellitus with other skin ulcer; L97.529 Non-pressure chronic ulcer of other part of left foot with unspecified severity; E66.2 Morbid (severe) obesity with alveolar hypoventilation; I87.2 Venous insufficiency (chronic) (peripheral); L97.328 Non-pressure chronic ulcer of left ankle with other specified severity; Z68.44 Body mass index [BMI] 60.0-69.9, adult; E78.5 Hyperlipidemia, unspecified; R60.0 Localized edema; J45.909 Unspecified asthma, uncomplicated; K21.9 Gastro-esophageal reflux disease without esophagitis; F32.A Depression, unspecified; R32 Unspecified urinary incontinence; M19.90 Unspecified osteoarthritis, unspecified site; B95.61 Methicillin susceptible Staphylococcus aureus infection as the cause of diseases classified elsewhere; F17.200 Nicotine dependence, unspecified, uncomplicated; M77.52 Other enthesopathy of left foot and ankle; B96.89 Other specified bacterial agents as the cause of diseases classified elsewhere; G89.29 Other chronic pain; R00.1 Bradycardia, unspecified; Z86.14 Personal history of Methicillin resistant Staphylococcus aureus infection; Z87.891 Personal history of nicotine dependence; Z91.148 Patient's other noncompliance with medication regimen for other reason; Z87.442 Personal history of urinary calculi

== ENCOUNTER 2023-09-05 12:53 | Emergency (ER) | payer MEDICARE, OTHER ==
[~2023-09-05] VITALS: Ht 188 cm; Wt 212.9 kg
[~2023-09-05 12:53] MED LIST changes: +AMLO1TAB24 PO; +DOXY-323 PO; +DOXY-440 PO; -DOXY-443 PO; -DOXY-444 PO
[2023-09-05] MEDS ORDERED: LISI10TA22 (13:15)
[2023-09-05 14:34] LABS: BASO # 0.1 10^3/uL (0.0-0.2); BASO % 0.7 % (0.0-1.0); EOS # 0.4 10^3/uL (0.0-0.5); EOS % 3.6 % (0.0-3.0); HEMATOCRIT 42.5 % (42.0-52.0); HEMOGLOBIN 14.6 g/dl (13.5-17.5); LYMPH # 1.5 10^3/uL (1.5-5.0); LYMPH % 15.1 % (24.0-44.0); MEAN CORPUSCULAR HEMOGLOBIN 31.1 pg (27.0-33.0); MEAN CORPUSCULAR HGB CONC 34.4 g/dl (32.0-36.5); MEAN CORPUSCULAR VOLUME 90.6 fl (80.0-96.0); MONO # 0.6 10^3/uL (0.0-0.8); NEUTROPHILS # 7.4 10^3/uL (1.5-8.5); NEUTROPHILS % 74.2 % (36.0-66.0); PLATELET COUNT, AUTOMATED 244 10^3/uL (150-450); RED BLOOD COUNT 4.69 10^6/uL (4.30-6.10)
[2023-09-05 14:39] LABS: ERYTHROCYTE SEDIMENTATION RATE 23 mm/hr (0-20)
[2023-09-05 14:47] LABS: INR 1.08; PARTIAL THROMBOPLASTIN TIME 34.9 SECONDS (24.8-34.2); PROTHROMBIN TIME 13.7 SECONDS (12.5-14.5)
[2023-09-05 15:06] LABS: ALBUMIN 3.8 G/DL (3.2-5.2); ALKALINE PHOSPHATASE 72 U/L (46-116); ALT/SGPT 31 U/L (7.0-40); AST/SGOT 12 U/L (<34); BILIRUBIN,DIRECT 0.2 MG/DL (<0.4); BILIRUBIN,TOTAL 0.6 MG/DL (0.3-1.2); BLOOD UREA NITROGEN 15 MG/DL (9-23); CALCIUM LEVEL 9.4 MG/DL (8.5-10.1); CARBON DIOXIDE LEVEL 26 MMOL/L (20-31); CHLORIDE LEVEL 107 MMOL/L (98-107); CREATININE FOR GFR 0.79 MG/DL (0.70-1.30); GLOMERULAR FILTRATION RATE > 60.0 (>56); GLUCOSE, FASTING 93 MG/DL (60-100); POTASSIUM SERUM 4.3 MMOL/L (3.5-5.1); SODIUM LEVEL 140 MMOL/L (136-145)
[2023-09-05 15:12] LABS: PROCALCITONIN <0.04 ng/ml
[2023-09-05 16:05] VITALS: BP 158/89; TEMP 97.9; O2SAT 96
== END 2023-09-05 16:11 | disposition home or self-care (01) ==
LOC: M ED 12:53
DX: I80.02 Phlebitis and thrombophlebitis of superficial vessels of left lower extremity (principal); I10 Essential (primary) hypertension; K21.9 Gastro-esophageal reflux disease without esophagitis; E78.5 Hyperlipidemia, unspecified; E11.9 Type 2 diabetes mellitus without complications; Z87.442 Personal history of urinary calculi; Z86.79 Personal history of other diseases of the circulatory system; Z87.891 Personal history of nicotine dependence; Z79.811 Long term (current) use of aromatase inhibitors

== ENCOUNTER → 2023-12-29 | Outpatient (REF) | payer MEDICARE, MEDICAID ==
[~2023-12-29] MED LIST changes: -DOXY-323 PO; +DOXY-441 PO; +LISI10TA22; +NAPR-1405 PO; -NAPR500T6 PO
[2023-12-29 18:55] LABS: ALBUMIN 3.8 G/DL (3.2-5.2); ALKALINE PHOSPHATASE 74 U/L (46-116); ALT/SGPT 28 U/L (7.0-40); AST/SGOT 14 U/L (<34); BASO # 0.1 10^3/uL (0.0-0.2); BASO % 0.8 % (0.0-1.0); BILIRUBIN,TOTAL 0.5 MG/DL (0.3-1.2); BLOOD UREA NITROGEN 20 MG/DL (9-23); CALCIUM LEVEL 10.1 MG/DL (8.5-10.1); CARBON DIOXIDE LEVEL 26 MMOL/L (20-31); CHLORIDE LEVEL 104 MMOL/L (98-107); CHOLESTEROL LEVEL 175 MG/DL (<200); CREATININE FOR GFR 0.75 MG/DL (0.70-1.30); EOS # 0.2 10^3/uL (0.0-0.5); EOS % 2.9 % (0.0-3.0); GLOMERULAR FILTRATION RATE > 60.0 (>56); GLUCOSE, FASTING 107 MG/DL (60-100); HDL CHOLESTEROL 42.6 MG/DL (>40); HEMATOCRIT 46.3 % (42.0-52.0); HEMOGLOBIN 15.3 g/dl (13.5-17.5); LDL CHOLESTEROL 85.6 MG/DL (<100); LYMPH # 1.7 10^3/uL (1.5-5.0); LYMPH % 20.8 % (24.0-44.0); MEAN CORPUSCULAR HEMOGLOBIN 30.2 pg (27.0-33.0); MEAN CORPUSCULAR VOLUME 91.3 fl (80.0-96.0); MONO # 0.4 10^3/uL (0.0-0.8); MONO % 5.2 % (2.0-8.0); NEUTROPHILS # 5.8 10^3/uL (1.5-8.5); NEUTROPHILS % 69.9 % (36.0-66.0); NON-HDL-C 132.4 MG/DL; PLATELET COUNT, AUTOMATED 277 10^3/uL (150-450); POTASSIUM SERUM 4.3 MMOL/L (3.5-5.1); RED BLOOD COUNT 5.07 10^6/uL (4.30-6.10); SODIUM LEVEL 138 MMOL/L (136-145); TOTAL PROTEIN 7.4 G/DL (5.7-8.2); TRIGLYCERIDES LEVEL 234 MG/DL (<150); WHITE BLOOD COUNT 8.2 10^3/uL (4.0-10.0)
[2023-12-29 18:57] LABS: THYROID STIMULATING HORMONE 1.354 uIU/ML (0.55-4.78)
[2023-12-29 18:59] LABS: PSA SCREENING 0.21 NG/ML (< 4.00)
[2023-12-29 19:14] LABS: MAU/CREAT RATIO 31.3 MCG/MG (0.0-30.0)
== END ==
LOC: M SFHCCAPE 14:17
PROVIDERS: ATTEND Physician Assistant Medical
DX: I10 Essential (primary) hypertension (principal); E11.69 Type 2 diabetes mellitus with other specified complication; E78.2 Mixed hyperlipidemia; G47.33 Obstructive sleep apnea (adult) (pediatric); Z12.5 Encounter for screening for malignant neoplasm of prostate
CPT/HCPCS: 80053; 80061; 82043; 83036; 84443; 85025; G0103

== ENCOUNTER 2024-10-04 06:47 | Inpatient (IN) | payer MEDICARE ==
[~2024-10-04] VITALS: Ht 182.9 cm; Wt 224.5 kg
[~2024-10-04 06:47] MED LIST changes: +DOXY-442 PO; -DOXY100C82 PO; -LISI10TA22
[2024-10-04 09:31] LABS: INR 1.01
[2024-10-04 09:38] LABS: BASO # 0.1 10^3/uL (0.0-0.2); BASO % 0.5 % (0.0-1.0); EOS # 0.3 10^3/uL (0.0-0.5); EOS % 2.7 % (0.0-3.0); LYMPH # 1.4 10^3/uL (1.5-5.0); LYMPH % 15.6 % (24.0-44.0); MONO # 0.6 10^3/uL (0.0-0.8); MONO % 6.9 % (2.0-8.0); NEUTROPHILS # 6.8 10^3/uL (1.5-8.5); NEUTROPHILS % 73.9 % (36.0-66.0); PLATELET COUNT, AUTOMATED 249 10^3/uL (150-450)
[2024-10-04 09:43] LABS: ERYTHROCYTE SEDIMENTATION RATE 28 mm/hr (0-20)
[2024-10-04 09:52] LABS: ALT/SGPT 36 U/L (7.0-40); AST/SGOT 20 U/L (<34); C REACTIVE PROTEIN QUANTITATIV 0.86 MG/DL (<1.0); CALCIUM LEVEL 9.5 MG/DL (8.5-10.1); CARBON DIOXIDE LEVEL 26 MMOL/L (20-31); CHLORIDE LEVEL 105 MMOL/L (98-107); CREATININE FOR GFR 0.80 MG/DL (0.70-1.30); GLOMERULAR FILTRATION RATE > 90.0 (>56); POTASSIUM SERUM 4.3 MMOL/L (3.5-5.1); SODIUM LEVEL 142 MMOL/L (136-145)
[2024-10-04] MEDS ORDERED: VANCOMYCIN 1000MG/20ML VIAL IP ONE (10:40)
[2024-10-04] MEDS: MORPHINE 2 MG/ML 1 ML VIAL IV PRN (10:58)
[2024-10-04] MEDS: VANCOMYCIN HCL 2,000 MG, VIAL MATE ADAPTER 1 EACH in NS 500 ML IV ONE (10:58)
[2024-10-04] MEDS: ONDANSETRON 4MG 2ML VIAL IV ONE (10:58)
[2024-10-04] MEDS ORDERED: MAALOX 30 ML SUSP *UDC PO PRN (11:50)
[2024-10-04] MEDS ORDERED: ACETAMINOPHEN 325 MG TAB PO PRN (11:50)
[2024-10-04] MEDS ORDERED: ASPI81TA26 PO (12:03)
[2024-10-04] MEDS ORDERED: HOME MED LIST COMPLETE! XX SCH (12:05)
[2024-10-04] MEDS: HEPARIN SOD 5000 UNITS/ML 1 ML VIAL/SYRINGE SC SCH (12:39)
[2024-10-04] MEDS: KETOROLAC 30 MG/ML 1 ML VIAL IV SCH (12:40)
[2024-10-04] MEDS: PANTOPRAZOLE 40MG TAB PO ONE (12:40)
[2024-10-04] MEDS: DOCUSATE SODIUM 100 MG CAPSULE PO SCH (12:47)
[2024-10-04] MEDS: ASPIRIN 81 MG ENTERIC TABLET PO SCH (14:31)
[2024-10-04 14:35] VITALS: BP 125/53
[2024-10-04] MEDS: FUROSEMIDE 100 MG/10 ML VIAL IV ONE (14:35)
[2024-10-04] MEDS: ACETAMINOPHEN 500 MG TAB PO SCH (16:17)
[2024-10-04] MEDS: CEFTAROLINE FOSAMIL 600 MG in DEXTROSE 5% (D5W) ADV/MINI-BAG 50 ML IV SCH (21:10)
[2024-10-04 23:00] VITALS: BP 139/79; TEMP 97.7; O2SAT 94
[2024-10-05 04:00] VITALS: BP 122/71; TEMP 98.2; O2SAT 95
[2024-10-05 06:22] LABS: BASO # 0.1 10^3/uL (0.0-0.2); BASO % 0.8 % (0.0-1.0); EOS # 0.4 10^3/uL (0.0-0.5); EOS % 3.9 % (0.0-3.0); LYMPH # 1.4 10^3/uL (1.5-5.0); LYMPH % 15.5 % (24.0-44.0); MONO # 0.5 10^3/uL (0.0-0.8); MONO % 5.9 % (2.0-8.0); NEUTROPHILS # 6.8 10^3/uL (1.5-8.5); NEUTROPHILS % 73.5 % (36.0-66.0); PLATELET COUNT, AUTOMATED 253 10^3/uL (150-450)
[2024-10-05 06:37] LABS: CALCIUM LEVEL 8.9 MG/DL (8.5-10.1); CARBON DIOXIDE LEVEL 26.0 MMOL/L (20-31); CHLORIDE LEVEL 105.0 MMOL/L (98-107); CREATININE FOR GFR 1.02 MG/DL (0.70-1.30); GLOMERULAR FILTRATION RATE 86.8 (>56); POTASSIUM SERUM 4.4 MMOL/L (3.5-5.1); SODIUM LEVEL 142.0 MMOL/L (136-145)
[2024-10-05 12:00] VITALS: BP 129/60; TEMP 98.4; O2SAT 96
[2024-10-05 12:01] VITALS: TEMP 97; O2SAT 96
[2024-10-05 20:12] VITALS: BP 128/63; TEMP 97.4; O2SAT 98
[2024-10-05] MEDS: PANTOPRAZOLE 40MG TAB PO SCH (20:45)
[2024-10-05 23:09] VITALS: BP 124/70; TEMP 97.8
[2024-10-06 04:00] VITALS: BP 117/76; TEMP 97.8; O2SAT 95
[2024-10-06 07:06] LABS: BASO # 0.0 10^3/uL (0.0-0.2); BASO % 0.6 % (0.0-1.0); EOS # 0.4 10^3/uL (0.0-0.5); EOS % 5.4 % (0.0-3.0); LYMPH # 1.4 10^3/uL (1.5-5.0); LYMPH % 21.8 % (24.0-44.0); MONO # 0.5 10^3/uL (0.0-0.8); MONO % 7.1 % (2.0-8.0); NEUTROPHILS # 4.2 10^3/uL (1.5-8.5); NEUTROPHILS % 64.6 % (36.0-66.0); PLATELET COUNT, AUTOMATED 236 10^3/uL (150-450)
[2024-10-06 07:12] LABS: CALCIUM LEVEL 9.3 MG/DL (8.5-10.1); CARBON DIOXIDE LEVEL 27.0 MMOL/L (20-31); CHLORIDE LEVEL 104.0 MMOL/L (98-107); CREATININE FOR GFR 1.0 MG/DL (0.70-1.30); GLOMERULAR FILTRATION RATE 88.9 (>56); POTASSIUM SERUM 4.6 MMOL/L (3.5-5.1); SODIUM LEVEL 142.0 MMOL/L (136-145)
[2024-10-06 11:35] VITALS: BP 137/66; TEMP 97.8; O2SAT 95
[2024-10-06 12:00] VITALS: BP 122/76; TEMP 98; O2SAT 95
[2024-10-06 19:30] VITALS: BP 133/74; TEMP 97.8
[2024-10-07] VITALS: BP 128/78; TEMP 98.6; O2SAT 96
[2024-10-07 04:00] VITALS: BP 124/76; TEMP 98.2
[2024-10-07 06:53] LABS: BASO # 0.1 10^3/uL (0.0-0.2); BASO % 0.5 % (0.0-1.0); EOS # 0.4 10^3/uL (0.0-0.5); EOS % 3.7 % (0.0-3.0); LYMPH # 1.3 10^3/uL (1.5-5.0); LYMPH % 13.9 % (24.0-44.0); MONO # 0.7 10^3/uL (0.0-0.8); MONO % 6.8 % (2.0-8.0); NEUTROPHILS # 7.1 10^3/uL (1.5-8.5); NEUTROPHILS % 74.6 % (36.0-66.0); PLATELET COUNT, AUTOMATED 224 10^3/uL (150-450)
[2024-10-07 07:21] LABS: CALCIUM LEVEL 8.9 MG/DL (8.5-10.1); CARBON DIOXIDE LEVEL 27.0 MMOL/L (20-31); CHLORIDE LEVEL 107.0 MMOL/L (98-107); CREATININE FOR GFR 1.05 MG/DL (0.70-1.30); GLOMERULAR FILTRATION RATE 83.8 (>56); POTASSIUM SERUM 4.4 MMOL/L (3.5-5.1); SODIUM LEVEL 143.0 MMOL/L (136-145)
[2024-10-07] MEDS ORDERED: ACET-683 PO (09:55)
[2024-10-07] MEDS ORDERED: IBUP-1022 PO (09:55)
[2024-10-07] MEDS ORDERED: LINE1TAB6 PO (09:55)
== END 2024-10-07 10:50 | disposition home or self-care (01) | DRG 603 ==
LOC: EDBD 06:47 → M ED 06:47 → M ED INP 11:49 → M MS4PR 23:00
PROVIDERS: ADMIT Internal Medicine Nephrology; ATTEND Internal Medicine Nephrology
DX: L03.116 Cellulitis of left lower limb (principal); L97.928 Non-pressure chronic ulcer of unspecified part of left lower leg with other specified severity; Z68.44 Body mass index [BMI] 60.0-69.9, adult; I50.32 Chronic diastolic (congestive) heart failure; E66.01 Morbid (severe) obesity due to excess calories; G47.33 Obstructive sleep apnea (adult) (pediatric); I87.2 Venous insufficiency (chronic) (peripheral); E78.5 Hyperlipidemia, unspecified; I11.0 Hypertensive heart disease with heart failure; K21.9 Gastro-esophageal reflux disease without esophagitis; R32 Unspecified urinary incontinence; E11.9 Type 2 diabetes mellitus without complications; F32.A Depression, unspecified; F17.200 Nicotine dependence, unspecified, uncomplicated; Z86.14 Personal history of Methicillin resistant Staphylococcus aureus infection; B95.62 Methicillin resistant Staphylococcus aureus infection as the cause of diseases classified elsewhere; M19.90 Unspecified osteoarthritis, unspecified site; R00.1 Bradycardia, unspecified; Z79.82 Long term (current) use of aspirin; Z79.899 Other long term (current) drug therapy; Z79.1 Long term (current) use of non-steroidal anti-inflammatories (NSAID)

== ENCOUNTER 2025-02-04 16:55 | Emergency (ER) | payer MEDICARE ==
[~2025-02-04] VITALS: Ht 182.9 cm; Wt 221.4 kg
[~2025-02-04 16:55] MED LIST changes: +ACET-683 PO; +ASPI81TA26 PO; +IBUP600T42 PO; +LINE1TAB6 PO
[2025-02-04 17:49] LABS: BASO # 0.1 10^3/uL (0.0-0.2); BASO % 0.6 % (0.0-1.0); EOS # 0.2 10^3/uL (0.0-0.5); EOS % 2.3 % (0.0-3.0); LYMPH # 1.5 10^3/uL (1.5-5.0); LYMPH % 15.1 % (24.0-44.0); MONO # 0.6 10^3/uL (0.0-0.8); MONO % 6.4 % (2.0-8.0); NEUTROPHILS # 7.4 10^3/uL (1.5-8.5); NEUTROPHILS % 75.2 % (36.0-66.0); PLATELET COUNT, AUTOMATED 257 10^3/uL (150-450)
[2025-02-04 18:19] LABS: CALCIUM LEVEL 9.2 MG/DL (8.5-10.1); CARBON DIOXIDE LEVEL 27 MMOL/L (20-31); CHLORIDE LEVEL 105 MMOL/L (98-107); CK-MB VALUE MASS < 1.0 NG/ML (<3.6); CPK CREATINE PHOSPHOKINASE 51 U/L (46-171); CREATININE FOR GFR 0.83 MG/DL (0.70-1.30); GLOMERULAR FILTRATION RATE > 90.0 (>56); POTASSIUM SERUM 5.5 MMOL/L (3.5-5.1); SODIUM LEVEL 143 MMOL/L (136-145)
[2025-02-04 19:32] LABS: POTASSIUM SERUM 4.6 MMOL/L (3.5-5.1)
[2025-02-04 21:01] LABS: CK-MB VALUE MASS < 1.0 NG/ML (<3.6)
[2025-02-04 21:02] LABS: MAGNESIUM LEVEL 1.8 MG/DL (1.8-2.4); PHOSPHORUS LEVEL 4.1 MG/DL (2.5-4.9)
[2025-02-04 21:04] LABS: FREE T4 1.11 NG/DL (0.89-1.76)
[2025-02-04 21:06] LABS: CPK CREATINE PHOSPHOKINASE 36 U/L (46-171)
[2025-02-04 21:30] LABS: CK-MB VALUE MASS < 1.0 NG/ML (<3.6); MAGNESIUM LEVEL 1.7 MG/DL (1.8-2.4); PHOSPHORUS LEVEL 3.7 MG/DL (2.5-4.9)
[2025-02-04 21:33] LABS: FREE T4 1.13 NG/DL (0.89-1.76)
[2025-02-04 21:35] LABS: CPK CREATINE PHOSPHOKINASE 35 U/L (46-171)
[2025-02-04] MEDS ORDERED: HOME MED LIST COMPLETE! XX SCH (21:40)
[2025-02-04 22:01] VITALS: BP 156/77; TEMP 98.8; O2SAT 94
== END 2025-02-04 22:11 | disposition home or self-care (01) ==
LOC: M ED 16:55
DX: R00.2 Palpitations (principal); R00.1 Bradycardia, unspecified; I45.2 Bifascicular block; I50.22 Chronic systolic (congestive) heart failure; K21.9 Gastro-esophageal reflux disease without esophagitis; E11.9 Type 2 diabetes mellitus without complications; I11.0 Hypertensive heart disease with heart failure; E78.5 Hyperlipidemia, unspecified; G47.33 Obstructive sleep apnea (adult) (pediatric); F17.290 Nicotine dependence, other tobacco product, uncomplicated; Z79.899 Other long term (current) drug therapy